=== PATIENT | male | born 1955 | race Caucasian/White ===

== ENCOUNTER 2016-08-18 15:04 | Inpatient (IN) | payer OTHER ==
--- NOTE | 2016-08-18 19:04 | HP ---
CIWA Score - CIWA Score Nausea/Vomitin-Mild Nausea/No Vomiting Muscle Tremors: 4-Moderate,w/Arms Extend Anxiety: 4-Mod. Anxious/Guarded Agitation: 4-Moderately Restless Paroxysmal Sweats: 2 Orientation: 0-Oriented Tacttile Disturbances: 0-None Auditory Disturbances: 0-None Visual Disturbances: 0-None Headache: 0-None Present CIWA-Ar Total Score: 15 Admission ROS BHS - HPI Chief Complaint: withdrawal sx Allergies/Adverse Reactions: Allergies Allergy/AdvReac Type Severity Reaction Status Date / Time No Known Allergies Allergy Verified 08/18/16 19:00 History of Present Illness: 61 years old male with long history of alcohol nicotine dependence, denies medical denies mental illness, longest sobriety 7 days is admitted to detox Exam Limitations: No Limitations - Ebola screening Have you traveled outside of the country in the last 21 days: No Have you had contact with anyone from an Ebola affected area: No Have you been sick,other than usual withdrawal symptoms: No Do you have a fever: No - Review of Systems Constitutional: Chills, Loss of Appetite, Changes in sleep, Unintentional Wgt. Loss EENT: reports: Dental Problems (no teeth able to chew regular food) Respiratory: reports: SOB with Exertion, Productive cough Cardiac: reports: Palpitations GI: reports: Nausea, Poor Appetite, Poor Fluid Intake, Indigestion, Abdominal cramping : reports: No Symptoms Reported Musculoskeletal: reports: Joint Pain (left hip sternal mid "hit" a month ago) Integumentary: reports: Change in Color (bruise mid sternal) Neuro: reports: Tremors Endocrine: reports: No Symptoms Reported Hematology: reports: No Symptoms Reported Psychiatric: reports: Judgement Intact, Mood/Affect Appropiate, Orientated x3 Other Systems: Reviewed and Negative Patient History - Patient Medical History Hx Anemia: No Hx Asthma: No Hx Chronic Obstructive Pulmonary Disease (COPD): Yes Hx Cancer: No Hx Cardiac Disorders: No Hx Congestive Heart Failure: No Hx Hypertension: No Hx Hypercholesterolemia: No Hx Pacemaker: No HX Cerebrovascular Accident: No Hx Seizures: No Hx Dementia: No Hx Diabetes: No Hx Gastrointestinal Disorders: No Hx Liver Disease: No Hx Genitourinary Disorders: No Hx Sexually Transmitted Disorders: No Hx Renal Disease (ESRD): No Hx Thyroid Disease: No Hx Human Immunodeficiency Virus (HIV): No Hx Hepatitis C: No Hx Depression: No Hx Suicide Attempt: No Hx Bipolar Disorder: No Hx Schizophrenia: No - Patient Surgical History Past Surgical History: No - PPD History Previous Implant?: Yes Documented Results: Negative w/o proof Implanted On Prior [facility] Admission?: No PPD to be Administered?: Yes - Smoking Cessation Smoking history: Current every day smoker Have you smoked in the past 12 months: Yes Aproximately how many cigarettes per day: 20 Cigars Per Day: 0 Hx Chewing Tobacco Use: No Initiated information on smoking cessation: Yes 'Breaking Loose' booklet given: 08/18/16 - Substance & Tx. History Hx Alcohol Use: Yes Hx Substance Use: No Substance Use Type: Alcohol Hx Substance Use Treatment: Yes - Substances Abused Alcohol Route: Oral Frequency: Daily Amount used: pint volka + 40 oz beer x 2 Age of first use: 18 Date of Last Use: 08/18/16 Family Disease History - Family Disease History Family Disease History: Diabetes: Mother, CA: Father (colon ), Sister ( breast ca) Admission Physical Exam [facility] - Physical General Appearance: Yes: Appropriately Dressed, Moderate Distress, Alcohol on Breath, Thin, Tremorous, Irritable, Sweating, Anxious HEENTM: Yes: Hearing grossly Normal, Normal ENT Inspection, Normocephalic, Normal Voice Respiratory: Yes: Chest Non-Tender, Labored Respiration, No Respiratory Distress , No Accessory Muscle Use, Rhonchi, Hyperresonant Neck: Yes: Supple, Trachea in good position Breast: Yes: Breasts Symetrical Cardiology: Yes: Regular Rhythm, S1, S2, Tachycardia Abdominal: Yes: Non Tender, Soft Genitourinary: Yes: Within Normal Limits Back: Yes: Normal Inspection Musculoskeletal: Yes: full range of Motion, Gait Steady, Back pain, Muscle Pain (mid steranal) Extremities: Yes: Normal Range of Motion, Non-Tender, Tremors Neurological: Yes: Fully Oriented, Alert, Motor Strength 5/5, Normal Mood/Affect , Normal Response Integumentary: Yes: Warm, Moist Lymphatic: Yes: Within Normal Limits - Diagnostic (1) Alcohol dependence with uncomplicated withdrawal Current Visit: Yes Status: Acute (2) Nicotine dependence Current Visit: Yes Status: Acute Qualifiers: Nicotine product type: cigarettes Substance use status: in withdrawal Qualified Code(s): F17.213 - Nicotine dependence, cigarettes, with withdrawal (3) Weight loss Current Visit: Yes Status: Acute (4) COPD (chronic obstructive pulmonary disease) Current Visit: Yes Status: Acute Qualifiers: COPD type: emphysema Emphysema type: other Qualified Code(s): J43.8 - Other emphysema (5) Bronchitis Current Visit: Yes Status: Acute Comment: Zithromax pack (6) Poor dentition Current Visit: Yes Status: Chronic Cleared for Admission B[facility] - Detox or Rehab B[facility] Level of Care: Medically Managed Detox Regimen/Protocol: Librium BHS Breath Alcohol Content Breath Alcohol Content: 0.266 Vital Signs - Vital Signs Vital Signs Refused: No Temperature: 96.2 F Temperature Source: Oral Pulse Rate: 100 Respiratory Rate: 18 Blood Pressure: 141/84 BP Location: Left Arm Blood Pressure Position: Sitting - Height Height: 5 ft 10 in - Weight Weight: 152 lb Weight Measurement Method: Standing Scale Body Mass Index (BMI): 21.8 - Bowel Function Bowel Movement: Yes
[2016-08-18 19:10] VITALS: BMI 21.8
[2016-08-18] MEDS ORDERED: guaiFENesin/D-METHORPHAN HB 10 ML UNIT-DOSE CUPS PO PRN (19:12)
[2016-08-18] MEDS ORDERED: MENTHOL/PHENOL 1 EACH UD MM PRN (19:12)
[2016-08-18] MEDS ORDERED: NICOTINE POLACRILEX 2 MG GUM BC PRN (19:12)
[2016-08-18] MEDS ORDERED: MAGNESIUM CITRATE 300 ML BOTTLE PO PRN (19:12)
[2016-08-18] MEDS ORDERED: P-EPHED 60MG/TRIPROLIDI 2.5MG TABLET PO PRN (19:12)
[2016-08-18] MEDS ORDERED: hydrOXYzine PAMOATE 50 MG CAPSULE (FP) PO PRN (19:12)
[2016-08-18] MEDS ORDERED: IBUPROFEN 400 MG TABLET (FP) PO PRN (19:12)
[2016-08-18] MEDS ORDERED: MAGNESIUM HYDROX 2400MG/30ML ORAL SUSPENSION 30 ML CUP PO PRN (19:12)
[2016-08-18] MEDS ORDERED: diphenhydrAMINE HCL 50 MG CAPSULE PO PRN (19:12)
[2016-08-18] MEDS ORDERED: ACETAMINOPHEN 325 MG TABLET (FP) PO PRN (19:12)
[2016-08-18] MEDS ORDERED: LOPERAMIDE HCL 2 MG CAPSULE PO PRN (19:12)
[2016-08-18] MEDS ORDERED: chlordiazePOXIDE HCL 25 MG CAPSULE PO ONE (19:12)
[2016-08-18] MEDS ORDERED: MAG HYDROX/AL HYDROX/SIMETH 30 ML UNIT-DOSE CUP PO PRN (19:12)
[2016-08-18] MEDS ORDERED: ALBUTEROL SO4 6.7 GM HFA INHALER IH PRN (19:19)
[2016-08-18] MEDS ORDERED: AZITHROMYCIN 250 MG TABLET (FP) PO ONE (19:20)
[2016-08-18] MEDS: chlordiazePOXIDE HCL 25 MG CAPSULE PO SCH (22:12)
[2016-08-18] MEDS: BUDESONIDE/FORMETEROL FUMARATE 80/4.5 mcg INHALER IH SCH (22:13)
[2016-08-18] MEDS: THIAMINE HCL 100 MG TABLET (FP) PO SCH (22:13)
[2016-08-18 22:36] LABS: URINE APPEARANCE CLEAR; URINE BILIRUBIN NEGATIVE (NEGATIVE); URINE BLOOD NEGATIVE (NEGATIVE); URINE COLOR STRAW; URINE GLUCOSE (UA) NEGATIVE (NEGATIVE); URINE KETONE NEGATIVE (NEGATIVE); URINE LEUK ESTERASE NEGATIVE (NEGATIVE); URINE NITRITE NEGATIVE (NEGATIVE); URINE PROTEIN NEGATIVE (NEGATIVE); URINE UROBILINOGEN NEGATIVE E.U./dl (0.2-1.0)
[2016-08-19] MEDS: chlordiazePOXIDE HCL 25 MG CAPSULE PO PRN ×2 (03:59→09:05)
[2016-08-19] MEDS: chlordiazePOXIDE HCL 25 MG CAPSULE PO SCH ×4 (05:59→22:05)
[2016-08-19] MEDS ORDERED: AZITHROMYCIN 250 MG TABLET (FP) PO ONE (09:36)
--- NOTE | 2016-08-19 09:46 | PN ---
S Progress Note (SOAP) Objective: 08/19/16 09:44 Vital Signs Temperature 96.1 F L 08/19/16 09:21 Pulse Rate 101 H 08/19/16 09:21 Respiratory Rate 16 08/19/16 09:21 Blood Pressure 122/74 08/19/16 09:21 O2 Sat by Pulse Oximetry (%) Laboratory Tests 08/18/16 22:00 Urine Color Straw Urine Appearance Clear Urine pH 5.0 Ur Specific [place] 1.005 Urine Protein Negative Urine Glucose (UA) Negative Urine Ketones Negative Urine Blood Negative Urine Nitrite Negative Urine Bilirubin Negative Urine Urobilinogen Negative Ur Leukocyte Esterase Negative Assessment: 08/19/16 09:44 withdrawl sx's
[2016-08-19] MEDS ORDERED: AZITHROMYCIN 250 MG TABLET (FP) PO SCH (10:00)
[2016-08-19] MEDS: PRENATAL VITAMINS W/ FOLIC ACID TABLET (FP) PO SCH (10:12)
[2016-08-19] MEDS: NICOTINE 21 MG/24 HOURS TOPICAL PATCH TD SCH (10:13)
[2016-08-19] MEDS: AZITHROMYCIN 250 MG TABLET (FP) PO SCH (10:13)
[2016-08-19 10:53] LABS: MCH 33.9 pg (25.7-33.7); MCHC 33.8 g/dl (32.0-35.9); MEAN CELL VOLUME 100.4 fl (80-96); MEAN PLT VOLUME 8.1 fl (7.5-11.1); PLATELET COUNT 180 K/MM3 (134-434); RDW 16.1 % (11.9-15.9); WHITE BLOOD COUNT 5.7 K/mm3 (4.0-10.0)
[2016-08-19 11:26] LABS: ALBUMIN 3.4 g/dl (3.4-5.0); ALK PHOS 118 U/L (45-117); ANION GAP 12 (8-16); BILIRUBIN,TOTAL 0.5 mg/dL (0.2-1.0); CALCIUM 8.3 mg/dL (8.5-10.1); CO2 25 mmol/L (21-32); CREATININE 0.8 mg/dL (0.7-1.3); GLUCOSE,RANDOM 93 mg/dL (74-106); SGOT/AST 42 U/L (15-37); SGPT/ALT 60 U/L (12-78); TOT PROT 6.7 g/dl (6.4-8.2)
--- NOTE | 2016-08-19 12:31 | EKG ---
Test Reason : Blood Pressure : / mmHG Vent. Rate : 096 BPM Atrial Rate : 096 BPM P-R Int : 138 ms QRS Dur : 158 ms QT Int : 406 ms P-R-T Axes : 072 -45 064 degrees QTc Int : 512 ms NORMAL SINUS RHYTHM POSSIBLE LEFT ATRIAL ENLARGEMENT LEFT AXIS DEVIATION LEFT VENTRICULAR HYPERTROPHY WITH QRS WIDENING ABNORMAL ECG NO PREVIOUS ECGS AVAILABLE Confirmed by MICHELLE PIÑA MD ([id number]) on 08/19/2016 12:31:06 PM Referred By: Confirmed By:MICHELLE PIÑA MD
--- NOTE | 2016-08-19 14:39 | PN ---
S CIWA - CIWA Score Nausea/Vomitin Muscle Tremors: 4-Moderate,w/Arms Extend Anxiety: 3 Agitation: 3 Paroxysmal Sweats: 3 Orientation: 0-Oriented Tacttile Disturbances: 0-None Auditory Disturbances: 0-None Visual Disturbances: 0-None Headache: 0-None Present CIWA-Ar Total Score: 16 S Progress Note (SOAP) Subjective: interrupted sleep, sweats, shakes , cough , phlegm Objective: 08/19/16 14:36 Vital Signs Temperature 97.7 F 08/19/16 14:03 Pulse Rate 99 H 08/19/16 14:03 Respiratory Rate 16 08/19/16 14:03 Blood Pressure 150/82 08/19/16 14:03 O2 Sat by Pulse Oximetry (%) Laboratory Tests 08/18/16 08/19/16 08/19/16 22:00 07:00 07:00 WBC 5.7 RBC 3.66 L Hgb 12.4 Hct 36.8 MCV 100.4 H MCHC 33.8 RDW 16.1 H Plt Count 180 MPV 8.1 Sodium 141 Potassium 4.1 Chloride 104 Carbon Dioxide 25 Anion Gap 12 BUN 11 Creatinine 0.8 Creat Clearance w eGFR > 60 Random Glucose 93 Calcium 8.3 L Total Bilirubin 0.5 AST 42 H ALT 60 Alkaline Phosphatase 118 H Total Protein 6.7 Albumin 3.4 Urine Color Straw Urine Appearance Clear Urine pH 5.0 Ur Specific [place] 1.005 Urine Protein Negative Urine Glucose (UA) Negative Urine Ketones Negative Urine Blood Negative Urine Nitrite Negative Urine Bilirubin Negative Urine Urobilinogen Negative Ur Leukocyte Esterase Negative RPR Titer 08/19/16 07:00 WBC RBC Hgb Hct MCV MCHC RDW Plt Count MPV Sodium Potassium Chloride Carbon Dioxide Anion Gap BUN Creatinine Creat Clearance w eGFR Random Glucose Calcium Total Bilirubin AST ALT Alkaline Phosphatase Total Protein Albumin Urine Color Urine Appearance Urine pH Ur Specific [place] Urine Protein Urine Glucose (UA) Urine Ketones Urine Blood Urine Nitrite Urine Bilirubin Urine Urobilinogen Ur Leukocyte Esterase RPR Titer Nonreactive pt aox3 in nad lying in bed with tremors lungs rhonchi 08/19/16 14:38 Assessment: 08/19/16 14:37 withdrawl sx's cough ,bronchitis r/o pn Plan: cont. detox increase fluids cxr z pk
[2016-08-19] MEDS: BUDESONIDE/FORMETEROL FUMARATE 80/4.5 mcg INHALER IH SCH ×2 (17:48→22:58)
[2016-08-19] MEDS: THIAMINE HCL 100 MG TABLET (FP) PO SCH (22:05)
[2016-08-20] MEDS: chlordiazePOXIDE HCL 25 MG CAPSULE PO SCH ×3 (05:33→18:04)
[2016-08-20] MEDS: PRENATAL VITAMINS W/ FOLIC ACID TABLET (FP) PO SCH (10:15)
[2016-08-20] MEDS: AZITHROMYCIN 250 MG TABLET (FP) PO SCH (10:15)
[2016-08-20] MEDS: BUDESONIDE/FORMETEROL FUMARATE 80/4.5 mcg INHALER IH SCH ×2 (10:15→22:16)
[2016-08-20] MEDS: NICOTINE 21 MG/24 HOURS TOPICAL PATCH TD SCH (10:16)
--- NOTE | 2016-08-20 12:49 | PN ---
BHS Progress Note (SOAP) Subjective: shakes sweats irritable interrupted sleep Objective: 08/20/16 12:48 Vital Signs Temperature 97.0 F L 08/20/16 09:54 Pulse Rate 83 08/20/16 09:54 Respiratory Rate 18 08/20/16 09:54 Blood Pressure 134/86 08/20/16 09:54 O2 Sat by Pulse Oximetry (%) Laboratory Tests 08/18/16 08/19/16 08/19/16 22:00 07:00 07:00 WBC 5.7 RBC 3.66 L Hgb 12.4 Hct 36.8 MCV 100.4 H MCHC 33.8 RDW 16.1 H Plt Count 180 MPV 8.1 Sodium 141 Potassium 4.1 Chloride 104 Carbon Dioxide 25 Anion Gap 12 BUN 11 Creatinine 0.8 Creat Clearance w eGFR > 60 Random Glucose 93 Calcium 8.3 L Total Bilirubin 0.5 AST 42 H ALT 60 Alkaline Phosphatase 118 H Total Protein 6.7 Albumin 3.4 Urine Color Straw Urine Appearance Clear Urine pH 5.0 Ur Specific [place] 1.005 Urine Protein Negative Urine Glucose (UA) Negative Urine Ketones Negative Urine Blood Negative Urine Nitrite Negative Urine Bilirubin Negative Urine Urobilinogen Negative Ur Leukocyte Esterase Negative RPR Titer 08/19/16 07:00 WBC RBC Hgb Hct MCV MCHC RDW Plt Count MPV Sodium Potassium Chloride Carbon Dioxide Anion Gap BUN Creatinine Creat Clearance w eGFR Random Glucose Calcium Total Bilirubin AST ALT Alkaline Phosphatase Total Protein Albumin Urine Color Urine Appearance Urine pH Ur Specific [place] Urine Protein Urine Glucose (UA) Urine Ketones Urine Blood Urine Nitrite Urine Bilirubin Urine Urobilinogen Ur Leukocyte Esterase RPR Titer Nonreactive awake/alert ambulating no acute distress Assessment: 08/20/16 12:49 withdrawal sx Plan: continue detox increase fluids librium prn
[2016-08-20] MEDS: chlordiazePOXIDE 5 MG CAPSULE PO SCH (22:16)
[2016-08-20] MEDS: THIAMINE HCL 100 MG TABLET (FP) PO SCH (22:16)
[2016-08-21] MEDS: chlordiazePOXIDE 5 MG CAPSULE PO SCH ×3 (06:25→17:32)
[2016-08-21] MEDS: PRENATAL VITAMINS W/ FOLIC ACID TABLET (FP) PO SCH (11:04)
[2016-08-21] MEDS: AZITHROMYCIN 250 MG TABLET (FP) PO SCH (11:04)
--- NOTE | 2016-08-21 11:25 | PN ---
BHS Progress Note (SOAP) Subjective: aches, poor sleep, anxious Objective: 08/21/16 11:24 Vital Signs - 24 hr 08/20/16 08/20/16 08/20/16 15:03 18:15 22:26 Temperature 97.2 F L 98.2 F 97.5 F L Pulse Rate 99 H 73 85 Respiratory 18 18 18 Rate Blood Pressure 115/75 123/84 141/85 08/21/16 08/21/16 08/21/16 00:30 03:30 06:52 Temperature 97.5 F L Pulse Rate 64 Respiratory 18 18 16 Rate Blood Pressure 125/65 08/21/16 09:48 Temperature 97.6 F Pulse Rate 88 Respiratory 18 Rate Blood Pressure 131/78 Laboratory Tests 08/18/16 08/19/16 08/19/16 22:00 07:00 07:00 WBC 5.7 RBC 3.66 L Hgb 12.4 Hct 36.8 MCV 100.4 H MCHC 33.8 RDW 16.1 H Plt Count 180 MPV 8.1 Sodium 141 Potassium 4.1 Chloride 104 Carbon Dioxide 25 Anion Gap 12 BUN 11 Creatinine 0.8 Creat Clearance w eGFR > 60 Random Glucose 93 Calcium 8.3 L Total Bilirubin 0.5 AST 42 H ALT 60 Alkaline Phosphatase 118 H Total Protein 6.7 Albumin 3.4 Urine Color Straw Urine Appearance Clear Urine pH 5.0 Ur Specific [place] 1.005 Urine Protein Negative Urine Glucose (UA) Negative Urine Ketones Negative Urine Blood Negative Urine Nitrite Negative Urine Bilirubin Negative Urine Urobilinogen Negative Ur Leukocyte Esterase Negative RPR Titer 08/19/16 07:00 WBC RBC Hgb Hct MCV MCHC RDW Plt Count MPV Sodium Potassium Chloride Carbon Dioxide Anion Gap BUN Creatinine Creat Clearance w eGFR Random Glucose Calcium Total Bilirubin AST ALT Alkaline Phosphatase Total Protein Albumin Urine Color Urine Appearance Urine pH Ur Specific [place] Urine Protein Urine Glucose (UA) Urine Ketones Urine Blood Urine Nitrite Urine Bilirubin Urine Urobilinogen Ur Leukocyte Esterase RPR Titer Nonreactive Assessment: 08/21/16 11:24 ongoing withdrawal Plan: continue detox protocol
[2016-08-21] MEDS: NICOTINE 21 MG/24 HOURS TOPICAL PATCH TD SCH (11:41)
[2016-08-21] MEDS: BUDESONIDE/FORMETEROL FUMARATE 80/4.5 mcg INHALER IH SCH ×2 (11:41→22:09)
[2016-08-21] MEDS: chlordiazePOXIDE HCL 25 MG CAPSULE PO PRN (13:52)
[2016-08-21] MEDS: chlordiazePOXIDE HCL 10 MG CAPSULE PO SCH (22:09)
[2016-08-21] MEDS: THIAMINE HCL 100 MG TABLET (FP) PO SCH (22:09)
[2016-08-22] MEDS: chlordiazePOXIDE HCL 10 MG CAPSULE PO SCH (05:52)
[2016-08-22] MEDS: BUDESONIDE/FORMETEROL FUMARATE 80/4.5 mcg INHALER IH SCH (09:33)
[2016-08-22] MEDS: PRENATAL VITAMINS W/ FOLIC ACID TABLET (FP) PO SCH (09:33)
[2016-08-22] MEDS: AZITHROMYCIN 250 MG TABLET (FP) PO SCH (09:33)
--- NOTE | 2016-08-22 09:37 | PN ---
S Progress Note (SOAP) Subjective: no complaints Objective: 08/22/16 09:35 Vital Signs - 8 hr 08/22/16 08/22/16 03:30 06:00 Temperature 97.3 F L Pulse Rate 69 Respiratory 16 16 Rate Blood Pressure 121/69 Laboratory Tests 08/18/16 08/19/16 08/19/16 22:00 07:00 07:00 WBC 5.7 RBC 3.66 L Hgb 12.4 Hct 36.8 MCV 100.4 H MCHC 33.8 RDW 16.1 H Plt Count 180 MPV 8.1 Sodium 141 Potassium 4.1 Chloride 104 Carbon Dioxide 25 Anion Gap 12 BUN 11 Creatinine 0.8 Creat Clearance w eGFR > 60 Random Glucose 93 Calcium 8.3 L Total Bilirubin 0.5 AST 42 H ALT 60 Alkaline Phosphatase 118 H Total Protein 6.7 Albumin 3.4 Urine Color Straw Urine Appearance Clear Urine pH 5.0 Ur Specific [place] 1.005 Urine Protein Negative Urine Glucose (UA) Negative Urine Ketones Negative Urine Blood Negative Urine Nitrite Negative Urine Bilirubin Negative Urine Urobilinogen Negative Ur Leukocyte Esterase Negative RPR Titer 08/19/16 07:00 WBC RBC Hgb Hct MCV MCHC RDW Plt Count MPV Sodium Potassium Chloride Carbon Dioxide Anion Gap BUN Creatinine Creat Clearance w eGFR Random Glucose Calcium Total Bilirubin AST ALT Alkaline Phosphatase Total Protein Albumin Urine Color Urine Appearance Urine pH Ur Specific [place] Urine Protein Urine Glucose (UA) Urine Ketones Urine Blood Urine Nitrite Urine Bilirubin Urine Urobilinogen Ur Leukocyte Esterase RPR Titer Nonreactive macrocytosis Assessment: 08/22/16 09:36 completed detox, medically stable, alcohol hepatitis Plan: d/c today, fluids, going to [facility] today.
--- NOTE | 2016-08-22 09:38 | DS ---
[facility] Detox Discharge Summary Admission Date: 08/18/16 Discharge Date: 08/22/16 - History Present History: Alcohol Dependence Pertinent Past History: nicotine dependence with withdrawal, bronchitis, copd, anxiety, depresssion and insomnia - Physical Exam Results Vital Signs: Vital Signs Temperature 97.3 F L 08/22/16 06:00 Pulse Rate 69 08/22/16 06:00 Respiratory Rate 16 08/22/16 06:00 Blood Pressure 121/69 08/22/16 06:00 O2 Sat by Pulse Oximetry (%) Pertinent Admission Physical Exam Findings: withdrawal sx - Treatment Hospital Course: Detox Protocol Followed, Detoxed Safely, Responded well, Discharged Condition Good, Rehab Referral Accepted - Medication Discharge Medications: Ambulatory Orders NK [No Known Home Medication] 08/18/16 - Diagnosis (1) Alcohol dependence with uncomplicated withdrawal Current Visit: Yes Status: Chronic (2) Bronchitis Current Visit: Yes Status: Chronic (3) COPD (chronic obstructive pulmonary disease) Current Visit: Yes Status: Chronic Qualifiers: COPD type: emphysema Emphysema type: other Qualified Code(s): J43.8 - Other emphysema (4) Nicotine dependence Current Visit: Yes Status: Acute Qualifiers: Nicotine product type: cigarettes Substance use status: in withdrawal Qualified Code(s): F17.213 - Nicotine dependence, cigarettes, with withdrawal (5) Weight loss Current Visit: Yes Status: Acute (6) Poor dentition Current Visit: Yes Status: Chronic - AMA Did Patient Leave Against Medical Advice: No
[2016-08-22 10:23] VITALS: BP 143/86; PULSE 93; TEMP 96.9
== END 2016-08-22 09:45 | disposition home or self-care (01) | DRG 775 ==
LOC: YASAS 15:04 → Y6N 19:39
PROVIDERS: ADMIT Internal Medicine; ATTEND Internal Medicine
PROC: HZ2ZZZZ Detoxification Services for Substance Abuse Treatment (ICD-10-PCS; principal; 2016-08-18)
DX: F10.230 Alcohol dependence with withdrawal, uncomplicated (principal); F17.210 Nicotine dependence, cigarettes, uncomplicated; J40 Bronchitis, not specified as acute or chronic; J43.8 Other emphysema; R00.0 Tachycardia, unspecified; K00.7 Teething syndrome; D75.89 Other specified diseases of blood and blood-forming organs; K70.10 Alcoholic hepatitis without ascites; Z87.898 Personal history of other specified conditions
CPT/HCPCS: 36415; 71020-TC; 80053; 81003; 85027; 86593; 93005; 93010

== ENCOUNTER 2016-12-23 11:07 | Inpatient (IN) | payer OTHER ==
[2016-12-23] MEDS ORDERED: chlordiazePOXIDE HCL 25 MG CAPSULE PO ONE (12:01)
[2016-12-23] MEDS ORDERED: FOLIC ACID INJECTION - 1 MG, THIAMINE HCL 100 MG, MULTIVIT INJECTION ADULT 10 ML in SOD... IVPB ONE (12:01)
[2016-12-23] MEDS ORDERED: chlordiazePOXIDE HCL 25 MG CAPSULE ONE (12:08)
--- NOTE | 2016-12-23 12:13 | PDOC ---
History of Present Illness - General Chief Complaint: Alcohol intoxication Stated Complaint: FALL/DROX Time Seen by Provider: 12/23/16 11:22 History Source: Patient - History of Present Illness Associated Symptoms: reports: loss of appetite. denies: cough, fever/chills, nausea/vomiting, shortness of breath Past History - Past Medical History Allergies/Adverse Reactions: Allergies Allergy/AdvReac Type Severity Reaction Status Date / Time No Known Allergies Allergy Verified 12/23/16 11:40 Home Medications: Ambulatory Orders NK [No Known Home Medication] 12/23/16 Anemia: No Asthma: No Cancer: No Cardiac Disorders: No CVA: No COPD: Yes CHF: No Dementia: No Diabetes: No GI Disorders: No Disorders: No HTN: No Hypercholesterolemia: No Kidney Stones: No Liver Disease: No Suicide Attempt (Hx): No Seizures: No Thyroid Disease: No - Surgical History Abdominal Surgery: No Appendectomy: No Cardiac Surgery: No Cholecystectomy: No Lung Surgery: No Neurologic Surgery: No Orthopedic Surgery: No - Reproductive History Testicular Surgery: No - Psycho/Social/Smoking Cessation Hx Anxiety: No Suicidal Ideation: No Smoking History: Unknown if ever smoked Have you smoked in the past 12 months: Yes Number of Cigarettes Smoked Daily: 20 Cigars Per Day: 0 Information on smoking cessation initiated: No 'Breaking Loose' booklet given: 08/18/16 Hx Alcohol Use: No Drug/Substance Use Hx: No Substance Use Type: Alcohol Hx Substance Use Treatment: Yes Review of Systems - Review of Systems Constitutional: Yes: Weakness. No: Fever HEENTM: No: Blurred Vision Respiratory: No: Cough, Shortness of Breath Cardiac (ROS): No: Chest Pain ABD/GI: No: Constipated, Diarrhea, Nausea, Vomiting : No: Dysuria Neurological: No: Headache, Dizziness *Physical Exam - Vital Signs Last Vital Signs Temp Pulse Resp BP Pulse Ox 97.5 F L 91 H 18 111/75 98 12/23/16 11:36 12/23/16 11:36 12/23/16 11:36 12/23/16 11:36 12/23/16 11:36 - Physical Exam General Appearance: Yes: Appropriately Dressed. No: Apparent Distress HEENT: positive: Normal Voice Neck: positive: Supple Respiratory/Chest: positive: Lungs Clear, Normal Breath Sounds. negative: Respiratory Distress Cardiovascular: positive: Regular Rate, S1, S2 Gastrointestinal/Abdominal: positive: Soft Musculoskeletal: negative: CVA Tenderness Extremity: positive: Normal Inspection Integumentary: positive: Dry, Warm Neurologic: positive: Fully Oriented, Alert, Normal Mood/Affect, Other (no tremors/asterixis) ED Treatment Course - LABORATORY CBC & Chemistry Diagram: 12/23/16 12:15 12/23/16 12:15 Medical Decision Making - Medical Decision Making 12/23/16 12:08 61 yo male, nicotine and ETOH dependence, anxiety, depression, insomnia, COPD, BIB EMS after found sleeping on the street per pt. Pt states his last ETOH intake was yesterday. Feels weak "from not eating" per pt. No trauma. No dizziness, tremors, visual changes or TESFAYE. Denies abd pain, change in BM, dysuria , CP or SOB. Requesting detox at this time. Last admission to [facility] was 08/11 See exam ?ETOH withdrawal Stable and alert in ED w/ no s/o withdrawal at this time No trauma -librium prophylaxis -banana bag -basic labs -reassess -requesting detox 12/23/16 12:17 12/23/16 14:22 Multiple Abnormalities on labs, including hyponatremia 121, and acute renal failure to 2.2. Meds in progress. Case discussed the hospitalist and patient admitted *DC/Admit/Observation/Transfer Diagnosis at time of Disposition: Hyponatremia, Hypokalemia, Dehydration, ETOH abuse ARF (acute renal failure) Qualifiers: Acute renal failure type: unspecified Qualified Code(s): N17.9 - Acute kidney failure, unspecified - Discharge Dispostion Condition at time of disposition: Fair Admit: Yes - Referrals Referrals: STAFF,NOT ON [Primary Care Provider] -
[2016-12-23 12:24] LABS: MCH 32.1 pg (25.7-33.7); MCHC 34.5 g/dl (32.0-35.9); MEAN CELL VOLUME 93.2 fl (80-96); MEAN PLT VOLUME 8.6 fl (7.5-11.1); PLATELET COUNT 224 K/MM3 (134-434); RDW 15.6 % (11.9-15.9)
[2016-12-23 12:44] LABS: ALBUMIN 3.3 g/dl (3.4-5.0); BILIRUBIN,TOTAL 1.6 mg/dL (0.2-1.0); CALCIUM 9.8 mg/dL (8.5-10.1); COCKROFT - GAULT 31.27; CREATININE 2.2 mg/dL (0.7-1.3); TOT PROT 6.9 g/dl (6.4-8.2)
[2016-12-23] MEDS ORDERED: SODIUM CHLORIDE 1,000 ML IV STA ×2 (12:59→15:11)
[2016-12-23] MEDS ORDERED: KCL 10 MEQ IVPB 300 ML IVPB ONE (13:18)
[2016-12-23] MEDS: KCL 10 MEQ IVPB 100 ML IVPB SCH ×6 (13:29→23:17)
--- NOTE | 2016-12-23 14:29 | PDOC ---
*Physical Exam - Vital Signs Last Vital Signs Temp Pulse Resp BP Pulse Ox 97.5 F L 91 H 18 111/75 98 12/23/16 11:36 12/23/16 11:36 12/23/16 11:36 12/23/16 11:36 12/23/16 11:36 ED Treatment Course - LABORATORY CBC & Chemistry Diagram: 12/23/16 12:15 12/23/16 12:15 - ADDITIONAL ORDERS Additional order review: Laboratory Results 12/23/16 12:15 Sodium 121 L* D Potassium 2.5 L* D Chloride 77 L D Carbon Dioxide 19 L D Anion Gap 25 H BUN 25 H D Creatinine 2.2 H D Creat Clearance w eGFR 30.48 Random Glucose 213 H D Calcium 9.8 Total Bilirubin 1.6 H D AST 69 H D ALT 51 Alkaline Phosphatase 110 Total Protein 6.9 Albumin 3.3 L 12/23/16 12:15 RBC 4.17 MCV 93.2 MCHC 34.5 RDW 15.6 MPV 8.6 Neutrophils % Y Lymphocytes % Y - RADIOLOGY Radiology Studies Ordered: Category Date Time Status HEAD CT WITHOUT CONTRAST [CT] Stat CT Scan 12/23/16 14:19 Ordered - Medications Given in the ED: ED Medications Discontinued Medications Generic Name Dose Route Start Last Admin Trade Name Freq PRN Reason Stop Dose Admin Chlordiazepoxide HCl 50 mg 12/23/16 12:01 12/23/16 12:10 Librium - PO 12/23/16 12:02 50 mg ONCE ONE Administration Sodium Chloride 1,000 mls @ 1,000 mls/hr 12/23/16 12:59 12/23/16 13:17 Normal Saline - IV 12/23/16 13:58 1,000 mls/hr ASDIR STA Administration *DC/Admit/Observation/Transfer Diagnosis at time of Disposition: Hyponatremia, Hypokalemia, Dehydration, ETOH abuse ARF (acute renal failure) Qualifiers: Acute renal failure type: unspecified Qualified Code(s): N17.9 - Acute kidney failure, unspecified - Discharge Dispostion Condition at time of disposition: Fair Admit: Yes Decision to Admit order Date/Time: Decision to Admit Order Category Date Time Status Decision to Admit to Hospital Routine Admission 12/23/16 14:21 Active - Referrals Referrals: STAFF,NOT ON [Primary Care Provider] - - Patient Instructions - Post Discharge Activity
[2016-12-23 14:38] LABS: PLATELET ESTIMATE ADEQUATE (NORMAL)
[2016-12-23] MEDS ORDERED: ALBUTEROL SO4 0.083% IH SOL 2.5 MG/3 ML VIAL.NEB. NEB PRN (14:40)
[2016-12-23] MEDS ORDERED: SODIUM CHLORIDE 1,000 ML IV SCH ×2 (14:45→15:30)
[2016-12-23] MEDS ORDERED: chlordiazePOXIDE HCL 25 MG CAPSULE PO PRN (14:49)
[2016-12-23 15:23] LABS: URINE APPEARANCE CLEAR; URINE BILIRUBIN NEGATIVE (NEGATIVE); URINE COLOR YELLOW; URINE GLUCOSE (UA) 1+ (NEGATIVE); URINE KETONE 1+ (NEGATIVE); URINE LEUK ESTERASE NEGATIVE (NEGATIVE); URINE NITRITE NEGATIVE (NEGATIVE); URINE UROBILINOGEN 2.0 E.U/dl E.U./dl (0.2-1.0)
[2016-12-23 15:27] LABS: URINE BLOOD 2+ (NEGATIVE); URINE PROTEIN 2+ (NEGATIVE)
[2016-12-23 15:29] LABS: URINE MARIJUANA THC NEGATIVE ng/ml (CUTOFF=50)
[2016-12-23 15:31] LABS: GRANULAR CASTS 26 /lpf; URINE HYALINE CAST 5 /lpf; URINE MUCUS RARE; URINE RBC 1 /hpf (0-3); URINE WBC 3 /hpf (3-5)
[2016-12-23] MEDS ORDERED: POTASSIUM CHLORIDE TABS 20 MEQ TABLET.ER (FP) PO ONE (15:32)
[2016-12-23 15:34] LABS: ALCOHOL < 5.0 mg/dl (0-5)
--- NOTE | 2016-12-23 15:35 | MSN ---
Admitting History and Physical - Admission Chief Complaint: ETOH detoxification History of Present Illness: Patient is a 61 year old male found sleeping by the ambulances outside of [facility]. patient was brought into the ER by hospital staff. Upon interview patient stated that he was attempting to walk to the hospital for detoxification form alcohol. Patient stated that he has difficulty "walking more than 50 feet" and felt tired while walking to the hospital. Patient stopped to sit down when he "passed out and fell to the ground." Patient has a significant history of continuous alcohol dependence. Patient reported that his last drink was a pint of vodka the previous morning. patient denies and shortness of breath, chest pain, palpitations, nausea, vomiting, diarrhea, fever or chills. 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, CVA, Dementia, Migraine, Multiple Sclerosis, Peripheral Neuropathy, Parkinson's, Seizure, Syncope, TIA, Vertigo, Other Cardiovascular: No: AFIB, Aneurysm, Aortic Insufficiency, Aortic Stenosis, CAD, CHF, Deep Vein Thrombosis, HTN, Hyperlipdemia, ND, Mitral Insufficiency, Mitral Stenosis, Murmur, Pulmonary Hypertension, Other Pulmonary: No: Asthma, Bronchitis, Cancer, COPD, O2 Dependent, Pneumonia, Previously Intubated, Pulmonary Embolus, Pulmonary Fibrosis, Sleep Apnea, Other Gastrointestinal: No: Ascites, Cancer, Constipation, Crohn's Disease, Diverticulitis, Diverticulosis, Esophageal Varices, Gastritis, GERD, GI Bleed, Hemorrhoids, Hiatal Hernia, Inflamatory Bowel Disease, Irritable Bowel Disease, Pancreatitis, Peptic Ulcer Disease, Ulcerative Colitis, Other Hepatobiliary: No: Cirrhosis, Cholelithiasis, Cholecystitis, Choledocholithiasis , Hepatitis A, Hepatitis B, Hepatitis C, Other Renal/: Yes: Renal Failure (ac). No: Renal Inusuff, BPH, Cancer, Hematuria, Hemodialysis, Neurogenic Bladder, Renal Calculi, UTI, Other Heme/Onc: No: Anemia, B12 Deficiency, Bleeding Disorder, Cancer, Current Chemotherapy, Current Radiation Therapy, Hemochromatosis, Hypercoaguable State, Myeloproliferative Synd, Sickle Cell Disease, Sickle Cell Trait, Thrombocytopenia, Other Infectious Disease: No: AIDS, C-Diff, Herpes Zoster, HIV, MRSA, STD's, Tuberculosis, VREF, Other Psych: Yes: Addictions (Alcohol and Nicotine) Rheumatology: No: Fibromyalgia, Gout, Lupus, Rheumatoid Arthritis, Sarcoidosis, Vasculitis, Other ENT: No: Allergic Rhinitis, Sinusitis, Other Endocrine: No: Oumar's Disease, Mayfield's Disease, Diabetes Insipidus, Diabetes Mellitus, Hyperparathyroidism, Hyperthyroidism, Hypothyroidism, Osteopenia, SIADH, Other Dermatology: No: Basal Cell, Cellulitis, Eczema, Melanoma, Psoriasis, Squamous Cell, Other - Past Surgical History Past Surgical History: No: None, AAA Repair, AICD, Amputation, Appendectomy, Arthrosocopy, AV Fistula/Graft, Bariatric Surgery, Breast Biopsy, Bypass, CABG, Carotid Endarterectomy, Cataract Removal, Cholecystectomy, Colectomy, Colonoscopy, Colostomy, Craniotomy, , Cystectomy, Hernia Repair, Hysterectomy, Ileal Conduit, Ileosotomy, Joint Replacement, Kidney Transplant, Laminectomy, Liver Transplant, Mastectomy, Nephrectomy, Oopherectomy, Orchiectomy, Permanent Pacemaker, Prostatectomy, Splenectomy, Stent, Thoracotomy , TURP, Tonsillectomy, Tubal Ligation, Upper Endoscopy, Valve Replacement, Vasectomy, Vein Stripping/Ligation - Advance Directives Advance Directives: No: Living Will, Health Care Proxy, DNR, Organ Donor, Tissue Donor, MOLST - Smoking History Smoking history: Current every day smoker (1 pack per day for the past 30 years) Have you smoked in the past 12 months: Yes Aproximately how many cigarettes per day: 20 (for 30 years) - Alcohol/Substance Use Hx Alcohol Use: Yes (Drinks 1.7L per day for the last 3 months) History of Substance Use: reports: Prescription. denies: None, Cocaine, Heroin , Marijuana, Tranquilizers - Social History Usual Living Arrangement: Yes: Other (with friend) ADL: Independent Occupation: unemployed Other Social History: when questioned patient stated that he has through about cutting down on his drinking, has felt anger towards others for commenting on his drinking, has felt guilty about his drinking and has felt the need to have a drink when he gets up in the morning. Home Medications - Allergies Allergies/Adverse Reactions: Allergies Allergy/AdvReac Type Severity Reaction Status Date / Time No Known Allergies Allergy Verified 12/23/16 11:40 - Home Medications Home Medications: Ambulatory Orders NK [No Known Home Medication] 12/23/16 Family Disease History - Family Disease History Family Disease History: Diabetes: Mother, CA: Father (colon ), Sister ( breast ca) Review of Systems - Review of Systems Constitutional: denies: No Symptoms, Chills, Diaphoresis, Fever, Lethargy, Loss of Appetite, Malaise, Night Sweats, Unintentional Wgt. Loss, Weakness, Other Eyes: denies: No Symptoms, Blind Spots, Blurred Vision, Double Vision, Eye Pain , Floaters, Photophobia, Recent Change in Vision, Other HENT: denies: No Symptoms, Difficult Swallowing, Ear Discharge, Ear Pain, Epistaxis, Gingival Bleeding, Hearing Loss, Mouth Swelling, Nasal Congestion, Ocular Prosthesis, Throat Pain, Toothache, Ringing in Ears, Other Cardiovascular: denies: No Symptoms, Chest Pain, Edema, Palpitations, Shortness of Breath, Other Respiratory: denies: No Symptoms, Cough, Exercise Intolerance, Hemoptysis, Orthopnea, PND, Snoring, SOB, SOB on Exertion, Wheezing, Other Gastrointestinal: denies: No Symptoms, Abdominal Pain, Bloating, Constipation, Diarrhea, Dysphagia, Indigestion, Melena, Nausea, Rectal Bleeding, Vomiting, Vomiting Blood, Other Musculoskeletal: denies: No Symptoms, Back Pain, Crepitus, Decreased ROM, Extremity Pain, Joint Pain, Joint Swelling, Muscle Pain, Muscle Cramps, Muscle Weakness, Other Neurological: reports: No Symptoms (patient was intoxicated). denies: Change in LOC, Change in Speech, Confusion, Dizziness, Headache, Incoordination, Numbness, Parasthesia, Pre-Existing Deficit, Seizure, Syncope, Tremors, Unsteady Gait, Weakness, Other Physical Examination Vital Signs: Vital Signs Temperature 97.5 F L 12/23/16 11:36 Pulse Rate 91 H 12/23/16 11:36 Respiratory Rate 18 12/23/16 11:36 Blood Pressure 111/75 12/23/16 11:36 O2 Sat by Pulse Oximetry (%) 98 12/23/16 11:36 Constitutional: No: Well Nourished, No Distress, Calm, Anxious, Ashen, Cachectic , Diaphoresis, Mild Distress, Moderate Distress, Severe Distress, Obese, Pallor , Poor Hygeine, Thin, Other Eyes: No: WNL, Conjunctiva Clear, EOM Intact, Cataracts, Diplopia, Occular Prosthesis, PERRL, Ptosis, Sclera Icterus, Tearing, Other HENT: No: WNL, Atraumatic, Normocephalic, Drooling, Epistaxis, Hoarseness, Nasal Congestion, Pharyngeal Erythema, Rhinnorhea, Thrush, Tonsillar Exudate, Other Cardiovascular: No: WNL, Regular Rate and Rhythm, Bradycardia, Tachycardia, Pulse Irregular, Bruit, JVD, Gallop, Murmur, Rub, S1, S2, S3, S4, Varicosities, Other Respiratory: No: WNL, Regular, CTA Bilaterally, Accessory Muscle Use, Bradypnea , Leon-Solomon, Cough, Diminished, Dullness, Hyperresonant, Intubated, Kussmaul , Mechanically Ventilated, On BiPap, On Nasal O2, On Venti-Mask, Orthopnea, Poor Air Entry, Rales, Rhonchi, SOB, SOB on Exertion, Stridor, Tachypnea, Wheezes, Other Gastrointestinal: No: WNL, Normal Bowel Sounds, Soft, Abdomen, Obese, Ascites, Distention, Hematemesis, Hemorrhoids, Hepatomegaly, Hernia, Hyperactive Bowel Sounds, Hypoactive Bowel Sounds, Melena, Palpable Mass, Pulsatile Mass, Rectal Bleeding, Splenomegaly, Tenderness, Tenderness, Epigastrium, Tenderness, Rebound , Vomiting, Other Extremities: No: WNL, Amputation, Calf Tenderness, Cold, Cool, Cyanosis, Deformity, Delayed Capillary Refill, Erythema, External Rotation, Internal Rotation, Pallor, Shortened, Other Edema: No Peripheral Pulses WNL: Yes Peripheral Pulses: Left Radial: 4+, Right Radial: 4+, Left Doralis Pedis: 4+, Right Dorsalis Pedis: 4+ Neurological: No: WNL, Alert, Oriented, Aphasia, Asterixis, Ataxia, Babinski positive, Babinski negative, Confusion, Cran Nerves II-XII Intact, Dysarthria, Facial Droop, Lethargy, Loss of Sensation, Numbness, Paresthesia, Pre-Existing Deficit, Seizure, Tingling, Tremors, Unresponsive, Unsteady Gait, Weakness, Other Imaging - Results Cat Scan: Pending EKG: Pending Assessment/Plan Patient is a 61 year old male with a previous history of continuous alcohol and nicotine dependence. Patient is seeking detoxifcation and is presenting with moderate hyponatremia, severe hypokalemia, acute kidney failure and nicotine dependence. Moderate hyponatremia secondary to ETOH consumption received bolus IV saline in the ED order maintenance dose of IV saline 125 ml/hr q4 hrs repeated laboratory studies Severe hypokalemia secondary to ETOH consumption 3 bags of KCl 10meq ordered with 40 meq KCl PO Acute Kidney Failure secondary to dehydration continue IV saline at 125 ml/hr q4 hrs Nicotine Dependence 25mg td daily Labs Lab Results: Laboratory Results - last 24 hr 12/23/16 12/23/16 12/23/16 12:15 12:15 15:10 WBC 16.0 H D RBC 4.17 Hgb 13.4 Hct 38.9 MCV 93.2 MCHC 34.5 RDW 15.6 Plt Count 224 D MPV 8.6 Neutrophils % 91.0 H Lymphocytes % 1.0 L Monocytes % 8.0 Differential Comment Manual diff done Platelet Estimate Adequate INR Sodium 121 L* D Potassium 2.5 L* D Chloride 77 L D Carbon Dioxide 19 L D Anion Gap 25 H BUN 25 H D Creatinine 2.2 H D Creat Clearance w eGFR 30.48 Random Glucose 213 H D Lactic Acid Calcium 9.8 Total Bilirubin 1.6 H D AST 69 H D ALT 51 Alkaline Phosphatase 110 Total Protein 6.9 Albumin 3.3 L Urine Color Yellow Urine Appearance Clear Urine pH 6.0 Urine Protein 2+ H Urine Glucose (UA) 1+ H Urine Ketones 1+ H Urine Blood 2+ H Urine Nitrite Negative Urine Bilirubin Negative Urine Urobilinogen 2.0 e.u/dl Ur Leukocyte Esterase Negative Urine RBC 1 Urine WBC 3 Hyaline Casts 5 Granular Casts 26 Urine Mucus Rare Salicylates Opiates Screen Methadone Screen Acetaminophen Barbiturate Screen Phencyclidine Screen Ur Amphetamines Screen MDMA (Ecstasy) Screen Benzodiazepines Screen Cocaine Screen U Marijuana (THC) Screen Alcohol, Quantitative 12/23/16 12/23/16 12/23/16 15:10 15:10 15:10 WBC RBC Hgb Hct MCV MCHC RDW Plt Count MPV Neutrophils % Lymphocytes % Monocytes % Differential Comment Platelet Estimate INR 1.11 Sodium Potassium Chloride Carbon Dioxide Anion Gap BUN Creatinine Creat Clearance w eGFR Random Glucose Lactic Acid Calcium Total Bilirubin AST ALT Alkaline Phosphatase Total Protein Albumin Urine Color Urine Appearance Urine pH Urine Protein Urine Glucose (UA) Urine Ketones Urine Blood Urine Nitrite Urine Bilirubin Urine Urobilinogen Ur Leukocyte Esterase Urine RBC Urine WBC Hyaline Casts Granular Casts Urine Mucus Salicylates < 4.0 Opiates Screen Negative Methadone Screen Negative Acetaminophen 3.84 L Barbiturate Screen Negative Phencyclidine Screen Negative Ur Amphetamines Screen Negative MDMA (Ecstasy) Screen Negative Benzodiazepines Screen Negative Cocaine Screen Negative U Marijuana (THC) Screen Negative Alcohol, Quantitative < 5.0 12/23/16 15:21 WBC RBC Hgb Hct MCV MCHC RDW Plt Count MPV Neutrophils % Lymphocytes % Monocytes % Differential Comment Platelet Estimate INR Sodium Potassium Chloride Carbon Dioxide Anion Gap BUN Creatinine Creat Clearance w eGFR Random Glucose Lactic Acid 1.2 Calcium Total Bilirubin AST ALT Alkaline Phosphatase Total Protein Albumin Urine Color Urine Appearance Urine pH Urine Protein Urine Glucose (UA) Urine Ketones Urine Blood Urine Nitrite Urine Bilirubin Urine Urobilinogen Ur Leukocyte Esterase Urine RBC Urine WBC Hyaline Casts Granular Casts Urine Mucus Salicylates Opiates Screen Methadone Screen Acetaminophen Barbiturate Screen Phencyclidine Screen Ur Amphetamines Screen MDMA (Ecstasy) Screen Benzodiazepines Screen Cocaine Screen U Marijuana (THC) Screen Alcohol, Quantitative
[2016-12-23 15:37] LABS: INR 1.11 (0.82-1.09); PROTHROMBIN TIME (PATIENT) 12.2 SEC (9.98-11.88)
[2016-12-23 15:50] LABS: SALICYLATE < 4.0 mg/dl (0.0-30.0)
--- NOTE | 2016-12-23 16:07 | HP ---
CHIEF COMPLAINT: "Wants Detox" PCP: Not on staff HISTORY OF PRESENT ILLNESS: Patient is a 61 year old male with a significant PMHx of Alcohol dependence who was brought in by ambulance because he was found on the streets intoxicated. Patient is a poor historian. Patient however states that he was walking to get to the hospital so he could start alcohol detox. He reports he could only walk 50 feet before having to sit down and rest. When he was about to sit down and rest all of a sudden he felt weak and "passed out". Patent does admit to drinking 1 Pint of Vodka yesterday but has not drank ever since yesterday morning. Patient states he has been drinking more in the last three months with his new room mate. Reports that he shares 1.75 Liters of vodka everyday with his roommate for the last three months. Patient reports he wants detox because he wants to stop. Otherwise, patient was unable to provide any further information. However, he denies fever, chills, nausea, vomiting, diarrhea, constipation, shortness of breath, chest pain, palpitations, abdominal pain, diarrhea, constipation, headache, vision changes. ER course was notable for: (1) Librium 50mg (2) CT HEAD, EKG (3) Labs revealed ARF, Hypokalemia, hyponatremia Recent Travel: Denies PAST MEDICAL HISTORY: Denies. However, records reveal COPD, Depression and anxiety. PAST SURGICAL HISTORY: Denies Social History: Smokin PPD for 30 years Alcohol: 1.75 Liters of Vodka a day for the last three months but prior to that admits to alcohol everyday. Unable to recall how much Drugs: Denies Family History: Denies. However, records reveal- Diabetes: Mother, CA: Father ( colon ), Sister (breast ca) Allergies: No Known Allergies Allergy (Verified 12/23/16 11:40) HOME MEDICATIONS: Home Medications Medication Instructions Recorded NK [No Known Home Medication] 12/23/16 REVIEW OF SYSTEMS CONSTITUTIONAL: Absent: fever, chills, diaphoresis, generalized weakness, malaise, loss of appetite, weight change HEENT: Absent: rhinorrhea, nasal congestion, throat pain, throat swelling, difficulty swallowing, mouth swelling, ear pain, eye pain, visual changes CARDIOVASCULAR: Absent: chest pain, syncope, palpitations, irregular heart rate, lightheadedness , peripheral edema RESPIRATORY: Absent: cough, shortness of breath, dyspnea with exertion, orthopnea, wheezing, stridor, hemoptysis GASTROINTESTINAL: Absent: abdominal pain, abdominal distension, nausea, vomiting, diarrhea, constipation, melena, hematochezia GENITOURINARY: Absent: dysuria, frequency, urgency, hesitancy, hematuria, flank pain, genital pain MUSCULOSKELETAL: Absent: myalgia, arthralgia, joint swelling, back pain, neck pain SKIN: Absent: rash, itching, pallor HEMATOLOGIC/IMMUNOLOGIC: Absent: easy bleeding, easy bruising, lymphadenopathy, frequent infections ENDOCRINE: Absent: unexplained weight gain, unexplained weight loss, heat intolerance, cold intolerance NEUROLOGIC: Absent: headache, focal weakness or paresthesias, dizziness, unsteady gait, seizure, mental status changes, bladder or bowel incontinence PSYCHIATRIC: Absent: anxiety, depression, suicidal or homicidal ideation, hallucinations. Vital Signs - 24 hr 12/23/16 11:36 Temperature 97.5 F L Pulse Rate 91 H Respiratory 18 Rate Blood Pressure 111/75 O2 Sat by Pulse 98 Oximetry (%) PHYSICAL EXAMINATION GENERAL: Awake, alert, and fully oriented, in no acute distress. HEAD: Normal with no signs of trauma. EYES: Pupils equal, round and reactive to light, extraocular movements intact, sclera anicteric, conjunctiva clear. No lid lag. EARS, NOSE, THROAT: Oropharynx clear without exudates. Dry mucous membranes. NECK: Normal range of motion, supple without lymphadenopathy. LUNGS: Breath sounds equal, clear to auscultation bilaterally. No wheezes, and no crackles. No accessory muscle use. HEART: Regular rate and rhythm, normal S1 and S2 without murmur, rub or gallop. ABDOMEN: Soft, nontender, not distended, normoactive bowel sounds, no guarding, no rebound, no masses. No hepatomegaly or splenomegaly. MUSCULOSKELETAL: No CVA tenderness. UPPER EXTREMITIES: No peripheral edema. LOWER EXTREMITIES: No peripheral edema. NEUROLOGICAL: Intoxicated. CN II,III,IV, V, , VII, XII intact. Motor strength 5/5 throughout. Sensory intact. No tremors or asterixis. PSYCHIATRIC: Cooperative. Good eye contact SKIN: Warm, dry, normal turgor, no rashes or lesions noted, normal capillary refill. Laboratory Results - last 24 hr 12/23/16 12/23/16 15:10 15:10 Urine Color Yellow Urine Appearance Clear Urine pH 6.0 Urine Protein 2+ H Urine Glucose (UA) 1+ H Urine Ketones 1+ H Urine Blood 2+ H Urine Nitrite Negative Urine Bilirubin Negative Urine Urobilinogen 2.0 e.u/dl Ur Leukocyte Esterase Negative Opiates Screen Negative Methadone Screen Negative Barbiturate Screen Negative Phencyclidine Screen Negative Ur Amphetamines Screen Negative MDMA (Ecstasy) Screen Negative Benzodiazepines Screen Negative Cocaine Screen Negative U Marijuana (THC) Screen Negative Laboratory Results - last 24 hr 12/23/16 12/23/16 12/23/16 12:15 12:15 15:10 WBC 16.0 H D RBC 4.17 Hgb 13.4 Hct 38.9 MCV 93.2 MCHC 34.5 RDW 15.6 Plt Count 224 D MPV 8.6 Neutrophils % 91.0 H Lymphocytes % 1.0 L Monocytes % 8.0 Differential Comment Manual diff done Platelet Estimate Adequate INR Sodium 121 L* D Potassium 2.5 L* D Chloride 77 L D Carbon Dioxide 19 L D Anion Gap 25 H BUN 25 H D Creatinine 2.2 H D Creat Clearance w eGFR 30.48 Random Glucose 213 H D Calcium 9.8 Total Bilirubin 1.6 H D AST 69 H D ALT 51 Alkaline Phosphatase 110 Total Protein 6.9 Albumin 3.3 L Urine Color Yellow Urine Appearance Clear Urine pH 6.0 Urine Protein 2+ H Urine Glucose (UA) 1+ H Urine Ketones 1+ H Urine Blood 2+ H Urine Nitrite Negative Urine Bilirubin Negative Urine Urobilinogen 2.0 e.u/dl Ur Leukocyte Esterase Negative Opiates Screen Methadone Screen Barbiturate Screen Phencyclidine Screen Ur Amphetamines Screen MDMA (Ecstasy) Screen Benzodiazepines Screen Cocaine Screen U Marijuana (THC) Screen Alcohol, Quantitative 12/23/16 12/23/16 12/23/16 15:10 15:10 15:10 WBC RBC Hgb Hct MCV MCHC RDW Plt Count MPV Neutrophils % Lymphocytes % Monocytes % Differential Comment Platelet Estimate INR 1.11 Sodium Potassium Chloride Carbon Dioxide Anion Gap BUN Creatinine Creat Clearance w eGFR Random Glucose Calcium Total Bilirubin AST ALT Alkaline Phosphatase Total Protein Albumin Urine Color Urine Appearance Urine pH Urine Protein Urine Glucose (UA) Urine Ketones Urine Blood Urine Nitrite Urine Bilirubin Urine Urobilinogen Ur Leukocyte Esterase Opiates Screen Negative Methadone Screen Negative Barbiturate Screen Negative Phencyclidine Screen Negative Ur Amphetamines Screen Negative MDMA (Ecstasy) Screen Negative Benzodiazepines Screen Negative Cocaine Screen Negative U Marijuana (THC) Screen Negative Alcohol, Quantitative < 5.0 IMAGES: CT HEAD (12/23/16): Negative for hemorrhage or infarction. ASSESSMENT/PLAN: Patient is a 61 year old male with a PMHx of continuous alcohol dependence, nicotine dependence, and COPD who was BIBA after finding him on the ground intoxicated. Patient was found to have Hypokalemia, hyponatremia, and Acute Renal Failure. Patient admitted for further monitoring and management. Moderate Hyponatremia- Improving -Likely secondary to ETOH dependence and dehydration -2 bolus's of IV NS given -Continue with IV NS @75mls/hr -Will repeat sodium levels Q4H -Do not increase sodium over 10 within 24 hours Moderate to Severe Hypokalemia- Improving -Likely secondary to poor oral intake and ETOH dependence -level of 2.9 today -9 bags of Potassium Chloride 10meq IV given overnight. Will order another 3 bags -1 Potassium Chloride 40meq PO given with another one ordered today -Will continue to monitor Q4H Hypophosphatemia -Today 0.6 -4 bags of Phos-NaK given overnight -IV Potassium Phosphate @62.5mls/hr ordered Acute Renal Failure- Resolved -Likely secondary to hypovolemia from dehydration -Creatinine 1.0 today -Continue IV NS @75mls/hr -Will monitor BMP S/P Mechanical Fall- Acute -Likely secondary to intoxication -CT head negative for acute pathology Continuous ETOH dependence -CIWA 0 -CAGE 4/4 -Is not currently withdrawing. -Urine drug screen negative -Thiamine 100mg, Folic Acid 1mg, and Multivitamin 10ml ordered for today -Continue Physical Therapy -Continue to monitor for withdraws with Neuro checks Q4H Nicotine Dependence- Chronic -Smokes 1PPD for over 30 years -Nicotine patch 21mg TD daily ordered COPD- Chronic -Currently no acute exacerbation -DuoNeb Q6H PRN F/E/N -IV NS @75mls/hr -Hypokalemia, hyponatremia -Diabetic diet Prophylaxis -Heparin 5000 units SQ BID Disposition -Will continue to monitor for withdrawals. Will continue to replete electrolytes abnormalities. Visit type - Emergency Visit Emergency Visit: Yes ED Registration Date: 12/23/16 Care time: The patient presented to the Emergency Department on the above date and was hospitalized for further evaluation of their emergent condition. - New Patient This patient is new to me today: Yes Date on this admission: 12/24/16 - Critical Care Critical Care patient: No
[2016-12-23] MEDS ORDERED: INSULIN SLIDING SCALE (NOVOLOG) 1 VIAL SQ SCH (16:30)
[2016-12-23] MEDS ORDERED: FOLIC ACID IVPB STA (16:43)
[2016-12-23] MEDS ORDERED: THIAMINE HCL IVPB STA (16:43)
[2016-12-23] MEDS ORDERED: [UNRECOGNIZED DRUG - OTHER] IVPB STA (16:43)
[2016-12-23] MEDS ORDERED: SODIUM CHLORIDE IVPB STA (16:43)
[2016-12-23 18:09] VITALS: BMI 18.8
[2016-12-23] MEDS: NICOTINE 21 MG/24 HOURS TOPICAL PATCH TD SCH (18:12)
--- NOTE | 2016-12-23 18:21 | PN ---
Teaching Attending Note Name of Resident: Moni Robles ATTENDING PHYSICIAN STATEMENT I saw and evaluated the patient. I reviewed the resident's note and discussed the case with the resident. I agree with the resident's findings and plan as documented. SUBJECTIVE:61yo M brought in by EMS after being found sleeping on the street. pt is a poor historian, states he been feeling very weak as he has not had much of an appetite and he spends all of his money on ETOH. last drink yesterday. states he does not recall falling or striking his head but does have lapse in memory of the event of today. does not recall being at [facility] earlier this year. does not recall being sober for a period of time. states never had withdrawal seizure or DT in the past. denies Cp, SOB,fever, chills, auditory/ visual hallucinations, N/V/C/D, TESFAYE or blurred vision denies other illicit drug use OBJECTIVE: Last Vital Signs Temp Pulse Resp BP Pulse Ox 97.9 F 77 18 118/64 98 12/23/16 16:30 12/23/16 16:30 12/23/16 16:30 12/23/16 16:30 12/23/16 11:36 General NAD CV S1 S2 RRR no murmur/rub/gallop Lungs CTA B/L no wheezing/rales/rhonchi Abdomen soft NT/ND Extremities no tremors no pedal edema ASSESSMENT AND PLAN: 61yo M with PMH continuous polysubstance depedence (ETOH and Tobacco) presented to the ER after being found on the ground 1. Severe hypokalemia- likely due to poor oral intake and alcoholism. currently receiving Kcl 10meq x3 runs and po. will repeat levels once completed. check Mg 2. Hyponatremia- corrected Na 124. likely due to dehydration. received 1L NS bolus in the ER will run 2nd Liter and then NS @125cc. repeat labs today 3. Continuous polysubstance dependence- CIWA 0. no signs of withdrawal. will monitor for signs of withdrawal. hold librium at this time. start if CIWA worsens. pt not interested in rehab or detox as "I dont have a problem". banana bag. nicotine patch. thiaimine/folate/mvi 4. Hyperglycemia with glucosuria- will check a1c 5. mechanical fall- possible LOC. CT head negative for acute pathology. PT assessment 6. GUERLINE- due to dehydration. IVF. avoid nephrotoxic agents. consider u/s and lytes if does not improve 7. Leukocytosis- afebrile. UA and CXR negative for infection. will hold abx at this time as no source of infection 8. DVT ppx- EAM
[2016-12-23 19:18] LABS: CALCIUM 8.1 mg/dL (8.5-10.1); COCKROFT - GAULT 42.94; CREATININE 1.5 mg/dL (0.7-1.3)
[2016-12-23] MEDS ORDERED: POTASSIUM CHLORIDE 20 MEQ PREMIX IVPB 100 ML IVPB SCH (23:45)
[2016-12-24 03:00] LABS: CALCIUM 8.5 mg/dL (8.5-10.1); COCKROFT - GAULT 58.56; CREATININE 1.1 mg/dL (0.7-1.3); MAGNESIUM 2.2 mg/dL (1.8-2.4)
[2016-12-24 03:16] LABS: PHOSPHOROUS 0.4 mg/dL (2.5-4.9)
[2016-12-24] MEDS ORDERED: NAPH,MB-DB/K PH,MBDB POWDER PACKET PO SCH (03:30)
[2016-12-24] MEDS: KCL 10 MEQ IVPB 100 ML IVPB SCH ×10 (04:08→23:30)
[2016-12-24] MEDS: NAPH,MB-DB/K PH,MBDB POWDER PACKET PO SCH ×6 (04:50→22:15)
[2016-12-24 08:20] LABS: ALBUMIN 2.3 g/dl (3.4-5.0); ALK PHOS 84 U/L (45-117); ANION GAP 14 (8-16); BILIRUBIN,TOTAL 0.9 mg/dL (0.2-1.0); CALCIUM 8.2 mg/dL (8.5-10.1); CO2 23 mmol/L (21-32); COCKROFT - GAULT 64.42; GLUCOSE,RANDOM 95 mg/dL (74-106); SGOT/AST 51 U/L (15-37); SGPT/ALT 34 U/L (12-78); TOT PROT 5.1 g/dl (6.4-8.2)
[2016-12-24 08:21] LABS: BASOPHIL 0.4 % (0-2.0); EOSINOPHIL 0.5 % (0-4.5); MCH 33.2 pg (25.7-33.7); MCHC 35.5 g/dl (32.0-35.9); MEAN CELL VOLUME 93.4 fl (80-96); MEAN PLT VOLUME 8.5 fl (7.5-11.1); NEUTROPHILS 82.9 % (42.8-82.8); PLATELET COUNT 165 K/MM3 (134-434); RDW 15.7 % (11.9-15.9)
[2016-12-24 09:08] LABS: PHOSPHOROUS 0.6 mg/dL (2.5-4.9)
[2016-12-24] MEDS: SODIUM CHLORIDE 1,000 ML IV SCH (09:22)
[2016-12-24] MEDS ORDERED: SODIUM CHLORIDE IVPB ONE (10:00)
[2016-12-24] MEDS ORDERED: FOLIC ACID INJECTION - 1 MG, THIAMINE HCL 100 MG, MULTIVIT INJECTION ADULT 10 ML in SOD... IVPB ONE (10:00)
[2016-12-24] MEDS ORDERED: POTASSIUM PHOSPHATE 30 MM in SODIUM CHLORIDE 500 ML IVPB ONE (10:00)
[2016-12-24] MEDS ORDERED: THIAMINE HCL IVPB ONE (10:00)
[2016-12-24] MEDS ORDERED: FOLIC ACID IVPB ONE (10:00)
[2016-12-24] MEDS ORDERED: [UNRECOGNIZED DRUG - OTHER] IVPB ONE (10:00)
[2016-12-24] MEDS: NICOTINE 21 MG/24 HOURS TOPICAL PATCH TD SCH (10:43)
[2016-12-24] MEDS ORDERED: POTASSIUM CHLORIDE TABS 20 MEQ TABLET.ER (FP) PO ONE (11:30)
--- NOTE | 2016-12-24 11:45 | PN ---
Physical Exam: SUBJECTIVE: Patient seen and examined by me at bedside. Patient continues to have hypokalemia and hyponatremia overnight with continuous repletion. Patient is more alert and states he is able to eat more. Patient did express wanting to go to detox so he could stop his alcohol use. He reports after completing detox in July, he returned to alcohol right after. Otherwise, patient denies shortness of breath, chest pain, palpitations, abdominal pain, nausea, vomiting, diarrhea. Patient is not going through withdrawals currently OBJECTIVE: Vital Signs Period Temp Pulse Resp BP Sys/Lozada Pulse Ox Last 24 Hr 97.9 F-98.8 F 76-96 16-18 113-126/53-90 95-99 GENERAL: The patient is awake, alert, and fully oriented, in no acute distress. LUNGS: Breath sounds equal, clear to auscultation bilaterally, no wheezes, no crackles, no accessory muscle use. HEART: Regular rate and rhythm, S1, S2 without murmur, rub or gallop. ABDOMEN: Soft, nontender, nondistended, normoactive bowel sounds EXTREMITIES:No peripheral edema. NEUROLOGICAL: Normal speech PSYCH: Normal mood, normal affect. Laboratory Results - last 24 hr 12/23/16 12/23/16 12/23/16 15:10 15:10 15:10 WBC RBC Hgb Hct MCV MCHC RDW Plt Count MPV Neutrophils % Lymphocytes % Monocytes % Eosinophils % Basophils % INR 1.11 PTT (Actin FS) Sodium Potassium Chloride Carbon Dioxide Anion Gap BUN Creatinine Creat Clearance w eGFR Random Glucose Hemoglobin A1c % Lactic Acid Calcium Phosphorus Magnesium Total Bilirubin AST ALT Alkaline Phosphatase Total Protein Albumin Urine Color Yellow Urine Appearance Clear Urine pH 6.0 Ur Specific [place] 1.010 Urine Protein 2+ H Urine Glucose (UA) 1+ H Urine Ketones 1+ H Urine Blood 2+ H Urine Nitrite Negative Urine Bilirubin Negative Urine Urobilinogen 2.0 e.u/dl Ur Leukocyte Esterase Negative Urine RBC 1 Urine WBC 3 Hyaline Casts 5 Granular Casts 26 Urine Mucus Rare Salicylates < 4.0 Opiates Screen Methadone Screen Acetaminophen 3.84 L Barbiturate Screen Phencyclidine Screen Ur Amphetamines Screen MDMA (Ecstasy) Screen Benzodiazepines Screen Cocaine Screen U Marijuana (THC) Screen Alcohol, Quantitative < 5.0 12/23/16 12/23/16 12/23/16 15:10 15:10 15:21 WBC RBC Hgb Hct MCV MCHC RDW Plt Count MPV Neutrophils % Lymphocytes % Monocytes % Eosinophils % Basophils % INR PTT (Actin FS) 23.5 L Sodium Potassium Chloride Carbon Dioxide Anion Gap BUN Creatinine Creat Clearance w eGFR Random Glucose Hemoglobin A1c % Lactic Acid 1.2 Calcium Phosphorus Magnesium Total Bilirubin AST ALT Alkaline Phosphatase Total Protein Albumin Urine Color Urine Appearance Urine pH Ur Specific [place] Urine Protein Urine Glucose (UA) Urine Ketones Urine Blood Urine Nitrite Urine Bilirubin Urine Urobilinogen Ur Leukocyte Esterase Urine RBC Urine WBC Hyaline Casts Granular Casts Urine Mucus Salicylates Opiates Screen Negative Methadone Screen Negative Acetaminophen Barbiturate Screen Negative Phencyclidine Screen Negative Ur Amphetamines Screen Negative MDMA (Ecstasy) Screen Negative Benzodiazepines Screen Negative Cocaine Screen Negative U Marijuana (THC) Screen Negative Alcohol, Quantitative 12/23/16 12/24/16 12/24/16 18:15 02:00 06:05 WBC RBC Hgb Hct MCV MCHC RDW Plt Count MPV Neutrophils % Lymphocytes % Monocytes % Eosinophils % Basophils % INR PTT (Actin FS) Sodium 128 L 132 L 131 L Potassium 2.4 L* 2.8 L* 2.9 L* Chloride 88 L D 95 L 94 L Carbon Dioxide 20 L 20 L 23 Anion Gap 20 H 17 H 14 BUN 23 H 18 D 16 Creatinine 1.5 H D 1.1 D 1.0 Creat Clearance w eGFR > 60 Random Glucose 145 H D 97 D 95 Hemoglobin A1c % Lactic Acid Calcium 8.1 L 8.5 8.2 L Phosphorus 0.4 L* 0.6 L* Magnesium 2.0 2.2 2.0 Total Bilirubin 0.9 D AST 51 H D ALT 34 D Alkaline Phosphatase 84 D Total Protein 5.1 L D Albumin 2.3 L D Urine Color Urine Appearance Urine pH Ur Specific [place] Urine Protein Urine Glucose (UA) Urine Ketones Urine Blood Urine Nitrite Urine Bilirubin Urine Urobilinogen Ur Leukocyte Esterase Urine RBC Urine WBC Hyaline Casts Granular Casts Urine Mucus Salicylates Opiates Screen Methadone Screen Acetaminophen Barbiturate Screen Phencyclidine Screen Ur Amphetamines Screen MDMA (Ecstasy) Screen Benzodiazepines Screen Cocaine Screen U Marijuana (THC) Screen Alcohol, Quantitative 12/24/16 12/24/16 06:05 06:05 WBC 11.0 H D RBC 3.11 L D Hgb 10.3 L D Hct 29.1 L D MCV 93.4 MCHC 35.5 RDW 15.7 Plt Count 165 D MPV 8.5 Neutrophils % 82.9 H Lymphocytes % 5.2 L D Monocytes % 11.0 H Eosinophils % 0.5 Basophils % 0.4 INR PTT (Actin FS) Sodium Potassium Chloride Carbon Dioxide Anion Gap BUN Creatinine Creat Clearance w eGFR Random Glucose Hemoglobin A1c % 5.1 Lactic Acid Calcium Phosphorus Magnesium Total Bilirubin AST ALT Alkaline Phosphatase Total Protein Albumin Urine Color Urine Appearance Urine pH Ur Specific [place] Urine Protein Urine Glucose (UA) Urine Ketones Urine Blood Urine Nitrite Urine Bilirubin Urine Urobilinogen Ur Leukocyte Esterase Urine RBC Urine WBC Hyaline Casts Granular Casts Urine Mucus Salicylates Opiates Screen Methadone Screen Acetaminophen Barbiturate Screen Phencyclidine Screen Ur Amphetamines Screen MDMA (Ecstasy) Screen Benzodiazepines Screen Cocaine Screen U Marijuana (THC) Screen Alcohol, Quantitative Active Medications Generic Name Dose Route Start Last Admin Trade Name Freq PRN Reason Stop Dose Admin Albuterol Sulfate 1 amp 12/23/16 14:40 Ventolin 0.083% Nebulizer Soln - NEB Q6H PRN SHORT OF BREATH/WHEEZING Docusate Sodium 100 mg 12/24/16 11:00 Colace - PO DAILY MAR Heparin Sodium (Porcine) 5,000 unit 12/24/16 11:00 Heparin - SQ BID MAR Sodium Chloride 1,000 mls @ 75 mls/hr 12/24/16 07:44 12/24/16 09:22 Normal Saline - IV 75 mls/hr ASDIR MAR Administration Potassium Phosphate 30 mm/ 510 mls @ 62.5 mls/hr 12/24/16 10:00 Sodium Chloride IVPB 12/24/16 18:09 ONCE ONE Potassium Chloride 100 mls @ 100 mls/hr 12/24/16 11:00 Potassium Chloride 10 Meq Premix Ivpb - IVPB 12/24/16 13:59 Q60M MAR Nicotine 21 mg 12/23/16 16:00 12/24/16 10:43 Nicoderm Patch - TD 21 mg DAILY MAR Administration ASSESSMENT/PLAN: IMAGES: CT HEAD (12/23/16): Negative for hemorrhage or infarction. ASSESSMENT/PLAN: Patient is a 61 year old male with a PMHx of continuous alcohol dependence, nicotine dependence, and COPD who was BIBA after finding him on the ground intoxicated. Patient was found to have Hypokalemia, hyponatremia, and Acute Renal Failure. Patient admitted for further monitoring and management. Moderate Hyponatremia- Improving -Likely secondary to ETOH dependence and dehydration -2 bolus's of IV NS given -Continue with IV NS @75mls/hr -Will repeat sodium levels Q4H -Do not increase sodium over 10 within 24 hours Moderate to Severe Hypokalemia- Improving -Likely secondary to poor oral intake and ETOH dependence -level of 2.9 today -9 bags of Potassium Chloride 10meq IV given overnight. Will order another 3 bags -1 Potassium Chloride 40meq PO given with another one ordered today -Will continue to monitor Q4H Hypophosphatemia -Today 0.6 -4 bags of Phos-NaK given overnight -IV Potassium Phosphate @62.5mls/hr ordered Acute Renal Failure- Resolved -Likely secondary to hypovolemia from dehydration -Creatinine 1.0 today -Continue IV NS @75mls/hr -Will monitor BMP S/P Mechanical Fall- Acute -Likely secondary to intoxication -CT head negative for acute pathology Continuous ETOH dependence -CIWA 0 -CAGE 10/27 -Is not currently withdrawing. -Urine drug screen negative -Thiamine 100mg, Folic Acid 1mg, and Multivitamin 10ml ordered for today -Continue Physical Therapy -Continue to monitor for withdraws with Neuro checks Q4H Nicotine Dependence- Chronic -Smokes 1PPD for over 30 years -Nicotine patch 21mg TD daily ordered COPD- Chronic -Currently no acute exacerbation -DuoNeb Q6H PRN F/E/N -IV NS @75mls/hr -Hypokalemia, hyponatremia -Diabetic diet Prophylaxis -Heparin 5000 units SQ BID Disposition -Will continue to monitor for withdrawals. Will continue to replete electrolytes abnormalities. Visit type - Emergency Visit Emergency Visit: Yes ED Registration Date: 12/23/16 Care time: The patient presented to the Emergency Department on the above date and was hospitalized for further evaluation of their emergent condition. - New Patient This patient is new to me today: No - Critical Care Critical Care patient: No
--- NOTE | 2016-12-24 12:14 | PN ---
Teaching Attending Note Name of Resident: Moni Robles ATTENDING PHYSICIAN STATEMENT I saw and evaluated the patient. I reviewed the resident's note and discussed the case with the resident. I agree with the resident's findings and plan as documented. SUBJECTIVE:currently asymptomatic. states his appetite has improved and consumed most of his breakfast. no BM for a week. denies CP, SOB,fever, chills, N/V/D OBJECTIVE: Last Vital Signs Temp Pulse Resp BP Pulse Ox 98.1 F 96 H 16 117/53 95 12/24/16 10:00 12/24/16 10:00 12/24/16 10:00 12/24/16 10:00 12/23/16 21:52 General NAD CV S1 S2 RRR no murmur/rub/gallop Lungs CTA B/L no wheezing/rales/rhonchi Abdomen soft NT/ND Extremities no tremors no pedal edema ASSESSMENT AND PLAN: 61yo M with PMH continuous polysubstance depedence (ETOH and Tobacco) presented to the ER after being found on the ground 1. Severe hypokalemia-improved. additional potassium IV and po. repeat. 2. Hyponatremia- corrected Na 131. likely due to dehydration. decrease NS to 75cc. if tolerating diet can d/c IVF. 3. Severe hypophosphatemia- Kphos IV. neutraphos packets. repeat 4. Continuous polysubstance dependence- CIWA 0. no signs of withdrawal. will monitor for signs of withdrawal. banana bag. nicotine patch. thiaimine/folate/ mvi. does not want inpatient rehab at this time 5. Hyperglycemia with glucosuria-improved. a1c pending 6. mechanical fall- no repeated episodes of falling. does have unsteady gait reported. head CT negative. possible LOC.PT assessment 7. GUERLINE- due to dehydration. resolved. avoid nephrotoxic agents. 8. Leukocytosis- afebrile. leukocytosis trending down. no indication for abx at this time. 9. DVT ppx- start hep sq
[2016-12-24] MEDS: DOCUSATE SODIUM 100 MG CAPSULE (FP) PO SCH (12:21)
[2016-12-24] MEDS: HEPARIN NA (PORCINE) 5,000 UNITS/ML 1ML VIAL SQ SCH ×2 (12:21→21:15)
--- NOTE | 2016-12-24 13:54 | MSN ---
Progress Note (short form) - Note Progress Note: Subjective: Patient was seen at the bedside. Patient was alert and oriented and able to answer questions. The patient stated "feeling better" , less weak than previous days and that his appetite has returned. Patient having no problems eating or drinking. The stated that he is able to urinate but has continued to be constipated for the past two weeks. Patients denies and signs of withdrawal and is not complaining of any tremors, nausea, vomiting, diarrhea, or headache. Patients also denies any fever, chills, shortness of breath, chest pain or dizziness. Objective: Last Vital Signs Temp Pulse Resp BP Pulse Ox 98.1 F 96 H 16 117/53 95 12/24/16 10:12/24/16 10:12/24/16 10:12/24/16 10:12/23/16 21:52 General: Patient is awake, alert, oriented and in no distress Head: normocephalic with signs of trauma Eye: [place], all extranuclear moments are intact, conjunctiva and sclera are clear and without compromise. Neck: skin is subtle and intact, no tracheal deviation and no lymphadenopathy Lungs: Lung sounds are clear and bilateral in all quadrants Heart: Heart has normal rate and rhythm, no murmurs, rubs, gallops or thrills Abdomen: no distention, bruising, deformity or guarding. Normal bowl sounds in all quadrants and no tenderness upon light or deep palpation. No hepatosplenomegaly noted. Extremities: Pulses 2+ in all extremities, well perfused, warm and pink in color. No swelling noted. Psych: normal mood and and affect in comparison to baseline Skin: warm, pink, dry with normal turgor and with no lesions, bruises, ulcers or rashes. Laboratory Results - last 24 hr 12/23/16 12/23/16 12/23/16 12:15 15:10 15:10 WBC RBC Hgb Hct MCV MCHC RDW Plt Count MPV Neutrophils % 91.0 H Lymphocytes % 1.0 L Monocytes % 8.0 Eosinophils % Basophils % Differential Comment Manual diff done Platelet Estimate Adequate INR 1.11 PTT (Actin FS) Sodium Potassium Chloride Carbon Dioxide Anion Gap BUN Creatinine Creat Clearance w eGFR Random Glucose Hemoglobin A1c % Lactic Acid Calcium Phosphorus Magnesium Total Bilirubin AST ALT Alkaline Phosphatase Total Protein Albumin Urine Color Yellow Urine Appearance Clear Urine pH 6.0 Ur Specific [place] 1.010 Urine Protein 2+ H Urine Glucose (UA) 1+ H Urine Ketones 1+ H Urine Blood 2+ H Urine Nitrite Negative Urine Bilirubin Negative Urine Urobilinogen 2.0 e.u/dl Ur Leukocyte Esterase Negative Urine RBC 1 Urine WBC 3 Hyaline Casts 5 Granular Casts 26 Urine Mucus Rare Salicylates Opiates Screen Methadone Screen Acetaminophen Barbiturate Screen Phencyclidine Screen Ur Amphetamines Screen MDMA (Ecstasy) Screen Benzodiazepines Screen Cocaine Screen U Marijuana (THC) Screen Alcohol, Quantitative 12/23/16 12/23/16 12/23/16 15:10 15:10 15:10 WBC RBC Hgb Hct MCV MCHC RDW Plt Count MPV Neutrophils % Lymphocytes % Monocytes % Eosinophils % Basophils % Differential Comment Platelet Estimate INR PTT (Actin FS) 23.5 L Sodium Potassium Chloride Carbon Dioxide Anion Gap BUN Creatinine Creat Clearance w eGFR Random Glucose Hemoglobin A1c % Lactic Acid Calcium Phosphorus Magnesium Total Bilirubin AST ALT Alkaline Phosphatase Total Protein Albumin Urine Color Urine Appearance Urine pH Ur Specific [place] Urine Protein Urine Glucose (UA) Urine Ketones Urine Blood Urine Nitrite Urine Bilirubin Urine Urobilinogen Ur Leukocyte Esterase Urine RBC Urine WBC Hyaline Casts Granular Casts Urine Mucus Salicylates < 4.0 Opiates Screen Negative Methadone Screen Negative Acetaminophen 3.84 L Barbiturate Screen Negative Phencyclidine Screen Negative Ur Amphetamines Screen Negative MDMA (Ecstasy) Screen Negative Benzodiazepines Screen Negative Cocaine Screen Negative U Marijuana (THC) Screen Negative Alcohol, Quantitative < 5.0 12/23/16 12/23/16 12/24/16 15:21 18:15 02:00 WBC RBC Hgb Hct MCV MCHC RDW Plt Count MPV Neutrophils % Lymphocytes % Monocytes % Eosinophils % Basophils % Differential Comment Platelet Estimate INR PTT (Actin FS) Sodium 128 L 132 L Potassium 2.4 L* 2.8 L* Chloride 88 L D 95 L Carbon Dioxide 20 L 20 L Anion Gap 20 H 17 H BUN 23 H 18 D Creatinine 1.5 H D 1.1 D Creat Clearance w eGFR Random Glucose 145 H D 97 D Hemoglobin A1c % Lactic Acid 1.2 Calcium 8.1 L 8.5 Phosphorus 0.4 L* Magnesium 2.0 2.2 Total Bilirubin AST ALT Alkaline Phosphatase Total Protein Albumin Urine Color Urine Appearance Urine pH Ur Specific [place] Urine Protein Urine Glucose (UA) Urine Ketones Urine Blood Urine Nitrite Urine Bilirubin Urine Urobilinogen Ur Leukocyte Esterase Urine RBC Urine WBC Hyaline Casts Granular Casts Urine Mucus Salicylates Opiates Screen Methadone Screen Acetaminophen Barbiturate Screen Phencyclidine Screen Ur Amphetamines Screen MDMA (Ecstasy) Screen Benzodiazepines Screen Cocaine Screen U Marijuana (THC) Screen Alcohol, Quantitative 12/24/16 12/24/16 12/24/16 06:05 06:05 06:05 WBC 11.0 H D RBC 3.11 L D Hgb 10.3 L D Hct 29.1 L D MCV 93.4 MCHC 35.5 RDW 15.7 Plt Count 165 D MPV 8.5 Neutrophils % 82.9 H Lymphocytes % 5.2 L D Monocytes % 11.0 H Eosinophils % 0.5 Basophils % 0.4 Differential Comment Platelet Estimate INR PTT (Actin FS) Sodium 131 L Potassium 2.9 L* Chloride 94 L Carbon Dioxide 23 Anion Gap 14 BUN 16 Creatinine 1.0 Creat Clearance w eGFR > 60 Random Glucose 95 Hemoglobin A1c % 5.1 Lactic Acid Calcium 8.2 L Phosphorus 0.6 L* Magnesium 2.0 Total Bilirubin 0.9 D AST 51 H D ALT 34 D Alkaline Phosphatase 84 D Total Protein 5.1 L D Albumin 2.3 L D Urine Color Urine Appearance Urine pH Ur Specific [place] Urine Protein Urine Glucose (UA) Urine Ketones Urine Blood Urine Nitrite Urine Bilirubin Urine Urobilinogen Ur Leukocyte Esterase Urine RBC Urine WBC Hyaline Casts Granular Casts Urine Mucus Salicylates Opiates Screen Methadone Screen Acetaminophen Barbiturate Screen Phencyclidine Screen Ur Amphetamines Screen MDMA (Ecstasy) Screen Benzodiazepines Screen Cocaine Screen U Marijuana (THC) Screen Alcohol, Quantitative Current Medications Generic Name Dose Route Start Last Admin Trade Name Scottq PRN Reason Stop Dose Admin Albuterol Sulfate 1 amp 12/23/16 14:40 Ventolin 0.083% Nebulizer Soln - NEB Q6H PRN SHORT OF BREATH/WHEEZING Docusate Sodium 100 mg 12/24/16 11:00 12/24/16 12:21 Colace - PO 100 mg DAILY MAR Administration Heparin Sodium (Porcine) 5,000 unit 12/24/16 11:00 12/24/16 12:21 Heparin - SQ 5,000 unit BID MAR Administration Sodium Chloride 1,000 mls @ 75 mls/hr 12/24/16 07:44 12/24/16 09:22 Normal Saline - IV 75 mls/hr ASDIR MAR Administration Potassium Phosphate 30 mm/ 510 mls @ 62.5 mls/hr 12/24/16 10:00 Sodium Chloride IVPB 12/24/16 18:09 ONCE ONE Potassium Chloride 100 mls @ 100 mls/hr 12/24/16 11:00 Potassium Chloride 10 Meq Premix Ivpb - IVPB 12/24/16 13:59 Q60M MAR Nicotine 21 mg 12/23/16 16:00 12/24/16 10:43 Nicoderm Patch - TD 21 mg DAILY MAR Administration Assessment and Plan: 61 year old male with past medical history of continuos alcohol dependence, nicotine dependence, COPD who was found outside of the hospital while intoxicated. Patient has moderate hyponatremia, moderate hypokalemia, severe hypophosphatemia, and acute renal failure. Moderate Hyponatremia secondary to alcohol consumption Improving current Na level of 131 with a previous level of 121 plan to continue normal saline 75 ml/hr Moderate Hypokalemia secondary to alcohol consumption improving current K level of 2.9 with a previous level 2.5 total of 9 bags 10meq given 3 bags additional ordered Severe Hypophosphatemia secondary to alcohol consumption improving current phosphorus level of .6 with a previous level .4 potassium phosphate 30 mm 510mls @62.5 mls/hr IVPB once 2 packets of potassium phosphate given previously PO TID Constipation Docusate sodium 100 mg PO daily Continuous ETOH dependence urine toxicology was negative continue monitoring patient for withdrawals q48 hrs Propholaxis for DVT prophylaxis Heparin ordered 5000 units SQ BID Acute Renal Failure resolved secondary to hypovolemia continue normal saline 75 ml/hr current creatinine 1 previous level 2.2 Nicotine dependence continue nicotine patch 21 mg TD daily COPD continue albuterol sulfate 1 amp NEB q6 PRN Hyperglycemia likely from excessive alcohol use normal glucose of 95 Hb A1C level of 5.1 F/E/N IV normal saline 75 ml/hr diabetic diet
--- NOTE | 2016-12-24 16:30 | EKG ---
Test Reason : Blood Pressure : / mmHG Vent. Rate : 082 BPM Atrial Rate : 082 BPM P-R Int : 154 ms QRS Dur : 102 ms QT Int : 388 ms P-R-T Axes : 052 -35 041 degrees QTc Int : 453 ms NORMAL SINUS RHYTHM LEFT AXIS DEVIATION INCOMPLETE RIGHT BUNDLE BRANCH BLOCK VOLTAGE CRITERIA FOR LEFT VENTRICULAR HYPERTROPHY ABNORMAL ECG WHEN COMPARED WITH ECG OF 18-AUG-2016 20:32, INCOMPLETE RIGHT BUNDLE BRANCH BLOCK IS NOW PRESENT Confirmed by ADENIKE COLES MD ([id number]) on 12/24/2016 4:30:16 PM Referred By: Confirmed By:ADENIKE COLES MD
[2016-12-24 18:08] LABS: CALCIUM 7.9 mg/dL (8.5-10.1)
[2016-12-24 18:12] LABS: COCKROFT - GAULT 71.57; CREATININE 0.9 mg/dL (0.7-1.3)
[2016-12-24 20:41] LABS: CALCIUM 7.7 mg/dL (8.5-10.1); COCKROFT - GAULT 71.57; CREATININE 0.9 mg/dL (0.7-1.3)
[2016-12-25] MEDS: KCL 10 MEQ IVPB 100 ML IVPB SCH ×6 (01:43→14:52)
[2016-12-25 04:12] LABS: COCKROFT - GAULT 80.52; CREATININE 0.8 mg/dL (0.7-1.3); MAGNESIUM 1.7 mg/dL (1.8-2.4)
[2016-12-25 07:22] LABS: MCH 33.2 pg (25.7-33.7); MCHC 35.6 g/dl (32.0-35.9); MEAN CELL VOLUME 93.2 fl (80-96); MEAN PLT VOLUME 8.3 fl (7.5-11.1); PLATELET COUNT 151 K/MM3 (134-434); RDW 15.8 % (11.9-15.9); WHITE BLOOD COUNT 9.5 K/mm3 (4.0-10.0)
[2016-12-25] MEDS ORDERED: MAGNESIUM SULF 50% (8.12 MEQ/2 ML-1 GM VIAL) IVPB ONE (08:45)
--- NOTE | 2016-12-25 08:52 | PN ---
Physical Exam: SUBJECTIVE: Patient seen and examined by me at bedside. No overnight events noted. Patient reports he feels the same as yesterday and when asking what that means he reports feeling lethargic and weak. Patient states he is unable to move around on his own due to his weakness. I explained to patient that he has no energy because of the lack of nutrition and poor oral intake before coming to the hospital. Patient however denies any withdraw symptoms. Otherwise, denies fever, chills, nausea, vomiting, abdominal pain, chest pain, palpitations , diaphoresis, hallucinations, tremors. OBJECTIVE: Vital Signs Period Temp Pulse Resp BP Sys/Lozada Pulse Ox Last 24 Hr 98.1 F-99.2 F 78-96 16-20 102-118/53-70 94-95 GENERAL: The patient is awake, alert, and fully oriented, in no acute distress. LUNGS: Breath sounds equal, clear to auscultation bilaterally, no wheezes, no crackles, no accessory muscle use. HEART: Regular rate and rhythm, S1, S2 without murmur, rub or gallop. ABDOMEN: Soft, nontender, nondistended, normoactive bowel sounds EXTREMITIES:No peripheral edema. NEUROLOGICAL: Normal speech. No tremors PSYCH: Normal mood, normal affect. Laboratory Results - last 24 hr 12/24/16 12/24/16 12/24/16 06:05 06:05 16:35 WBC RBC Hgb Hct MCV MCHC RDW Plt Count MPV Sodium 131 L 132 L Potassium 2.9 L* 3.1 L Chloride 94 L 96 L Carbon Dioxide 23 23 Anion Gap 14 13 BUN 16 14 Creatinine 1.0 0.9 Creat Clearance w eGFR > 60 Random Glucose 95 105 Hemoglobin A1c % 5.1 Calcium 8.2 L 7.9 L Phosphorus 0.6 L* Magnesium 2.0 Total Bilirubin 0.9 D AST 51 H D ALT 34 D Alkaline Phosphatase 84 D Total Protein 5.1 L D Albumin 2.3 L D 12/24/16 12/24/16 12/24/16 19:42 19:42 20:36 WBC RBC Hgb Hct MCV MCHC RDW Plt Count MPV Sodium 131 L Potassium 2.9 L* Chloride 95 L Carbon Dioxide 23 Anion Gap 13 BUN 14 Creatinine 0.9 Creat Clearance w eGFR Random Glucose 163 H D Hemoglobin A1c % Calcium 7.7 L Phosphorus 1.3 L D Cancelled Magnesium Total Bilirubin AST ALT Alkaline Phosphatase Total Protein Albumin 12/25/16 12/25/16 12/25/16 03:00 03:00 06:00 WBC 9.5 RBC 3.07 L Hgb 10.2 L Hct 28.6 L MCV 93.2 MCHC 35.6 RDW 15.8 Plt Count 151 MPV 8.3 Sodium 134 L Potassium 2.9 L* Chloride 95 L Carbon Dioxide 26 Anion Gap 13 BUN 9 D Creatinine 0.8 Creat Clearance w eGFR Random Glucose 110 H D Hemoglobin A1c % Calcium 8.0 L Phosphorus 1.4 L Magnesium 1.7 L Total Bilirubin AST ALT Alkaline Phosphatase Total Protein Albumin 12/25/16 06:00 WBC RBC Hgb Hct MCV MCHC RDW Plt Count MPV Sodium Potassium Chloride Carbon Dioxide Anion Gap BUN Creatinine Creat Clearance w eGFR Random Glucose Hemoglobin A1c % Calcium Phosphorus Cancelled Magnesium Total Bilirubin AST ALT Alkaline Phosphatase Total Protein Albumin Active Medications Generic Name Dose Route Start Last Admin Trade Name Freq PRN Reason Stop Dose Admin Albuterol Sulfate 1 amp 12/23/16 14:40 Ventolin 0.083% Nebulizer Soln - NEB Q6H PRN SHORT OF BREATH/WHEEZING Docusate Sodium 100 mg 12/24/16 11:00 12/24/16 12:21 Colace - PO 100 mg DAILY MAR Administration Heparin Sodium (Porcine) 5,000 unit 12/24/16 11:00 12/24/16 21:15 Heparin - SQ 5,000 unit BID MAR Administration Sodium Chloride 1,000 mls @ 75 mls/hr 12/24/16 07:44 12/24/16 09:22 Normal Saline - IV 75 mls/hr ASDIR MAR Administration Nicotine 21 mg 12/23/16 16:00 12/24/16 10:43 Nicoderm Patch - TD 21 mg DAILY MAR Administration IMAGES: CT HEAD (12/23/16): Negative for hemorrhage or infarction. ASSESSMENT/PLAN: Patient is a 61 year old male with a PMHx of continuous alcohol dependence, nicotine dependence, and COPD who was BIBA after finding him on the ground intoxicated. Patient was found to have Hypokalemia, hyponatremia, and Acute Renal Failure. Patient admitted for further monitoring and management. Moderate Hyponatremia- Improving -Likely secondary to ETOH dependence and dehydration -Level today 134 -Discontinue IV NS. Patient tolerating PO -Will repeat sodium levels today Moderate to Severe Hypokalemia- Improving -Likely secondary to poor oral intake and ETOH dependence -level of 2.9 today -Another 3 bags of KCl 10meq IV ordered. Total of 24 bags -Potassium Chloride 40meq PO ordered. Total of 3 dosages -Will continue to monitor Q4H Hypophosphatemia- Improving -Today 1.4 -Phos-NaK TID ordered -Continue IV Potassium Phosphate @62.5mls/hr ordered Hypomagnesemia- Acute -1.7 today -Mg sulfate 2gm ordered -Magnesium Oxide 800mg ordered -Repeat labs in the afternoon Constipation -Colace 300mg daily -Had a bowel movement today Acute Renal Failure- Resolved -Likely secondary to hypovolemia from dehydration -Creatinine 0.8 today -Will monitor BMP S/P Mechanical Fall- Acute -Likely secondary to intoxication -CT head negative for acute pathology Continuous ETOH dependence -CIWA 0 -CAGE / -Is not currently withdrawing. -Urine drug screen negative -A third banana bag ordered today -Continue Physical Therapy. Walked 45 feet yesterday. Needs to walk 50 feet before discharge. If unable to, will need to consider subacute rehab. -Continue to monitor for withdraws with Neuro checks Q4H Nicotine Dependence- Chronic -Smokes 1PPD for over 30 years -Nicotine patch 21mg TD daily ordered COPD- Chronic -Currently no acute exacerbation -DuoNeb Q6H PRN F/E/N -On no fluids. -Hypokalemia, hyponatremia, hypophosphatemia, hypomagnesemia -Regular diet with Ensure Prophylaxis -Heparin 5000 units SQ BID Disposition -Will continue to monitor for withdrawals. Will continue to replete electrolytes abnormalities. Visit type - Emergency Visit Emergency Visit: Yes ED Registration Date: 12/23/16 Care time: The patient presented to the Emergency Department on the above date and was hospitalized for further evaluation of their emergent condition. - New Patient This patient is new to me today: No - Critical Care Critical Care patient: No
[2016-12-25 09:01] LABS: ALBUMIN 2.2 g/dl (3.4-5.0); ANION GAP 13 (8-16); BILIRUBIN,TOTAL 0.6 mg/dL (0.2-1.0); CALCIUM 7.7 mg/dL (8.5-10.1); CO2 27 mmol/L (21-32); COCKROFT - GAULT 92.03; CREATININE 0.7 mg/dL (0.7-1.3); GLUCOSE,RANDOM 106 mg/dL (74-106); SGOT/AST 42 U/L (15-37); SGPT/ALT 32 U/L (12-78); TOT PROT 4.8 g/dl (6.4-8.2)
[2016-12-25 09:02] LABS: ALK PHOS 81 U/L (45-117)
[2016-12-25] MEDS: DOCUSATE SODIUM 100 MG CAPSULE (FP) PO SCH ×3 (09:07→22:21)
[2016-12-25] MEDS: SODIUM CHLORIDE 1,000 ML IV SCH (09:07)
[2016-12-25] MEDS: NICOTINE 21 MG/24 HOURS TOPICAL PATCH TD SCH (09:08)
[2016-12-25] MEDS: HEPARIN NA (PORCINE) 5,000 UNITS/ML 1ML VIAL SQ SCH ×2 (09:08→22:21)
--- NOTE | 2016-12-25 11:01 | MSN ---
Progress Note (short form) - Note Progress Note: Subjective: Patient was seen at the beside. Patient was alert and oriented and able to answer questions. Patient stated that he felt unchanged from previous day. he stated feeling week but denies having signs of withdrawal. Patient denied any numbness tingling, fever, sweating, nausea, vomiting, or diarrhea. Patient stated that he had a tremor when reach for object but was unable to reproduce the tremor upon examination. Patient is eating regularly and has normal appetite. Patient states having a bowl moment previous this morning and increased flatulence. Patient complains of persistent weakness in the legs with walking. patient has been assisted in walking and toileting by the physical therapist but unable to walk more than 40 ft. patient attempted to use bathroom without assistance but had difficulty getting up from the toilet. Patient was advised to only ambulate with assistance. patient denies any other complaints including chest pain or SOB. Objective: Vital Signs Period Temp Pulse Resp BP Sys/Lozada Pulse Ox Last 24 Hr 98.2 F-99.2 F 78-96 16-20 102-118/62-70 95-100 General: Patient is alert and oriented with no distress Lungs: lungs were clear to auscultation bilaterally in all lung sanchez Heart: Regular rate and rythm, S1 and S2 with no rubs, murmurs, or gallops Abdomen: No guarding, rebound, distention, or deformity, normative bowel sounds without tenderness in all four quadrants upon palpation Extremities: Pulses 2/4 and strength 5/5 in all limbs, no swelling or edema Neurological: sensation is intact uniformly, normal speech and no reproducible tremors. Psych: Normal mood and affect Laboratory Results - last 24 hr 12/24/16 12/24/16 12/24/16 16:35 19:42 19:42 WBC RBC Hgb Hct MCV MCHC RDW Plt Count MPV Sodium 132 L 131 L Potassium 3.1 L 2.9 L* Chloride 96 L 95 L Carbon Dioxide 23 23 Anion Gap 13 13 BUN 14 14 Creatinine 0.9 0.9 Creat Clearance w eGFR Random Glucose 105 163 H D Calcium 7.9 L 7.7 L Phosphorus 1.3 L D Magnesium Total Bilirubin AST ALT Alkaline Phosphatase Total Protein Albumin 12/24/16 12/25/16 12/25/16 20:36 03:00 03:00 WBC RBC Hgb Hct MCV MCHC RDW Plt Count MPV Sodium 134 L Potassium 2.9 L* Chloride 95 L Carbon Dioxide 26 Anion Gap 13 BUN 9 D Creatinine 0.8 Creat Clearance w eGFR Random Glucose 110 H D Calcium 8.0 L Phosphorus Cancelled 1.4 L Magnesium 1.7 L Total Bilirubin AST ALT Alkaline Phosphatase Total Protein Albumin 12/25/16 12/25/16 12/25/16 06:00 06:00 06:00 WBC 9.5 RBC 3.07 L Hgb 10.2 L Hct 28.6 L MCV 93.2 MCHC 35.6 RDW 15.8 Plt Count 151 MPV 8.3 Sodium 135 L Potassium 2.7 L* Chloride 95 L Carbon Dioxide 27 Anion Gap 13 BUN 9 Creatinine 0.7 Creat Clearance w eGFR > 60 Random Glucose 106 Calcium 7.7 L Phosphorus Cancelled Magnesium Total Bilirubin 0.6 D AST 42 H ALT 32 Alkaline Phosphatase 81 Total Protein 4.8 L Albumin 2.2 L Current Medications Generic Name Dose Route Start Last Admin Trade Name Freq PRN Reason Stop Dose Admin Albuterol Sulfate 1 amp 12/23/16 14:40 Ventolin 0.083% Nebulizer Soln - NEB Q6H PRN SHORT OF BREATH/WHEEZING Docusate Sodium 100 mg 12/24/16 11:00 12/25/16 09:07 Colace - PO Not Given DAILY [facility] Heparin Sodium (Porcine) 5,000 unit 12/24/16 11:00 12/25/16 09:08 Heparin - SQ 5,000 unit BID MAR Administration Folic Acid 1 mg/ Thiamine HCl 1,000 mls @ 125 mls/hr 12/25/16 12:00 100 mg/ Multivitamins/Minerals IVPB 12/25/16 19:59 10 ml/ Sodium Chloride ONCE ONE Potassium Chloride 100 mls @ 100 mls/hr 12/25/16 11:30 Potassium Chloride 10 Meq Premix Ivpb - IVPB 12/25/16 14:29 Q60M [facility] Magnesium Oxide 800 mg 12/25/16 11:15 Mag-Ox - PO 12/25/16 11:16 ONCE ONE Nicotine 21 mg 12/23/16 16:00 12/25/16 09:08 Nicoderm Patch - TD 21 mg DAILY MAR Administration Potassium Chloride 40 meq 12/25/16 11:15 K-Dur - PO 12/25/16 11:16 ONCE ONE Potassium Phos/Sodium Phos 1 packet 12/25/16 14:00 Phos-Nak Packet - PO TID MAR Imaging: Head CT (12/23/16) negative for any hemorrhages or infarction. Assessment/ Plan: 61 year old male with past medical history of continuos alcohol dependence, nicotine dependence, COPD who was found outside of the hospital while intoxicated. Patient has moderate hyponatremia, moderate hypokalemia, severe hypophosphatemia, and acute renal failure. Moderate Hyponatremia- improving secondary to ETOH dependence and poor oral intake current level is 134 discotinue IV NS 75ml/hr as levels are within normal range Moderate to severe Hypokalemia- improving secondary to ETOH dependence and poor oral intake current level is 2.9 21 bags of KCl 10 meq IV given 2 KCl 40 meq PO given will continue to monitor q4h Hypophosphatemia-Improving current level 1.4 4 bags of phos-Nak given continue potassium phosphate 62.5ml/hr Acute renal failure- resolved secondary toto hypovolemia current creatinine is .8 will continue to monitor BMP Mechanical fall- Acute secondary to intoxication CT of head negative for any acute pathology Constipation Docusate sodium 300 mg PO daily Continuous ETOH dependence urine toxicology was negative continue monitoring patient for withdrawals q48 hrs Nicotine dependence continue nicotine patch 21 mg TD daily COPD continue albuterol sulfate 1 amp NEB q6 PRN Hyperglycemia likely from excessive alcohol use glucose level of 106 Hb A1C level of 5.1 F/E/N IV normal saline 75 ml/hr diabetic diet Prophylaxis for DVT prophylaxis Heparin ordered 5000 units SQ BID
[2016-12-25] MEDS ORDERED: MAGNESIUM OXIDE 400 MG TABLET (FP) PO ONE (11:15)
[2016-12-25] MEDS ORDERED: POTASSIUM CHLORIDE TABS 20 MEQ TABLET.ER (FP) PO ONE (11:15)
[2016-12-25] MEDS ORDERED: FOLIC ACID INJECTION - 1 MG, THIAMINE HCL 100 MG, MULTIVIT INJECTION ADULT 10 ML in SOD... IVPB ONE (12:00)
[2016-12-25 12:25] LABS: PHOSPHOROUS 1.6 mg/dL (2.5-4.9)
--- NOTE | 2016-12-25 14:03 | PN ---
Teaching Attending Note Name of Resident: Moni Robles ATTENDING PHYSICIAN STATEMENT I saw and evaluated the patient. I reviewed the resident's note and discussed the case with the resident. I agree with the resident's findings and plan as documented. SUBJECTIVE:currently asymptomatic. states he had BM this AM, soft. denies Cp, SOB,fever, chills, N/V/C/D, no TESFAYE, visual/auditory hallucinations OBJECTIVE: Last Vital Signs Temp Pulse Resp BP Pulse Ox 98.6 F 82 20 112/67 100 12/25/16 08:00 12/25/16 08:00 12/25/16 08:00 12/25/16 08:00 12/25/16 09:15 General NAD extremities no tremors ASSESSMENT AND PLAN: 61yo M with PMH continuous polysubstance depedence (ETOH and Tobacco) presented to the ER after being found on the ground 1. Severe hypokalemia-improved. continuing to require IV and po K. repeat. 2. Hyponatremia- resolved 3. Severe hypophosphatemia- Kphos IV. neutraphos packets. repeat 4. Continuous polysubstance dependence- CIWA 0. no signs of withdrawal. will monitor for signs of withdrawal. banana bag. nicotine patch. thiaimine/folate/ mvi. does not want inpatient rehab at this time 5. Hyperglycemia with glucosuria-improved. a1c 5.4. 6. mechanical fall- no repeated episodes of falling. does have unsteady gait reported. head CT negative. possible LOC.walked 45 ft with PT yesterday, requesting repeat assessment today, may require GABI on discharge 7. constipation- resolved. stool softeners prn. 8. Leukocytosis- afebrile. leukocytosis resolved. no indication for abx at this time. 9. DVT ppx- hep sq 10. d/c planning once electrolytes within safe range. may need GABI on discharge.
[2016-12-25] MEDS: NAPH,MB-DB/K PH,MBDB POWDER PACKET PO SCH ×2 (14:52→22:21)
[2016-12-25 17:14] LABS: CALCIUM 7.8 mg/dL (8.5-10.1); COCKROFT - GAULT 128.84; CREATININE 0.5 mg/dL (0.7-1.3); MAGNESIUM 2.4 mg/dL (1.8-2.4); PHOSPHOROUS 1.6 mg/dL (2.5-4.9)
[2016-12-25] MEDS ORDERED: POTASSIUM PHOSPHATE 30 MM in SODIUM CHLORIDE 250 ML IVPB ONE (18:22)
[2016-12-25] MEDS ORDERED: POTASSIUM CHLORIDE ORAL LIQUID 20 MEQ/15 ML PO ONE (18:22)
[2016-12-26] MEDS: NAPH,MB-DB/K PH,MBDB POWDER PACKET PO SCH ×3 (06:01→22:23)
[2016-12-26 07:24] LABS: MCH 33.1 pg (25.7-33.7); MEAN CELL VOLUME 94.4 fl (80-96); MEAN PLT VOLUME 8.3 fl (7.5-11.1); PLATELET COUNT 140 K/MM3 (134-434); RDW 16.2 % (11.9-15.9); WHITE BLOOD COUNT 6.6 K/mm3 (4.0-10.0)
[2016-12-26 09:51] LABS: ALBUMIN 2.3 g/dl (3.4-5.0); ANION GAP 11 (8-16); CALCIUM 7.7 mg/dL (8.5-10.1); CO2 28 mmol/L (21-32); COCKROFT - GAULT 107.36; CREATININE 0.6 mg/dL (0.7-1.3); GLUCOSE,RANDOM 113 mg/dL (74-106); MAGNESIUM 2.1 mg/dL (1.8-2.4); PHOSPHOROUS 3.2 mg/dL (2.5-4.9); SGOT/AST 39 U/L (15-37); SGPT/ALT 38 U/L (12-78)
[2016-12-26 09:53] LABS: ALK PHOS 83 U/L (45-117); BILIRUBIN,TOTAL 0.4 mg/dL (0.2-1.0); TOT PROT 4.9 g/dl (6.4-8.2)
[2016-12-26] MEDS: NICOTINE 21 MG/24 HOURS TOPICAL PATCH TD SCH (09:53)
[2016-12-26] MEDS: HEPARIN NA (PORCINE) 5,000 UNITS/ML 1ML VIAL SQ SCH ×2 (09:55→22:23)
[2016-12-26] MEDS ORDERED: POTASSIUM CHLORIDE ORAL LIQUID 20 MEQ/15 ML PO ONE (10:32)
[2016-12-26] MEDS ORDERED: SODIUM CHLORIDE 1,000 ML IV STA ×2 (10:44→13:13)
--- NOTE | 2016-12-26 13:42 | PN ---
Progress Note (short form) - Note Progress Note: currently asymptomatic. not dizzy or blurred vision during hypotension. denies CP, SOB,fever, chills, N/V/C/D. tolerating diet. BM today Current Medications Generic Name Dose Route Start Last Admin Trade Name Freq PRN Reason Stop Dose Admin Albuterol Sulfate 1 amp 12/23/16 14:40 Ventolin 0.083% Nebulizer Soln - NEB Q6H PRN SHORT OF BREATH/WHEEZING Docusate Sodium 300 mg 12/25/16 22:00 12/25/16 22:20 Colace - PO Not Given HS MAR Heparin Sodium (Porcine) 5,000 unit 12/24/16 11:00 12/26/16 09:55 Heparin - SQ 5,000 unit BID MAR Administration Sodium Chloride 1,000 mls @ 1,000 mls/hr 12/26/16 13:13 12/26/16 13:26 Normal Saline - IV 12/26/16 14:12 1,000 mls/hr ASDIR STA Administration Nicotine 21 mg 12/23/16 16:00 12/26/16 09:53 Nicoderm Patch - TD 21 mg DAILY MAR Administration Potassium Phos/Sodium Phos 1 packet 12/25/16 14:00 12/26/16 06:01 Phos-Nak Packet - PO 1 packet TID MAR Administration Last Vital Signs Temp Pulse Resp BP Pulse Ox 98.7 F 81 20 89/51 100 12/26/16 12:59 12/26/16 12:59 12/26/16 12:59 12/26/16 12:59 12/25/16 21:00 General NAD CV S1 S2 RRR no murmur/rub/gallop Lungs CTA B/L no wheezing/rales/rhonchi Abdomen soft NT/ND extremities no tremors ASSESSMENT AND PLAN: 61yo M with PMH continuous polysubstance depedence (ETOH and Tobacco) presented to the ER after being found on the ground 1. Severe hypokalemia-improved. Kcl 40meq po 2. Hypotension- responding IVF challenge. cont IVF boluses. monitor BP closely 2. Hyponatremia- resolved 3. Severe hypophosphatemia- resolved 4. Continuous polysubstance dependence- CIWA 0. no signs of withdrawal. will monitor for signs of withdrawal. banana bag. nicotine patch. thiaimine/folate/ mvi. does not want inpatient rehab at this time 5. Hyperglycemia with glucosuria-improved. a1c 5.4. 6. mechanical fall- no repeated episodes of falling. does have unsteady gait reported. head CT negative. possible LOC. gait improved with RW. will need on discharge 7. constipation- resolved. stool softeners prn. 8. Leukocytosis- afebrile. leukocytosis resolved. no indication for abx at this time. 9. DVT ppx- hep sq 10. will hold discharge at this time due to hypotension. Visit type - Emergency Visit Emergency Visit: Yes ED Registration Date: 12/23/16 Care time: The patient presented to the Emergency Department on the above date and was hospitalized for further evaluation of their emergent condition. - New Patient This patient is new to me today: No - Critical Care Critical Care patient: No - Discharge Referral Referred to [facility] Med P.C.: No
[2016-12-26] MEDS: DOCUSATE SODIUM 100 MG CAPSULE (FP) PO SCH (22:23)
[2016-12-27] MEDS: NAPH,MB-DB/K PH,MBDB POWDER PACKET PO SCH (06:09)
[2016-12-27 07:38] LABS: CALCIUM 8.1 mg/dL (8.5-10.1); COCKROFT - GAULT 107.36; CREATININE 0.6 mg/dL (0.7-1.3); MAGNESIUM 1.9 mg/dL (1.8-2.4); PHOSPHOROUS 3.6 mg/dL (2.5-4.9)
[2016-12-27] MEDS ORDERED: POTASSIUM CHLORIDE ORAL LIQUID 20 MEQ/15 ML PO ONE (07:54)
[2016-12-27 09:54] VITALS: BP 106/70; PULSE 78; TEMP 98.1
[2016-12-27] MEDS: HEPARIN NA (PORCINE) 5,000 UNITS/ML 1ML VIAL SQ SCH (10:29)
[2016-12-27] MEDS: NICOTINE 21 MG/24 HOURS TOPICAL PATCH TD SCH (10:29)
--- NOTE | 2016-12-27 11:30 | PN ---
Progress Note (short form) - Note Progress Note: reamins asymptomatic. not dizzy or blurred vision during hypotension. denies CP , SOB,fever, chills, N/V/C/D. tolerating diet. BM today Current Medications Generic Name Dose Route Start Last Admin Trade Name Freq PRN Reason Stop Dose Admin Albuterol Sulfate 1 amp 12/23/16 14:40 Ventolin 0.083% Nebulizer Soln - NEB Q6H PRN SHORT OF BREATH/WHEEZING Docusate Sodium 300 mg 12/25/16 22:00 12/26/16 22:23 Colace - PO 300 mg HS MAR Administration Heparin Sodium (Porcine) 5,000 unit 12/24/16 11:00 12/27/16 10:29 Heparin - SQ 5,000 unit BID MAR Administration Nicotine 21 mg 12/23/16 16:00 12/27/16 10:29 Nicoderm Patch - TD 21 mg DAILY MAR Administration Last Vital Signs Temp Pulse Resp BP Pulse Ox 98.1 F 78 20 106/70 97 12/27/16 09:05 12/27/16 09:05 12/27/16 09:05 12/27/16 09:05 12/26/16 20:56 General NAD CV S1 S2 RRR no murmur/rub/gallop Lungs CTA B/L no wheezing/rales/rhonchi Abdomen soft NT/ND extremities no tremors CMP Sodium 138 mmol/L (136-145) 12/27/16 06:20 Potassium 3.5 mmol/L (3.5-5.1) 12/27/16 06:20 Chloride 100 mmol/L (98-107) 12/27/16 06:20 Carbon Dioxide 29 mmol/L (21-32) 12/27/16 06:20 Anion Gap 9 (8-16) 12/27/16 06:20 BUN 7 mg/dL (7-18) 12/27/16 06:20 Creatinine 0.6 mg/dL (0.7-1.3) L 12/27/16 06:20 Creat Clearance w eGFR > 60 (>60) 12/26/16 06:30 Calcium 8.1 mg/dL (8.5-10.1) L 12/27/16 06:20 Total Bilirubin 0.4 mg/dL (0.2-1.0) D 12/26/16 06:30 AST 39 U/L (15-37) H 12/26/16 06:30 ALT 38 U/L (12-78) 12/26/16 06:30 Alkaline Phosphatase 83 U/L (45-117) 12/26/16 06:30 Total Protein 4.9 g/dl (6.4-8.2) L 12/26/16 06:30 Albumin 2.3 g/dl (3.4-5.0) L 12/26/16 06:30 ASSESSMENT AND PLAN: 61yo M with PMH continuous polysubstance depedence (ETOH and Tobacco) presented to the ER after being found on the ground 1. Severe hypokalemia-improved. Kcl 40meq po now and will d/c with supplements x7days. explained need for repeat labs next week. 2. Hypotension- resolved. remains normotensive since last night 2. Hyponatremia- resolved 3. Severe hypophosphatemia- resolved 4. Continuous polysubstance dependence- CIWA 0. no signs of withdrawal. nicotine patch. thiaimine/folate/mvi. does not want inpatient rehab at this time 5. Hyperglycemia with glucosuria-improved. a1c 5.4. 6. mechanical fall- no repeated episodes of falling. does have unsteady gait reported. head CT negative. possible LOC. refuses to leave with RW. agreeable to using cane. explained that this is not the most stable assistive device and does not provide as much support. verbalized understanding but that he will be compliant with cane. prescription for cane given. 7. constipation- resolved. stool softeners prn. 8. Leukocytosis- afebrile. leukocytosis resolved. no indication for abx at this time. 9. DVT ppx- hep sq 10. d/c home. educated on importance of ETOH abstinence. medication compliance. and PMD follow up. verbalized understanding and agreement. Visit type - Emergency Visit Emergency Visit: Yes ED Registration Date: 12/23/16 Care time: The patient presented to the Emergency Department on the above date and was hospitalized for further evaluation of their emergent condition. - New Patient This patient is new to me today: No - Critical Care Critical Care patient: No - Discharge Referral Referred to [facility] Med P.C.: No
--- NOTE | 2016-12-28 18:53 | DS ---
Physical Exam: HOSPITAL COURSE: Patient is a 61 year old male with a significant PMHx of Alcohol dependence who was brought in by ambulance because he was found on the streets intoxicated. Patient stated hes been drinking excessively for the last three months with his new room mate. Reports that he shares 1.75 Liters of vodka everyday with his roommate for the last three months and was trying to walk to the hospital for detox. Patient was found to have severe hyponatremia, severe hypokalemia, hypomagnesemia, hypophosphatemia, and acute renal failure secondary to poor oral intake, and continuous alcohol dependence. Patient had a CIWA score of 2 on admission and had no physical signs of alcohol withdrawals. Patient was started on IV Normal saline for his ARF and Hyponatremia. Patients ARF and Hyponatremia resolved and fluids were discontinued. Patient was given multiple bags of IV potassium chloride, magnesium, and Phosphorus. Electrolyte abnormalities improved and resolved throughout the hospital course. Patient was on physical therapy throughout his stay due to his weakness and lethargy from poor nutrition intake. Patient wasn't able to walk 50 feet and was recommended for subacute therapy. However, patient refused GABI and was compliant with a cane. It was explained to the patient that a cane was not stable enough, patient understood. Patient was also consulted on his alcohol use and poor oral intake and the dangers of it. Patient verbalized understanding and would like to go to detox. Patients electrolyte abnormalities and ARF resolved and was stable for discharge. Patient was discharged home. Date of Admission:12/23/16 Date of Discharge: 12/28/16 Minutes to complete discharge: 35 Discharge Summary Reason For Visit: ACUTE RENAL FAILURE,HYPONATREMIA Condition: Improved - Instructions Diet, Activity, Other Instructions: You were admitted to the hospital for severe electrolyte imbalances. they have now improved. cont supplements until completed. FOllow up with primary care doctor (information on one) information on one has been provided next week to re -check your labs and determine if you need a longer course. Take a multivitamin daily Drink plenty of water. Drink Ensure shakes to help you gain more weight Avoid from drinking alcohol as this is detrimental to your health and can cause serious problems and even like discussed. Follow up with AA meetings for support. Ambulate with cane Return to the ER if your symptoms worsen. Referrals: Nehal Ashley MD [Staff Physician] - Disposition: HOME - Home Medications Comprehensive Discharge Medication List: Ambulatory Orders Cane 1 each ASDIR #1 each 12/27/16 Folic Acid 0.4 mg PO DAILY #30 tablet 12/27/16 Multivitamin [Poly-Vitamin] 1 each PO DAILY #30 tab.chew 12/27/16 Potassium Chloride 20 meq PO DAILY #7 tablet.er 12/27/16 Thiamine HCl [B-1] 100 mg PO DAILY #30 tablet 12/27/16 This patient is new to me today: No Emergency Visit: Yes ED Registration Date: 12/23/16 Care time: The patient presented to the Emergency Department on the above date and was hospitalized for further evaluation of their emergent condition. Critical Care patient: No - Discharge Referral Referred to [facility] Med P.C.: No
== END 2016-12-27 12:13 | disposition home or self-care (01) | DRG 460 ==
LOC: JER 11:07 → JERBED 14:21 → J5S 15:55
PROVIDERS: ADMIT Internal Medicine; ATTEND Internal Medicine
PROC: HZ2ZZZZ Detoxification Services for Substance Abuse Treatment (ICD-10-PCS; principal; 2016-12-23)
DX: N17.9 Acute kidney failure, unspecified (principal); E87.1 Hypo-osmolality and hyponatremia; E87.6 Hypokalemia; E86.0 Dehydration; F10.20 Alcohol dependence, uncomplicated; E83.39 Other disorders of phosphorus metabolism; F17.210 Nicotine dependence, cigarettes, uncomplicated; J44.9 Chronic obstructive pulmonary disease, unspecified; R73.9 Hyperglycemia, unspecified; F19.10 Other psychoactive substance abuse, uncomplicated; K59.09 Other constipation; E86.1 Hypovolemia; E83.42 Hypomagnesemia; I95.89 Other hypotension
CPT/HCPCS: 36415; 70450-TC; 71010-TC; 80048; 80053; 80307; 81003; 81015; 83036; 83605; 83735; 84100; 85025; 85027; 85610; 85730; 93005; 93010; 97116-GP; 97161; 99282-25; J1644

== ENCOUNTER 2017-04-13 18:54 | Inpatient (IN) | payer OTHER ==
[2017-04-13] MEDS ORDERED: FOLIC ACID INJECTION - 1 MG, THIAMINE HCL 100 MG, MULTIVIT INJECTION ADULT 10 ML in SOD... IVPB ONE (19:56)
[2017-04-13] MEDS ORDERED: LORazepam 2 MG/ML SDV VIAL ONE (20:14)
[2017-04-13 20:25] LABS: MCH 35.2 pg (25.7-33.7); MCHC 34.2 g/dl (32.0-35.9); MEAN CELL VOLUME 102.9 fl (80-96); MEAN PLT VOLUME 9.6 fl (7.5-11.1); PLATELET COUNT 141 K/MM3 (134-434); RDW 13.4 % (11.9-15.9); WHITE BLOOD COUNT 9.6 K/mm3 (4.0-10.0)
[2017-04-13 20:40] LABS: INR 1.26 (0.82-1.09); PROTHROMBIN TIME (PATIENT) 13.9 SEC (9.98-11.88)
[2017-04-13 20:43] LABS: ACTIVATED PTT 23.4 SECONDS (26.9-34.4)
[2017-04-13 21:06] LABS: ALBUMIN 2.6 g/dl (3.4-5.0); ANION GAP 14 (8-16); BILIRUBIN,DIRECT 9.5 mg/dL (0.0-0.2); CALCIUM 8.9 mg/dL (8.5-10.1); CO2 33 mmol/L (21-32); CREATININE 0.9 mg/dL (0.7-1.3); GLUCOSE,RANDOM 136 mg/dL (74-106); SGPT/ALT 124 U/L (12-78)
[2017-04-13 21:08] LABS: ALK PHOS 264 U/L (45-117); TOT PROT 5.8 g/dl (6.4-8.2)
[2017-04-13 21:13] LABS: SGOT/AST 309 U/L (15-37)
[2017-04-13 21:15] LABS: BILIRUBIN,TOTAL 11.8 mg/dL (0.2-1.0)
[2017-04-13 21:31] LABS: PLATELET ESTIMATE ADEQUATE (NORMAL); TOTAL CELLS COUNTED 100
[2017-04-13 21:32] LABS: METAMYELOCYTE 1 % (0-2); MYELOCYTE 1 % (0-2)
[2017-04-13] MEDS ORDERED: POTASSIUM CHLORIDE 20 MEQ PREMIX IVPB 100 ML IVPB ONE (21:33)
[2017-04-13] MEDS ORDERED: KCL 10 MEQ IVPB 200 ML IVPB ONE (22:19)
[2017-04-13] MEDS: POTASSIUM CHLORIDE 10 MEQ PREMIX IVPB (POTASSIUM RIDER) IVPB SCH ×2 (22:30→23:58)
--- NOTE | 2017-04-14 01:00 | PDOC ---
History of Present Illness - General Chief Complaint: Weakness Stated Complaint: DEHYDRATION Time Seen by Provider: 04/13/17 19:43 History Source: Patient Exam Limitations: No Limitations - History of Present Illness Initial Comments: 04/14/17 00:53 62yo Male patient w/ PmHx: Alcoholism presents to ED via EMS from [facility]. Patient states he went to [facility] for detox from alcohol, while ambulating to see provider for intake assessment, patient became weak and fell to knees, patient was then transferred to this ED for evaluation. Patient reports last drink 11 am. Denies head injury, LOC, or any other complaints at this time. Past History - Travel Traveled outside of the country in the last 30 days: No Close contact w/someone who was outside of country & ill: No - Past Medical History Allergies/Adverse Reactions: Allergies Allergy/AdvReac Type Severity Reaction Status Date / Time No Known Allergies Allergy Verified 04/13/17 23:09 Home Medications: Ambulatory Orders Folic Acid 0.4 mg PO DAILY #30 tablet 12/27/16 Multivitamin [Poly-Vitamin] 1 each PO DAILY #30 tab.chew 12/27/16 Potassium Chloride 20 meq PO DAILY #7 tablet.er 12/27/16 Thiamine HCl [B-1] 100 mg PO DAILY #30 tablet 12/27/16 Anemia: No Asthma: No Cancer: No Cardiac Disorders: No CVA: No COPD: Yes CHF: No Dementia: No Diabetes: No GI Disorders: No Disorders: No HTN: No Hypercholesterolemia: No Kidney Stones: No Liver Disease: No Seizures: No Thyroid Disease: No - Surgical History Abdominal Surgery: No Appendectomy: No Cardiac Surgery: No Cholecystectomy: No Lung Surgery: No Neurologic Surgery: No Orthopedic Surgery: No - Reproductive History Testicular Surgery: No - Suicide/Smoking/Psychosocial Hx Smoking History: Current every day smoker Have you smoked in the past 12 months: Yes Number of Cigarettes Smoked Daily: 20 Cigars Per Day: 0 Information on smoking cessation initiated: No 'Breaking Loose' booklet given: 12/23/16 Hx Alcohol Use: Yes (Beer, liquor) Drug/Substance Use Hx: No Substance Use Type: Alcohol Hx Substance Use Treatment: Yes Review of Systems - Review of Systems Able to Perform ROS?: Yes Is the patient limited Sammarinese proficient: No Constitutional: No: Chills, Fever HEENTM: No: Blurred Vision, Double Vision Cardiac (ROS): No: Chest Pain ABD/GI: No: Constipated, Diarrhea, Nausea, Poor Appetite, Poor Fluid Intake, Vomiting, Abdominal cramping Musculoskeletal: No: Back Pain All Other Systems: Reviewed and Negative *Physical Exam - Vital Signs Last Vital Signs Temp Pulse Resp BP Pulse Ox 97.5 F L 75 16 109/74 100 04/13/17 19:16 04/13/17 19:16 04/13/17 19:16 04/13/17 19:16 04/13/17 19:16 - Physical Exam General Appearance: Yes: Disheveled, Thin HEENT: positive: EOMI, ELDON, Normal Voice, Symmetrical, TMs Normal, Pharynx Normal, Scleral Icterus (R), Scleral Icterus (L). negative: Normal ENT Inspection, Pale Conjunctivae, Photophobia, Pharyngeal Erythema, Nasal Congestion, Rhinorrhea, TM Bulging, TM Dull, TM Erythema Neck: positive: Trachea midline, Supple. negative: Rigid, Decreased range of motion, Stridor, Lymphadenopathy (R), Lymphadenopathy (L), Tender lateral, Tender midline Respiratory/Chest: positive: Lungs Clear, Normal Breath Sounds. negative: Chest Tender, Respiratory Distress, Accessory Muscle Use, Labored Respiration, Rapid RR, Rhonchi, Stridor, Wheezing Cardiovascular: positive: Regular Rhythm, Regular Rate Gastrointestinal/Abdominal: positive: Normal Bowel Sounds, Flat, Soft, Rebound, Tenderness, Hepatomegaly. negative: Distended, Spleenomegaly Lymphatic: negative: Adenopathy Musculoskeletal: positive: Normal Inspection. negative: CVA Tenderness, Decreased Range of Motion Extremity: positive: Normal Capillary Refill, Normal Inspection, Normal Range of Motion. negative: Delayed Capillary Refill, Pedal Edema, Swelling, Calf Tenderness, Erythema Integumentary: positive: Normal Color, Dry, Warm. 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, Fully Oriented, Alert, Normal Mood/ Affect, Normal Response, Motor Strength 11/27 ED Treatment Course - LABORATORY CBC & Chemistry Diagram: 04/13/17 20:10 04/14/17 02:30 - ADDITIONAL ORDERS Additional order review: Laboratory Results 04/13/17 04/13/17 20:10 20:10 PT with INR 13.90 H INR 1.26 H PTT (Actin FS) 23.4 L Sodium 124 L* D Potassium 2.1 L* D Chloride 77 L D Carbon Dioxide 33 H Anion Gap 14 BUN 15 D Creatinine 0.9 D Random Glucose 136 H D Calcium 8.9 Total Bilirubin 11.8 H D Direct Bilirubin 9.5 H AST 309 H D ALT 124 H D Alkaline Phosphatase 264 H D Total Protein 5.8 L Albumin 2.6 L 04/13/17 20:10 RBC 3.08 L MCV 102.9 H MCHC 34.2 RDW 13.4 D MPV 9.6 D Neutrophils % No Result Required. Lymphocytes % No Result Required. - RADIOLOGY Radiology Studies Ordered: Category Date Time Status ABDOMEN & PELVIS CT WITH CONTR [CT] Stat CT Scan 04/14/17 00:[address] WITHOUT CONTRAST [CT] Stat CT Scan 04/13/17 19:56 Completed CHEST X-RAY PORTABLE* [RAD] Stat Radiology 04/13/17 19:56 Taken GALLBLADDER US [US] Stat Ultrasound 04/13/17 19:56 Completed - Medications Given in the ED: ED Medications Discontinued Medications Generic Name Dose Route Start Last Admin Trade Name Freq PRN Reason Stop Dose Admin Lorazepam 0.5 mg 04/13/17 19:56 04/13/17 20:20 Ativan Injection - IVPUSH 04/13/17 19:57 0.5 mg ONCE ONE Administration Potassium Chloride 10 meq 04/13/17 22:15 04/13/17 23:58 Potassium Chloride 10 Meq Premix Ivpb - IVPB 04/13/17 23:16 10 meq Q1H MAR Administration *DC/Admit/Observation/Transfer Diagnosis at time of Disposition: Hyponatremia, Hypokalemia, Dehydration - Discharge Dispostion Condition at time of disposition: Fair Admit: Yes
--- NOTE | 2017-04-14 01:16 | PDOC ---
*Physical Exam - Vital Signs Last Vital Signs Temp Pulse Resp BP Pulse Ox 97.5 F L 75 16 109/74 100 04/13/17 19:16 04/13/17 19:16 04/13/17 19:16 04/13/17 19:16 04/13/17 19:16 ED Treatment Course - LABORATORY CBC & Chemistry Diagram: 04/14/17 06:35 04/14/17 17:00 - ADDITIONAL ORDERS Additional order review: Laboratory Results 04/13/17 04/13/17 20:10 20:10 PT with INR 13.90 H INR 1.26 H PTT (Actin FS) 23.4 L Sodium 124 L* D Potassium 2.1 L* D Chloride 77 L D Carbon Dioxide 33 H Anion Gap 14 BUN 15 D Creatinine 0.9 D Random Glucose 136 H D Calcium 8.9 Total Bilirubin 11.8 H D Direct Bilirubin 9.5 H AST 309 H D ALT 124 H D Alkaline Phosphatase 264 H D Total Protein 5.8 L Albumin 2.6 L 04/13/17 20:10 RBC 3.08 L MCV 102.9 H MCHC 34.2 RDW 13.4 D MPV 9.6 D Neutrophils % No Result Required. Lymphocytes % No Result Required. - Medications Given in the ED: ED Medications Discontinued Medications Generic Name Dose Route Start Last Admin Trade Name Freq PRN Reason Stop Dose Admin Lorazepam 0.5 mg 04/13/17 19:56 04/13/17 20:20 Ativan Injection - IVPUSH 04/13/17 19:57 0.5 mg ONCE ONE Administration Potassium Chloride 10 meq 04/13/17 22:15 04/13/17 23:58 Potassium Chloride 10 Meq Premix Ivpb - IVPB 04/13/17 23:16 10 meq Q1H MAR Administration Medical Decision Making - Medical Decision Making 04/14/17 01:16 agree with care from FRANCK Moya *DC/Admit/Observation/Transfer Diagnosis at time of Disposition: Hyponatremia, Hypokalemia, Dehydration - Discharge Dispostion Condition at time of disposition: Fair
--- NOTE | 2017-04-14 02:36 | PN ---
Teaching Attending Note Name of Resident: Deb Stone ATTENDING PHYSICIAN STATEMENT I saw and evaluated the patient. I reviewed the resident's note and discussed the case with the resident. I agree with the resident's findings and plan as documented. SUBJECTIVE: 62 M w pmhx of Etoh dependence, COPD, Depression, anxiety who came from [facility] for etoh detox. While awaiting intake, pt. fell to his knees due to weakness. States last drink was at 11 am last night. Denies hitting his head. OBJECTIVE: Physical: Vs: Vital Signs Period Temp Pulse Resp BP Sys/Lozada Pulse Ox Last 24 Hr 97.5 F 75 16 109/74 100 GEN: NAD, Cachetic male, Resting in bed HEENT: NCAT, PERRL throat without erythema or exudates CARD: RRR S1, S2 RESP: CTAB ABD: BSx4, NTD to palpation EXT: - C/C/E CBCD WBC 9.6 K/mm3 (4.0-10.0) D 04/13/17 20:10 RBC 3.08 M/mm3 (4.00-5.60) L 04/13/17 20:10 Hgb 10.8 GM/dL (11.7-16.9) L 04/13/17 20:10 Hct 31.6 % (35.4-49) L 04/13/17 20:10 MCV 102.9 fl (80-96) H 04/13/17 20:10 MCHC 34.2 g/dl (32.0-35.9) 04/13/17 20:10 RDW 13.4 % (11.9-15.9) D 04/13/17 20:10 Plt Count 141 K/MM3 (134-434) 04/13/17 20:10 MPV 9.6 fl (7.5-11.1) D 04/13/17 20:10 CMP Sodium 124 mmol/L (136-145) L* D 04/13/17 20:10 Potassium 2.1 mmol/L (3.5-5.1) L* D 04/13/17 20:10 Chloride 77 mmol/L (98-107) L D 04/13/17 20:10 Carbon Dioxide 33 mmol/L (21-32) H 04/13/17 20:10 Anion Gap 14 (8-16) 04/13/17 20:10 BUN 15 mg/dL (7-18) D 04/13/17 20:10 Creatinine 0.9 mg/dL (0.7-1.3) D 04/13/17 20:10 Random Glucose 136 mg/dL (74-106) H D 04/13/17 20:10 Calcium 8.9 mg/dL (8.5-10.1) 04/13/17 20:10 Total Bilirubin 11.8 mg/dL (0.2-1.0) H D 04/13/17 20:10 AST 309 U/L (15-37) H D 04/13/17 20:10 ALT 124 U/L (12-78) H D 04/13/17 20:10 Alkaline Phosphatase 264 U/L (45-117) H D 04/13/17 20:10 Total Protein 5.8 g/dl (6.4-8.2) L 04/13/17 20:10 Albumin 2.6 g/dl (3.4-5.0) L 04/13/17 20:10 CXR: Pending read prelim no acute proces EKG: NSR ATC 590 LAD ASSESSMENT AND PLAN: 62 M with pmhx of etoh dependence, depression, anxiety who presents from [facility] for weakness 1.) Weakness- Most likely due to poor oral intake/electrolyte abnormalities - Replete K - Chk. Mg2+ 2.) Hyponatremia- Moderate/Chronic - Most likely due to poor oral intake - IVF NS @ 75 - Recheck Q 4 - Do Not correct >10 MeQ in 24 hrs 3.) Hypokalemia - Replete - Chk Mg2+ 4.) ETOH Dependence - Chk Etoh level - Banana bag - Thiamine/Folic A - Detox consult - Would be very cautious with Librium due to hepatic Failure, instead use Ativan 2 mg q 6hrs for 4 doses, then 1 mg q 6 for 8 additional doses 5.) Macrocytic Anemia - Chk. B12/Folate 6.) Transaminitis/Hyperbilirubinemia DDx: Etoh Hepatitis/ RO Infectious Hepatitis - Hepatitis Panel - GI Consult - Trey Rivera 7.) QtC Prolongation - Monitor lytes - Avoid QT prolonging agents - Monitor EKG 8.) Dvt Ppx - Low Risk - Heparin [address] in [place]
[2017-04-14 03:09] LABS: ALBUMIN 2.1 g/dl (3.4-5.0); ANION GAP 11 (8-16); BILIRUBIN,TOTAL 9.5 mg/dL (0.2-1.0); CO2 34 mmol/L (21-32); CREATININE 0.7 mg/dL (0.7-1.3); GLUCOSE,RANDOM 100 mg/dL (74-106); SGPT/ALT 94 U/L (12-78); TOT PROT 4.5 g/dl (6.4-8.2)
[2017-04-14 03:15] LABS: ALK PHOS 216 U/L (45-117)
[2017-04-14 03:22] LABS: MAGNESIUM 2.3 mg/dL (1.8-2.4); SGOT/AST 242 U/L (15-37)
[2017-04-14 03:24] LABS: PHOSPHOROUS 0.2 mg/dL (2.5-4.9)
[2017-04-14] MEDS ORDERED: POTASSIUM CHLORIDE 20 MEQ PREMIX IVPB 100 ML IVPB ONE (03:25)
[2017-04-14] MEDS ORDERED: KCL 10 MEQ IVPB 100 ML IVPB ONE ×2 (03:33→05:50)
[2017-04-14] MEDS ORDERED: SODIUM CHLORIDE 1,000 ML IV STA (03:37)
[2017-04-14] MEDS ORDERED: POTASSIUM CHLORIDE TABS 20 MEQ TABLET.ER (FP) PO ONE ×4 (03:53→18:52)
[2017-04-14 04:18] LABS: URINE APPEARANCE SLCLOUDY; URINE BILIRUBIN NEGATIVE (NEGATIVE); URINE BLOOD 1+ (NEGATIVE); URINE COLOR AMBER; URINE GLUCOSE (UA) NEGATIVE (NEGATIVE); URINE KETONE 1+ (NEGATIVE); URINE LEUK ESTERASE NEGATIVE (NEGATIVE); URINE NITRITE NEGATIVE (NEGATIVE); URINE PROTEIN NEGATIVE (NEGATIVE); URINE UROBILINOGEN 4.0 E.U/dl mg/dL (0.2-1.0)
[2017-04-14 04:26] LABS: URINE RBC 2 /hpf (0-3); URINE WBC 3 /hpf (3-5)
[2017-04-14 04:28] LABS: URINE MARIJUANA THC NEGATIVE ng/ml (CUTOFF=50)
--- NOTE | 2017-04-14 04:29 | HP ---
CHIEF COMPLAINT: Weakness, Fall PCP: Not on staff, unsure HISTORY OF PRESENT ILLNESS: 62 y.o. M with pmh of ETOH abuse presenting s/p fall. Patient went to [facility] today for detox from ETOH. Prior to entering he felt weak and fell. Patient denies any head trauma or LOC. He denies any chest pain or dizziness prior to falling. Patient recalls the entire event. Patient is a chronic alcoholic and drinks 1.5 L of liquor per day. His last reported drink was at 11 am yesterday. Patient denies fever, chills, n/v/d/c, chest pain, sob, abdominal pain ER course was notable for: (1) vs-wnl, hgb-10.8, hct-31.6, Na-124--127, K-2.1--2.0, Phos- 0.2, T bili- 11.8 --9.5, AST- 309--242, ALT-124--94, ALP-264--216, (2) UA- 1+ blood, 4 urine urobilinogen, UTOX- negative, alcohol level <5 (3) CXR- unremarkable, gb u/s- small to moderate bile sludge in the gb, no biliary tract dilitation, diffuse hepatic steatosis (4) Head CT- negative (5) Abdomen/Pelvis CT- hepatic steatosis Recent Travel: denies PAST MEDICAL HISTORY: ETOH abuse PAST SURGICAL HISTORY: denies Social History: Smokin cigs/day, many yrs Alcohol: 1.5 L of liquor per day Drugs: denies Family History: unknown Allergies No Known Allergies Allergy (Verified 04/13/17 23:09) HOME MEDICATIONS: Home Medications Medication Instructions Recorded Folic Acid 0.4 mg PO DAILY #30 tablet 12/27/16 Multivitamin [Poly-Vitamin] 1 each PO DAILY #30 tab.chew 12/27/16 Potassium Chloride 20 meq PO DAILY #7 tablet.er 12/27/16 Thiamine HCl [B-1] 100 mg PO DAILY #30 tablet 12/27/16 REVIEW OF SYSTEMS CONSTITUTIONAL: Absent: fever, chills, diaphoresis, generalized weakness, malaise, loss of appetite, weight change HEENT: Absent: rhinorrhea, nasal congestion, throat pain, throat swelling, difficulty swallowing, mouth swelling, ear pain, eye pain, visual changes CARDIOVASCULAR: Absent: chest pain, syncope, palpitations, irregular heart rate, lightheadedness , peripheral edema RESPIRATORY: Absent: cough, shortness of breath, dyspnea with exertion, orthopnea, wheezing, stridor, hemoptysis GASTROINTESTINAL: Absent: abdominal pain, abdominal distension, nausea, vomiting, diarrhea, constipation, melena, hematochezia GENITOURINARY: Absent: dysuria, frequency, urgency, hesitancy, hematuria, flank pain, genital pain MUSCULOSKELETAL: Absent: myalgia, arthralgia, joint swelling, back pain, neck pain SKIN: Absent: rash, itching, pallor HEMATOLOGIC/IMMUNOLOGIC: Absent: easy bleeding, easy bruising, lymphadenopathy, frequent infections ENDOCRINE: Absent: unexplained weight gain, unexplained weight loss, heat intolerance, cold intolerance NEUROLOGIC: Absent: headache, focal weakness or paresthesias, dizziness, unsteady gait, seizure, mental status changes, bladder or bowel incontinence PSYCHIATRIC: Absent: anxiety, depression, suicidal or homicidal ideation, hallucinations. PHYSICAL EXAMINATION Vital Signs - 24 hr 04/13/17 19:16 Temperature 97.5 F L Pulse Rate 75 Respiratory 16 Rate Blood Pressure 109/74 O2 Sat by Pulse 100 Oximetry (%) GENERAL: Awake, alert, and fully oriented, cachetic, lethargic, Jaundiced HEAD: Normal with no signs of trauma. +Jaundice EYES: Extraocular movements intact, + scleral icterus, conjunctiva clear. No lid lag. EARS, NOSE, THROAT: Oropharynx clear without exudates. Dry Mucous Membranes NECK: Normal range of motion, supple without lymphadenopathy, JVD, or masses. LUNGS: Breath sounds equal, clear to auscultation bilaterally. No wheezes, and no crackles. No accessory muscle use. HEART: Regular rate and rhythm, normal S1 and S2 without murmur, rub or gallop. ABDOMEN: Soft, nontender, not distended, normoactive bowel sounds, no guarding, no rebound, no masses. +hepatomegaly, No splenomegaly. MUSCULOSKELETAL: Normal range of motion at all joints. No bony deformities or tenderness. UPPER EXTREMITIES: 2+ pulses, warm, well-perfused. No cyanosis. No clubbing. No peripheral edema. LOWER EXTREMITIES: 2+ pulses, warm, well-perfused. No calf tenderness. No peripheral edema. NEUROLOGICAL: Cranial nerves II-XII intact. Normal speech. Normal gait. A&O x3 PSYCHIATRIC: Cooperative. Good eye contact. Appropriate mood and affect. SKIN: Warm, dry, normal turgor, no rashes or lesions noted, normal capillary refill. Laboratory Results - last 24 hr 04/13/17 04/13/17 04/13/17 20:10 20:10 20:10 WBC 9.6 D RBC 3.08 L Hgb 10.8 L Hct 31.6 L MCV 102.9 H MCH 35.2 H MCHC 34.2 RDW 13.4 D Plt Count 141 MPV 9.6 D Total Counted 100 Neutrophils % No Result Required. Neutrophils % (Manual) 82 Band Neuts % (Manual) 6 Lymphocytes % No Result Required. Lymphocytes % (Manual) 6 L Monocytes % (Manual) 4 Myelocytes % (Man) 1 Other Cell Type Platelet Estimate Adequate PT with INR 13.90 H INR 1.26 H PTT (Actin FS) 23.4 L Sodium 124 L* D Potassium 2.1 L* D Chloride 77 L D Carbon Dioxide 33 H Anion Gap 14 BUN 15 D Creatinine 0.9 D Creat Clearance w eGFR Random Glucose 136 H D Calcium 8.9 Phosphorus Magnesium Total Bilirubin 11.8 H D Direct Bilirubin 9.5 H AST 309 H D ALT 124 H D Alkaline Phosphatase 264 H D Total Protein 5.8 L Albumin 2.6 L Urine Color Urine Appearance Urine pH Urine Protein Urine Glucose (UA) Urine Ketones Urine Blood Urine Nitrite Urine Bilirubin Urine Urobilinogen 04/14/17 04/14/17 02:30 04:00 WBC RBC Hgb Hct MCV MCH MCHC RDW Plt Count MPV Total Counted Neutrophils % Neutrophils % (Manual) Band Neuts % (Manual) Lymphocytes % Lymphocytes % (Manual) Monocytes % (Manual) Myelocytes % (Man) Other Cell Type Platelet Estimate PT with INR INR PTT (Actin FS) Sodium 127 L Potassium 2.0 L* Chloride 82 L Carbon Dioxide 34 H Anion Gap 11 BUN 13 Creatinine 0.7 D Creat Clearance w eGFR > 60 Random Glucose 100 D Calcium 8.0 L Phosphorus 0.2 L* Magnesium 2.3 D Total Bilirubin 9.5 H Direct Bilirubin AST 242 H D ALT 94 H D Alkaline Phosphatase 216 H Total Protein 4.5 L D Albumin 2.1 L Urine Color Madelin Urine Appearance Slcloudy Urine pH 7.0 Urine Protein Negative Urine Glucose (UA) Negative Urine Ketones 1+ H Urine Blood 1+ H Urine Nitrite Negative Urine Bilirubin Negative Urine Urobilinogen 4.0 e.u/dl ASSESSMENT/PLAN: 62 y.o. M with pmh of ETOH abuse presenting s/p fall admitted for hypokalemia, hyponatremia, and ETOH abuse #Hypokalemia -K+ 2.1 on admission -Received total of 80 meq of KCl since admission -Continue to monitor K+ -Repeat EKG in the AM #Hyponatremia 2/2 to poor oral intake -Na 124 on admission -Repeat Na 127 -IVF stopped, will restart IVF NS @ 42 cc/hr at 0600 -Recheck BMP q4h -Nephrology consulted, Dr. Callaway #Hypophosphatemia -Phos of 0.2 -2 packets of neutraphos given -monitor AM phos #ETOH abuse -ETOH level <5 -Thiamine 200 mg ivpb daily -Folic acid 1 mg po daily -Ativan 2mg q6 hr for 4 doses -After first 4 doses, Ativan 1 mg q6 hr for 8 more doses -Do not give patient librium or valium 2/2 to liver transaminitis -Detox Consulted, Dr. Diaz #Macrocytic anemia -MCV 102 -Check folate/b12/tsh levels in am -Monitor H/H #Transaminitis and Hyperbilirubinemia 2/2 to alcoholic hepatitis vs infectious hepatitis -Acute hepatitis panel in the AM -Direct bilirubin pending -GI consult, Dr. Cisneros #Prolonged QTc -Patient's EKG revealed a QTc of 590 -Will repeat EKG and electrolytes in the AM -Do not give any medications that prolong QTc #FEN/GI -IVF NS @ 42cc/hr at 0600 -hypokalemia, hyponatremia, hypophosphatemia- will replete and monitor -Regular diet #PPx -DVT- heparin 5000 u sq q8h -GI- not indicated #Dispo: admit to telemetry, patient to detox once discharged Visit type - Emergency Visit Emergency Visit: Yes ED Registration Date: 04/14/17 Care time: The patient presented to the Emergency Department on the above date and was hospitalized for further evaluation of their emergent condition. - New Patient This patient is new to me today: Yes Date on this admission: 04/14/17 - Critical Care Critical Care patient: No
[2017-04-14] MEDS ORDERED: LORazepam 2 MG/ML SDV VIAL ONE ×2 (05:17→12:20)
[2017-04-14] MEDS ORDERED: HEPARIN NA (PORCINE) 5,000 UNITS/ML 1ML VIAL ONE (05:45)
[2017-04-14] MEDS ORDERED: SODIUM CHLORIDE 1,000 ML IV SCH ×2 (06:00→15:15)
[2017-04-14] MEDS: HEPARIN NA (PORCINE) 5,000 UNITS/ML 1ML VIAL SQ SCH ×3 (06:45→23:22)
[2017-04-14 07:39] LABS: BASOPHIL 0.4 % (0-2.0); EOSINOPHIL 0.3 % (0-4.5); MCHC 33.9 g/dl (32.0-35.9); MEAN CELL VOLUME 103.2 fl (80-96); MEAN PLT VOLUME 9.1 fl (7.5-11.1); NEUTROPHILS 86.3 % (42.8-82.8); PLATELET COUNT 122 K/MM3 (134-434)
[2017-04-14 08:06] LABS: BILIRUBIN,DIRECT 8.4 mg/dL (0.0-0.2)
[2017-04-14 08:07] LABS: ALBUMIN 2.3 g/dl (3.4-5.0); ANION GAP 12 (8-16); CALCIUM 8.4 mg/dL (8.5-10.1); CO2 32 mmol/L (21-32); GLUCOSE,RANDOM 85 mg/dL (74-106)
[2017-04-14 08:13] LABS: THYROID STIMULATING HORMONE 4.21 uIU/ml (0.358-3.74)
[2017-04-14 08:16] LABS: ALK PHOS 233 U/L (45-117); BILIRUBIN,TOTAL 10.7 mg/dL (0.2-1.0); CREATININE 0.5 mg/dL (0.7-1.3); SGPT/ALT 110 U/L (12-78); TOT PROT 5.1 g/dl (6.4-8.2)
[2017-04-14 08:38] LABS: PHOSPHOROUS 0.3 mg/dL (2.5-4.9)
[2017-04-14 08:41] LABS: MAGNESIUM 2.1 mg/dL (1.8-2.4); SGOT/AST 286 U/L (15-37)
[2017-04-14] MEDS ORDERED: POTASSIUM PHOSPHATE 30 MM in SODIUM CHLORIDE 250 ML IVPB ONE (09:30)
[2017-04-14] MEDS ORDERED: POTASSIUM PHOSPHATE 10 MM in SODIUM CHLORIDE 250 ML IVPB ONE ×2 (09:30→10:00)
[2017-04-14] MEDS: FOLIC ACID 1 MG TABLET (FP) PO SCH (09:37)
[2017-04-14] MEDS ORDERED: NAPH,MB-DB/K PH,MBDB POWDER PACKET PO SCH (10:00)
--- NOTE | 2017-04-14 11:29 | EKG ---
Test Reason : Blood Pressure : / mmHG Vent. Rate : 074 BPM Atrial Rate : 074 BPM P-R Int : 156 ms QRS Dur : 092 ms QT Int : 532 ms P-R-T Axes : 064 -33 058 degrees QTc Int : 590 ms NORMAL SINUS RHYTHM POSSIBLE LEFT ATRIAL ENLARGEMENT LEFT AXIS DEVIATION NONSPECIFIC ST ABNORMALITY PROLONGED QT ABNORMAL ECG WHEN COMPARED WITH ECG OF 23-DEC-2016 14:32, QT HAS LENGTHENED Confirmed by WANG CORLEY, MICHELLE ([id number]) on 04/14/2017 11:29:33 AM Referred By: Confirmed By:MICHELLE PIÑA MD
[2017-04-14] MEDS: THIAMINE HCL 200 MG/2 ML VIAL IVPB SCH (11:44)
--- NOTE | 2017-04-14 12:12 | EKG ---
Test Reason : Blood Pressure : / mmHG Vent. Rate : 079 BPM Atrial Rate : 079 BPM P-R Int : 158 ms QRS Dur : 084 ms QT Int : 410 ms P-R-T Axes : 056 -50 033 degrees QTc Int : 470 ms NORMAL SINUS RHYTHM LEFT ANTERIOR FASCICULAR BLOCK ABNORMAL ECG WHEN COMPARED WITH ECG OF 13-APR-2017 22:30, QT HAS SHORTENED Confirmed by WANG CORLEY, MICHELLE ([id number]) on 04/14/2017 12:12:10 PM Referred By: Confirmed By:MICHELLE PIÑA MD
--- NOTE | 2017-04-14 13:56 | CONSULT ---
Consult Consult Specialty:: Nephrology Reason for Consultation:: hyponatremia and hypokalemia - History of Present Illness Chief Complaint: presents s/p fall History of Present Illness: Pt is a 62 year old male with pmhx of etoh abuse who presents to the ER after a fall. He went to [facility] for detoh. He says he drinks about 1.5 liters of etoh per day. He denies chest pain or shortness of breath. He was found to have hyponatremia and hypokalemia. He says he does not eat much. He denies medical history. He does not take any meds. He wants to stop drinking. - History Source History Provided By: Patient, Medical Record - Alcohol/Substance Use Hx Alcohol Use: Yes (Beer, liquor) - Smoking History Smoking history: Current every day smoker Have you smoked in the past 12 months: Yes Aproximately how many cigarettes per day: 20 Home Medications - Allergies Allergies/Adverse Reactions: Allergies Allergy/AdvReac Type Severity Reaction Status Date / Time No Known Allergies Allergy Verified 04/13/17 23:09 - Home Medications Home Medications: Ambulatory Orders Folic Acid 0.4 mg PO DAILY #30 tablet 12/27/16 Multivitamin [Poly-Vitamin] 1 each PO DAILY #30 tab.chew 12/27/16 Potassium Chloride 20 meq PO DAILY #7 tablet.er 12/27/16 Thiamine HCl [B-1] 100 mg PO DAILY #30 tablet 12/27/16 Family Disease History - Family Disease History Family Disease History: Diabetes: Mother, CA: Father (colon ), Sister ( breast ca) Review of Systems - Review of Systems Constitutional: reports: Malaise Eyes: reports: No Symptoms HENT: reports: No Symptoms Neck: reports: No Symptoms Cardiovascular: reports: No Symptoms Respiratory: reports: No Symptoms Gastrointestinal: reports: No Symptoms Genitourinary: reports: No Symptoms Musculoskeletal: reports: No Symptoms Integumentary: reports: No Symptoms Neurological: reports: No Symptoms Endocrine: reports: No Symptoms Hematology/Lymphatic: reports: No Symptoms Physical Exam Vital Signs: Vital Signs Temperature 97.9 F 04/14/17 07:47 Pulse Rate 79 04/14/17 07:47 Respiratory Rate 18 04/14/17 07:47 Blood Pressure 104/68 04/14/17 07:47 O2 Sat by Pulse Oximetry (%) 98 04/14/17 07:47 Constitutional: Yes: Calm Eyes: Yes: Conjunctiva Clear HENT: Yes: Atraumatic Neck: Yes: Supple Cardiovascular: Yes: S1, S2 Respiratory: Yes: CTA Bilaterally Gastrointestinal: Yes: Normal Bowel Sounds, Soft Renal/: Yes: WNL Musculoskeletal: Yes: WNL Extremities: Yes: WNL Edema: No Neurological: Yes: Oriented Psychiatric: Yes: Oriented Labs: CBC, BMP 04/14/17 06:35 04/14/17 06:35 Laboratory Tests 04/14/17 04/14/17 04/14/17 02:30 06:35 06:35 Sodium 129 L Potassium 2.2 L* Chloride 85 L Carbon Dioxide 32 Anion Gap 12 BUN Creatinine 0.5 L D Random Glucose Calcium Phosphorus 0.2 L* 0.3 L* 0.2 L* 04/14/17 17:00 Sodium 133 L Potassium 2.6 L* Chloride 92 L Carbon Dioxide 35 H Anion Gap 6 L BUN 8 D Creatinine Random Glucose 94 Calcium 8.3 L Phosphorus 0.3 L* Imaging - Results Chest X-ray: Report Reviewed Ultrasound: Report Reviewed Problem List - Problems (1) Hypokalemia Code(s): E87.6 - HYPOKALEMIA (2) Hyponatremia Code(s): E87.1 - HYPO-OSMOLALITY AND HYPONATREMIA (3) ETOH abuse Code(s): F10.10 - ALCOHOL ABUSE, UNCOMPLICATED (4) Hypophosphatemia Code(s): E83.39 - OTHER DISORDERS OF PHOSPHORUS METABOLISM Assessment/Plan Current Medications Generic Name Dose Route Start Last Admin Trade Name Freq PRN Reason Stop Dose Admin Chlordiazepoxide HCl 25 mg 04/14/17 18:16 Librium - PO 04/17/17 18:15 Q4H PRN WITHDRAWAL(CONT SUBST) Chlordiazepoxide HCl 25 mg 04/14/17 23:00 Librium - PO 04/15/17 17:01 [id number] MAR Chlordiazepoxide HCl 20 mg 04/15/17 23:00 Librium - PO 04/16/17 17:01 [id number] MAR Chlordiazepoxide HCl 15 mg 04/16/17 23:00 Librium - PO 04/17/17 17:01 [id number] MAR Folic Acid 1 mg 04/14/17 10:00 04/14/17 09:37 Folic Acid - PO 1 mg DAILY MAR Administration Heparin Sodium (Porcine) 5,000 unit 04/14/17 06:00 04/14/17 06:45 Heparin - SQ 5,000 unit TID MAR Administration Sodium Chloride 1,000 mls @ 50 mls/hr 04/14/17 15:15 Normal Saline - IV 04/15/17 15:04 ASDIR MAR Potassium Phos/Sodium Phos 2 packet 04/14/17 10:00 04/14/17 09:37 Phos-Nak Packet - PO 2 packet DAILY MAR Administration Thiamine HCl 200 mg 04/14/17 10:00 04/14/17 11:44 Vitamin B1 Injection - IVPB 200 mg DAILY MAR Administration Impression 1. dehydration 2. hyponatremia 3. hypokalemia 4. hypophosphatemia 5. etoh abuse 6. active smoker Plan - replace potassium - change fluids to 1/2 ns with potassium - avoid a rapid rise in sodium - replace phos - monitor lytes - will follow Dr Callaway
[2017-04-14 14:07] LABS: MAGNESIUM 2.4 mg/dL (1.8-2.4)
[2017-04-14 14:08] LABS: PHOSPHOROUS 0.2 mg/dL (2.5-4.9)
[2017-04-14] MEDS ORDERED: PNEUMOC 13-VAL CONJ-DIP CRM/PF 0.5 ML DISP.SYRIN IM ONE (14:16)
--- NOTE | 2017-04-14 14:58 | PN ---
Physical Exam: SUBJECTIVE: Patient seen and examined. No acute events overnight. Pt denies any complaints including weakness, lightheadedness, chest pain, SOB, n/v/d/c, and dysuria. OBJECTIVE: Vital Signs Period Temp Pulse Resp BP Sys/Lozada Pulse Ox Last 24 Hr 97.9 F 79-80 18-18 96-104/65-68 98 GENERAL: elderly disheveled man, jaundiced, awake, AAOx3, sitting down and eating breakfast HEAD: Normal with no signs of trauma. EYES: scleral icterus ENT: no dentition NECK: Trachea midline, full range of motion, supple. LUNGS: Breath sounds equal, clear to auscultation bilaterally, no wheezes, no crackles, no accessory muscle use. HEART: Regular rate and rhythm, S1, S2 without murmur, rub or gallop. ABDOMEN: normoactive bowel sounds, soft, NT, ND, no fluid wave, + hepatomegaly about 6cm below the costal margin EXTREMITIES: 2+ pulses, warm, well-perfused, no edema. NEUROLOGICAL: Cranial nerves II through XII grossly intact. + dysdiadochokinesia on alternating hand-flapping test, mild + asterixis, speech is delayed, gait not observed. strength is 5/5 in upper extremities, 3/5 in lower extremities, intact sensation in all extremities SKIN: diffuse jaundice Laboratory Results - last 24 hr 04/14/17 04/14/17 04/14/17 06:35 06:35 06:35 WBC 9.0 RBC 2.87 L Hgb 10.0 L Hct 29.6 L MCV 103.2 H MCH 35.0 H MCHC 33.9 RDW 13.0 Plt Count 122 L MPV 9.1 Neutrophils % 86.3 H Lymphocytes % 8.2 D Monocytes % 4.8 Eosinophils % 0.3 Basophils % 0.4 ESR Sodium 129 L Potassium 2.2 L* Chloride 85 L Carbon Dioxide 32 Anion Gap 12 BUN 12 Creatinine 0.5 L D Creat Clearance w eGFR > 60 Random Glucose 85 Calcium 8.4 L Phosphorus 0.3 L* 0.2 L* Magnesium 2.1 2.4 Total Bilirubin 10.7 H Direct Bilirubin 8.4 H AST 286 H ALT 110 H Alkaline Phosphatase 233 H C-Reactive Protein 2.0 H Total Protein 5.1 L Albumin 2.3 L Vitamin B12 2641 H Serum Folate 21 H TSH 4.21 H 04/14/17 04/14/17 04/14/17 09:45 10:34 10:34 WBC RBC Hgb Hct MCV MCH MCHC RDW Plt Count MPV Neutrophils % Lymphocytes % Monocytes % Eosinophils % Basophils % ESR 1 Sodium Potassium Chloride Carbon Dioxide Anion Gap BUN Creatinine Creat Clearance w eGFR Random Glucose Calcium Phosphorus Cancelled Magnesium Cancelled Total Bilirubin Direct Bilirubin AST ALT Alkaline Phosphatase C-Reactive Protein Cancelled Total Protein Albumin Vitamin B12 Serum Folate TSH Active Medications Generic Name Dose Route Start Last Admin Trade Name Freq PRN Reason Stop Dose Admin Folic Acid 1 mg 04/14/17 10:00 04/14/17 09:37 Folic Acid - PO 1 mg DAILY MAR Administration Heparin Sodium (Porcine) 5,000 unit 04/14/17 06:00 04/14/17 06:45 Heparin - SQ 5,000 unit TID MAR Administration Sodium Chloride 1,000 mls @ 42 mls/hr 04/14/17 06:00 04/14/17 07:39 Normal Saline - IV 42 mls/hr ASDIR MAR Administration Potassium Phosphate 30 mm/ 260 mls @ 43.33 mls/hr 04/14/17 09:30 04/14/17 11:43 Sodium Chloride IVPB 04/14/17 15:30 43.33 mls/hr ONCE ONE Administration 30 MM/6 HR Lorazepam 2 mg 04/14/17 17:00 Ativan Injection - IVPUSH 04/14/17 23:01 Q6H MAR Lorazepam 1 mg 04/15/17 05:00 Ativan Injection - IVPUSH 04/16/17 23:01 Q6H PRN ANXIETY Pneumococcal 13-Valent Conj Vacc 0.5 ml 04/14/17 14:16 Prevnar 13 Syringe - IM 04/14/17 14:17 .ONCE ONE Potassium Phos/Sodium Phos 2 packet 04/14/17 10:00 04/14/17 09:37 Phos-Nak Packet - PO 2 packet DAILY MAR Administration Thiamine HCl 200 mg 04/14/17 10:00 04/14/17 11:44 Vitamin B1 Injection - IVPB 200 mg DAILY MAR Administration CT abdomen/pelvis: infectious vs. inflammatory colitis, hepatomegaly, a 5mm non- obstructing renal stone, and an enlarged prostate Repeat EKG: QTc of 470 Utox: negative, alcohol of <5 hepatitis panel: pending ASSESSMENT/PLAN: 62M w/ hx of EtoH dependence who presented with weakness leading to a fall on way to [facility] for detox, admitted for multiple severe electrolyte abnormalities and abnormal LFTs. #Weakness -likely 2/2 multiple electrolyte abnormalities -renal on board- Dr. Callaway, f/u recs #Hypokalemia- likely 2/2 poor diet and increased alcohol intake -repeat EKG shows decreased QTc of 470, no U waves -replete K -Trend K #Hyponatremia-likely 2/2 poor diet/po intake and increased alcohol intake -continue NS at 50cc/hr -trend BMP, not to correct Na more than 0.5 meq per hour #Hypochloremia- likely 2/2 poor diet/po intake and increased alcohol intake -continue NS at 50cc/hr -trend BMP #Hypophosphatemia- likely 2/2 poor diet/po intake and increased alcohol intake -replete as needed -trend Ph #Macrocytic Anemia- likely 2/2 EtoH use -folate and B12 elevated #Abnormal LFTs -transaminitis with AST:ALT ratio close to 2:1 suggesting etiology is alcohol -direct hyperbilirubinemia with elevated alkaline phosphatase suggests cholestatic pattern. In conjunction with CT findings of diffuse colitis, elevated CRP, and clinical picture, findings may suggest PSC and UC. However, pt denies diarrhea, hematochezia, melena, and family hx of IBD. -f/u p-anca, VERONIKA -GI on board- Dr. Cisneros f/u recs #EtoH Dependence -continue thiamine, folic acid -can't administer librium taper due to abnormal LFTs. Continue ativan 2mg q6h for 4 doses, then change to ativan 1mg q6h for 8 more doses -monitor for signs of withdrawal -detox on board- Dr. West f/u recs #Prolonged QTc -QTc of 470 on repeat EKG, down from 590 on previous EKG #FEN/PPx -NS at 50cc/hr -multiple abnormalities, repleting -regular diet -no GI ppx indicated -heparin 5,000U SQ TID Demarcus Arreola MD PGY1 Visit type - Emergency Visit Emergency Visit: Yes ED Registration Date: 04/14/17 Care time: The patient presented to the Emergency Department on the above date and was hospitalized for further evaluation of their emergent condition. - New Patient This patient is new to me today: Yes Date on this admission: 04/14/17 - Critical Care Critical Care patient: No
--- NOTE | 2017-04-14 15:14 | PN ---
Teaching Attending Note Name of Resident: Demarcus Arreola ATTENDING PHYSICIAN STATEMENT I saw and evaluated the patient. I reviewed the resident's note and discussed the case with the resident. I agree with the resident's findings and plan as documented. SUBJECTIVE: No abd pain , no fever or chills. , has no N/V . reports poor po intake , and continuous drinking OBJECTIVE: NAD , Awake alert oriented x 3. ecteric sclera . jaundiced skin, EOMI, no nystagmus CV: RRR, no MRG LUngs : CTAB Ext : no edema . no tremor . Abd: soft, NT, ND , no shifting dullness. Liver is palpated and percussed 5 cm below costal margin . NO splenomagealy ASSESSMENT AND PLAN: 62 y/o man with h/o Alcohol abuse who presented with weakness and fall on his way to [facility]. He was found to have severe electrolyte abnormalities and Elevated liver enzymes. 1- ETOH abuse: no signs of Wernicke's , no signs of withdrawal now. - cont ativan detox - received thiamine in ER. 2-LFTS abnormalities, likely form alcoholic hepatitis. PSC is in DDX given the colonic thickening on CT scan ( possible IBD). acute viral hepatitis , fatty liver could be in DDx - check P ANCA , ESR , CRP, VERONIKA, AMA - discriminant function 21 , does not indicate need for steroids ( < 32 ) - trend LFTS - GI consult pending 3- Evidence of colitis on CT scan: no diarrhea. No leukocytosis . no history of rectal bleed ? inflammatory Bowel disease - check C diff and stool culture. - ESR , CRP. 4- Hypokalemia, hypophosphatemia , replete and repeat 5- hyponatremia : likely due to poor po intake.. responded appropriately to NS, 0.5 meq/dl/hr. - change IVF to 1/2 , cont feeding 6- prolonged QTc: improved on repeated EKG . ( 470) not on any meds to prolong it . Could be due to hypokalemia , - correct electrolyte abnormalities DVT PX HLOC
[2017-04-14] MEDS ORDERED: PNEUMOCOCCAL 23 VACCINE 0.5 ML VIAL IM ONE (17:00)
[2017-04-14] MEDS ORDERED: LORazepam 2 MG/ML SDV VIAL IVPUSH SCH (17:00)
[2017-04-14 18:02] LABS: ANION GAP 6 (8-16); CALCIUM 8.3 mg/dL (8.5-10.1); CO2 35 mmol/L (21-32); CREATININE 0.5 mg/dL (0.7-1.3); GLUCOSE,RANDOM 94 mg/dL (74-106); MAGNESIUM 2.1 mg/dL (1.8-2.4)
[2017-04-14 18:16] LABS: PHOSPHOROUS 0.3 mg/dL (2.5-4.9)
[2017-04-14] MEDS ORDERED: chlordiazePOXIDE HCL 25 MG CAPSULE PO ONE (18:16)
[2017-04-14] MEDS ORDERED: chlordiazePOXIDE HCL 25 MG CAPSULE PO PRN (18:16)
--- NOTE | 2017-04-14 18:23 | CONSULT ---
Consult Detox [facility] Reason for Current Admission/Consult: Alcohol withdrawal sx. Referred by:: Cam Pineda Res - History History of Present Illness: 62 y/o man with a long hx. of alcoholism is sent to ED because he fell while waiting to be admitted at [facility] for detox. Pt. has been in previous detox, denies significant sobriety. - History Source History Provided By: Patient, Medical Record - Alcohol/Substance Use Hx Alcohol Use: Yes (Beer, liquor) - Current Drug/Alcohol Use Alcohol Route: Oral Frequency: Daily Amount used: Vodka 1 pint, Beer 1(6pack) Date of Last Use: 04/13/17 - Significant Medical Findings: Laboratory Last Values WBC 9.0 K/mm3 (4.0-10.0) 04/14/17 06:35 RBC 2.87 M/mm3 (4.00-5.60) L 04/14/17 06:35 Hgb 10.0 GM/dL (11.7-16.9) L 04/14/17 06:35 Hct 29.6 % (35.4-49) L 04/14/17 06:35 MCV 103.2 fl (80-96) H 04/14/17 06:35 MCH 35.0 pg (25.7-33.7) H 04/14/17 06:35 MCHC 33.9 g/dl (32.0-35.9) 04/14/17 06:35 RDW 13.0 % (11.9-15.9) 04/14/17 06:35 Plt Count 122 K/MM3 (134-434) L 04/14/17 06:35 MPV 9.1 fl (7.5-11.1) 04/14/17 06:35 Total Counted 100 04/13/17 20:10 Neutrophils % 86.3 % (42.8-82.8) H 04/14/17 06:35 Neutrophils % (Manual) 82 % (42.8-82.8) 04/13/17 20:10 Band Neuts % (Manual) 6 % (0-10) 04/13/17 20:10 Lymphocytes % 8.2 % (8-40) D 04/14/17 06:35 Lymphocytes % (Manual) 6 % (8-40) L 04/13/17 20:10 Monocytes % 4.8 % (3.8-10.2) 04/14/17 06:35 Monocytes % (Manual) 4 % (3.8-10.2) 04/13/17 20:10 Eosinophils % 0.3 % (0-4.5) 04/14/17 06:35 Basophils % 0.4 % (0-2.0) 04/14/17 06:35 Myelocytes % (Man) 1 % (0-2) 04/13/17 20:10 Other Cell Type 04/13/17 20:10 Platelet Estimate Adequate (NORMAL) 04/13/17 20:10 ESR 1 mm/hr (0-20) 04/14/17 09:45 PT with INR 13.90 SEC (9.98-11.88) H 04/13/17 20:10 INR 1.26 (0.82-1.09) H 04/13/17 20:10 PTT (Actin FS) 23.4 SECONDS (26.9-34.4) L 04/13/17 20:10 Sodium 133 mmol/L (136-145) L 04/14/17 17:00 Potassium 2.6 mmol/L (3.5-5.1) L* 04/14/17 17:00 Chloride 92 mmol/L (98-107) L 04/14/17 17:00 Carbon Dioxide 35 mmol/L (21-32) H 04/14/17 17:00 Anion Gap 6 (8-16) L 04/14/17 17:00 BUN 8 mg/dL (7-18) D 04/14/17 17:00 Creatinine 0.5 mg/dL (0.7-1.3) L 04/14/17 17:00 Creat Clearance w eGFR > 60 (>60) 04/14/17 06:35 Random Glucose 94 mg/dL (74-106) 04/14/17 17:00 Calcium 8.3 mg/dL (8.5-10.1) L 04/14/17 17:00 Phosphorus 0.3 mg/dL (2.5-4.9) L* 04/14/17 17:00 Magnesium 2.1 mg/dL (1.8-2.4) 04/14/17 17:00 Total Bilirubin 10.7 mg/dL (0.2-1.0) H 04/14/17 06:35 Direct Bilirubin 8.4 mg/dL (0.0-0.2) H 04/14/17 06:35 AST 286 U/L (15-37) H 04/14/17 06:35 ALT 110 U/L (12-78) H 04/14/17 06:35 Alkaline Phosphatase 233 U/L (45-117) H 04/14/17 06:35 C-Reactive Protein 2.2 MG/DL (0.00-0.3) H D 04/14/17 17:00 Total Protein 5.1 g/dl (6.4-8.2) L 04/14/17 06:35 Albumin 2.3 g/dl (3.4-5.0) L 04/14/17 06:35 Vitamin B12 2641 pg/ml (180-914) H 04/14/17 06:35 Serum Folate 21 ng/ml (3.1-17.5) H 04/14/17 06:35 TSH 4.21 uIU/ml (0.358-3.74) H 04/14/17 06:35 Urine Color Madelin 04/14/17 04:00 Urine Appearance Slcloudy 04/14/17 04:00 Urine pH 7.0 (5.0-8.0) 04/14/17 04:00 Ur Specific [place] 1.010 (1.005-1.025) 04/14/17 04:00 Urine Protein Negative (NEGATIVE) 04/14/17 04:00 Urine Glucose (UA) Negative (NEGATIVE) 04/14/17 04:00 Urine Ketones 1+ (NEGATIVE) H 04/14/17 04:00 Urine Blood 1+ (NEGATIVE) H 04/14/17 04:00 Urine Nitrite Negative (NEGATIVE) 04/14/17 04:00 Urine Bilirubin Negative (NEGATIVE) 04/14/17 04:00 Urine Urobilinogen 4.0 e.u/dl mg/dL (0.2-1.0) 04/14/17 04:00 Urine RBC 2 /hpf (0-3) 04/14/17 04:00 Urine WBC 3 /hpf (3-5) 04/14/17 04:00 Opiates Screen Negative ng/ml (TENMLR=749) 04/14/17 04:00 Methadone Screen Negative ng/ml (QJZFII=451) 04/14/17 04:00 Barbiturate Screen Negative ng/ml (WMUBOL=321) 04/14/17 04:00 Phencyclidine Screen Negative ng/ml (CUTOFF=25) 04/14/17 04:00 Ur Amphetamines Screen Negative ng/ml (USCCND=554) 04/14/17 04:00 MDMA (Ecstasy) Screen Negative ng/ml (ZNRSYO=182) 04/14/17 04:00 Benzodiazepines Screen Negative ng/ml (YGDBPN=661) 04/14/17 04:00 Cocaine Screen Negative ng/ml (KXBFML=725) 04/14/17 04:00 U Marijuana (THC) Screen Negative ng/ml (CUTOFF=50) 04/14/17 04:00 Alcohol, Quantitative < 5.0 mg/dl (0-5) 04/14/17 02:30 CIWA Score - CIWA Score Nausea/Vomitin Muscle Tremors: 4-Moderate,w/Arms Extend Anxiety: 4-Mod. Anxious/Guarded Agitation: 4-Moderately Restless Paroxysmal Sweats: 3 Orientation: 1-Uncertain about Date Tacttile Disturbances: 0-None Auditory Disturbances: 0-None Visual Disturbances: 0-None Headache: 0-None Present CIWA-Ar Total Score: 18 Assessment Plan - Diagnosis (1) Hypokalemia Status: Acute (2) Alcohol dependence with uncomplicated withdrawal Status: Acute - Medication Detox Regimen/Protocol: Rossy
[2017-04-14] MEDS ORDERED: POTASSIUM PHOSPHATE 15 MM in DEXTROSE 5%-WATER - 250 ML IVPB ONE (18:52)
[2017-04-14] MEDS ORDERED: SODIUM CHLORIDE 0.45% 1,000 ML with POTASSIUM CHLORIDE 20 MEQ IVPB SCH (19:00)
--- NOTE | 2017-04-14 20:32 | CON.GI ---
Consult Consult Specialty:: GI Referred by:: Dr Ariza Reason for Consultation:: increased LFTs - History of Present Illness Chief Complaint: admitted post-fall History of Present Illness: 62 M with h/o ETOH abuse drinking actively (1.5 L ETOH daily) and an active smoker (PPD) admitted after fall. He had gone to [facility] earlier to detox. He fell before entering the facility. Last drink was the day prior to admission and on admission, BAL was <5. - History Source History Provided By: Medical Record (patient unable to provide reliable history due to AMS ) Limitations to Obtaining History: Clinical Condition - Past Medical History TOUR CONSULTANT: Yes: Other (med-induced delirium) - Alcohol/Substance Use Hx Alcohol Use: Yes (Beer, liquor) Number of Drinks Daily: 15 - Smoking History Smoking history: Current every day smoker Have you smoked in the past 12 months: Yes Aproximately how many cigarettes per day: 20 Home Medications - Allergies Allergies/Adverse Reactions: Allergies Allergy/AdvReac Type Severity Reaction Status Date / Time No Known Allergies Allergy Verified 04/13/17 23:09 - Home Medications Home Medications: Ambulatory Orders Folic Acid 0.4 mg PO DAILY #30 tablet 12/27/16 Multivitamin [Poly-Vitamin] 1 each PO DAILY #30 tab.chew 12/27/16 Potassium Chloride 20 meq PO DAILY #7 tablet.er 12/27/16 Thiamine HCl [B-1] 100 mg PO DAILY #30 tablet 12/27/16 Family Disease History - Family Disease History Family Disease History: Diabetes: Mother, CA: Father (colon ), Sister ( breast ca) Physical Exam-GI Vital Signs: Vital Signs Temperature 97.8 F 04/14/17 17:00 Pulse Rate 89 04/14/17 17:00 Respiratory Rate 19 04/14/17 17:00 Blood Pressure 103/83 04/14/17 17:00 O2 Sat by Pulse Oximetry (%) 98 04/14/17 17:00 Constitutional: Yes: Poor Hygeine, Thin Eyes: Yes: Sclera Icterus Cardiovascular: Yes: Regular Rate and Rhythm Respiratory: Yes: CTA Bilaterally Gastrointestinal Inspection: Yes: Distention ...Auscultate: Yes: Normoactive Bowel Sounds ...Palpate: Yes: Soft. No: Tenderness Labs: CBC, BMP 04/14/17 06:35 04/14/17 17:00 INR, PTT INR 1.26 (0.82-1.09) H 04/13/17 20:10 Imaging - Results Cat Scan: Report Reviewed (R sided colitis and severe steatosis (more likely cirrhosis)) Assessment/Plan 62 M with h/o ETOH abuse current drinker and current smoker (ppd) now admitted after fall. I am asked to evaluate increased LFTs. As well, there is thickened R colon. No reason to think about chronic conditions in this context. Most likely artifactual as he has no diarrhea and no WBC elevation. No history of IBD. Liver issues are probably secondary to ETOH use. LFT's seem to be trending down-likely alcoholic hepatitis. Continue to trend LFTs, low Na diet and complete detox protocol. Of note patient has a B12 level of 2641. He denies taking supplements. Consider checking for hematologic malignancy.
[2017-04-14] MEDS: chlordiazePOXIDE HCL 25 MG CAPSULE PO SCH (23:21)
[2017-04-14] MEDS: NAPH,MB-DB/K PH,MBDB POWDER PACKET PO SCH (23:22)
[2017-04-14] MEDS: SODIUM CHLORIDE 0.45% 1,000 ML with POTASSIUM CHLORIDE 20 MEQ IV SCH (23:50)
[2017-04-15] MEDS ORDERED: LORazepam 2 MG/ML SDV VIAL IVPUSH PRN (05:00)
[2017-04-15] MEDS: HEPARIN NA (PORCINE) 5,000 UNITS/ML 1ML VIAL SQ SCH ×3 (05:48→22:35)
[2017-04-15] MEDS: NAPH,MB-DB/K PH,MBDB POWDER PACKET PO SCH ×3 (05:48→22:36)
[2017-04-15] MEDS: chlordiazePOXIDE HCL 25 MG CAPSULE PO SCH ×3 (05:48→17:45)
[2017-04-15 07:55] LABS: MCH 34.7 pg (25.7-33.7); MCHC 33.6 g/dl (32.0-35.9); MEAN CELL VOLUME 103.4 fl (80-96); MEAN PLT VOLUME 9.7 fl (7.5-11.1); PLATELET COUNT 89 K/MM3 (134-434); RDW 13.4 % (11.9-15.9); WHITE BLOOD COUNT 10.3 K/mm3 (4.0-10.0)
[2017-04-15 08:17] LABS: ALK PHOS 236 U/L (45-117); ANION GAP 8 (8-16); BILIRUBIN,TOTAL 9.4 mg/dL (0.2-1.0); CALCIUM 8.1 mg/dL (8.5-10.1); CO2 33 mmol/L (21-32); CREATININE 0.4 mg/dL (0.7-1.3); GLUCOSE,RANDOM 98 mg/dL (74-106); MAGNESIUM 1.9 mg/dL (1.8-2.4); PHOSPHOROUS 1.3 mg/dL (2.5-4.9); SGOT/AST 318 U/L (15-37); SGPT/ALT 137 U/L (12-78); TOT PROT 4.5 g/dl (6.4-8.2)
[2017-04-15] MEDS ORDERED: POTASSIUM CHLORIDE TABS 20 MEQ TABLET.ER (FP) PO ONE ×2 (09:00→17:18)
[2017-04-15] MEDS ORDERED: POTASSIUM PHOSPHATE 30 MM in SODIUM CHLORIDE 250 ML IVPB ONE (09:00)
[2017-04-15] MEDS ORDERED: POTASSIUM PHOSPHATE 30 MM in SODIUM CHLORIDE 500 ML IVPB ONE (09:12)
[2017-04-15] MEDS: FOLIC ACID 1 MG TABLET (FP) PO SCH (09:28)
[2017-04-15] MEDS: THIAMINE HCL 200 MG/2 ML VIAL IVPB SCH (09:28)
[2017-04-15] MEDS: SODIUM CHLORIDE 0.45% 1,000 ML with POTASSIUM CHLORIDE 20 MEQ IV SCH (14:02)
--- NOTE | 2017-04-15 14:32 | PN ---
Physical Exam: SUBJECTIVE: Patient seen and examined. Says he feels better today. No acute events over night. Denies abdominal pain, headache, dizziness, nausea/ vomiting. OBJECTIVE: Vital Signs Period Temp Pulse Resp BP Sys/Lozada Pulse Ox Last 24 Hr 97.8 F-98.9 F 79-92 17-19 95-110/53-83 95-98 GENERAL: NAD, awake, A/O x3, elderly disheveled man HEAD: Normal with no signs of trauma. EYES: scleral icterus ENT: no dentition NECK: supple. LUNGS: Breath sounds equal, clear to auscultation bilaterally, no wheezes, no crackles, no accessory muscle use. HEART: Regular rate and rhythm, S1, S2 without murmur, rub or gallop. ABDOMEN: normoactive bowel sounds, soft, NT, ND, no fluid wave, + hepatomegaly about 6cm below the costal margin EXTREMITIES: 2+ pulses, warm, well-perfused, no edema. NEUROLOGICAL: Cranial nerves II through XII grossly intact. mild + asterixis, speech is delayed, strength is 5/5 in UE, 3/5 in LE, intact sensation in all extremities SKIN: diffuse jaundice Laboratory Results - last 24 hr 04/14/17 04/14/17 04/14/17 06:35 06:35 17:00 WBC RBC Hgb Hct MCV MCH MCHC RDW Plt Count MPV Sodium 133 L Potassium 2.6 L* Chloride 92 L Carbon Dioxide 35 H Anion Gap 6 L BUN 8 D Creatinine 0.5 L Creat Clearance w eGFR Random Glucose 94 Calcium 8.3 L Phosphorus 0.2 L* 0.3 L* Magnesium 2.4 2.1 Total Bilirubin Direct Bilirubin 8.4 H AST ALT Alkaline Phosphatase C-Reactive Protein 2.0 H Total Protein Albumin Vitamin B12 2641 H Serum Folate 21 H TSH 4.21 H Hepatitis A IgM Ab Negative Hep Bs Antigen Negative Hep B Core IgM Ab Negative Hepatitis C Ab (EIA) 0.3 04/14/17 04/15/17 04/15/17 17:00 07:00 07:00 WBC 10.3 H RBC 2.78 L Hgb 9.6 L Hct 28.7 L MCV 103.4 H MCH 34.7 H MCHC 33.6 RDW 13.4 Plt Count 89 L D MPV 9.7 Sodium 136 Potassium 2.7 L* Chloride 95 L Carbon Dioxide 33 H Anion Gap 8 BUN 6 L D Creatinine 0.4 L Creat Clearance w eGFR > 60 Random Glucose 98 Calcium 8.1 L Phosphorus 1.3 L D Magnesium 1.9 Total Bilirubin 9.4 H Direct Bilirubin AST 318 H ALT 137 H D Alkaline Phosphatase 236 H C-Reactive Protein 2.2 H D Total Protein 4.5 L Albumin 2.0 L Vitamin B12 Serum Folate TSH Hepatitis A IgM Ab Hep Bs Antigen Hep B Core IgM Ab Hepatitis C Ab (EIA) Active Medications Generic Name Dose Route Start Last Admin Trade Name Freq PRN Reason Stop Dose Admin Chlordiazepoxide HCl 25 mg 04/14/17 18:16 Librium - PO 04/17/17 18:15 Q4H PRN WITHDRAWAL(CONT SUBST) Chlordiazepoxide HCl 25 mg 04/14/17 23:00 04/15/17 11:36 Librium - PO 04/15/17 17:01 25 mg [id number] MAR Administration Chlordiazepoxide HCl 20 mg 04/15/17 23:00 Librium - PO 04/16/17 17:01 [id number] MAR Chlordiazepoxide HCl 15 mg 04/16/17 23:00 Librium - PO 04/17/17 17:01 [id number] MAR Folic Acid 1 mg 04/14/17 10:00 04/15/17 09:28 Folic Acid - PO 1 mg DAILY MAR Administration Heparin Sodium (Porcine) 5,000 unit 04/14/17 06:00 04/15/17 05:48 Heparin - SQ 5,000 unit TID MAR Administration Potassium Chloride 20 meq/ 1,010 mls @ 70 mls/hr 04/14/17 23:30 04/14/17 23:50 Sodium Chloride IV 70 mls/hr Q14H MAR Administration Potassium Phosphate 30 mm/ 510 mls @ 85 mls/hr 04/15/17 09:12 04/15/17 11:37 Sodium Chloride IVPB 04/15/17 14:59 85 mls/hr ONCE ONE Administration Potassium Phos/Sodium Phos 2 packet 04/14/17 22:00 04/15/17 05:48 Phos-Nak Packet - PO 2 packet TID MAR Administration Thiamine HCl 200 mg 04/14/17 10:00 04/15/17 09:28 Vitamin B1 Injection - IVPB 200 mg DAILY MAR Administration ASSESSMENT/PLAN: 62M w/ hx of EtoH dependence who presented with weakness leading to a fall on way to [facility] for detox, admitted for multiple severe electrolyte abnormalities and abnormal LFTs. #Weakness -likely secondary from electrolyte imbalance from increased alcohol intake. -repleted Postassium and Phosphorus -Continue IV fluids NS 70cc/hour -will continue to monitor -F/U renal, Dr. Callaway #Macrocytic Anemia -likely secondary to alcohol abuse -folate and B12 elevated #Abnormal LFTs -transaminitis with AST:ALT ratio close to 2:1 suggesting etiology is alcohol -likely not chronic inflammatory condition as per Dr. Bolden -LFT's seem to be trending down-likely alcoholic hepatitis. -Will continue to trend LFTs. #EtoH Dependence -continue thiamine, folic acid -continue Librium protocol -monitor for signs of withdrawal -detox on board- Dr. West, f/u recs #Prolonged QTc -QTc of 470 on repeat EKG, down from 590 on previous EKG #FEN/PPx -NS at 70 cc/hr -multiple abnormalities, repleting -regular diet -no GI ppx indicated -heparin 5,000U SQ TID Visit type - Emergency Visit Emergency Visit: Yes ED Registration Date: 04/14/17 Care time: The patient presented to the Emergency Department on the above date and was hospitalized for further evaluation of their emergent condition. - New Patient This patient is new to me today: Yes Date on this admission: 04/15/17 - Critical Care Critical Care patient: No
[2017-04-15 16:42] LABS: ANION GAP 8 (8-16); CALCIUM 7.8 mg/dL (8.5-10.1); CO2 32 mmol/L (21-32); CREATININE 0.7 mg/dL (0.7-1.3); GLUCOSE,RANDOM 149 mg/dL (74-106); MAGNESIUM 1.7 mg/dL (1.8-2.4); PHOSPHOROUS 1.9 mg/dL (2.5-4.9)
--- NOTE | 2017-04-15 17:16 | PN ---
Progress Note, Physician History of Present Illness: Pt seen and examined at bedside. He is awake and appears comfortable. - Current Medication List Current Medications: Active Medications Chlordiazepoxide HCl (Librium -) 25 mg PO Q4H PRN PRN Reason: WITHDRAWAL(CONT SUBST) Stop: 04/17/17 18:15 Chlordiazepoxide HCl (Librium -) 20 mg PO [id number] [facility] Stop: 04/16/17 17:01 Chlordiazepoxide HCl (Librium -) 15 mg PO [id number] MAR Stop: 04/17/17 17:01 Folic Acid (Folic Acid -) 1 mg PO DAILY [facility] Last Admin: 04/15/17 09:28 Dose: 1 mg Heparin Sodium (Porcine) (Heparin -) 5,000 unit SQ TID [facility] Last Admin: 04/15/17 14:02 Dose: 5,000 unit Potassium Chloride 20 meq/ (Sodium Chloride) 1,010 mls @ 70 mls/hr IV Q14H [facility] Last Admin: 04/15/17 14:02 Dose: 70 mls/hr Potassium Phos/Sodium Phos (Phos-Nak Packet -) 2 packet PO TID MAR Last Admin: 04/15/17 14:02 Dose: 2 packet Thiamine HCl (Vitamin B1 Injection -) 200 mg IVPB DAILY [facility] Last Admin: 04/15/17 09:28 Dose: 200 mg - Objective Vital Signs: Vital Signs Temperature 98.8 F 04/15/17 15:49 Pulse Rate 90 04/15/17 15:49 Respiratory Rate 16 04/15/17 15:49 Blood Pressure 93/51 04/15/17 15:49 O2 Sat by Pulse Oximetry (%) 97 04/15/17 13:00 Constitutional: Yes: Calm Eyes: Yes: Conjunctiva Clear HENT: Yes: Atraumatic Neck: Yes: Supple Cardiovascular: Yes: S1, S2 Respiratory: Yes: CTA Bilaterally Gastrointestinal: Yes: Soft Genitourinary: Yes: WNL Musculoskeletal: Yes: WNL Edema: No Neurological: Yes: Oriented Psychiatric: Yes: Oriented Labs: CBC, BMP 04/15/17 07:00 04/15/17 16:00 INR, PTT INR 1.26 (0.82-1.09) H 04/13/17 20:10 Problem List - Problems (1) Hypokalemia Code(s): E87.6 - HYPOKALEMIA (2) Hyponatremia Code(s): E87.1 - HYPO-OSMOLALITY AND HYPONATREMIA (3) ETOH abuse Code(s): F10.10 - ALCOHOL ABUSE, UNCOMPLICATED (4) Hypophosphatemia Code(s): E83.39 - OTHER DISORDERS OF PHOSPHORUS METABOLISM Assessment/Plan Current Medications Generic Name Dose Route Start Last Admin Trade Name Freq PRN Reason Stop Dose Admin Chlordiazepoxide HCl 25 mg 04/14/17 18:16 Librium - PO 04/17/17 18:15 Q4H PRN WITHDRAWAL(CONT SUBST) Chlordiazepoxide HCl 20 mg 04/15/17 23:00 Librium - PO 04/16/17 17:01 [id number] MAR Chlordiazepoxide HCl 15 mg 04/16/17 23:00 Librium - PO 04/17/17 17:01 [id number] MAR Folic Acid 1 mg 04/14/17 10:00 04/15/17 09:28 Folic Acid - PO 1 mg DAILY MAR Administration Heparin Sodium (Porcine) 5,000 unit 04/14/17 06:00 04/15/17 14:02 Heparin - SQ 5,000 unit TID MAR Administration Potassium Chloride 20 meq/ 1,010 mls @ 70 mls/hr 04/14/17 23:30 04/15/17 14:02 Sodium Chloride IV 70 mls/hr Q14H MAR Administration Potassium Phos/Sodium Phos 2 packet 04/14/17 22:00 04/15/17 14:02 Phos-Nak Packet - PO 2 packet TID MAR Administration Thiamine HCl 200 mg 04/14/17 10:00 04/15/17 09:28 Vitamin B1 Injection - IVPB 200 mg DAILY MAR Administration Impression 1. dehydration 2. hyponatremia 3. hypokalemia 4. hypophosphatemia 5. etoh abuse 6. active smoker Plan - cont fluids - cont supplements - replace lytes - cont phos supplements - monitor lytes - will follow Dr Callaway
[2017-04-15] MEDS ORDERED: POTASSIUM PHOSPHATE 40 MM in SODIUM CHLORIDE 500 ML IVPB ONE (17:17)
[2017-04-15] MEDS ORDERED: MAGNESIUM SULF 50% (8.12 MEQ/2 ML-1 GM VIAL) IVPB ONE ×2 (17:17→20:25)
--- NOTE | 2017-04-15 20:21 | PN ---
Teaching Attending Note Name of Resident: Mae Robles ATTENDING PHYSICIAN STATEMENT I saw and evaluated the patient. I reviewed the resident's note and discussed the case with the resident. I agree with the resident's findings and plan as documented. SUBJECTIVE: no fever or chills . feels tired OBJECTIVE: NAD , Awake alert oriented x 3. ecteric sclera . jaundiced skin, EOMI, no nystagmus CV: RRR, no MRG Lungs : CTAB Ext : no edema . no tremor . Abd: soft, NT, ND , no shifting dullness. Liver is palpated and percussed 5 cm below costal margin . NO splenomagealy ASSESSMENT AND PLAN: 62 y/o man with h/o Alcohol abuse who presented with weakness and fall on his way to [facility]. He was found to have severe electrolyte abnormalities and Elevated liver enzymes. 1- ETOH abuse: no signs of Wernicke's , no signs of withdrawal now. - cont Librium detox - Switch to Po thiamine 2-LFTS abnormalities, likely form alcoholic hepatitis. Appreciate GI input - follow P ANCA , VERONIKA, AMA - trend LFTS ( worse today ) 3- Evidence of colitis on CT scan: no diarrhea. No leukocytosis . no history of rectal bleed follow cx if diarrhea develops. GI follow up 4- Hypokalemia, hypophosphatemia , replete and repeat 5- Hyponatremia : resolved 6- prolonged QTc: due to hypokalemia. repelte electrolytes DVT PX HLOC
[2017-04-15] MEDS: chlordiazePOXIDE 5 MG CAPSULE PO SCH (22:39)
[2017-04-15] MEDS ORDERED: chlordiazePOXIDE HCL 25 MG CAPSULE PO SCH (23:00)
[2017-04-16] MEDS: chlordiazePOXIDE 5 MG CAPSULE PO SCH ×4 (05:20→21:33)
[2017-04-16] MEDS: HEPARIN NA (PORCINE) 5,000 UNITS/ML 1ML VIAL SQ SCH (05:21)
[2017-04-16] MEDS: NAPH,MB-DB/K PH,MBDB POWDER PACKET PO SCH ×3 (05:21→21:33)
[2017-04-16] MEDS ORDERED: SODIUM CHLORIDE 0.45%/POT 1,000 ML IV SCH (05:30)
[2017-04-16 06:39] LABS: MCH 34.4 pg (25.7-33.7); MCHC 32.9 g/dl (32.0-35.9); MEAN CELL VOLUME 104.5 fl (80-96); MEAN PLT VOLUME 9.7 fl (7.5-11.1); PLATELET COUNT 72 K/MM3 (134-434); RDW 13.5 % (11.9-15.9); WHITE BLOOD COUNT 8.9 K/mm3 (4.0-10.0)
[2017-04-16 06:56] LABS: ANION GAP 10 (8-16); CALCIUM 7.9 mg/dL (8.5-10.1); CO2 29 mmol/L (21-32); CREATININE 0.4 mg/dL (0.7-1.3); GLUCOSE,RANDOM 109 mg/dL (74-106); MAGNESIUM 2.2 mg/dL (1.8-2.4); PHOSPHOROUS 2.8 mg/dL (2.5-4.9)
[2017-04-16 06:58] LABS: ALBUMIN 1.9 g/dl (3.4-5.0)
[2017-04-16 07:02] LABS: BILIRUBIN,DIRECT 7.7 mg/dL (0.0-0.2); BILIRUBIN,TOTAL 9.6 mg/dL (0.2-1.0); TOT PROT 4.3 g/dl (6.4-8.2)
[2017-04-16] MEDS: FOLIC ACID 1 MG TABLET (FP) PO SCH (10:58)
[2017-04-16] MEDS: THIAMINE HCL 100 MG TABLET (FP) PO SCH (10:58)
[2017-04-16] MEDS ORDERED: FLU VACCINE QUAD 60 MCG/0.5 ML (MDV 17-18) IM ONE (13:00)
--- NOTE | 2017-04-16 14:13 | PN ---
Teaching Attending Note Name of Resident: Mae Robles ATTENDING PHYSICIAN STATEMENT I saw and evaluated the patient. I reviewed the resident's note and discussed the case with the resident. I agree with the resident's findings and plan as documented. SUBJECTIVE: had 4 loose BMs last night . no events over night OBJECTIVE: NAD , Awake alert oriented x 3. ecteric sclera . jaundiced skin, EOMI, no nystagmus CV: RRR, no MRG Lungs : CTAB Ext : no edema , minimal tremor in hands Abd: soft, NT, ND , no shifting dullness. Liver is palpated and percussed 5 cm below costal margin . ASSESSMENT AND PLAN: 62 y/o man with h/o Alcohol abuse who presented with weakness and fall on his way to [facility]. He was found to have severe electrolyte abnormalities and Elevated liver enzymes. 1- ETOH intoxication - cont Librium detox - COnt Po thiamine 2-LFTS abnormalities, likely form alcoholic hepatitis. Appreciate GI input given the positive C diff that explains the colitis seeen on CT scan , other etiologies of transaminitis is now unlikely - trend LFTS ( better ) 3- C diff colitis: - start IV flagyl 4- Hypokalemia, hypophosphatemia , resolved. cont neutraphos packets untill am only 5- Hyponatremia : resolved 6- prolonged QTc: due to hypokalemia.electrolytes corrected DVT PX HLOC Needs PT . Possible dc over weekend if he cont to do well and if diarrhea improves
[2017-04-16] MEDS: METRONIDAZOLE PREMIXED IVPB 50 ML IVPB SCH ×2 (15:38→18:24)
--- NOTE | 2017-04-16 15:44 | PN ---
Physical Exam: SUBJECTIVE: Patient seen and examined. Says he feels better than yesterday. Had 4 bowel movements over night. Denies headache, chest pain, abdominal discomfort , nausea and vomiting. OBJECTIVE: Vital Signs Period Temp Pulse Resp BP Sys/Lozada Pulse Ox Last 24 Hr 97.8 F-98.8 F 81-90 12-18 92-113/46-66 96-96 GENERAL: NAD, awake, A/O x3, elderly disheveled man HEAD: Normal with no signs of trauma. EYES: scleral icterus ENT: no dentition NECK: supple. LUNGS: Breath sounds equal, clear to auscultation bilaterally, no wheezes, no crackles, no accessory muscle use. HEART: Regular rate and rhythm, S1, S2 without murmur, rub or gallop. ABDOMEN: normoactive bowel sounds, soft, NT, ND, no fluid wave, + hepatomegaly about 6cm below the costal margin EXTREMITIES: 2+ pulses, warm, well-perfused, no edema. NEUROLOGICAL: Cranial nerves II through XII grossly intact. mild + asterixis, speech is delayed, strength is 5/5 in UE, 3/5 in LE, intact sensation in all extremities SKIN: diffuse jaundice (improved) Laboratory Results - last 24 hr 04/15/17 04/16/17 04/16/17 16:00 05:30 05:30 WBC 8.9 RBC 2.73 L Hgb 9.4 L Hct 28.5 L MCV 104.5 H MCH 34.4 H MCHC 32.9 RDW 13.5 Plt Count 72 L MPV 9.7 Sodium 135 L 136 Potassium 3.0 L 3.8 D Chloride 95 L 97 L Carbon Dioxide 32 29 Anion Gap 8 10 BUN 6 L 4 L D Creatinine 0.7 D 0.4 L D Random Glucose 149 H D 109 H D Calcium 7.8 L 7.9 L Phosphorus 1.9 L D 2.8 D Magnesium 1.7 L 2.2 D Total Bilirubin Direct Bilirubin AST ALT Alkaline Phosphatase Total Protein Albumin 04/16/17 05:30 WBC RBC Hgb Hct MCV MCH MCHC RDW Plt Count MPV Sodium Potassium Chloride Carbon Dioxide Anion Gap BUN Creatinine Random Glucose Calcium Phosphorus Magnesium Total Bilirubin 9.6 H Direct Bilirubin 7.7 H AST 224 H D ALT 134 H Alkaline Phosphatase 237 H Total Protein 4.3 L Albumin 1.9 L Active Medications Generic Name Dose Route Start Last Admin Trade Name Freq PRN Reason Stop Dose Admin Chlordiazepoxide HCl 25 mg 04/14/17 18:16 Librium - PO 04/17/17 18:15 Q4H PRN WITHDRAWAL(CONT SUBST) Chlordiazepoxide HCl 15 mg 04/16/17 23:00 Librium - PO 04/17/17 17:01 [id number] MAR Chlordiazepoxide HCl 20 mg 04/15/17 23:00 04/16/17 10:59 Librium - PO 04/16/17 17:01 20 mg [id number] MAR Administration Folic Acid 1 mg 04/14/17 10:00 04/16/17 10:58 Folic Acid - PO 1 mg DAILY MAR Administration Metronidazole 50 mls @ 50 mls/hr 04/16/17 15:00 Flagyl 250mg Premixed Ivpb - IVPB Q8H-IV MAR Potassium Phos/Sodium Phos 2 packet 04/14/17 22:00 04/16/17 05:21 Phos-Nak Packet - PO 04/17/17 00:00 2 packet TID MAR Administration Thiamine HCl 100 mg 04/16/17 10:00 04/16/17 10:58 Vitamin B1 - PO 100 mg DAILY MAR Administration ASSESSMENT/PLAN: 62M w/ hx of EtoH dependence who presented with weakness leading to a fall on way to [facility] for detox, admitted for multiple severe electrolyte abnormalities and abnormal LFTs. #Hypokalemia and Hypophosphatemia -resolved -likely from increased alcohol intake -Phos-Nak Packet -will continue to monitor -F/U renal, Dr. Callaway #Watery Diarrhea due to C. Colitis -c diff positive -started IV Flagyl #Thrombocytopenia -could be HIT vs. underlying liver disease vs. alcoholism - F/U HIT antibodies #Macrocytic Anemia -likely secondary to alcohol abuse -folate and B12 elevated #Abnormal LFTs -likely not chronic inflammatory condition as per Dr. Bolden -LFT's seem to be trending down-likely alcoholic hepatitis. -Will continue to trend LFTs. #Hyponatremia -resolved #EtoH Dependence -continue thiamine, folic acid -continue Librium protocol -monitor for signs of withdrawal -detox on board- Dr. West, f/u recs #Prolonged QTc -QTc of 470 on repeat EKG, down from 590 on previous EKG #FEN/PPx -Not on IV fluids -SCD -Electrolytes WNL -regular diet -no GI ppx indicated Dispo: Possible discharge over weekend if he continues to do well. PT to avoid deconditioning Visit type - Emergency Visit Emergency Visit: Yes ED Registration Date: 04/14/17 Care time: The patient presented to the Emergency Department on the above date and was hospitalized for further evaluation of their emergent condition. - New Patient This patient is new to me today: No - Critical Care Critical Care patient: No
--- NOTE | 2017-04-16 16:23 | PN ---
Progress Note, Physician History of Present Illness: Pt seen and examined at bedside. He has diarrhea. - Current Medication List Current Medications: Active Medications Chlordiazepoxide HCl (Librium -) 25 mg PO Q4H PRN PRN Reason: WITHDRAWAL(CONT SUBST) Stop: 04/17/17 18:15 Chlordiazepoxide HCl (Librium -) 15 mg PO [id number] [facility] Stop: 04/17/17 17:01 Chlordiazepoxide HCl (Librium -) 20 mg PO [id number] MAR Stop: 04/16/17 17:01 Last Admin: 04/16/17 10:59 Dose: 20 mg Folic Acid (Folic Acid -) 1 mg PO DAILY [facility] Last Admin: 04/16/17 10:58 Dose: 1 mg Metronidazole (Flagyl 250mg Premixed Ivpb -) 50 mls @ 50 mls/hr IVPB Q8H-IV MAR Last Admin: 04/16/17 15:38 Dose: 50 mls/hr Potassium Phos/Sodium Phos (Phos-Nak Packet -) 2 packet PO TID MAR Stop: 04/17/17 00:00 Last Admin: 04/16/17 14:10 Dose: 2 packet Thiamine HCl (Vitamin B1 -) 100 mg PO DAILY [facility] Last Admin: 04/16/17 10:58 Dose: 100 mg - Objective Vital Signs: Vital Signs Temperature 97.9 F 04/16/17 14:40 Pulse Rate 86 04/16/17 14:40 Respiratory Rate 18 04/16/17 14:40 Blood Pressure 113/47 04/16/17 14:40 O2 Sat by Pulse Oximetry (%) 96 04/16/17 09:00 Constitutional: Yes: Calm Eyes: Yes: Conjunctiva Clear HENT: Yes: Atraumatic Neck: Yes: Supple Cardiovascular: Yes: S1, S2 Respiratory: Yes: CTA Bilaterally Gastrointestinal: Yes: Soft Genitourinary: Yes: WNL Musculoskeletal: Yes: Muscle Weakness Edema: No Neurological: Yes: Oriented Psychiatric: Yes: Oriented Labs: CBC, BMP 04/16/17 05:30 04/16/17 05:30 INR, PTT INR 1.26 (0.82-1.09) H 04/13/17 20:10 Problem List - Problems (1) Hypokalemia Code(s): E87.6 - HYPOKALEMIA (2) Hyponatremia Code(s): E87.1 - HYPO-OSMOLALITY AND HYPONATREMIA (3) ETOH abuse Code(s): F10.10 - ALCOHOL ABUSE, UNCOMPLICATED (4) Hypophosphatemia Code(s): E83.39 - OTHER DISORDERS OF PHOSPHORUS METABOLISM Assessment/Plan Current Medications Generic Name Dose Route Start Last Admin Trade Name Freq PRN Reason Stop Dose Admin Chlordiazepoxide HCl 25 mg 04/14/17 18:16 Librium - PO 04/17/17 18:15 Q4H PRN WITHDRAWAL(CONT SUBST) Chlordiazepoxide HCl 15 mg 04/16/17 23:00 Librium - PO 04/17/17 17:01 [id number] MAR Chlordiazepoxide HCl 20 mg 04/15/17 23:00 04/16/17 10:59 Librium - PO 04/16/17 17:01 20 mg [id number] MAR Administration Folic Acid 1 mg 04/14/17 10:00 04/16/17 10:58 Folic Acid - PO 1 mg DAILY MAR Administration Metronidazole 50 mls @ 50 mls/hr 04/16/17 15:00 04/16/17 15:38 Flagyl 250mg Premixed Ivpb - IVPB 50 mls/hr Q8H-IV MAR Administration Potassium Phos/Sodium Phos 2 packet 04/14/17 22:00 04/16/17 14:10 Phos-Nak Packet - PO 04/17/17 00:00 2 packet TID MAR Administration Thiamine HCl 100 mg 04/16/17 10:00 04/16/17 10:58 Vitamin B1 - PO 100 mg DAILY MAR Administration Impression 1. dehydration 2. hyponatremia 3. hypokalemia 4. hypophosphatemia 5. etoh abuse 6. active smoker Plan - potassium is stable - monitor lytes - cont fluids - encourage PO intake - will follow PRN Dr Callaway
[2017-04-17] MEDS: METRONIDAZOLE PREMIXED IVPB 50 ML IVPB SCH ×3 (03:00→17:30)
[2017-04-17] MEDS ORDERED: PT OWN MED DRAWER 7, Y5N ONE ×3 (03:25→17:28)
[2017-04-17 07:02] LABS: MCH 35.1 pg (25.7-33.7); MCHC 33.6 g/dl (32.0-35.9); MEAN CELL VOLUME 104.5 fl (80-96); PLATELET COUNT 62 K/MM3 (134-434); RDW 13.5 % (11.9-15.9); WHITE BLOOD COUNT 8.1 K/mm3 (4.0-10.0)
[2017-04-17] MEDS: chlordiazePOXIDE 5 MG CAPSULE PO SCH ×4 (07:25→17:30)
[2017-04-17 07:42] LABS: ALBUMIN 1.9 g/dl (3.4-5.0); ALK PHOS 269 U/L (45-117); ANION GAP 7 (8-16); BILIRUBIN,TOTAL 9.5 mg/dL (0.2-1.0); CALCIUM 8.2 mg/dL (8.5-10.1); CO2 27 mmol/L (21-32); CREATININE 0.4 mg/dL (0.7-1.3); GLUCOSE,RANDOM 102 mg/dL (74-106); MAGNESIUM 1.9 mg/dL (1.8-2.4); PHOSPHOROUS 2.7 mg/dL (2.5-4.9); SGOT/AST 172 U/L (15-37); SGPT/ALT 128 U/L (12-78); TOT PROT 4.5 g/dl (6.4-8.2)
[2017-04-17] MEDS: THIAMINE HCL 100 MG TABLET (FP) PO SCH (10:31)
[2017-04-17] MEDS: FOLIC ACID 1 MG TABLET (FP) PO SCH (10:31)
--- NOTE | 2017-04-17 10:53 | PN ---
Progress Note (short form) - Note Progress Note: Subjective: no fever or chills, has no abd pain or CP . diarrhea improved adn now with small amount of stool Objective: Vital Signs: Last Vital Signs Temp Pulse Resp BP Pulse Ox 98.0 F 72 18 114/56 98 04/17/17 02:00 04/17/17 06:00 04/17/17 06:00 04/17/17 06:00 04/16/17 21:00 Laboratory Results - last 24 hr 04/14/17 04/17/17 04/17/17 17:00 06:15 06:15 WBC 8.1 RBC 2.70 L Hgb 9.5 L Hct 28.2 L MCV 104.5 H MCH 35.1 H MCHC 33.6 RDW 13.5 Plt Count 62 L MPV 10.0 Sodium 133 L Potassium 4.0 Chloride 99 Carbon Dioxide 27 Anion Gap 7 L BUN 5 L D Creatinine 0.4 L Creat Clearance w eGFR > 60 Random Glucose 102 Calcium 8.2 L Phosphorus 2.7 Magnesium 1.9 Total Bilirubin 9.5 H AST 172 H D ALT 128 H Alkaline Phosphatase 269 H Total Protein 4.5 L Albumin 1.9 L VERONIKA Screen Positive H VERONIKA Homogeneous Pattern 1:80 VERONIKA Nucleolar Pattern TNP VERONIKA Speckled Pattern 1:80 VERONIKA Centromere Pattern TNP OBJECTIVE: NAD , . ecteric sclera . jaundiced skin. slightly drowsy but arousable CV: RRR, no MRG Lungs : CTAB Ext : no edema , minimal tremor in hands Abd: soft, NT, ND , no shifting dullness. Liver is palpated and percussed 5 cm below costal margin . ASSESSMENT AND PLAN: 62 y/o man with h/o Alcohol abuse who presented with weakness and fall on his way to [facility]. He was found to have severe electrolyte abnormalities and Elevated liver enzymes. 1- ETOH intoxication : - cont Librium detox ( last day ) - Cont Po thiamine 2-LFTS abnormalities, likely form alcoholic hepatitis. given the positive C diff that explains the colitis seen on CT scan , other etiologies of transaminitis is now unlikely - Trend LFTS ( better ) 3- C diff colitis: - cont IV flagyl day 09/08 - Cont IVF, NS 4-Electrolytes abn: resolved . Monitor 5- Hyponatremia : mild . IVF NS 6- Prolonged QTc: due to hypokalemia.electrolytes corrected DVT PX PT eval pending Visit type - Emergency Visit Emergency Visit: Yes ED Registration Date: 04/14/17 Care time: The patient presented to the Emergency Department on the above date and was hospitalized for further evaluation of their emergent condition. - New Patient This patient is new to me today: No - Critical Care Critical Care patient: No
[2017-04-17] MEDS: SODIUM CHLORIDE 1,000 ML IV SCH (11:54)
[2017-04-17] MEDS ORDERED: SODIUM CHLORIDE 500 ML IV STA (13:50)
[2017-04-18] MEDS ORDERED: PT OWN MED DRAWER 7, Y5N ONE ×3 (02:08→16:46)
[2017-04-18] MEDS: METRONIDAZOLE PREMIXED IVPB 50 ML IVPB SCH ×3 (02:10→17:17)
[2017-04-18] MEDS: SODIUM CHLORIDE 1,000 ML IV SCH ×2 (07:34→10:10)
[2017-04-18 09:22] LABS: ANION GAP 6 (8-16); CALCIUM 8.5 mg/dL (8.5-10.1); CO2 26 mmol/L (21-32); CREATININE 0.4 mg/dL (0.7-1.3); GLUCOSE,RANDOM 87 mg/dL (74-106); MAGNESIUM 1.9 mg/dL (1.8-2.4); PHOSPHOROUS 2.8 mg/dL (2.5-4.9)
[2017-04-18] MEDS: FOLIC ACID 1 MG TABLET (FP) PO SCH (10:10)
[2017-04-18] MEDS: THIAMINE HCL 100 MG TABLET (FP) PO SCH (10:10)
--- NOTE | 2017-04-18 14:49 | PN ---
Progress Note (short form) - Note Progress Note: Subjective: no fever or chills, has no abd pain or CP . diarrhea improved adn now with small amount of stool Objective: Vital Signs: OBJECTIVE: NAD , icteric sclera . jaundiced skin. awake and alert CV: RRR, no MRG Lungs : CTAB Ext : no edema , minimal tremor in hands Abd: soft, NT, ND , no shifting dullness. Liver is palpated and percussed 5 cm below costal margin . ASSESSMENT AND PLAN: 62 y/o man with h/o Alcohol abuse who presented with weakness and fall on his way to [facility]. He was found to have severe electrolyte abnormalities and Elevated liver enzymes. 1- ETOH intoxication : - finished librium detox and has no signs of withdrawal - Cont Po thiamine 2-LFTS abnormalities, likely form alcoholic hepatitis. given the positive C diff that explains the colitis seen on CT scan , other etiologies of transaminitis is now unlikely - LFTS tomorrow 3- C diff colitis: - cont IV flagyl day 10/06 - Cont IVF, NS 4-Electrolytes abn: resolved . Monitor on IVF 5- Hyponatremia : mild . IVF NS 6- Prolonged QTc: due to hypokalemia.electrolytes corrected DVT PX PT eval pending Visit type - Emergency Visit Emergency Visit: Yes ED Registration Date: 04/14/17 Care time: The patient presented to the Emergency Department on the above date and was hospitalized for further evaluation of their emergent condition. - New Patient This patient is new to me today: No - Critical Care Critical Care patient: No
[2017-04-19] MEDS ORDERED: PT OWN MED DRAWER 7, Y5N ONE (02:15)
[2017-04-19] MEDS: METRONIDAZOLE PREMIXED IVPB 50 ML IVPB SCH ×2 (02:16→10:42)
[2017-04-19 07:20] LABS: MCH 34.6 pg (25.7-33.7); MCHC 33.5 g/dl (32.0-35.9); MEAN CELL VOLUME 103.1 fl (80-96); MEAN PLT VOLUME 10.1 fl (7.5-11.1); PLATELET COUNT 101 K/MM3 (134-434); RDW 14.1 % (11.9-15.9); WHITE BLOOD COUNT 5.2 K/mm3 (4.0-10.0)
[2017-04-19 08:08] LABS: ALBUMIN 1.7 g/dl (3.4-5.0); ALK PHOS 316 U/L (45-117); ANION GAP 11 (8-16); CALCIUM 7.7 mg/dL (8.5-10.1); CO2 23 mmol/L (21-32); CREATININE 0.3 mg/dL (0.7-1.3); GLUCOSE,RANDOM 93 mg/dL (74-106); MAGNESIUM 1.7 mg/dL (1.8-2.4); PHOSPHOROUS 2.3 mg/dL (2.5-4.9); SGOT/AST 107 U/L (15-37); SGPT/ALT 91 U/L (12-78); TOT PROT 3.9 g/dl (6.4-8.2)
[2017-04-19 09:28] LABS: TOTAL CELLS COUNTED 100
[2017-04-19 09:29] LABS: BASOPHIL (MANUAL) 6 % (0-2.0); METAMYELOCYTE 1 % (0-2); MYELOCYTE 2 % (0-2)
[2017-04-19] MEDS: FOLIC ACID 1 MG TABLET (FP) PO SCH (10:42)
[2017-04-19] MEDS: ENOXAPARIN NA (PORCINE) 40 MG/0.4 ML DISP.SYRIN SQ SCH (10:42)
[2017-04-19] MEDS: THIAMINE HCL 100 MG TABLET (FP) PO SCH (10:42)
[2017-04-19] MEDS ORDERED: POTASSIUM CHLORIDE TABS 20 MEQ TABLET.ER (FP) PO ONE (12:00)
[2017-04-19] MEDS ORDERED: NAPH,MB-DB/K PH,MBDB POWDER PACKET PO ONE ×2 (12:00→22:01)
[2017-04-19] MEDS ORDERED: MAGNESIUM SULF 50% (8.12 MEQ/2 ML-1 GM VIAL) IVPB ONE (12:00)
[2017-04-19] MEDS: SODIUM CHLORIDE 1,000 ML IV SCH (13:27)
--- NOTE | 2017-04-19 14:08 | PN ---
Physical Exam: SUBJECTIVE: Patient seen and examined. No acute events overnight. Pt reports episodic diarrhea without any visible blood every few hours, similar to yesterday. He denies fevers, chills, abdominal pain, nausea, emesis, constipation, SOB, chest pain, and dysuria. OBJECTIVE: Vital Signs Period Temp Pulse Resp BP Sys/Lozada Pulse Ox Last 24 Hr 98.8 F-99.0 F 74-88 16-18 81-98/56-64 94-96 GENERAL: elderly, thin male, awake, alert, AAOx2 (person, place), in NAD HEAD: Normal with no signs of trauma. EYES: PERRL, extraocular movements intact, sclera icteric, no ptosis. ENT: no dentition NECK: Trachea midline, full range of motion, supple. LUNGS: Breath sounds equal, clear to auscultation bilaterally, no wheezes, no crackles, no accessory muscle use. HEART: Regular rate and rhythm, S1, S2 without murmur, rub or gallop. ABDOMEN: Soft, nontender, nondistended, normoactive bowel sounds, no guarding, no rebound, liver edge palpated 5cm below costal angle EXTREMITIES: 2+ pulses, warm, well-perfused, no edema. NEUROLOGICAL: Cranial nerves II through XII grossly intact. strength is 4/5 in all 4 extremities, sensory function intact to touch, speech delayed, gait not observed. Laboratory Results - last 24 hr 04/19/17 04/19/17 04/19/17 06:30 06:30 12:25 WBC 5.2 D RBC 2.42 L Hgb 8.4 L D Hct 25.0 L MCV 103.1 H MCH 34.6 H MCHC 33.5 RDW 14.1 Plt Count 101 L D MPV 10.1 Total Counted 100 Neutrophils % No Result Required. Neutrophils % (Manual) 69 Lymphocytes % No Result Required. Lymphocytes % (Manual) 9 D Monocytes % (Manual) 12 H D Eosinophils % (Manual) 1 Basophils % (Manual) 6 H* Myelocytes % (Man) 2 D Sodium 139 Potassium 3.3 L Chloride 105 Carbon Dioxide 23 Anion Gap 11 BUN 5 L D Creatinine 0.3 L D Creat Clearance w eGFR > 60 Random Glucose 93 Lactic Acid 1.5 Calcium 7.7 L Phosphorus 2.3 L Magnesium 1.7 L Total Bilirubin 7.0 H D AST 107 H D ALT 91 H D Alkaline Phosphatase 316 H Total Protein 3.9 L Albumin 1.7 L Active Medications Generic Name Dose Route Start Last Admin Trade Name Era PRN Reason Stop Dose Admin Enoxaparin Sodium 40 mg 04/19/17 10:00 04/19/17 10:42 Lovenox - SQ 40 mg DAILY MAR Administration Folic Acid 1 mg 04/14/17 10:00 04/19/17 10:42 Folic Acid - PO 1 mg DAILY MAR Administration Sodium Chloride 1,000 mls @ 75 mls/hr 04/17/17 11:00 04/19/17 13:27 Normal Saline - IV 75 mls/hr ASDIR MAR Administration Metronidazole 100 mls @ 100 mls/hr 04/19/17 18:00 Flagyl 500mg Premixed Ivpb - IVPB Q8H-IV MAR Thiamine HCl 100 mg 04/16/17 10:00 04/19/17 10:42 Vitamin B1 - PO 100 mg DAILY MAR Administration ASSESSMENT/PLAN: 62M w/ hx of EtoH dependence who presented with weakness leading to a fall on way to [facility] for detox, admitted for multiple severe electrolyte abnormalities and abnormal LFTs, found to have C. diff, being treated with flagyl and electrolyte repletion. #C. diff -continue flagyl 500mg IV q8h (today is day 4 of 14) -monitor for improving diarrhea #Weakness -likely 2/2 multiple electrolyte abnormalities -renal on board- Dr. Callaway #Hypokalemia- likely 2/2 poor diet and increased alcohol intake -K of 3.3, repleted -Trend K #Hyponatremia-likely 2/2 poor diet/po intake and increased alcohol intake -continue NS at 75 cc/hr -resolved #Hypochloremia- likely 2/2 poor diet/po intake and increased alcohol intake -continue NS at 50cc/hr -resolved #Hypophosphatemia- likely 2/2 poor diet/po intake and increased alcohol intake -Ph of 2.3, repleted -trend Ph #Hypotension -BPs 80-90/55-65 today, HRs in 80s -continue monitoring #Macrocytic Anemia- likely 2/2 EtoH use -folate and B12 elevated #Abnormal LFTs -transaminitis with AST:ALT ratio close to 2:1 suggesting etiology is alcohol -f/u p-anca -VERONIKA is + (1:80) -GI on board- Dr. Cisneros- rec that is due to alcoholic hepatitis -LFTs trending down, continue trending #EtoH Dependence -continue thiamine, folic acid -monitor for signs of withdrawal -detox on board- Dr. West -finished librium/ativan taper #Prolonged QTc -QTc of 470 on repeat EKG (04/14), down from 590 on previous EKG #FEN/PPx -NS at 75cc/hr -multiple abnormalities, repleting -sodium controlled diet -no GI ppx indicated -lovenox 40 Demarcus Arreola MD PGY1 Visit type - Emergency Visit Emergency Visit: Yes ED Registration Date: 04/14/17 Care time: The patient presented to the Emergency Department on the above date and was hospitalized for further evaluation of their emergent condition. - New Patient This patient is new to me today: No - Critical Care Critical Care patient: No
[2017-04-19] MEDS: METRONIDAZOLE 500 MG PREMIXED 100 ML IVPB SCH (17:56)
--- NOTE | 2017-04-19 18:16 | PN ---
Teaching Attending Note Name of Resident: Demarcus Arreola ATTENDING PHYSICIAN STATEMENT I saw and evaluated the patient. I reviewed the resident's note and discussed the case with the resident. I agree with the resident's findings and plan as documented. SUBJECTIVE: no fever or chills. still has diarrhea . no ABd pain. Feels much better today OBJECTIVE: NAD , icteric sclera . jaundiced skin ( improved ) . awake and alert CV: RRR, no MRG Lungs : CTAB Ext : no edema , minimal tremor in hands Abd: soft, NT, ND , no shifting dullness. Liver is palpated and percussed 5 cm below costal margin . ASSESSMENT AND PLAN: 62 y/o man with h/o Alcohol abuse who presented with weakness and fall on his way to [facility]. He was found to have severe electrolyte abnormalities and Elevated liver enzymes. 1- ETOH intoxication : - finished librium detox and has no signs of withdrawal - Cont Po thiamine 2-LFTS abnormalities, likely form alcoholic hepatitis. improved 3- C diff colitis: - cont IV flagyl day 11/06 - Cont IVF, NS 4-Electrolytes abn: replete and repeat 5- Prolonged QTc: due to Hypokalemia. DVT PX PT eval pending
[2017-04-19 18:20] LABS: C-ANCA <1:20 titer (Neg:<1:20); MYELOPEROXIDASE ANTIBODY <9.0 U/mL (0.0-9.0); P-ANCA <1:20 titer (Neg:<1:20); PROTEINASE-3 ANTIBODY <3.5 U/mL (0.0-3.5)
[2017-04-19 21:12] LABS: MAGNESIUM 2.4 mg/dL (1.8-2.4); PHOSPHOROUS 2.1 mg/dL (2.5-4.9)
[2017-04-20] MEDS: METRONIDAZOLE 500 MG PREMIXED 100 ML IVPB SCH ×3 (02:54→17:04)
[2017-04-20 07:13] LABS: MCH 34.5 pg (25.7-33.7); MCHC 33.3 g/dl (32.0-35.9); MEAN CELL VOLUME 103.5 fl (80-96); MEAN PLT VOLUME 9.3 fl (7.5-11.1); PLATELET COUNT 149 K/MM3 (134-434)
[2017-04-20 08:39] LABS: ALBUMIN 1.6 g/dl (3.4-5.0); ALK PHOS 309 U/L (45-117); ANION GAP 10 (8-16); BILIRUBIN,TOTAL 6.7 mg/dL (0.2-1.0); CALCIUM 7.5 mg/dL (8.5-10.1); CO2 24 mmol/L (21-32); CREATININE 0.3 mg/dL (0.7-1.3); GLUCOSE,RANDOM 80 mg/dL (74-106); MAGNESIUM 2.1 mg/dL (1.8-2.4); SGOT/AST 101 U/L (15-37); SGPT/ALT 80 U/L (12-78); TOT PROT 3.9 g/dl (6.4-8.2)
[2017-04-20] MEDS ORDERED: PT OWN MED DRAWER 7, Y5N ONE (09:06)
[2017-04-20] MEDS: ENOXAPARIN NA (PORCINE) 40 MG/0.4 ML DISP.SYRIN SQ SCH (09:14)
[2017-04-20] MEDS: FOLIC ACID 1 MG TABLET (FP) PO SCH (09:14)
[2017-04-20] MEDS: THIAMINE HCL 100 MG TABLET (FP) PO SCH (09:14)
[2017-04-20] MEDS ORDERED: POTASSIUM PHOSPHATE 30 MM in SODIUM CHLORIDE 250 ML IVPB ONE (11:00)
[2017-04-20] MEDS ORDERED: NAPH,MB-DB/K PH,MBDB POWDER PACKET PO ONE (12:30)
[2017-04-20] MEDS: SODIUM CHLORIDE 1,000 ML IV SCH (13:07)
--- NOTE | 2017-04-20 14:30 | PN ---
Physical Exam: SUBJECTIVE: Patient seen and examined. No acute events overnight. Pt reports that diarrheal episodes are now occurring once a day. He denies abdominal pain, nausea, emesis, hematochezia, melena, SOB , chest pain, and dysuria. He states that he wants to ambulate and feels that he is ready. OBJECTIVE: Vital Signs Period Temp Pulse Resp BP Sys/Lozada Pulse Ox Last 24 Hr 97.7 F-99.2 F 71-82 16-18 89-110/51-67 96-97 GENERAL: The patient is awake, alert, AAOx3, sitting in bed eating breakfast in NAD HEAD: Normal with no signs of trauma. EYES: diminished scleral icterus compared to yesterday ENT: Ears normal, nares patent, oropharynx clear without exudates, moist mucous membranes. NECK: Trachea midline, full range of motion, supple. LUNGS: Breath sounds equal, clear to auscultation bilaterally, no wheezes, no crackles, no accessory muscle use. HEART: Regular rate and rhythm, S1, S2 without murmur, rub or gallop. ABDOMEN: soft, NT, ND, + hepatomegaly palpated 5cm below the costal margin EXTREMITIES: 2+ pulses, warm, well-perfused, no edema. NEUROLOGICAL: Cranial nerves II through XII grossly intact. Speech is less delayed compared to yesterday, spelled WORLD backwards correctly PSYCH: Normal mood, normal affect. Laboratory Results - last 24 hr 04/14/17 04/19/17 04/20/17 17:00 20:00 05:35 WBC 5.0 RBC 2.34 L Hgb 8.1 L Hct 24.2 L MCV 103.5 H MCH 34.5 H MCHC 33.3 RDW 14.0 Plt Count 149 D MPV 9.3 Sodium Potassium 3.7 Chloride Carbon Dioxide Anion Gap BUN Creatinine Creat Clearance w eGFR Random Glucose Calcium Phosphorus 2.1 L Magnesium 2.4 D Total Bilirubin AST ALT Alkaline Phosphatase Total Protein Albumin VERONIKA Screen Positive H VERONIKA Homogeneous Pattern 1:80 VERONIKA Nucleolar Pattern TNP VERONIKA Speckled Pattern 1:80 VERONIKA Centromere Pattern TNP c-ANCA <1:20 Proteinase 3 (PR3) <3.5 p-ANCA <1:20 Atypical p-ANCA <1:20 Myeloperoxidase Ab <9.0 04/20/17 05:35 WBC RBC Hgb Hct MCV MCH MCHC RDW Plt Count MPV Sodium 138 Potassium 3.4 L Chloride 104 Carbon Dioxide 24 Anion Gap 10 BUN 4 L Creatinine 0.3 L Creat Clearance w eGFR > 60 Random Glucose 80 Calcium 7.5 L Phosphorus 2.0 L Magnesium 2.1 Total Bilirubin 6.7 H AST 101 H ALT 80 H Alkaline Phosphatase 309 H Total Protein 3.9 L Albumin 1.6 L VERONIKA Screen VERONIKA Homogeneous Pattern VERONIKA Nucleolar Pattern VERONIKA Speckled Pattern VERONIKA Centromere Pattern c-ANCA Proteinase 3 (PR3) p-ANCA Atypical p-ANCA Myeloperoxidase Ab Active Medications Generic Name Dose Route Start Last Admin Trade Name Freq PRN Reason Stop Dose Admin Enoxaparin Sodium 40 mg 04/19/17 10:00 04/20/17 09:14 Lovenox - SQ 40 mg DAILY MAR Administration Folic Acid 1 mg 04/14/17 10:00 04/20/17 09:14 Folic Acid - PO 1 mg DAILY MAR Administration Sodium Chloride 1,000 mls @ 75 mls/hr 04/17/17 11:00 04/20/17 13:07 Normal Saline - IV 75 mls/hr ASDIR MAR Administration Metronidazole 100 mls @ 100 mls/hr 04/19/17 18:00 04/20/17 09:14 Flagyl 500mg Premixed Ivpb - IVPB 100 mls/hr Q8H-IV MAR Administration Potassium Phosphate 30 mm/ 260 mls @ 43.333 mls/hr 04/20/17 11:00 04/20/17 11: 29 Sodium Chloride IVPB 04/20/17 16:59 43.333 mls/hr ONCE ONE Administration Potassium Phos/Sodium Phos 1 packet 04/20/17 22:00 Phos-Nak Packet - PO BID MAR Thiamine HCl 100 mg 04/16/17 10:00 04/20/17 09:14 Vitamin B1 - PO 100 mg DAILY MAR Administration ASSESSMENT/PLAN: 62M w/ hx of EtoH dependence who presented with weakness leading to a fall on way to [facility] for detox, admitted for multiple severe electrolyte abnormalities and abnormal LFTs, found to have C. diff colitis, improving on flagyl and electrolyte repletion. #C. diff -continue flagyl 500mg IV q8h (today is day 5 of 14) -diarrhea decreasing in frequency, continue to monitor #Macrocytic Anemia- likely 2/2 EtoH use -folate and B12 elevated -Hgb trending down, today 8.1, down from 10.8. Possibly 2/2 acute GI bleed from C. diff. Will monitor. -continue to trend #Weakness -likely 2/2 multiple electrolyte abnormalities -renal on board- Dr. Callaway #Hypokalemia- likely 2/2 poor diet and increased alcohol intake -K of 3.4, repleted -Trend K #Hyponatremia-likely 2/2 poor diet/po intake and increased alcohol intake -continue NS at 75 cc/hr -resolved #Hypochloremia- likely 2/2 poor diet/po intake and increased alcohol intake -continue NS at 50cc/hr -resolved #Hypophosphatemia- likely 2/2 poor diet/po intake and increased alcohol intake -Ph of 2, repleted -trend Ph #Hypotension -BPs 90-100/50-70 today, HRs 70-80s -continue monitoring #Abnormal LFTs -transaminitis with AST:ALT ratio close to 2:1 suggesting etiology is alcohol -p-anca: negative -VERONIKA is + (1:80) -GI on board- Dr. Cisneros- rec that is due to alcoholic hepatitis -LFTs trending down #EtoH Dependence -continue thiamine, folic acid -monitor for signs of withdrawal -detox on board- Dr. West -finished librium/ativan taper #Prolonged QTc -QTc of 470 on repeat EKG (04/14), down from 590 on previous EKG #FEN/PPx -NS at 75cc/hr -multiple abnormalities, repleting -sodium controlled diet -no GI ppx indicated -lovenox 40 and SCDs #Dispo -pending pt's ability to walk, improvement in diarrhea, and electrolyte repletion Demarcus Arreola MD PGY1 Visit type - Emergency Visit Emergency Visit: Yes ED Registration Date: 04/14/17 Care time: The patient presented to the Emergency Department on the above date and was hospitalized for further evaluation of their emergent condition. - New Patient This patient is new to me today: No - Critical Care Critical Care patient: No
--- NOTE | 2017-04-20 15:15 | PN ---
Teaching Attending Note Name of Resident: Demarcus Arreola ATTENDING PHYSICIAN STATEMENT I saw and evaluated the patient. I reviewed the resident's note and discussed the case with the resident. I agree with the resident's findings and plan as documented. SUBJECTIVE: no fever or chills. feels much better today. still has diarrhea OBJECTIVE: NAD , icteric sclera . jaundiced skin ( improved ) . awake and alert CV: RRR, no MRG Lungs : CTAB Ext : no edema , minimal tremor in hands Abd: soft, NT, ND ,NS , no shifting dullness. Liver is palpated and percussed 5 cm below costal margin . ASSESSMENT AND PLAN: 62 y/o man with h/o Alcohol abuse who presented with weakness and fall on his way to [facility]. He was found to have severe electrolyte abnormalities and Elevated liver enzymes. 1- ETOH intoxication : - Finished librium detox and has no signs of withdrawal - Cont Po thiamine 2-LFTS abnormalities, likely form alcoholic hepatitis. improved 3- C diff colitis: - cont IV flagyl day 12/06 - Cont IVF, NS ...if diarrhea stops tomorrow , will dc 4-Electrolytes abn: replete Phos and K 5- Prolonged QTc: due to Hypokalemia. DVT PX Did not work with PT yesterday, will try again today. He is interested in ALcohol rehab. If diarrhea stops tomorrow , he will be ready for Dc. if he passes PT , probably can dc to [facility] , other braun will need rehab. D/W technical account manager
[2017-04-20] MEDS: NAPH,MB-DB/K PH,MBDB POWDER PACKET PO SCH (21:42)
[2017-04-20] MEDS ORDERED: NAPH,MB-DB/K PH,MBDB POWDER PACKET PO SCH (22:00)
[2017-04-21] MEDS: METRONIDAZOLE 500 MG PREMIXED 100 ML IVPB SCH ×3 (01:44→17:19)
[2017-04-21] MEDS: SODIUM CHLORIDE 1,000 ML IV SCH ×2 (01:45→16:53)
--- NOTE | 2017-04-21 08:16 | PN ---
Teaching Attending Note Name of Resident: Demarcus Arreola ATTENDING PHYSICIAN STATEMENT I saw and evaluated the patient. I reviewed the resident's note and discussed the case with the resident. I agree with the resident's findings and plan as documented. SUBJECTIVE: Patient is feeling better today , mild tremor , completed Librium protocol. continues to have diarrhea. OBJECTIVE: Vital Signs Temperature 97.7 F 04/21/17 06:00 Pulse Rate 65 04/21/17 06:00 Respiratory Rate 16 04/21/17 06:00 Blood Pressure 104/71 04/21/17 06:00 O2 Sat by Pulse Oximetry (%) 96 04/20/17 21:00 CBCD WBC 5.0 K/mm3 (4.0-10.0) 04/20/17 05:35 RBC 2.34 M/mm3 (4.00-5.60) L 04/20/17 05:35 Hgb 8.1 GM/dL (11.7-16.9) L 04/20/17 05:35 Hct 24.2 % (35.4-49) L 04/20/17 05:35 MCV 103.5 fl (80-96) H 04/20/17 05:35 MCHC 33.3 g/dl (32.0-35.9) 04/20/17 05:35 RDW 14.0 % (11.9-15.9) 04/20/17 05:35 Plt Count 149 K/MM3 (134-434) D 04/20/17 05:35 MPV 9.3 fl (7.5-11.1) 04/20/17 05:35 CMP Sodium 138 mmol/L (136-145) 04/20/17 05:35 Potassium 3.4 mmol/L (3.5-5.1) L 04/20/17 05:35 Chloride 104 mmol/L (98-107) 04/20/17 05:35 Carbon Dioxide 24 mmol/L (21-32) 04/20/17 05:35 Anion Gap 10 (8-16) 04/20/17 05:35 BUN 4 mg/dL (7-18) L 04/20/17 05:35 Creatinine 0.3 mg/dL (0.7-1.3) L 04/20/17 05:35 Creat Clearance w eGFR > 60 (>60) 04/20/17 05:35 Random Glucose 80 mg/dL (74-106) 04/20/17 05:35 Calcium 7.5 mg/dL (8.5-10.1) L 04/20/17 05:35 Total Bilirubin 6.7 mg/dL (0.2-1.0) H 04/20/17 05:35 AST 101 U/L (15-37) H 04/20/17 05:35 ALT 80 U/L (12-78) H 04/20/17 05:35 Alkaline Phosphatase 309 U/L (45-117) H 04/20/17 05:35 Total Protein 3.9 g/dl (6.4-8.2) L 04/20/17 05:35 Albumin 1.6 g/dl (3.4-5.0) L 04/20/17 05:35 Current Medications Generic Name Dose Route Start Last Admin Trade Name Scottq PRN Reason Stop Dose Admin Enoxaparin Sodium 40 mg 04/19/17 10:00 04/20/17 09:14 Lovenox - SQ 40 mg DAILY MAR Administration Folic Acid 1 mg 04/14/17 10:00 04/20/17 09:14 Folic Acid - PO 1 mg DAILY MAR Administration Sodium Chloride 1,000 mls @ 75 mls/hr 04/17/17 11:00 04/21/17 01:45 Normal Saline - IV 75 mls/hr ASDIR MAR Administration Metronidazole 100 mls @ 100 mls/hr 04/19/17 18:00 04/21/17 01:44 Flagyl 500mg Premixed Ivpb - IVPB 100 mls/hr Q8H-IV MAR Administration Potassium Phos/Sodium Phos 1 packet 04/20/17 22:00 04/20/17 21:42 Phos-Nak Packet - PO 04/21/17 22:01 1 packet BID MAR Administration Thiamine HCl 100 mg 04/16/17 10:00 04/20/17 09:14 Vitamin B1 - PO 100 mg DAILY MAR Administration Home Medications Medication Instructions Recorded Folic Acid 0.4 mg PO DAILY #30 tablet 12/27/16 Multivitamin [Poly-Vitamin] 1 each PO DAILY #30 tab.chew 12/27/16 Potassium Chloride 20 meq PO DAILY #7 tablet.er 12/27/16 Thiamine HCl [B-1] 100 mg PO DAILY #30 tablet 12/27/16 Microbiology 04/17/17 16:20 Blood - Peripheral Venous Blood Culture - Preliminary NO GROWTH OBTAINED AFTER 72 HOURS, INCUBATION TO CONTINUE FOR 2 DAYS. 04/17/17 16:15 Blood - Peripheral Venous Blood Culture - Preliminary NO GROWTH OBTAINED AFTER 72 HOURS, INCUBATION TO CONTINUE FOR 2 DAYS. 04/15/17 20:40 Stool Salmonella/Shigella Culture - Final NO GROWTH OF SALMONELLA OR SHIGELLA SPECIES OBTAINED 04/15/17 20:40 Stool Campylobacter Culture - Final NO GROWTH OF CAMPYLOBACTER SPECIES OBTAINED 04/15/17 20:40 Stool Yersinia Culture - Final NO GROWTH OF YERSINIA SPECIES OBTAINED 04/15/17 20:40 Stool Vibrio Culture - Final NO GROWTH OF VIBRIO SPECIES OBTAINED 04/15/17 20:40 Stool Escherichia coli 0157 Culture - Final NO GROWTH OF E COLI 0157 OBTAINED 04/15/17 20:40 Stool Gram Stain - Final 04/15/17 20:40 Stool Clostridium difficile Antigen (INGRID) - Final 04/15/17 20:40 Stool Clostridium difficile Toxin Assay - Final PE: per resident's note ASSESSMENT AND PLAN: 62 y/o man with h/o Alcohol abuse who presented with weakness and fall on his way to [facility]. He was found to have severe electrolyte abnormalities and Elevated liver enzymes. # ETOH intoxication/ withdrawel : completed librium detox protocol and has no signs of withdrawal . Continue thiamine/folic acid #LFTS abnormalities, likely form alcoholic hepatitis. improved # C diff colitis: cont IV flagyl day 01/06 #Electrolytes abn: replete Phos and K #Prolonged QTc: due to Hypokalemia. #feels weak has difficulty with ambulation, requesting to go to SNF DVT PX : Lovenox
[2017-04-21 08:22] LABS: ANION GAP 8 (8-16); CALCIUM 7.8 mg/dL (8.5-10.1); CO2 26 mmol/L (21-32); CREATININE 0.3 mg/dL (0.7-1.3); GLUCOSE,RANDOM 91 mg/dL (74-106); PHOSPHOROUS 2.3 mg/dL (2.5-4.9)
[2017-04-21 08:39] LABS: MCH 34.6 pg (25.7-33.7); MCHC 33.1 g/dl (32.0-35.9); MEAN CELL VOLUME 104.5 fl (80-96); MEAN PLT VOLUME 9.1 fl (7.5-11.1); PLATELET COUNT 184 K/MM3 (134-434); WHITE BLOOD COUNT 5.6 K/mm3 (4.0-10.0)
[2017-04-21] MEDS: ENOXAPARIN NA (PORCINE) 40 MG/0.4 ML DISP.SYRIN SQ SCH (09:27)
[2017-04-21] MEDS: THIAMINE HCL 100 MG TABLET (FP) PO SCH (09:27)
[2017-04-21] MEDS: FOLIC ACID 1 MG TABLET (FP) PO SCH (09:27)
[2017-04-21] MEDS: NAPH,MB-DB/K PH,MBDB POWDER PACKET PO SCH ×2 (09:27→21:38)
[2017-04-21 11:46] LABS: BASOPHIL (MANUAL) 3 % (0-2.0); TOTAL CELLS COUNTED 100
[2017-04-21 11:47] LABS: PLATELET ESTIMATE ADEQUATE (NORMAL)
[2017-04-21] MEDS ORDERED: NAPH,MB-DB/K PH,MBDB POWDER PACKET PO ONE (12:45)
--- NOTE | 2017-04-21 13:33 | PN ---
Physical Exam: SUBJECTIVE: Patient seen and examined. No acute events overnight. Pt states that he had 4 episodes of diarrhea (fully formed) since yesterday. He denies abdominal pain, nausea, emesis, SOB, chest pain, leg pain. OBJECTIVE: Vital Signs Period Temp Pulse Resp BP Sys/Lozada Pulse Ox Last 24 Hr 97.7 F-99 F 65-83 16-18 96-120/50-71 96-99 GENERAL: The patient is awake, alert, and fully oriented, in no acute distress. HEAD: Normal with no signs of trauma. EYES: mild scleral icterus ENT: Ears normal, nares patent, oropharynx clear without exudates, moist mucous membranes. NECK: Trachea midline, full range of motion, supple. LUNGS: Breath sounds equal, clear to auscultation bilaterally, no wheezes, no crackles, no accessory muscle use. HEART: Regular rate and rhythm, S1, S2 without murmur, rub or gallop. ABDOMEN: Soft, nontender, nondistended, normoactive bowel sounds, no guarding, no rebound, hepatomegaly palpated 5cm below the costal margin EXTREMITIES: 2+ pulses, warm, well-perfused, no edema. NEUROLOGICAL: Cranial nerves II through XII grossly intact. delayed speech, gait not observed. PSYCH: Normal mood, normal affect. Laboratory Results - last 24 hr 04/21/17 04/21/17 06:20 07:12 WBC 5.6 RBC 2.48 L Hgb 8.6 L Hct 25.9 L MCV 104.5 H MCH 34.6 H MCHC 33.1 RDW 15.0 Plt Count 184 D MPV 9.1 Total Counted 100 Neutrophils % No Result Required. Neutrophils % (Manual) 59 Band Neuts % (Manual) 1 D Lymphocytes % No Result Required. Lymphocytes % (Manual) 16 D Monocytes % (Manual) 20 H* Eosinophils % (Manual) 1 Basophils % (Manual) 3 H Platelet Estimate Adequate Sodium 138 Potassium 3.8 Chloride 104 Carbon Dioxide 26 Anion Gap 8 BUN 4 L Creatinine 0.3 L Random Glucose 91 Calcium 7.8 L Phosphorus 2.3 L Magnesium 2.0 Active Medications Generic Name Dose Route Start Last Admin Trade Name Freq PRN Reason Stop Dose Admin Enoxaparin Sodium 40 mg 04/19/17 10:00 04/21/17 09:27 Lovenox - SQ 40 mg DAILY MAR Administration Folic Acid 1 mg 04/14/17 10:00 04/21/17 09:27 Folic Acid - PO 1 mg DAILY MAR Administration Sodium Chloride 1,000 mls @ 75 mls/hr 04/17/17 11:00 04/21/17 01:45 Normal Saline - IV 75 mls/hr ASDIR MAR Administration Metronidazole 100 mls @ 100 mls/hr 04/19/17 18:00 04/21/17 09:27 Flagyl 500mg Premixed Ivpb - IVPB 100 mls/hr Q8H-IV MAR Administration Potassium Phos/Sodium Phos 1 packet 04/20/17 22:00 04/21/17 09:27 Phos-Nak Packet - PO 04/21/17 22:01 1 packet BID MAR Administration Thiamine HCl 100 mg 04/16/17 10:00 04/21/17 09:27 Vitamin B1 - PO 100 mg DAILY MAR Administration ASSESSMENT/PLAN: 62M w/ hx of EtoH dependence who presented with weakness leading to a fall on way to [facility] for detox, admitted for multiple severe electrolyte abnormalities and abnormal LFTs, found to have C. diff colitis, treated with flagyl and electrolyte repletion. #C. diff -continue flagyl 500mg IV q8h (today is day 6 of 14) -diarrhea more frequent than yesterday, continue to monitor #Macrocytic Anemia- likely 2/2 EtoH use -folate and B12 elevated -Hgb trending down, today 8.1, down from 10.8. Possibly 2/2 acute GI bleed from C. diff. Will monitor. -continue to trend #Weakness -likely 2/2 multiple electrolyte abnormalities -renal on board- Dr. Callaway #Hypokalemia- likely 2/2 poor diet and increased alcohol intake -resolved -Trend K #Hyponatremia-likely 2/2 poor diet/po intake and increased alcohol intake -continue NS at 75 cc/hr -resolved #Hypochloremia- likely 2/2 poor diet/po intake and increased alcohol intake -continue NS at 50cc/hr -resolved #Hypophosphatemia- likely 2/2 poor diet/po intake and increased alcohol intake -Ph of 2.3, repleted -trend Ph #Hypotension -BPs 95-105/60-70 today, HR 65-75s -continue monitoring #Abnormal LFTs -transaminitis and elevated ALP 2/2 to alcoholic hepatitis -GI on board- Dr. Cisneros -LFTs trending down, no longer following #EtoH Dependence -continue thiamine, folic acid -detox on board- Dr. West -finished librium/ativan taper #Prolonged QTc -QTc of 470 on repeat EKG (04/14), down from 590 on previous EKG #FEN/PPx -NS at 75cc/hr -low Ph, repleting -sodium controlled diet -no GI ppx indicated -lovenox 40 and SCDs #Dispo -awaiting placement for SNF Demarcus Arreola MD PGY1 Visit type - Emergency Visit Emergency Visit: Yes ED Registration Date: 04/14/17 Care time: The patient presented to the Emergency Department on the above date and was hospitalized for further evaluation of their emergent condition. - New Patient This patient is new to me today: No - Critical Care Critical Care patient: No
[2017-04-22] MEDS: METRONIDAZOLE 500 MG PREMIXED 100 ML IVPB SCH ×3 (01:13→18:46)
[2017-04-22] MEDS: SODIUM CHLORIDE 1,000 ML IV SCH ×2 (06:22→12:00)
[2017-04-22 06:57] LABS: BASOPHIL 1.6 % (0-2.0); EOSINOPHIL 0.9 % (0-4.5); MCH 34.7 pg (25.7-33.7); MCHC 33.2 g/dl (32.0-35.9); MEAN CELL VOLUME 104.5 fl (80-96); MEAN PLT VOLUME 9.1 fl (7.5-11.1); NEUTROPHILS 60.1 % (42.8-82.8); PLATELET COUNT 191 K/MM3 (134-434); RDW 14.9 % (11.9-15.9); WHITE BLOOD COUNT 6.1 K/mm3 (4.0-10.0)
[2017-04-22 07:15] LABS: ANION GAP 9 (8-16); CO2 25 mmol/L (21-32); CREATININE 0.4 mg/dL (0.7-1.3); GLUCOSE,RANDOM 81 mg/dL (74-106); PHOSPHOROUS 2.9 mg/dL (2.5-4.9)
[2017-04-22] MEDS ORDERED: POTASSIUM CHLORIDE TABS 20 MEQ TABLET.ER (FP) PO ONE (09:30)
[2017-04-22] MEDS: ENOXAPARIN NA (PORCINE) 40 MG/0.4 ML DISP.SYRIN SQ SCH (10:32)
[2017-04-22] MEDS: THIAMINE HCL 100 MG TABLET (FP) PO SCH (10:33)
[2017-04-22] MEDS: FOLIC ACID 1 MG TABLET (FP) PO SCH (10:34)
--- NOTE | 2017-04-22 12:59 | DS ---
Physical Exam: SUBJECTIVE: Patient seen and examined. This am, pt reports no problems. He states that he had several episodes of diarrhea since yesterday. He denies SOB, chest pain, abdominal pain, nausea, emesis, and dysuria. OBJECTIVE: Vital Signs Period Temp Pulse Resp BP Sys/Lozada Pulse Ox Last 24 Hr 98.0 F-99.0 F 60-67 18-20 111-124/64-73 97 PHYSICAL EXAM GENERAL: The patient is awake, alert, and fully oriented, in no acute distress. HEAD: Normal with no signs of trauma. EYES: mildly icteric ENT: Ears normal, nares patent, oropharynx clear without exudates, moist mucous membranes. NECK: Trachea midline, full range of motion, supple. LUNGS: Breath sounds equal, clear to auscultation bilaterally, no wheezes, no crackles, no accessory muscle use. HEART: Regular rate and rhythm, S1, S2 without murmur, rub or gallop. ABDOMEN: Soft, nontender, nondistended, normoactive bowel sounds, no guarding, no rebound, no hepatosplenomegaly, no masses. EXTREMITIES: 2+ pulses, warm, well-perfused, no edema. NEUROLOGICAL: Cranial nerves II through XII grossly intact. speech mildly delayed, gait not observed. LABS Laboratory Results - last 24 hr 04/22/17 04/22/17 06:00 06:00 WBC 6.1 RBC 2.64 L Hgb 9.2 L Hct 27.6 L MCV 104.5 H MCH 34.7 H MCHC 33.2 RDW 14.9 Plt Count 191 MPV 9.1 Neutrophils % 60.1 D Lymphocytes % 18.0 D Monocytes % 19.4 H D Eosinophils % 0.9 D Basophils % 1.6 D Sodium 139 Potassium 3.5 Chloride 105 Carbon Dioxide 25 Anion Gap 9 BUN 4 L Creatinine 0.4 L D Random Glucose 81 Calcium 8.0 L Phosphorus 2.[address] Abdomen: infectious vs. inflammatory colitis C. diff Ag: + HOSPITAL COURSE: Date of Admission:04/14/17 Date of Discharge: 04/22/17 62M w/ hx of EtoH dependence, COPD, depression, and anxiety who presented with weakness leading to a fall while going to [facility] for detox, was found to have multiple electrolyte abnormalities (low Mg, Ph, K, Na, and Cl), likely 2/2 his significant alcohol use, and C. diff colitis. His electrolytes were repleted, and he was started on a 14 day course of flagyl. Today, pt is stable, has normal vitals, his electrolytes are wnl, is tolerating po, and he is ready for discharge to a SNF. Pt instructed that he needs to finish course of flagyl. Minutes to complete discharge: 36 Discharge Summary Reason For Visit: HYPONATREMIA HYPOKALEMIA DEHYDRATION Current Active Problems Accident due to mechanical fall without injury (Acute) Alcohol dependence with uncomplicated withdrawal (Acute) C. difficile colitis (Acute) Dehydration (Acute) ETOH abuse (Acute) Hypokalemia (Acute) Hyponatremia (Acute) Hypophosphatemia (Acute) Hepatic steatosis (Chronic) Condition: Stable - Instructions Diet, Activity, Other Instructions: You presented to the hospital with weakness, and you were found to have multiple electrolyte abnormalities and C. diff colitis (an infection of your colon). Your electrolytes were repleted, and your infection was treated with an antibiotic called flagyl. 1. Please follow up with a PCP within one week. If you don't have one, we have referred you to one. 2. Make sure to continue taking flagyl for 6 more days to completely eliminate the infection. If you develop any new, worsening, or concerning symptoms such as shortness of breath or chest pain, return to the ED. Referrals: Harvey Olivares MD [Staff Physician] - Disposition: RESIDENTIAL FACILITY - Home Medications Comprehensive Discharge Medication List: Ambulatory Orders Folic Acid 0.4 mg PO DAILY #30 tablet 12/27/16 Multivitamin [Poly-Vitamin] 1 each PO DAILY #30 tab.chew 12/27/16 Potassium Chloride 20 meq PO DAILY #7 tablet.er 12/27/16 Thiamine HCl [B-1] 100 mg PO DAILY #30 tablet 12/27/16 Metronidazole [Flagyl -] 500 mg PO Q8H #18 tablet 04/22/17 This patient is new to me today: No Emergency Visit: Yes ED Registration Date: 04/14/17 Care time: The patient presented to the Emergency Department on the above date and was hospitalized for further evaluation of their emergent condition. Critical Care patient: No - Discharge Referral Referred to [facility] Med [facility] No
--- NOTE | 2017-04-22 16:18 | PN ---
Physical Exam: SUBJECTIVE: Patient seen and examined. Pt denies any new symptoms. He states that he has had several episodes of diarrhea since yesterday, but denies nausea, emesis, and abdominal pain. OBJECTIVE: Vital Signs Period Temp Pulse Resp BP Sys/Lozada Pulse Ox Last 24 Hr 98.2 F-99.0 F 60-74 18-20 100-118/57-73 97-97 GENERAL: The patient is awake, alert, and fully oriented, in no acute distress. HEAD: Normal with no signs of trauma. EYES: mildly icteric ENT: Ears normal, nares patent, oropharynx clear without exudates, moist mucous membranes. NECK: Trachea midline, full range of motion, supple. LUNGS: Breath sounds equal, clear to auscultation bilaterally, no wheezes, no crackles, no accessory muscle use. HEART: Regular rate and rhythm, S1, S2 without murmur, rub or gallop. ABDOMEN: Soft, nontender, nondistended, normoactive bowel sounds, no guarding, no rebound, no hepatosplenomegaly, no masses. EXTREMITIES: 2+ pulses, warm, well-perfused, no edema. NEUROLOGICAL: Cranial nerves II through XII grossly intact. speech mildly delayed, gait not observed. Laboratory Results - last 24 hr 04/22/17 04/22/17 06:00 06:00 WBC 6.1 RBC 2.64 L Hgb 9.2 L Hct 27.6 L MCV 104.5 H MCH 34.7 H MCHC 33.2 RDW 14.9 Plt Count 191 MPV 9.1 Neutrophils % 60.1 D Lymphocytes % 18.0 D Monocytes % 19.4 H D Eosinophils % 0.9 D Basophils % 1.6 D Sodium 139 Potassium 3.5 Chloride 105 Carbon Dioxide 25 Anion Gap 9 BUN 4 L Creatinine 0.4 L D Random Glucose 81 Calcium 8.0 L Phosphorus 2.9 D Magnesium 2.0 Active Medications Generic Name Dose Route Start Last Admin Trade Name Freq PRN Reason Stop Dose Admin Enoxaparin Sodium 40 mg 04/19/17 10:00 04/22/17 10:32 Lovenox - SQ 40 mg DAILY MAR Administration Folic Acid 1 mg 04/14/17 10:00 04/22/17 10:34 Folic Acid - PO 1 mg DAILY MAR Administration Sodium Chloride 1,000 mls @ 75 mls/hr 04/17/17 11:00 04/22/17 06:22 Normal Saline - IV 75 mls/hr ASDIR MAR Administration Metronidazole 100 mls @ 100 mls/hr 04/19/17 18:00 04/22/17 10:32 Flagyl 500mg Premixed Ivpb - IVPB 100 mls/hr Q8H-IV MAR Administration Thiamine HCl 100 mg 04/16/17 10:00 04/22/17 10:33 Vitamin B1 - PO 100 mg DAILY MAR Administration ASSESSMENT/PLAN: 62M w/ hx of EtoH dependence who presented with weakness leading to a fall on way to [facility] for detox, admitted for multiple severe electrolyte abnormalities and abnormal LFTs, found to have C. diff colitis, treated with flagyl and electrolyte repletion. #C. diff -continue flagyl 500mg IV q8h (today is day 7 of 14) -diarrhea frequency same as yesterday, continue to monitor #Macrocytic Anemia- likely 2/2 EtoH use -folate and B12 elevated -Hgb 9.2 today, up from 8.1 -continue to trend #Weakness -likely 2/2 multiple electrolyte abnormalities -renal on board- Dr. Callaway #Hypokalemia- likely 2/2 poor diet and increased alcohol intake -3.5 today, repleted -Trend K #Hyponatremia-likely 2/2 poor diet/po intake and increased alcohol intake -continue NS at 75 cc/hr -resolved #Hypochloremia- likely 2/2 poor diet/po intake and increased alcohol intake -continue NS at 75 cc/hr -resolved #Hypophosphatemia- likely 2/2 poor diet/po intake and increased alcohol intake -Ph of 2.9, repleted -trend Ph #Hypotension -BPs 110-125/65-75 today, HR 65 -continue monitoring #Abnormal LFTs -transaminitis and elevated ALP 2/2 to alcoholic hepatitis -GI on board- Dr. Cisneros -LFTs trending down, no longer following #EtoH Dependence -continue thiamine, folic acid -detox on board- Dr. West -finished librium/ativan taper #Prolonged QTc -QTc of 470 on repeat EKG (04/14), down from 590 on previous EKG #FEN/PPx -NS at 75cc/hr -low K, repleting -sodium controlled diet -no GI ppx indicated -lovenox 40 and SCDs #Dispo -awaiting placement for SNF Demarcus Arreola MD PGY1 Visit type - Emergency Visit Emergency Visit: Yes ED Registration Date: 04/14/17 Care time: The patient presented to the Emergency Department on the above date and was hospitalized for further evaluation of their emergent condition. - New Patient This patient is new to me today: No - Critical Care Critical Care patient: No
--- NOTE | 2017-04-22 19:26 | PN ---
Teaching Attending Note Name of Resident: Demarcus Arreola ATTENDING PHYSICIAN STATEMENT I saw and evaluated the patient. I reviewed the resident's note and discussed the case with the resident. I agree with the resident's findings and plan as documented. SUBJECTIVE: Patient continues with diarrhea but less episode today , more semi formed stool. OBJECTIVE: Vital Signs Temperature 98.4 F 04/22/17 14:05 Pulse Rate 74 04/22/17 14:05 Respiratory Rate 18 04/22/17 14:05 Blood Pressure 100/57 04/22/17 14:05 O2 Sat by Pulse Oximetry (%) 97 04/22/17 10:00 CBCD WBC 6.1 K/mm3 (4.0-10.0) 04/22/17 06:00 RBC 2.64 M/mm3 (4.00-5.60) L 04/22/17 06:00 Hgb 9.2 GM/dL (11.7-16.9) L 04/22/17 06:00 Hct 27.6 % (35.4-49) L 04/22/17 06:00 MCV 104.5 fl (80-96) H 04/22/17 06:00 MCHC 33.2 g/dl (32.0-35.9) 04/22/17 06:00 RDW 14.9 % (11.9-15.9) 04/22/17 06:00 Plt Count 191 K/MM3 (134-434) 04/22/17 06:00 MPV 9.1 fl (7.5-11.1) 04/22/17 06:00 CMP Sodium 139 mmol/L (136-145) 04/22/17 06:00 Potassium 3.5 mmol/L (3.5-5.1) 04/22/17 06:00 Chloride 105 mmol/L (98-107) 04/22/17 06:00 Carbon Dioxide 25 mmol/L (21-32) 04/22/17 06:00 Anion Gap 9 (8-16) 04/22/17 06:00 BUN 4 mg/dL (7-18) L 04/22/17 06:00 Creatinine 0.4 mg/dL (0.7-1.3) L D 04/22/17 06:00 Creat Clearance w eGFR > 60 (>60) 04/20/17 05:35 Random Glucose 81 mg/dL (74-106) 04/22/17 06:00 Calcium 8.0 mg/dL (8.5-10.1) L 04/22/17 06:00 Total Bilirubin 6.7 mg/dL (0.2-1.0) H 04/20/17 05:35 AST 101 U/L (15-37) H 04/20/17 05:35 ALT 80 U/L (12-78) H 04/20/17 05:35 Alkaline Phosphatase 309 U/L (45-117) H 04/20/17 05:35 Total Protein 3.9 g/dl (6.4-8.2) L 04/20/17 05:35 Albumin 1.6 g/dl (3.4-5.0) L 04/20/17 05:35 Current Medications Generic Name Dose Route Start Last Admin Trade Name Freq PRN Reason Stop Dose Admin Enoxaparin Sodium 40 mg 04/19/17 10:00 04/22/17 10:32 Lovenox - SQ 40 mg DAILY MAR Administration Folic Acid 1 mg 04/14/17 10:00 04/22/17 10:34 Folic Acid - PO 1 mg DAILY MAR Administration Sodium Chloride 1,000 mls @ 75 mls/hr 04/17/17 11:00 04/22/17 12:00 Normal Saline - IV 75 mls/hr ASDIR MAR Administration Metronidazole 100 mls @ 100 mls/hr 04/19/17 18:00 04/22/17 18:46 Flagyl 500mg Premixed Ivpb - IVPB 100 mls/hr Q8H-IV MAR Administration Thiamine HCl 100 mg 04/16/17 10:00 04/22/17 10:33 Vitamin B1 - PO 100 mg DAILY MAR Administration Home Medications Medication Instructions Recorded Folic Acid 0.4 mg PO DAILY #30 tablet 12/27/16 Multivitamin [Poly-Vitamin] 1 each PO DAILY #30 tab.chew 12/27/16 Potassium Chloride 20 meq PO DAILY #7 tablet.er 12/27/16 Thiamine HCl [B-1] 100 mg PO DAILY #30 tablet 12/27/16 Metronidazole [Flagyl -] 500 mg PO Q8H #18 tablet 04/22/17 PE: per resident's note ASSESSMENT AND PLAN: 62 y/o man with h/o Alcohol abuse who presented with weakness and fall on his way to [facility]. He was found to have severe electrolyte abnormalities and Elevated liver enzymes. # Acute C diff colitis: cont IV flagyl day 02/05 , patient would like to go to snf, discussed with the showcase maker papers are in process # ETOH intoxication/ withdrawel : completed librium detox protocol and has no signs of withdrawal . Continue thiamine/folic acid #LFTS abnormalities, likely form alcoholic hepatitis. improved #Electrolytes abn: replete Phos and K as needed #Prolonged QTc: due to Hypokalemia. #feels weak has difficulty with ambulation, requesting to go to SNF DVT PX : Lovenox
[2017-04-23] MEDS: METRONIDAZOLE 500 MG PREMIXED 100 ML IVPB SCH ×3 (02:35→17:15)
[2017-04-23 08:08] LABS: ANION GAP 7 (8-16); CO2 27 mmol/L (21-32); CREATININE 0.4 mg/dL (0.7-1.3); GLUCOSE,RANDOM 79 mg/dL (74-106); MAGNESIUM 1.9 mg/dL (1.8-2.4); PHOSPHOROUS 2.2 mg/dL (2.5-4.9)
[2017-04-23] MEDS: ENOXAPARIN NA (PORCINE) 40 MG/0.4 ML DISP.SYRIN SQ SCH (09:27)
[2017-04-23] MEDS: THIAMINE HCL 100 MG TABLET (FP) PO SCH (09:27)
[2017-04-23] MEDS: FOLIC ACID 1 MG TABLET (FP) PO SCH (09:27)
[2017-04-23] MEDS ORDERED: NAPH,MB-DB/K PH,MBDB POWDER PACKET PO ONE (09:30)
[2017-04-23] MEDS: SODIUM CHLORIDE 1,000 ML IV SCH (11:13)
--- NOTE | 2017-04-23 15:23 | PN ---
Physical Exam: SUBJECTIVE: Patient seen and examined. No acute events overnight. Pt denies any new episodes of diarrhea since yesterday. He denies, n/v, abdominal pain, chest pain, and SOB. OBJECTIVE: Vital Signs Period Temp Pulse Resp BP Sys/Lozada Pulse Ox Last 24 Hr 97.7 F-98.9 F 58-89 16-18 94-116/52-67 97-99 GENERAL: The patient is awake, alert, and fully oriented, in no acute distress. HEAD: Normal with no signs of trauma. EYES: mildly icteric ENT: Ears normal, nares patent, oropharynx clear without exudates, moist mucous membranes. NECK: Trachea midline, full range of motion, supple. LUNGS: Breath sounds equal, clear to auscultation bilaterally, no wheezes, no crackles, no accessory muscle use. HEART: Regular rate and rhythm, S1, S2 without murmur, rub or gallop. ABDOMEN: Soft, nontender, nondistended, normoactive bowel sounds, no guarding, no rebound, no hepatosplenomegaly, no masses. EXTREMITIES: 2+ pulses, warm, well-perfused, no edema. NEUROLOGICAL: Cranial nerves II through XII grossly intact. speech mildly delayed, gait not observed. Laboratory Results - last 24 hr 04/23/17 06:30 Sodium 137 Potassium 3.7 Chloride 103 Carbon Dioxide 27 Anion Gap 7 L BUN 4 L Creatinine 0.4 L Random Glucose 79 Calcium 8.0 L Phosphorus 2.2 L D Magnesium 1.9 Active Medications Generic Name Dose Route Start Last Admin Trade Name Freq PRN Reason Stop Dose Admin Enoxaparin Sodium 40 mg 04/19/17 10:00 04/23/17 09:27 Lovenox - SQ 40 mg DAILY MAR Administration Folic Acid 1 mg 04/14/17 10:00 04/23/17 09:27 Folic Acid - PO 1 mg DAILY MAR Administration Sodium Chloride 1,000 mls @ 75 mls/hr 04/17/17 11:00 04/23/17 11:13 Normal Saline - IV 75 mls/hr ASDIR MAR Administration Metronidazole 100 mls @ 100 mls/hr 04/19/17 18:00 04/23/17 09:27 Flagyl 500mg Premixed Ivpb - IVPB 100 mls/hr Q8H-IV MAR Administration Thiamine HCl 100 mg 04/16/17 10:00 04/23/17 09:27 Vitamin B1 - PO 100 mg DAILY MAR Administration ASSESSMENT/PLAN: 62M w/ hx of EtoH dependence who presented with weakness leading to a fall on way to [facility] for detox, admitted for multiple severe electrolyte abnormalities and abnormal LFTs, found to have C. diff colitis, treated with flagyl and electrolyte repletion. #C. diff -continue flagyl 500mg IV q8h (today is day 8 ) -no episodes of diarrhea since yesterday #Macrocytic Anemia- likely 2/2 EtoH use -folate and B12 elevated -Hgb 9.2 today, up from 8.1 #Weakness -likely 2/2 multiple electrolyte abnormalities -renal on board- Dr. Callaway #Hypokalemia- likely 2/2 poor diet and increased alcohol intake -3.7 today -Trend K #Hyponatremia-likely 2/2 poor diet/po intake and increased alcohol intake -continue NS at 75 cc/hr -resolved #Hypochloremia- likely 2/2 poor diet/po intake and increased alcohol intake -continue NS at 75 cc/hr -resolved #Hypophosphatemia- likely 2/2 poor diet/po intake and increased alcohol intake -Ph of 2.2, repleted -trend Ph #Hypotension -BPs 95-115/50-65 today, HR 55-75 -continue monitoring #Abnormal LFTs -transaminitis and elevated ALP 2/2 to alcoholic hepatitis -GI on board- Dr. Cisneros -LFTs trending down, no longer following #EtoH Dependence -continue thiamine, folic acid -detox on board- Dr. West -finished librium/ativan taper #Prolonged QTc -QTc of 470 on repeat EKG (04/14), down from 590 on previous EKG #FEN/PPx -NS at 75cc/hr -low Ph, repleting -sodium controlled diet -no GI ppx indicated -lovenox 40 and SCDs #Dispo -awaiting placement for SNF. Rejected by [facility] has no isolation rooms, waiting to hear back from [facility]. -Pt walked 70 feet with cane per PT. Will d/c with RW. Demarcus Arreola MD PGY1 Visit type - Emergency Visit Emergency Visit: Yes ED Registration Date: 04/14/17 Care time: The patient presented to the Emergency Department on the above date and was hospitalized for further evaluation of their emergent condition. - New Patient This patient is new to me today: No - Critical Care Critical Care patient: No
--- NOTE | 2017-04-23 15:33 | DS ---
Physical Exam: SUBJECTIVE: Patient seen and examined. No acute events overnight. Pt endorses 1 episode of diarrhea since yesterday. He denies, n/v, abdominal pain, chest pain, and SOB. OBJECTIVE: Vital Signs Period Temp Pulse Resp BP Sys/Lozada Pulse Ox Last 24 Hr 97.7 F-98.9 F 58-89 16-18 94-116/52-67 97-99 GENERAL: The patient is awake, alert, and fully oriented, in no acute distress. HEAD: Normal with no signs of trauma. EYES: mildly icteric ENT: Ears normal, nares patent, oropharynx clear without exudates, moist mucous membranes. NECK: Trachea midline, full range of motion, supple. LUNGS: Breath sounds equal, clear to auscultation bilaterally, no wheezes, no crackles, no accessory muscle use. HEART: Regular rate and rhythm, S1, S2 without murmur, rub or gallop. ABDOMEN: Soft, nontender, nondistended, normoactive bowel sounds, no guarding, no rebound, + hepatomegaly, no masses. EXTREMITIES: 2+ pulses, warm, well-perfused, no edema. NEUROLOGICAL: Cranial nerves II through XII grossly intact. speech normal, gait not observed. LABS Abnormal Lab Results 04/26/17 06:00 BUN 4 L Creatinine 0.4 L Calcium 8.[address] Abdomen: inflammatory colitis C. diff Ag: + EKG (920): QTc of 470 HOSPITAL COURSE: Date of Admission:04/14/17 Date of Discharge: 04/26/17 62M w/ hx of EtoH dependence, COPD, depression, and anxiety who presented with weakness leading to a fall while going to [facility] for detox, admitted for multiple electrolyte abnormalities (Na, Cl, K, Ph) and abnormal LFTs. His electrolytes were repleted, and his LFTs were determined to be due to his alcohol use. Pt finished a librium taper in the hospital. In the hospital, the pt was found to have diarrhea with + C.diff Ag, and he finished a 10 day course of flagyl. Today, pt is stable, has normal vital signs, repleted electrolytes, no signs of withdrawal, improved diarrhea, and is ready for discharge home with a walker. Pt does not want to go to [facility] for alcohol rehab. Demarcus Arreola MD PGY1 Minutes to complete discharge: 45 Discharge Summary Reason For Visit: HYPONATREMIA HYPOKALEMIA DEHYDRATION Current Active Problems Accident due to mechanical fall without injury (Acute) Alcohol dependence with uncomplicated withdrawal (Acute) C. difficile colitis (Acute) Dehydration (Acute) Hypokalemia (Acute) Hyponatremia (Acute) Hypophosphatemia (Acute) ETOH abuse (Chronic) Hepatic steatosis (Chronic) Condition: Stable - Instructions Diet, Activity, Other Instructions: You presented to the hospital with weakness, and you were found to have multiple electrolyte abnormalities and C. diff colitis (an infection of your colon). Your electrolytes were repleted, and your infection was treated with an antibiotic called flagyl. 1. Please follow up with a PCP within one week. If you don't have one, we have referred you to one. If you develop any new, worsening, or concerning symptoms such as shortness of breath or chest pain, return to the ED. Referrals: Harvey Olivares MD [Staff Physician] - Disposition: HOME - Home Medications Comprehensive Discharge Medication List: Ambulatory Orders Folic Acid 0.4 mg PO DAILY #30 tablet 12/27/16 Multivitamin [Poly-Vitamin] 1 each PO DAILY #30 tab.chew 12/27/16 Potassium Chloride 20 meq PO DAILY #7 tablet.er 12/27/16 Thiamine HCl [B-1] 100 mg PO DAILY #30 tablet 12/27/16 Metronidazole [Flagyl -] 500 mg PO Q8H #18 tablet 04/22/17 This patient is new to me today: No Emergency Visit: Yes ED Registration Date: 04/14/17 Care time: The patient presented to the Emergency Department on the above date and was hospitalized for further evaluation of their emergent condition. Critical Care patient: No - Discharge Referral Referred to [facility] Med [facility] No
--- NOTE | 2017-04-23 21:36 | PN ---
Teaching Attending Note Name of Resident: Demarcus Arreola ATTENDING PHYSICIAN STATEMENT I saw and evaluated the patient. I reviewed the resident's note and discussed the case with the resident. I agree with the resident's findings and plan as documented. SUBJECTIVE: OBJECTIVE: Vital Signs Temperature 97.8 F 04/23/17 14:00 Pulse Rate 68 04/23/17 14:00 Respiratory Rate 18 04/23/17 14:00 Blood Pressure 105/67 04/23/17 14:00 O2 Sat by Pulse Oximetry (%) 99 04/23/17 09:00 CBCD WBC 6.1 K/mm3 (4.0-10.0) 04/22/17 06:00 RBC 2.64 M/mm3 (4.00-5.60) L 04/22/17 06:00 Hgb 9.2 GM/dL (11.7-16.9) L 04/22/17 06:00 Hct 27.6 % (35.4-49) L 04/22/17 06:00 MCV 104.5 fl (80-96) H 04/22/17 06:00 MCHC 33.2 g/dl (32.0-35.9) 04/22/17 06:00 RDW 14.9 % (11.9-15.9) 04/22/17 06:00 Plt Count 191 K/MM3 (134-434) 04/22/17 06:00 MPV 9.1 fl (7.5-11.1) 04/22/17 06:00 CMP Sodium 137 mmol/L (136-145) 04/23/17 06:30 Potassium 3.7 mmol/L (3.5-5.1) 04/23/17 06:30 Chloride 103 mmol/L (98-107) 04/23/17 06:30 Carbon Dioxide 27 mmol/L (21-32) 04/23/17 06:30 Anion Gap 7 (8-16) L 04/23/17 06:30 BUN 4 mg/dL (7-18) L 04/23/17 06:30 Creatinine 0.4 mg/dL (0.7-1.3) L 04/23/17 06:30 Creat Clearance w eGFR > 60 (>60) 04/20/17 05:35 Random Glucose 79 mg/dL (74-106) 04/23/17 06:30 Calcium 8.0 mg/dL (8.5-10.1) L 04/23/17 06:30 Total Bilirubin 6.7 mg/dL (0.2-1.0) H 04/20/17 05:35 AST 101 U/L (15-37) H 04/20/17 05:35 ALT 80 U/L (12-78) H 04/20/17 05:35 Alkaline Phosphatase 309 U/L (45-117) H 04/20/17 05:35 Total Protein 3.9 g/dl (6.4-8.2) L 04/20/17 05:35 Albumin 1.6 g/dl (3.4-5.0) L 04/20/17 05:35 Current Medications Generic Name Dose Route Start Last Admin Trade Name Era PRN Reason Stop Dose Admin Enoxaparin Sodium 40 mg 04/19/17 10:00 04/23/17 09:27 Lovenox - SQ 40 mg DAILY MAR Administration Folic Acid 1 mg 04/14/17 10:00 04/23/17 09:27 Folic Acid - PO 1 mg DAILY MAR Administration Sodium Chloride 1,000 mls @ 75 mls/hr 04/17/17 11:00 04/23/17 11:13 Normal Saline - IV 75 mls/hr ASDIR MAR Administration Metronidazole 100 mls @ 100 mls/hr 04/19/17 18:00 04/23/17 17:15 Flagyl 500mg Premixed Ivpb - IVPB 100 mls/hr Q8H-IV MAR Administration Thiamine HCl 100 mg 04/16/17 10:00 04/23/17 09:27 Vitamin B1 - PO 100 mg DAILY MAR Administration Home Medications Medication Instructions Recorded Folic Acid 0.4 mg PO DAILY #30 tablet 12/27/16 Multivitamin [Poly-Vitamin] 1 each PO DAILY #30 tab.chew 12/27/16 Potassium Chloride 20 meq PO DAILY #7 tablet.er 12/27/16 Thiamine HCl [B-1] 100 mg PO DAILY #30 tablet 12/27/16 Metronidazole [Flagyl -] 500 mg PO Q8H #18 tablet 04/22/17 PE: per resident's note ASSESSMENT AND PLAN: 62 y/o man with h/o Alcohol abuse who presented with weakness and fall on his way to [facility]. He was found to have severe electrolyte abnormalities and Elevated liver enzymes. # Acute C diff colitis: cont IV flagyl day 03/08 , patient would like to go to snf, discussed with the pillowcase turner papers are approved for snf, looking for placement. Also will be difficult to discharge the with Flagyl since he might continue to drink once discharged home and that might cause to ahve DiSulfram RXN if no placement available , needs to be reaccessed his ambulation and if he is ok to go home , might want to consider giving Vancomycin oral 125mg po qid for 5 days. Need to check with pharmacy if they have it available # ETOH intoxication/ withdrawel : completed librium detox protocol and has no signs of withdrawal . Continue thiamine/folic acid #LFTS abnormalities, likely form alcoholic hepatitis. improved #Electrolytes abn: replete Phos and K as needed #Prolonged QTc: due to Hypokalemia. #feels weak has difficulty with ambulation but improvimg , requesting to go to SNF DVT PX : Lovenox
[2017-04-24] MEDS: METRONIDAZOLE 500 MG PREMIXED 100 ML IVPB SCH ×3 (01:03→17:16)
[2017-04-24] MEDS: FOLIC ACID 1 MG TABLET (FP) PO SCH (09:36)
[2017-04-24] MEDS: ENOXAPARIN NA (PORCINE) 40 MG/0.4 ML DISP.SYRIN SQ SCH (09:36)
[2017-04-24] MEDS: THIAMINE HCL 100 MG TABLET (FP) PO SCH (09:36)
[2017-04-24 11:27] LABS: ANION GAP 7 (8-16); CALCIUM 8.2 mg/dL (8.5-10.1); CO2 30 mmol/L (21-32); CREATININE 0.4 mg/dL (0.7-1.3); GLUCOSE,RANDOM 165 mg/dL (74-106); MAGNESIUM 1.9 mg/dL (1.8-2.4); PHOSPHOROUS 2.5 mg/dL (2.5-4.9)
[2017-04-24] MEDS: SODIUM CHLORIDE 1,000 ML IV SCH (14:25)
--- NOTE | 2017-04-24 22:54 | PN ---
Physical Exam: SUBJECTIVE: Patient seen and examined Patient is feeling better with megan cute distress. continues to feel weak. OBJECTIVE: Vital Signs Temperature 98.8 F 04/24/17 18:00 Pulse Rate 57 L 04/24/17 18:00 Respiratory Rate 18 04/24/17 18:00 Blood Pressure 110/65 04/24/17 18:00 O2 Sat by Pulse Oximetry (%) 98 04/24/17 10:00 GENERAL: The patient is awake, alert, and fully oriented, in no acute distress. HEAD: Normal with no signs of trauma. EYES: PERRL, extraocular movements intact, sclera anicteric, conjunctiva clear. No ptosis. ENT: Ears normal, nares patent, oropharynx clear without exudates, moist mucous membranes. NECK: Trachea midline, full range of motion, supple. LUNGS: Breath sounds equal, clear to auscultation bilaterally, no wheezes, no crackles, no accessory muscle use. HEART: Regular rate and rhythm, S1, S2 without murmur, rub or gallop. ABDOMEN: Soft, nontender, nondistended, normoactive bowel sounds, no guarding, no rebound, no hepatosplenomegaly, no masses. EXTREMITIES: 2+ pulses, warm, well-perfused, no edema. NEUROLOGICAL: Cranial nerves II through XII grossly intact. Normal speech, gait not observed. PSYCH: Normal mood, normal affect. SKIN: Warm, dry, normal turgor, no rashes or lesions noted Laboratory Results - last 24 hr 04/24/17 10:31 Sodium 139 Potassium 3.7 Chloride 102 Carbon Dioxide 30 Anion Gap 7 L BUN 3 L D Creatinine 0.4 L Random Glucose 165 H D Calcium 8.2 L Phosphorus 2.5 Magnesium 1.9 CBCD WBC 6.1 K/mm3 (4.0-10.0) 04/22/17 06:00 RBC 2.64 M/mm3 (4.00-5.60) L 04/22/17 06:00 Hgb 9.2 GM/dL (11.7-16.9) L 04/22/17 06:00 Hct 27.6 % (35.4-49) L 04/22/17 06:00 MCV 104.5 fl (80-96) H 04/22/17 06:00 MCHC 33.2 g/dl (32.0-35.9) 04/22/17 06:00 RDW 14.9 % (11.9-15.9) 04/22/17 06:00 Plt Count 191 K/MM3 (134-434) 04/22/17 06:00 MPV 9.1 fl (7.5-11.1) 04/22/17 06:00 CMP Sodium 139 mmol/L (136-145) 04/24/17 10:31 Potassium 3.7 mmol/L (3.5-5.1) 04/24/17 10:31 Chloride 102 mmol/L (98-107) 04/24/17 10:31 Carbon Dioxide 30 mmol/L (21-32) 04/24/17 10:31 Anion Gap 7 (8-16) L 04/24/17 10:31 BUN 3 mg/dL (7-18) L D 04/24/17 10:31 Creatinine 0.4 mg/dL (0.7-1.3) L 04/24/17 10:31 Creat Clearance w eGFR > 60 (>60) 04/20/17 05:35 Random Glucose 165 mg/dL (74-106) H D 04/24/17 10:31 Calcium 8.2 mg/dL (8.5-10.1) L 04/24/17 10:31 Total Bilirubin 6.7 mg/dL (0.2-1.0) H 04/20/17 05:35 AST 101 U/L (15-37) H 04/20/17 05:35 ALT 80 U/L (12-78) H 04/20/17 05:35 Alkaline Phosphatase 309 U/L (45-117) H 04/20/17 05:35 Total Protein 3.9 g/dl (6.4-8.2) L 04/20/17 05:35 Albumin 1.6 g/dl (3.4-5.0) L 04/20/17 05:35 Home Medications Medication Instructions Recorded Folic Acid 0.4 mg PO DAILY #30 tablet 12/27/16 Multivitamin [Poly-Vitamin] 1 each PO DAILY #30 tab.chew 12/27/16 Potassium Chloride 20 meq PO DAILY #7 tablet.er 12/27/16 Thiamine HCl [B-1] 100 mg PO DAILY #30 tablet 12/27/16 Metronidazole [Flagyl -] 500 mg PO Q8H #18 tablet 04/22/17 Active Medications Generic Name Dose Route Start Last Admin Trade Name Era PRN Reason Stop Dose Admin Enoxaparin Sodium 40 mg 04/19/17 10:00 04/24/17 09:36 Lovenox - SQ 40 mg DAILY MAR Administration Folic Acid 1 mg 04/14/17 10:00 04/24/17 09:36 Folic Acid - PO 1 mg DAILY MAR Administration Sodium Chloride 1,000 mls @ 75 mls/hr 04/17/17 11:00 04/24/17 14:25 Normal Saline - IV 75 mls/hr ASDIR MAR Administration Metronidazole 100 mls @ 100 mls/hr 04/19/17 18:00 04/24/17 17:16 Flagyl 500mg Premixed Ivpb - IVPB 100 mls/hr Q8H-IV MAR Administration Thiamine HCl 100 mg 04/16/17 10:00 04/24/17 09:36 Vitamin B1 - PO 100 mg DAILY MAR Administration ASSESSMENT/PLAN: 62 y/o man with h/o Alcohol abuse who presented with weakness and fall on his way to [facility]. He was found to have severe electrolyte abnormalities and Elevated liver enzymes. # Acute C diff colitis: improving , on IV flagyl day 04/08 , patient would like to go to snf, discussed with the major case detective papers are approved for snf, looking for rehab placement. Also will be difficult to discharge the with Flagyl since he might continue to drink once discharged home and that might causehim to have DiSulfiram RXN if no placement available , needs to be reaccessed his ambulation and if he is ok to go home , might want to consider giving Vancomycin oral 125mg po qid for 5 days. Need to check with pharmacy if they have it available. # ETOH intoxication/ withdrawel : completed librium detox protocol and has no signs of withdrawal . Continue thiamine/folic acid #LFTS abnormalities, likely form alcoholic hepatitis. improved #Electrolytes abn: replete Phos and K as needed #Prolonged QTc: due to Hypokalemia. #feels weak has difficulty with ambulation but improvimg , requesting to go to SNF DVT PX : Lovenox Visit type - Emergency Visit Emergency Visit: Yes ED Registration Date: 04/14/17 Care time: The patient presented to the Emergency Department on the above date and was hospitalized for further evaluation of their emergent condition. - New Patient This patient is new to me today: No - Critical Care Critical Care patient: No
[2017-04-25] MEDS: METRONIDAZOLE 500 MG PREMIXED 100 ML IVPB SCH ×3 (01:04→17:15)
[2017-04-25 07:11] LABS: MCH 35.2 pg (25.7-33.7); MCHC 33.9 g/dl (32.0-35.9); MEAN CELL VOLUME 103.9 fl (80-96); PLATELET COUNT 185 K/MM3 (134-434); RDW 15.3 % (11.9-15.9); WHITE BLOOD COUNT 6.2 K/mm3 (4.0-10.0)
[2017-04-25 07:27] LABS: ALBUMIN 1.7 g/dl (3.4-5.0); ALK PHOS 312 U/L (45-117); ANION GAP 6 (8-16); BILIRUBIN,TOTAL 4.3 mg/dL (0.2-1.0); CALCIUM 8.1 mg/dL (8.5-10.1); CO2 28 mmol/L (21-32); CREATININE 0.4 mg/dL (0.7-1.3); GLUCOSE,RANDOM 95 mg/dL (74-106); MAGNESIUM 1.9 mg/dL (1.8-2.4); PHOSPHOROUS 2.5 mg/dL (2.5-4.9); SGOT/AST 112 U/L (15-37); SGPT/ALT 70 U/L (12-78); TOT PROT 4.8 g/dl (6.4-8.2)
--- NOTE | 2017-04-25 08:34 | PN ---
Teaching Attending Note Name of Resident: Demarcus Arreola ATTENDING PHYSICIAN STATEMENT I saw and evaluated the patient. I reviewed the resident's note and discussed the case with the resident. I agree with the resident's findings and plan as documented. SUBJECTIVE: 62 yrs old man with H/O ETOH abuse admitted with ETOH intoxication/ withdrawal with electrolyte imbalance Hypokalemia, Hypomagnesemia, developed C Diff Colitis now on PO Flagyl, diarrhea improving. OBJECTIVE: Last Vital Signs Temp Pulse Resp BP Pulse Ox 98.3 F 58 L 18 106/71 98 04/25/17 06:00 04/25/17 06:00 04/25/17 06:00 04/25/17 06:00 04/24/17 21:00 Middle aged man no in acute distress c/o diarrhea HEENT:MM moist, mild anemia, no Jaundice NECK:No JVD No Bruit CHEST: CYA B/L CVS:S1S2 R no m/g/r ABD: No distention, non tender Bs + EXT: Trace edema feet, no calf tenderness ARCHEOLOGIST CLASSICAL:Apox3 non focal no motor sensory deficit DERM:Intact LABS: CBC, BMP 04/25/17 06:00 04/25/17 06:00 ASSESSMENT AND PLAN:62 yrs old man with H/O ETOH abuse admitted with ETOH intoxication/withdrawal with electrolyte imbalance Hypokalemia, Hypoglycemia, developed C Diff Colitis now on PO Flagyl> Active Issue; ETOH intoxication/Withdrawal: Completed Detox now off Librium, and Referal to out patient Detox program Hypotention; Improved after IV Hydartion Hypokalemia; Resolved Hypomagnesemia; resolved Anemia; Due to chronic diases needs nutritional counselling C Diff Collitis; Improving, on Contact precautions cont PO Metronidazole. Disposition: GABI/Detox
[2017-04-25 08:58] LABS: METAMYELOCYTE 1 % (0-2); PLATELET ESTIMATE ADEQUATE (NORMAL); TOTAL CELLS COUNTED 100
[2017-04-25] MEDS: ENOXAPARIN NA (PORCINE) 40 MG/0.4 ML DISP.SYRIN SQ SCH (09:24)
[2017-04-25] MEDS: FOLIC ACID 1 MG TABLET (FP) PO SCH (09:25)
[2017-04-25] MEDS: THIAMINE HCL 100 MG TABLET (FP) PO SCH (09:25)
[2017-04-25] MEDS ORDERED: NAPH,MB-DB/K PH,MBDB POWDER PACKET PO ONE ×2 (09:45→15:00)
--- NOTE | 2017-04-25 10:35 | PN ---
Physical Exam: SUBJECTIVE: Patient seen and examined. No acute events overnight. Pt reports having one loose BM overnight. He denies all other symptoms. OBJECTIVE: Vital Signs Period Temp Pulse Resp BP Sys/Lozada Pulse Ox Last 24 Hr 97.9 F-99.1 F 57-73 16-20 106-121/42-71 98 GENERAL: The patient is awake, alert, and fully oriented, in no acute distress. HEAD: Normal with no signs of trauma. EYES: mildly icteric ENT: Ears normal, nares patent, oropharynx clear without exudates, moist mucous membranes. NECK: Trachea midline, full range of motion, supple. LUNGS: Breath sounds equal, clear to auscultation bilaterally, no wheezes, no crackles, no accessory muscle use. HEART: Regular rate and rhythm, S1, S2 without murmur, rub or gallop. ABDOMEN: Soft, nontender, nondistended, normoactive bowel sounds, no guarding, no rebound, no hepatosplenomegaly, no masses. EXTREMITIES: 2+ pulses, warm, well-perfused, no edema. NEUROLOGICAL: Cranial nerves II through XII grossly intact. Normal speech, gait not observed. PSYCH: Normal mood, normal affect. SKIN: Warm, dry, normal turgor, no rashes or lesions noted Laboratory Results - last 24 hr 04/24/17 04/25/17 04/25/17 10:31 06:00 06:00 WBC 6.2 RBC 2.55 L Hgb 9.0 L Hct 26.5 L MCV 103.9 H MCH 35.2 H MCHC 33.9 RDW 15.3 Plt Count 185 MPV 9.0 Total Counted 100 Neutrophils % No Result Required. Neutrophils % (Manual) 74 D Band Neuts % (Manual) 1 Lymphocytes % No Result Required. Lymphocytes % (Manual) 18 Monocytes % (Manual) 5 Eosinophils % (Manual) 1 Platelet Estimate Adequate Platelet Comment No clumping noted Sodium 139 139 Potassium 3.7 3.5 Chloride 102 105 Carbon Dioxide 30 28 Anion Gap 7 L 6 L BUN 3 L D 4 L D Creatinine 0.4 L 0.4 L Creat Clearance w eGFR > 60 Random Glucose 165 H D 95 D Calcium 8.2 L 8.1 L Phosphorus 2.5 2.5 Magnesium 1.9 1.9 Total Bilirubin 4.3 H D AST 112 H ALT 70 Alkaline Phosphatase 312 H Total Protein 4.8 L D Albumin 1.7 L Active Medications Generic Name Dose Route Start Last Admin Trade Name Era PRN Reason Stop Dose Admin Enoxaparin Sodium 40 mg 04/19/17 10:00 04/25/17 09:24 Lovenox - SQ 40 mg DAILY MAR Administration Folic Acid 1 mg 04/14/17 10:00 04/25/17 09:25 Folic Acid - PO 1 mg DAILY MAR Administration Metronidazole 100 mls @ 100 mls/hr 04/19/17 18:00 04/25/17 09:24 Flagyl 500mg Premixed Ivpb - IVPB 100 mls/hr Q8H-IV MAR Administration Thiamine HCl 100 mg 04/16/17 10:00 04/25/17 09:25 Vitamin B1 - PO 100 mg DAILY MAR Administration ASSESSMENT/PLAN: 62M w/ hx of EtoH dependence who presented with weakness leading to a fall on way to [facility] for detox, admitted for multiple severe electrolyte abnormalities and abnormal LFTs, found to have C. diff colitis, treated with flagyl (day 10) and electrolyte repletion. #C. diff -continue flagyl 500mg IV q8h (today is day 10 of 14) -1 episode of diarrhea last night. possibly due to nutra-phos packet repletion which can act as a laxative. #Macrocytic Anemia- likely 2/2 EtoH use -folate and B12 elevated -Hgb 9.2 today, up from 8.1 #Weakness -likely 2/2 multiple electrolyte abnormalities -renal on board- Dr. Callaway #Hypokalemia- likely 2/2 poor diet and increased alcohol intake -3.5 today -Trend K #Hyponatremia-likely 2/2 poor diet/po intake and increased alcohol intake -continue NS at 75 cc/hr -resolved #Hypochloremia- likely 2/2 poor diet/po intake and increased alcohol intake -continue NS at 75 cc/hr -resolved #Hypophosphatemia- likely 2/2 poor diet/po intake and increased alcohol intake -Ph of 2.5, repleted -trend Ph #Hypotension -BPs 105-115/50-70 today, HR 57-75 -continue monitoring #Abnormal LFTs -transaminitis and elevated ALP 2/2 to alcoholic hepatitis -GI on board- Dr. Cisneros -LFTs trending down, no longer following #EtoH Dependence -continue thiamine, folic acid -detox on board- Dr. West -finished librium/ativan taper #Prolonged QTc -QTc of 470 on repeat EKG (04/14), down from 590 on previous EKG #FEN/PPx -no fluids -low Ph and K, repleting -sodium controlled diet -no GI ppx indicated -lovenox 40 and SCDs #Dispo -awaiting placement for SNF. Rejected by [facility] has no isolation rooms, waiting to hear back from [facility]. -If pt is not accepted to a SNF, can D/C home with vancomycin 125mg QID x 5 days. However, the hospital pharmacy does not carry it. -Pt walked 70 feet with cane per PT. Will d/c with RW. Demarcus Arreola MD PGY1 Visit type - Emergency Visit Emergency Visit: Yes ED Registration Date: 04/14/17 Care time: The patient presented to the Emergency Department on the above date and was hospitalized for further evaluation of their emergent condition. - New Patient This patient is new to me today: No - Critical Care Critical Care patient: No
[2017-04-26] MEDS: METRONIDAZOLE 500 MG PREMIXED 100 ML IVPB SCH ×2 (01:54→10:31)
[2017-04-26 06:44] VITALS: PULSE 66
[2017-04-26 08:00] LABS: ANION GAP 9 (8-16); CALCIUM 8.2 mg/dL (8.5-10.1); CO2 27 mmol/L (21-32); CREATININE 0.4 mg/dL (0.7-1.3); GLUCOSE,RANDOM 104 mg/dL (74-106); MAGNESIUM 1.9 mg/dL (1.8-2.4); PHOSPHOROUS 2.8 mg/dL (2.5-4.9)
[2017-04-26] MEDS: FOLIC ACID 1 MG TABLET (FP) PO SCH (10:31)
[2017-04-26] MEDS: THIAMINE HCL 100 MG TABLET (FP) PO SCH (10:31)
[2017-04-26] MEDS ORDERED: INSULIN (NOVOLOG) ASPART 100 UNITS/ML 10ML VIAL ONE (11:12)
[2017-04-26] MEDS: ENOXAPARIN NA (PORCINE) 40 MG/0.4 ML DISP.SYRIN SQ SCH (11:56)
[2017-04-26 14:00] VITALS: BP 118/68; TEMP 98
--- NOTE | 2017-04-26 15:22 | PN ---
Teaching Attending Note Name of Resident: Demarcus Arreola ATTENDING PHYSICIAN STATEMENT I saw and evaluated the patient. I reviewed the resident's note and discussed the case with the resident. I agree with the resident's findings and plan as documented. SUBJECTIVE:states he had 1 BM overnight. denies CP, SOB< fever, chills, N/V/C OBJECTIVE: Last Vital Signs Temp Pulse Resp BP Pulse Ox 98.0 F 66 18 118/68 97 04/26/17 13:59 04/26/17 13:59 04/26/17 13:59 04/26/17 13:59 04/25/17 21:00 General NAD extremities +tremor at rest ASSESSMENT AND PLAN: 62yo M with PMH continuous ETOH dependence sent from [facility] due to mechanical fall found to have diarrhea +for cdiff 1. Cdiff colitis- clinically improved. BM are less frequent than previously. tolerating regular diet. completed 11 days of flagyl. since this is his first occurrence and resolution of symptoms can complete abx course today 2. Macrocytic anemia- no signs of bleeidng. no indication for txn 3. weakness- likely due to dehydration from diarrhea vs electrolyte abnormalities. walking well with cane. does not qualify for GABI 4. Hypokalemia- resolved 4. Hypophophatemia- resolved 5. hypomagnesemia- resolved 6. hypotension-likely dehydration. resolved 7. ETOH withdrawal- completed inpatient detox. counseled on need of ETOH abstinence. refuses inpatient rehab. states he has a sponsor that he will reach out to. counseled on risks of continued drinking 8. d/c home. guarded as increased risk of relapse
== END 2017-04-26 14:59 | disposition home or self-care (01) | DRG 248 ==
LOC: JER 18:54 → JERBED 04-14 06:05 → UNDOADMIN 04-14 06:14 → J4S 04-14 15:10
PROVIDERS: ADMIT Internal Medicine; ATTEND Internal Medicine
PROC: HZ2ZZZZ Detoxification Services for Substance Abuse Treatment (ICD-10-PCS; principal; 2017-04-14)
DX: A04.72 Enterocolitis due to Clostridium difficile, not specified as recurrent (principal); E87.1 Hypo-osmolality and hyponatremia; E86.0 Dehydration; E87.6 Hypokalemia; F10.230 Alcohol dependence with withdrawal, uncomplicated; K70.10 Alcoholic hepatitis without ascites; Y90.0 Blood alcohol level of less than 20 mg/100 ml; E87.8 Other disorders of electrolyte and fluid balance, not elsewhere classified; F17.210 Nicotine dependence, cigarettes, uncomplicated; D53.9 Nutritional anemia, unspecified; R64 Cachexia; Z68.20 Body mass index [BMI] 20.0-20.9, adult; E83.39 Other disorders of phosphorus metabolism; I45.81 Long QT syndrome; R74.0 Nonspecific elevation of levels of transaminase and lactic acid dehydrogenase [LDH]; R19.7 Diarrhea, unspecified; J44.9 Chronic obstructive pulmonary disease, unspecified; F41.9 Anxiety disorder, unspecified; E80.6 Other disorders of bilirubin metabolism; K76.0 Fatty (change of) liver, not elsewhere classified
CPT/HCPCS: 36415; 70450-TC; 71010-TC; 74177-TC; 76705-TC; 80048; 80053; 80074; 80076; 80307; 81003; 81015; 82248; 82607; 82746; 83520; 83605; 83735; 84100; 84132; 84443; 85025; 85027; 85610; 85651; 85730; 86022; 86038; 86140; 86256; 87040; 87045; 87046; 87205; 87324; 87449; 90688; 90732; 93005; 93010; 97116-GP; 97161-GP; 99285-25; G0008; G0009; J1644; J3480

== ENCOUNTER 2017-08-02 10:45 | Inpatient (IN) | payer OTHER ==
[2017-08-02 11:12] VITALS: BMI 21.5
[2017-08-02] MEDS ORDERED: SODIUM CHLORIDE 0.9% 1000 ML INFUS.BAG IV PRN (11:13)
[2017-08-02] MEDS ORDERED: SODIUM CHLORIDE 1,000 ML IV ONE (11:14)
[2017-08-02] MEDS: ALBUTEROL SO4 2.5/IPRATROPIUM 0.5 INH SOL 3 ML VIAL.NEB. NEB SCH ×2 (11:34→12:01)
--- NOTE | 2017-08-02 11:42 | PDOC ---
History of Present Illness - General History Source: Patient Exam Limitations: No Limitations - History of Present Illness Initial Comments: 08/02/17 11:54 The patient is a 62 year old male with no significant PMH who presents to the emergency department via EMS with progressive weakness, productive cough, and difficulty breathing. The patient is complaining of increasingly difficulty breathing and associated cough with clear sputum. The patient states he has not seen a medical provider in decades. The patient reports he had a couple drinks this morning and smokes daily. The patient notes he is currently living at a friend's house. The patient denies chest pain, headache and dizziness. Denies fever, chills, nausea, vomit, diarrhea and constipation. Allergies: NKA Past surgical history: None reported. Social history: Smokes approx. 1 PPD. Drinks alcohol daily. No reported drug use. <Marilou Guerrero - Last Filed: 08/02/17 11:54> <Robbin Lynn - Last Filed: 08/03/17 15:28> - General Chief Complaint: Respiratory Stated Complaint: WEAKNESS Time Seen by Provider: 08/02/17 11:12 Past History <Marilou Guerrero - Last Filed: 08/02/17 11:54> - Past Medical History Anemia: No Asthma: No Cancer: No Cardiac Disorders: No CVA: No COPD: Yes CHF: No Dementia: No Diabetes: No GI Disorders: No Disorders: No HTN: No Hypercholesterolemia: No Kidney Stones: No Liver Disease: No Seizures: No Thyroid Disease: No - Surgical History Abdominal Surgery: No Appendectomy: No Cardiac Surgery: No Cholecystectomy: No Lung Surgery: No Neurologic Surgery: No Orthopedic Surgery: No - Reproductive History Testicular Surgery: No - Suicide/Smoking/Psychosocial Hx Smoking History: Unknown if ever smoked Have you smoked in the past 12 months: No Number of Cigarettes Smoked Daily: 20 Cigars Per Day: 0 Information on smoking cessation initiated: No 'Breaking Loose' booklet given: 04/14/17 Hx Alcohol Use: Yes Drug/Substance Use Hx: No Substance Use Type: Alcohol Hx Substance Use Treatment: Yes <Robbin Lynn - Last Filed: 08/03/17 15:28> - Past Medical History Allergies/Adverse Reactions: Allergies Allergy/AdvReac Type Severity Reaction Status Date / Time No Known Allergies Allergy Verified 08/02/17 11:13 Home Medications: Ambulatory Orders NK [No Known Home Medication] 08/03/17 Review of Systems - Review of Systems Constitutional: No: Chills, Fever Respiratory: Yes: Cough, Shortness of Breath Cardiac (ROS): No: Chest Pain ABD/GI: No: Diarrhea, Nausea, Vomiting Integumentary: Yes: Rash Neurological: No: Headache All Other Systems: Reviewed and Negative <Robbin Lynn - Last Filed: 08/03/17 15:28> *Physical Exam - Vital Signs Last Vital Signs Temp Pulse Resp BP Pulse Ox 87/72 86 L 08/02/17 11:10 08/02/17 11:10 - Physical Exam Comments: 08/02/17 11:47 GENERAL: The patient is awake, alert, and fully oriented, in no acute distress. HEAD: Normal with no signs of trauma. EYES: Pupils equal, round and reactive to light, extraocular movements intact, sclera anicteric, conjunctiva clear with no pallor. ENT: Ears normal, nares patent, oropharynx clear without exudates. Moist mucous membranes. NECK: Normal range of motion, supple without lymphadenopathy, JVD, or masses. LUNGS: (+) Bilateral inspiratory and expiratory coarse breath sounds with expiratory wheezing. HEART: Regular rate and rhythm, normal S1 and S2 without murmur or rub. ABDOMEN: Soft/nontender/nondistended. BS wnl. No guarding or rebound. No palpable masses. No hepatosplenomegaly. EXTREMITIES: (+) Scattered excoriations; subcutaneous petechial rash to the extremities. Normal range of motion, no edema. No clubbing or cyanosis. No cords, erythema, or tenderness. NEUROLOGICAL: Cranial nerves II through XII grossly intact. Normal speech, normal gait. PSYCH: Normal mood, normal affect. SKIN: Warm, Dry, normal turgor, no rashes or lesions noted. <Marilou Guerrero - Last Filed: 08/02/17 11:54> - Vital Signs Last Vital Signs Temp Pulse Resp BP Pulse Ox 87/72 86 L 08/02/17 11:10 08/02/17 11:10 <Robbin Lynn - Last Filed: 08/03/17 15:28> Heart Score/ECG Review #1 ECG reviewed & interpreted by me at: 12:21 General ECG Interpretation: Sinus Rhythm, Normal Rate (69), Normal Intervals ( qtc 488), No acute ischemic changes (nonspecific T wave flattening I/AVL) <Robbin Lynn - Last Filed: 08/03/17 15:28> ED Treatment Course - Medications Given in the ED: ED Medications Discontinued Medications Generic Name Dose Route Start Last Admin Trade Name Freq PRN Reason Stop Dose Admin Albuterol/Ipratropium 1 amp 08/02/17 11:15 08/02/17 11:34 Duoneb - NEB 08/02/17 11:46 1 amp Q15M MAR Administration <Marilou Guerrero - Last Filed: 08/02/17 11:54> - LABORATORY CBC & Chemistry Diagram: 08/03/17 06:34 08/03/17 06:01 - RADIOLOGY Radiology Studies Ordered: Category Date Time Status CHEST X-RAY PORTABLE* [RAD] Stat Radiology 08/02/17 11:13 Ordered <Robbin Lynn - Last Filed: 08/03/17 15:28> Medical Decision Making - Critical Care Time Total Critical Care Time (minutes): 30 Critical Care Statement: The care of this patient involved high complexity decision making to prevent further life threatening deterioration of the patient 's condition and/or to evaluate & treat vital organ system(s) failure or risk of failure. - Medical Decision Making 08/02/17 11:42 A portion of this note was documented by scribe services under my direction. I have reviewed the details of the note, within reason, and agree with the documentation with the following case summary and management plan written by me. 62-year-old male undomiciled with admission in April 2017 for dehydration and C. difficile presents now brought in by EMS from his friend's apartment with complaints of progressive weakness, cough, difficulty breathing. Patient is daily smoker and drinker, has not seen a doctor in many years. Reports daily cough, question increasing weakness and with clear sputum. Denies fevers or chills. Blood pressure 90 systolic, O2 sats in the upper 80s on room air, otherwise seated comfortably on stretcher speaking full sentences. Slightly unkempt Course breath sounds bilaterally with expiratory wheezing Abdomen is benign Scattered petechial rash to the distal extremities 4, some scabbed excoriations. 62-year-old undomiciled male with worsening weakness and likely exacerbation of underlying respiratory syndrome, question COPD, rule out pneumonia. Rule out metabolic disarray, no evidence of alcohol intoxication or withdrawal at this time. Sepsis protocol initiated IV fluids, chest x-ray nebulizers, antibiotics as needed Likely admission 08/02/17 13:03 No leukocytosis, potassium 2.4 with normal creatinine, negative troponin. Potassium repletion with banana bag given chronic alcoholism, likely explains his baseline elevated transaminases. Received nebulizers, O2 sat 91% on 3 L which is likely his baseline. Pending chest x-ray, will proceed with admission. 08/02/17 14:25 CXR without acute pathology. Improved respiratory status, O2 low 90 on 2L. Still with coarse breath sounds, subjective dyspnea. Will proceed with admission, Dr. Castro called. 08/02/17 16:18 Accepted for inpatient tele by Dr. Castro. <Robbin Lynn - Last Filed: 08/03/17 15:28> *DC/Admit/Observation/Transfer - Attestations Scribe Attestion: 08/02/17 11:48 Documentation prepared by Marilou Guerrero, acting as internist medical doctor md for Robbin Lynn MD. <Marilou Guerrero - Last Filed: 08/02/17 11:54> - Discharge Dispostion Admit: Yes <Robbin Lynn - Last Filed: 08/03/17 15:28> Diagnosis at time of Disposition: COPD (chronic obstructive pulmonary disease) Qualifiers: COPD type: unspecified COPD Qualified Code(s): J44.9 - Chronic obstructive pulmonary disease, unspecified - Discharge Dispostion Condition at time of disposition: Fair
[2017-08-02] MEDS ORDERED: ALBUTEROL SO4 2.5/IPRATROPIUM 0.5 INH SOL 3 ML VIAL.NEB. NEB ONE (11:52)
[2017-08-02 12:06] LABS: VENOUS PC02 47.6 mmHg (38-52); VENOUS PH 7.4 (7.32-7.42)
[2017-08-02 12:13] LABS: BASO % 4.8 % (0-2.0); EOS % 5.1 % (0-4.5); HEMATOCRIT 42.5 % (35.4-49); HEMOGLOBIN 13.9 GM/dL (11.7-16.9); LYMPH % 22.6 % (8-40); MCH 33.2 pg (25.7-33.7); MCHC 32.7 g/dl (32.0-35.9); MEAN CELL VOLUME 101.6 fl (80-96); MEAN PLT VOLUME 8.6 fl (7.5-11.1); MONO % 9.3 % (3.8-10.2); NEUT % 58.2 % (42.8-82.8); PLATELET COUNT 127 K/MM3 (134-434); RBC 4.18 M/mm3 (4.00-5.60); WHITE BLOOD COUNT 4.4 K/mm3 (4.0-10.0)
[2017-08-02 12:33] LABS: INR 1.05 (0.82-1.09); PROTHROMBIN TIME (PATIENT) 11.9 SEC (9.98-11.88)
[2017-08-02 12:42] LABS: ALBUMIN 2.8 g/dl (3.4-5.0); ALK PHOS 290 U/L (45-117); ANION GAP 14 (8-16); BILIRUBIN,TOTAL 0.9 mg/dL (0.2-1.0); BLOOD UREA NITROGEN 6 mg/dL (7-18); CHLORIDE 102 mmol/L (98-107); CO2 27 mmol/L (21-32); CREATININE 0.5 mg/dL (0.7-1.3); GLUCOSE,RANDOM 87 mg/dL (74-106); SGOT/AST 322 U/L (15-37); SGPT/ALT 104 U/L (12-78); SODIUM 143 mmol/L (136-145); TOT PROT 6.8 g/dl (6.4-8.2)
[2017-08-02 12:55] LABS: POTASSIUM 2.4 mmol/L (3.5-5.1)
[2017-08-02] MEDS ORDERED: FOLIC ACID INJECTION - 1 MG, THIAMINE HCL 100 MG, MULTIVIT INJECTION ADULT 10 ML in SOD... IVPB ONE (13:05)
[2017-08-02] MEDS ORDERED: POTASSIUM CHLORIDE TABS 20 MEQ TABLET.ER (FP) PO ONE (13:05)
[2017-08-02] MEDS ORDERED: POTASSIUM CHLORIDE TABS 10 MEQ TABLET.ER (FP) ONE (14:15)
[2017-08-02] MEDS ORDERED: KCL 10 MEQ IVPB 10 MEQ/100 ML INFUS.BAG IVPB ONE ×2 (14:15→16:28)
[2017-08-02] MEDS: KCL 10 MEQ IVPB 10 MEQ/100 ML INFUS.BAG IVPB SCH ×2 (14:27→16:27)
[2017-08-02 14:50] LABS: URINE APPEARANCE CLEAR; URINE BILIRUBIN NEGATIVE (NEGATIVE); URINE BLOOD 3+ (NEGATIVE); URINE COLOR AMBER; URINE GLUCOSE (UA) NEGATIVE (NEGATIVE); URINE KETONE TRACE (NEGATIVE); URINE LEUK ESTERASE NEGATIVE (NEGATIVE); URINE NITRITE NEGATIVE (NEGATIVE); URINE UROBILINOGEN 4.0 E.U/dl mg/dL (0.2-1.0)
[2017-08-02 14:53] LABS: URINE PROTEIN 1+ (NEGATIVE)
[2017-08-02 15:27] LABS: URINE HYALINE CAST 14 /lpf; URINE MUCUS RARE
[2017-08-02] MEDS ORDERED: methylPREDNISolone NA SUCC 125 MG/2 ML VIAL IVPB ONE (16:18)
[2017-08-02] MEDS ORDERED: methylPREDNISolone NA SUCC 125 MG/2 ML VIAL ONE (17:41)
--- NOTE | 2017-08-02 19:00 | HP ---
Admitting History and Physical - Primary Care Physician PCP: Jayjay Castro - Admission History of Present Illness: 62 year old male with no significant PMH who presents to the emergency department via EMS with progressive weakness, productive cough, and difficulty breathing. The patient is complaining of increasingly difficulty breathing and associated cough with clear sputum. The patient states he has not seen a medical provider in decades. The patient reports he had a couple drinks this morning and smokes daily. The patient notes he is currently living at a friend' s house. 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) - Smoking History Smoking history: Unknown if ever smoked Have you smoked in the past 12 months: No Aproximately how many cigarettes per day: 20 - Alcohol/Substance Use Hx Alcohol Use: Yes Number of Drinks Daily: 15 - Social History ADL: Independent Occupation: unemployed Home Medications - Allergies Allergies/Adverse Reactions: Allergies Allergy/AdvReac Type Severity Reaction Status Date / Time No Known Allergies Allergy Verified 08/02/17 11:13 - Home Medications Home Medications: Ambulatory Orders NK [No Known Home Medication] 08/03/17 Family Disease History - Family Disease History Family Disease History: Diabetes: Mother, CA: Father (colon ), Sister ( breast ca) Physical Examination Vital Signs: Vital Signs Temperature 97.8 F 08/02/17 17:18 Pulse Rate 62 08/02/17 17:18 Respiratory Rate 12 08/02/17 17:18 Blood Pressure 104/75 08/02/17 17:18 O2 Sat by Pulse Oximetry (%) 94 L 08/02/17 18:31 Constitutional: Yes: Calm HENT: Yes: Atraumatic Cardiovascular: Yes: Regular Rate and Rhythm Respiratory: Yes: Rhonchi Gastrointestinal: Yes: Normal Bowel Sounds Extremities: Yes: WNL Neurological: Yes: Alert, Oriented Labs: CBC, BMP 08/02/17 11:14 08/02/17 11:14 Problem List - Problems (1) COPD (chronic obstructive pulmonary disease) Assessment/Plan: iv steroids iv abx emperic will get pulmonary and id involved Code(s): J44.9 - CHRONIC OBSTRUCTIVE PULMONARY DISEASE, UNSPECIFIED Qualifiers: COPD type: unspecified COPD Qualified Code(s): J44.9 - Chronic obstructive pulmonary disease, unspecified (2) Cigarette nicotine dependence Assessment/Plan: will start nicotine patch Code(s): F17.210 - NICOTINE DEPENDENCE, CIGARETTES, UNCOMPLICATED (3) Alcohol dependence with uncomplicated withdrawal Assessment/Plan: [facility] Code(s): F10.230 - ALCOHOL DEPENDENCE WITH WITHDRAWAL, UNCOMPLICATED Assessment/Plan Laboratory Tests 08/02/17 08/02/17 08/02/17 11:14 11:14 11:14 WBC 4.4 RBC 4.18 D Hgb 13.9 D Hct 42.5 D MCV 101.6 H MCH 33.2 MCHC 32.7 RDW 14.0 Plt Count 127 L D MPV 8.6 Neutrophils % 58.2 Lymphocytes % 22.6 D Monocytes % 9.3 Eosinophils % 5.1 H D Basophils % 4.8 H PT with INR 11.90 H INR 1.05 PTT (Actin FS) 32.0 D VBG pH 7.40 POC VBG pCO2 47.6 POC VBG pO2 65.0 H Mixed VBG HCO3 28.6 H Sodium Potassium Chloride Carbon Dioxide Anion Gap BUN Creatinine Creat Clearance w eGFR Random Glucose Lactic Acid Calcium Total Bilirubin AST ALT Alkaline Phosphatase Creatine Kinase Troponin I Total Protein Albumin Urine Color Urine Appearance Urine pH Ur Specific [place] Urine Protein Urine Glucose (UA) Urine Ketones Urine Blood Urine Nitrite Urine Bilirubin Urine Urobilinogen Ur Leukocyte Esterase Urine WBC (Auto) Urine RBC (Auto) Hyaline Casts Urine Mucus Blood Type Antibody Screen 08/02/17 08/02/17 08/02/17 11:14 11:14 11:14 WBC RBC Hgb Hct MCV MCH MCHC RDW Plt Count MPV Neutrophils % Lymphocytes % Monocytes % Eosinophils % Basophils % PT with INR INR PTT (Actin FS) VBG pH POC VBG pCO2 POC VBG pO2 Mixed VBG HCO3 Sodium 143 Potassium 2.4 L* D Chloride 102 Carbon Dioxide 27 Anion Gap 14 BUN 6 L D Creatinine 0.5 L D Creat Clearance w eGFR > 60 Random Glucose 87 Lactic Acid 2.0 Calcium 8.0 L Total Bilirubin 0.9 D AST 322 H D ALT 104 H D Alkaline Phosphatase 290 H Creatine Kinase 72 Troponin I < 0.02 Total Protein 6.8 D Albumin 2.8 L D Urine Color Urine Appearance Urine pH Ur Specific [place] Urine Protein Urine Glucose (UA) Urine Ketones Urine Blood Urine Nitrite Urine Bilirubin Urine Urobilinogen Ur Leukocyte Esterase Urine WBC (Auto) Urine RBC (Auto) Hyaline Casts Urine Mucus Blood Type O NEGATIVE Antibody Screen Negative 08/02/17 14:31 WBC RBC Hgb Hct MCV MCH MCHC RDW Plt Count MPV Neutrophils % Lymphocytes % Monocytes % Eosinophils % Basophils % PT with INR INR PTT (Actin FS) VBG pH POC VBG pCO2 POC VBG pO2 Mixed VBG HCO3 Sodium Potassium Chloride Carbon Dioxide Anion Gap BUN Creatinine Creat Clearance w eGFR Random Glucose Lactic Acid Calcium Total Bilirubin AST ALT Alkaline Phosphatase Creatine Kinase Troponin I Total Protein Albumin Urine Color [place] Urine Appearance Clear Urine pH 6.0 Ur Specific [place] 1.012 Urine Protein 1+ H Urine Glucose (UA) Negative Urine Ketones Trace H Urine Blood 3+ H Urine Nitrite Negative Urine Bilirubin Negative Urine Urobilinogen 4.0 e.u/dl Ur Leukocyte Esterase Negative Urine WBC (Auto) 1 Urine RBC (Auto) 45 Hyaline Casts 14 Urine Mucus Rare Blood Type Antibody Screen Active Medications Generic Name Dose Route Start Last Admin Trade Name Freq PRN Reason Stop Dose Admin Folic Acid 1 mg/ Thiamine HCl 1,000 mls @ 125 mls/hr 08/02/17 13:05 08/02/17 14:44 100 mg/ Multivitamins/Minerals IVPB 08/02/17 21:04 125 mls/hr 10 ml/ Sodium Chloride ONCE ONE Administration Sodium Chloride 680 ml 08/02/17 11:13 08/02/17 14:27 Normal Saline - IV 680 ml Q20M PRN Administration MAP<65mm Hg OR SBP <90 Active Medications Generic Name Dose Route Start Last Admin Trade Name Freq PRN Reason Stop Dose Admin Albuterol/Ipratropium 1 amp 08/03/17 20:00 Duoneb - NEB RQID MAR Chlordiazepoxide HCl 50 mg 08/03/17 23:00 Librium - PO 08/04/17 17:01 [id number] MAR Chlordiazepoxide HCl 25 mg 08/04/17 23:00 Librium - PO 08/05/17 17:01 [id number] MAR Chlordiazepoxide HCl 15 mg 08/05/17 23:00 Librium - PO 08/06/17 17:01 [id number] MAR Chlordiazepoxide HCl 25 mg 08/03/17 17:54 Librium - PO 08/06/17 17:53 Q4H PRN WITHDRAWAL(CONT SUBST) CEFTRIAXONE 1 G/50 ML PREMIX 50 mls @ 100 mls/hr 08/02/17 19:15 08/02/17 19: 24 Ceftriaxone 1 Gm-D5w Bag IVPB 100 mls/hr DAILY MAR Administration Vancomycin HCl 1,000 mg/ 250 mls @ 166.667 mls/hr 08/03/17 22:00 Dextrose IVPB Q12H MAR Protocol Piperacillin Sod/Tazobactam 50 mls @ 100 mls/hr 08/03/17 18:00 Sod 3.375 gm/ Dextrose IVPB Q8H-IV MAR Protocol Methylprednisolone Sodium Succinate 40 mg 08/03/17 17:45 Solu-Medrol - IVPUSH Q6H-IV MAR Nicotine 21 mg 08/03/17 10:00 08/03/17 10:10 Nicoderm Patch - TD 21 mg DAILY MAR Administration Nicotine Polacrilex 4 mg 08/03/17 17:57 Nicorette Gum - BUC Q2H PRN NICOTINE REPLACEMENT RX Potassium Chloride 20 meq 08/03/17 22:00 K-Dur - PO BID MAR Multivit/Folic Acid/Iron 1 tab 08/04/17 10:00 Vitamins (Sjr) - PO DAILY MAR Sodium Chloride 680 ml 08/02/17 11:13 08/02/17 14:27 Normal Saline - IV 680 ml Q20M PRN Administration MAP<65mm Hg OR SBP <90 Thiamine HCl 100 mg 08/03/17 22:00 Vitamin B1 - PO HS MAR Zolpidem Tartrate 10 mg 08/03/17 17:57 Ambien - PO HS PRN INSOMNIA
[2017-08-02] MEDS ORDERED: CEFTRIAXONE 1 G/50 ML PREMIX 50 ML IVPB SCH (19:15)
[2017-08-02] MEDS: methylPREDNISolone NA SUCC 40 MG/1 ML VIAL IVPUSH SCH (21:11)
--- NOTE | 2017-08-02 22:01 | EKG ---
Test Reason : Blood Pressure : / mmHG Vent. Rate : 069 BPM Atrial Rate : 069 BPM P-R Int : 160 ms QRS Dur : 094 ms QT Int : 456 ms P-R-T Axes : 060 -42 046 degrees QTc Int : 488 ms NORMAL SINUS RHYTHM LEFT AXIS DEVIATION MINIMAL VOLTAGE CRITERIA FOR LVH, MAY BE NORMAL VARIANT PROLONGED QT ABNORMAL ECG WHEN COMPARED WITH ECG OF 14-APR-2017 07:01, NO SIGNIFICANT CHANGE WAS FOUND Confirmed by MELISSA CORLEY, RIKI ([id number]) on 08/02/2017 10:00:51 PM Referred By: Confirmed By:RIKI TORRES MD
[2017-08-03] MEDS ORDERED: methylPREDNISolone NA SUCC 125 MG/2 ML VIAL ONE ×2 (03:43→09:03)
[2017-08-03] MEDS: methylPREDNISolone NA SUCC 40 MG/1 ML VIAL IVPUSH SCH ×4 (03:45→21:08)
[2017-08-03] MEDS ORDERED: chlordiazePOXIDE HCL 25 MG CAPSULE PO ONE ×3 (03:57→18:00)
[2017-08-03] MEDS ORDERED: chlordiazePOXIDE HCL 25 MG CAPSULE ONE ×2 (04:03→07:54)
[2017-08-03 06:51] LABS: BASO % 0.4 % (0-2.0); HEMATOCRIT 35.8 % (35.4-49); HEMOGLOBIN 12.3 GM/dL (11.7-16.9); LYMPH % 6.3 % (8-40); MCH 34.6 pg (25.7-33.7); MCHC 34.2 g/dl (32.0-35.9); MEAN CELL VOLUME 101.2 fl (80-96); MEAN PLT VOLUME 8.8 fl (7.5-11.1); MONO % 5.8 % (3.8-10.2); NEUT % 87.5 % (42.8-82.8); PLATELET COUNT 88 K/MM3 (134-434); RBC 3.54 M/mm3 (4.00-5.60); WHITE BLOOD COUNT 2.8 K/mm3 (4.0-10.0)
[2017-08-03 07:25] LABS: ALBUMIN 2.6 g/dl (3.4-5.0); ALK PHOS 300 U/L (45-117); ANION GAP 10 (8-16); BILIRUBIN,TOTAL 0.9 mg/dL (0.2-1.0); BLOOD UREA NITROGEN 9 mg/dL (7-18); CALCIUM 7.5 mg/dL (8.5-10.1); CHLORIDE 102 mmol/L (98-107); CO2 27 mmol/L (21-32); CREATININE 0.6 mg/dL (0.7-1.3); POTASSIUM 3.2 mmol/L (3.5-5.1); SGOT/AST 184 U/L (15-37); SGPT/ALT 82 U/L (12-78); SODIUM 139 mmol/L (136-145); TOT PROT 6.1 g/dl (6.4-8.2)
[2017-08-03 07:38] LABS: GLUCOSE,RANDOM 317 mg/dL (74-106)
[2017-08-03] MEDS ORDERED: THIAMINE HCL 100 MG TABLET (FP) PO SCH (10:00)
[2017-08-03] MEDS: NICOTINE 21 MG/24 HOURS TOPICAL PATCH TD SCH (10:10)
--- NOTE | 2017-08-03 15:41 | CONSULT ---
Consult Detox [facility] Reason for Current Admission/Consult: alcohol use disorder Referred by:: Chao rueda MD - History History of Present Illness: 62 yo m with h/o chronic alcoholism, nicotine depndence and COPD - admitted with exacerbation of copd and started on librium detox protocol and nicotine repolacement treatment. Still tremulous and anxious, otherwise no sob, medically stablizzing - in isolationreports wt loss no h/o seizures or dts in past. no other illicit drug use reported. 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 reports recent wt loss requesting inpatient rehab at [facility] after medicallys table qnd completed alcohol detox. he has recently loset his housing which the delinquency prevention social worker is working on as per thomas TEAGUE Score - CIWA Score Nausea/Vomitin Muscle Tremors: 4-Moderate,w/Arms Extend Anxiety: 4-Mod. Anxious/Guarded Agitation: 4-Moderately Restless Paroxysmal Sweats: 3 Orientation: 0-Oriented Tacttile Disturbances: 1-Very Mild Itch/Numbness Auditory Disturbances: 0-None Visual Disturbances: 0-None Headache: 0-None Present CIWA-Ar Total Score: 19 Assessment Plan - Diagnosis (1) COPD (chronic obstructive pulmonary disease) Status: Chronic Qualifiers: COPD type: unspecified COPD Qualified Code(s): J44.9 - Chronic obstructive pulmonary disease, unspecified (2) Alcohol dependence with uncomplicated withdrawal Status: Acute (3) C. difficile colitis Status: Acute (4) Dehydration Status: Acute (5) Hypokalemia Status: Acute (6) Nicotine dependence Status: Chronic Qualifiers: Nicotine product type: cigarettes Substance use status: in withdrawal Qualified Code(s): F17.213 - Nicotine dependence, cigarettes, with withdrawal (7) Weight loss Status: Chronic - Plan Plan: chart , imaging, labs, reviewed, discussed care with medical providers and eamined patient and took hisotry. 62 yo m admitted with exacerbation copd, chronic alcoholism and recent wt loss requiring inpatietn detoxification while hosptilaized. When medically stable arrange [facility]. fluids, ensure, vitamin supplementation, nicotine replacement therqapy, use prns as needed he is very temulous. David jessica MD [phone] - Medication Detox Regimen/Protocol: Librium
--- NOTE | 2017-08-03 16:51 | CON.ID ---
Consult Consult Specialty:: infectious diseases Reason for Consultation:: rash,fever,sepsis - History of Present Illness Chief Complaint: fever,weakness History of Present Illness: 62 year old male with no significant PMH admitted with progressive weakness, productive cough, and difficulty breathing. complaining of increasingly difficulty breathing and associated cough with clear sputum. . The patient reports he had a couple drinks this morning and smokes daily. 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) - Alcohol/Substance Use Hx Alcohol Use: Yes Number of Drinks Daily: 15 - Smoking History Smoking history: Unknown if ever smoked Have you smoked in the past 12 months: No Aproximately how many cigarettes per day: 20 - Social History ADL: Independent Occupation: unemployed Home Medications - Allergies Allergies/Adverse Reactions: Allergies Allergy/AdvReac Type Severity Reaction Status Date / Time No Known Allergies Allergy Verified 08/02/17 11:13 - Home Medications Home Medications: Ambulatory Orders NK [No Known Home Medication] 08/03/17 Family Disease History - Family Disease History Family Disease History: Diabetes: Mother, [place]: Father (colon ), Sister ( breast ca) Review of Systems - Review of Systems Constitutional: reports: Chills, Fever Eyes: reports: No Symptoms HENT: reports: No Symptoms Neck: reports: No Symptoms Cardiovascular: reports: No Symptoms Respiratory: reports: Cough, SOB, SOB on Exertion Gastrointestinal: reports: No Symptoms Genitourinary: reports: No Symptoms Musculoskeletal: reports: No Symptoms Integumentary: reports: No Symptoms Neurological: reports: No Symptoms Endocrine: reports: No Symptoms Hematology/Lymphatic: reports: No Symptoms Psychiatric: reports: No Symptoms Physical Exam Vital Signs: Vital Signs Temperature 98.4 F 08/03/17 07:33 Pulse Rate 72 08/03/17 14:52 Respiratory Rate 20 08/03/17 14:52 Blood Pressure 115/84 08/03/17 14:52 O2 Sat by Pulse Oximetry (%) 98 08/03/17 14:52 Constitutional: Yes: Diaphoresis, Moderate Distress Neck: Yes: Supple, Trachea Midline Cardiovascular: Yes: Regular Rate and Rhythm Respiratory: Yes: On Nasal O2, Poor Air Entry Gastrointestinal: Yes: Normal Bowel Sounds, Soft Musculoskeletal: Yes: WNL Extremities: Yes: WNL Integumentary: Yes: Rash (present all over the body,smal reddish spots all over) Neurological: Yes: Alert, Oriented Psychiatric: Yes: Alert, Oriented Labs: CBC, BMP 08/03/17 06:34 08/03/17 06:01 Assessment/Plan Problem List - Problems (1) COPD (chronic obstructive pulmonary disease) Code(s): J44.9 - CHRONIC OBSTRUCTIVE PULMONARY DISEASE, UNSPECIFIED Qualifiers: COPD type: unspecified COPD Qualified Code(s): J44.9 - Chronic obstructive pulmonary disease, unspecified (2) Alcohol dependence with uncomplicated withdrawal Code(s): F10.230 - ALCOHOL DEPENDENCE WITH WITHDRAWAL, UNCOMPLICATED (3) Dehydration Code(s): E86.0 - DEHYDRATION (4) Hypokalemia Code(s): E87.6 - HYPOKALEMIA 5 rash plan will start patient on abx await for all cx report rash could be some type of reaction will see how he does rest continue current mgmt hydration detox consultation
--- NOTE | 2017-08-03 17:43 | CON.PULM ---
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 The patient is complaining of increasingly difficulty breathing and associated cough with clear sputum. The patient states he has not seen a medical provider in decades. The patient reports he had a couple drinks this morning and smokes daily. The patient notes he is currently living at a friend's house.The patient denies chest pain, headache and dizziness. Denies fever, chills, nausea, vomit, diarrhea and constipation. 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 No: Alzheimer's Cardio/Vascular: No: AFIB Pulmonary: Yes: COPD. No: Cancer, O2 Dependent, Pneumonia Gastrointestinal: No: Ascites Hepatobiliary: No: Cirrhosis Renal/: No: Renal Failure Heme/Onc: No: Anemia Infectious Disease: No: AIDS - Alcohol/Substance Use Hx Alcohol Use: Yes Number of Drinks Daily: 15 - Smoking History Smoking history: Unknown if ever smoked Have you smoked in the past 12 months: No Aproximately how many cigarettes per day: 20 - Social History ADL: Independent Occupation: unemployed Home Medications - Allergies Allergies/Adverse Reactions: Allergies Allergy/AdvReac Type Severity Reaction Status Date / Time No Known Allergies Allergy Verified 08/02/17 11:13 - Home Medications Home Medications: Ambulatory Orders NK [No Known Home Medication] 08/03/17 Family Disease History - Family Disease History Family Disease History: Diabetes: Mother, CA: Father (colon ), Sister ( breast ca) Review of Systems - Review of Systems Constitutional: reports: Lethargy, Loss of Appetite, Weakness. denies: Fever Eyes: denies: Blurred Vision HENT: denies: Difficult Swallowing Neck: denies: Decreased ROM Cardiovascular: reports: Shortness of Breath. denies: Chest Pain Respiratory: reports: Cough, Exercise Intolerance, SOB, SOB on Exertion, Wheezing. denies: Hemoptysis Gastrointestinal: denies: Abdominal Pain Genitourinary: reports: No Symptoms Breasts: reports: No Symptoms Reported Musculoskeletal: reports: No Symptoms Integumentary: reports: No Symptoms Neurological: reports: Pre-Existing Deficit, Tremors, Unsteady Gait, Weakness Physical Exam Vital Sings: Vital Signs Temperature 98.4 F 08/03/17 07:33 Pulse Rate 72 08/03/17 14:52 Respiratory Rate 20 08/03/17 14:52 Blood Pressure 115/84 08/03/17 14:52 O2 Sat by Pulse Oximetry (%) 98 08/03/17 14:52 Constitutional: Yes: Anxious, Mild Distress, Poor Hygeine, Thin Eyes: Yes: EOM Intact HENT: Yes: Normocephalic Neck: Yes: Trachea Midline Cardiovascular: Yes: Regular Rate and Rhythm, S1, S2 Respiratory: Yes: Diminished Gastrointestinal: Yes: Normal Bowel Sounds Edema: No Neurological: Yes: Tremors, Unsteady Gait, Weakness Labs: CBC, BMP 08/03/17 06:34 08/03/17 06:01 rest reviewed Imaging - Results Chest X-ray: Report Reviewed, Image Reviewed EKG: Report Reviewed, Image Reviewed Problem List - Problems (1) COPD (chronic obstructive pulmonary disease) Code(s): J44.9 - CHRONIC OBSTRUCTIVE PULMONARY DISEASE, UNSPECIFIED Qualifiers: COPD type: unspecified COPD Qualified Code(s): J44.9 - Chronic obstructive pulmonary disease, unspecified (2) Alcohol dependence with uncomplicated withdrawal Code(s): F10.230 - ALCOHOL DEPENDENCE WITH WITHDRAWAL, UNCOMPLICATED (3) Dehydration Code(s): E86.0 - DEHYDRATION (4) Hypokalemia Code(s): E87.6 - HYPOKALEMIA Assessment/Plan 62 WHITE MALE SMOKER/ETOHISM DETOXED IN PAST,COPD NEVER INTUBATED PRESENTS WITH AN EXACERBATION OF COPD LIKELY DUE TO ACUTE BRONCHITIS ETOH WITHDRAWAL ELECTROLYTE DISTURBANCE O2 SUPPLEMENTATION DUONEBS QID/IV MEDROL/ WILL NEED CT CHEST NO CONTRAST WHEN STABLE ETOH WITHDRAWAL PROTOCOL CORRECT ELECTROLYTE DISTURBANCE WILL FOLLOW Kristine BORREGO MD
[2017-08-03] MEDS ORDERED: chlordiazePOXIDE HCL 25 MG CAPSULE PO PRN (17:54)
[2017-08-03] MEDS ORDERED: NICOTINE POLACRILEX 4 MG GUM BUC PRN (17:57)
[2017-08-03] MEDS ORDERED: ZOLPIDEM TARTRATE 5 MG TABLET PO PRN (17:57)
--- NOTE | 2017-08-03 18:34 | PN ---
Progress Note, Physician History of Present Illness: stable - Current Medication List Current Medications: Active Medications Albuterol/Ipratropium (Duoneb -) 1 amp NEB RQID MAR Chlordiazepoxide HCl (Librium -) 50 mg PO [id number] [facility] Stop: 08/04/17 17:01 Chlordiazepoxide HCl (Librium -) 25 mg PO [id number] MAR Stop: 08/05/17 17:01 Chlordiazepoxide HCl (Librium -) 15 mg PO [id number] MAR Stop: 08/06/17 17:01 Chlordiazepoxide HCl (Librium -) 25 mg PO Q4H PRN PRN Reason: WITHDRAWAL(CONT SUBST) Stop: 08/06/17 17:53 CEFTRIAXONE 1 G/50 ML PREMIX (Ceftriaxone 1 Gm-D5w Bag) 50 mls @ 100 mls/hr IVPB DAILY [facility] Last Admin: 08/02/17 19:24 Dose: 100 mls/hr Vancomycin HCl 1,000 mg/ (Dextrose) 250 mls @ 166.667 mls/hr IVPB Q12H MAR PRN Reason: Protocol Piperacillin Sod/Tazobactam (Sod 3.375 gm/ Dextrose) 50 mls @ 100 mls/hr IVPB Q8H-IV MAR PRN Reason: Protocol Methylprednisolone Sodium Succinate (Solu-Medrol -) 40 mg IVPUSH Q6H-IV [facility] Nicotine (Nicoderm Patch -) 21 mg TD DAILY [facility] Last Admin: 08/03/17 10:10 Dose: 21 mg Nicotine Polacrilex (Nicorette Gum -) 4 mg BUC Q2H PRN PRN Reason: NICOTINE REPLACEMENT RX Potassium Chloride (K-Dur -) 20 meq PO BID [facility] Multivit/Folic Acid/Iron ( Vitamins (Sjr) -) 1 tab PO DAILY [facility] Sodium Chloride (Normal Saline -) 680 ml IV Q20M PRN PRN Reason: MAP<65mm Hg OR SBP <90 Last Admin: 08/02/17 14:27 Dose: 680 ml Thiamine HCl (Vitamin B1 -) 100 mg PO HS [facility] Zolpidem Tartrate (Ambien -) 10 mg PO HS PRN PRN Reason: INSOMNIA - Objective Vital Signs: Vital Signs Temperature 98.4 F 08/03/17 07:33 Pulse Rate 72 08/03/17 14:52 Respiratory Rate 20 08/03/17 14:52 Blood Pressure 115/84 08/03/17 14:52 O2 Sat by Pulse Oximetry (%) 98 08/03/17 14:52 Constitutional: Yes: No Distress HENT: Yes: Atraumatic Neck: Yes: Supple Cardiovascular: Yes: Regular Rate and Rhythm Respiratory: Yes: Rhonchi Gastrointestinal: Yes: Normal Bowel Sounds Extremities: Yes: WNL Edema: No Peripheral Pulses WNL: Yes Neurological: Yes: Alert, Oriented Labs: CBC, BMP 08/03/17 06:34 08/03/17 06:01 INR, PTT INR 1.05 (0.82-1.09) 08/02/17 11:14 Problem List - Problems (1) COPD (chronic obstructive pulmonary disease) Assessment/Plan: iv steroids iv abx emperic id/pulmonary consults done Code(s): J44.9 - CHRONIC OBSTRUCTIVE PULMONARY DISEASE, UNSPECIFIED Qualifiers: COPD type: unspecified COPD Qualified Code(s): J44.9 - Chronic obstructive pulmonary disease, unspecified (2) Cigarette nicotine dependence Assessment/Plan: will start nicotine patch Code(s): F17.210 - NICOTINE DEPENDENCE, CIGARETTES, UNCOMPLICATED (3) Alcohol dependence with uncomplicated withdrawal Assessment/Plan: will ge tdetox consult librium protocol Code(s): F10.230 - ALCOHOL DEPENDENCE WITH WITHDRAWAL, UNCOMPLICATED (4) Hypokalemia Assessment/Plan: will replace and monitor Code(s): E87.6 - HYPOKALEMIA
[2017-08-03] MEDS: PIPERACILLIN/TAZOB 3.375 GM 3.375 GM in DEXTROSE 5%-WATER - 50 ML IVPB SCH (19:49)
[2017-08-03] MEDS: ALBUTEROL SO4 2.5/IPRATROPIUM 0.5 INH SOL 3 ML VIAL.NEB. NEB SCH (20:10)
[2017-08-03] MEDS: VANCOMYCIN 1,000 MG in DEXTROSE 5%-WATER - 250 ML IVPB SCH (21:08)
[2017-08-03] MEDS: THIAMINE HCL 100 MG TABLET (FP) PO SCH (21:08)
[2017-08-03] MEDS: POTASSIUM CHLORIDE TABS 20 MEQ TABLET.ER (FP) PO SCH (21:08)
[2017-08-03] MEDS: chlordiazePOXIDE HCL 25 MG CAPSULE PO SCH (23:28)
[2017-08-04] MEDS: methylPREDNISolone NA SUCC 40 MG/1 ML VIAL IVPUSH SCH ×4 (02:15→21:38)
[2017-08-04] MEDS: PIPERACILLIN/TAZOB 3.375 GM 3.375 GM in DEXTROSE 5%-WATER - 50 ML IVPB SCH (02:15)
[2017-08-04] MEDS: chlordiazePOXIDE HCL 25 MG CAPSULE PO SCH ×4 (05:16→23:29)
[2017-08-04] MEDS: ALBUTEROL SO4 2.5/IPRATROPIUM 0.5 INH SOL 3 ML VIAL.NEB. NEB SCH ×4 (08:40→21:20)
[2017-08-04] MEDS ORDERED: PT OWN MED DRAWER 7, Y5N ONE ×3 (09:31→21:31)
[2017-08-04] MEDS: VANCOMYCIN 1,000 MG in DEXTROSE 5%-WATER - 250 ML IVPB SCH ×2 (09:46→23:30)
[2017-08-04] MEDS: PIPERACILLIN/TAZOB 3.375 GM 3.375 GM in DEXTROSE 5%-WATER - 100 ML IVPB SCH ×2 (09:46→17:29)
[2017-08-04] MEDS: PRENATAL VITAMINS W/ FOLIC ACID TABLET (FP) PO SCH (09:47)
[2017-08-04] MEDS: NICOTINE 21 MG/24 HOURS TOPICAL PATCH TD SCH (09:47)
[2017-08-04] MEDS: POTASSIUM CHLORIDE TABS 20 MEQ TABLET.ER (FP) PO SCH ×2 (09:47→21:38)
[2017-08-04] MEDS ORDERED: CEFTRIAXONE 1 G/50 ML PREMIX 50 ML IVPB SCH (10:00)
[2017-08-04 10:59] LABS: PHENCYCLIDINE,URINE NEGATIVE ng/ml (CUTOFF=25); URINE AMPHETAMINES NEGATIVE ng/ml (CUTOFF=500); URINE BARBITURATES NEGATIVE ng/ml (CUTOFF=200)
[2017-08-04 11:00] LABS: COCAINE, UR NEGATIVE ng/ml (CUTOFF=300); METHADONE, UR NEGATIVE ng/ml (CUTOFF=300); OPIATES, URI NEGATIVE ng/ml (CUTOFF=300)
[2017-08-04 11:58] LABS: URINE BENZODIAZEPINES POSITIVE ng/ml (CUTOFF=200)
--- NOTE | 2017-08-04 13:03 | PN ---
Progress Note, Physician History of Present Illness: PULMONARY - Current Medication List Current Medications: Active Medications Albuterol/Ipratropium (Duoneb -) 1 amp NEB RQID [facility] Last Admin: 08/04/17 08:40 Dose: 1 amp Chlordiazepoxide HCl (Librium -) 50 mg PO [id number] MAR Stop: 08/04/17 17:01 Last Admin: 08/04/17 11:24 Dose: 50 mg Chlordiazepoxide HCl (Librium -) 25 mg PO [id number] MAR Stop: 08/05/17 17:01 Chlordiazepoxide HCl (Librium -) 15 mg PO [id number] MAR Stop: 08/06/17 17:01 Chlordiazepoxide HCl (Librium -) 25 mg PO Q4H PRN PRN Reason: WITHDRAWAL(CONT SUBST) Stop: 08/06/17 17:53 Vancomycin HCl 1,000 mg/ (Dextrose) 250 mls @ 166.667 mls/hr IVPB Q12H MAR PRN Reason: Protocol Last Admin: 08/04/17 09:46 Dose: 166.667 mls/hr CEFTRIAXONE 1 G/50 ML PREMIX (Ceftriaxone 1 Gm-D5w Bag) 50 mls @ 100 mls/hr IVPB DAILY [facility] Piperacillin Sod/Tazobactam (Sod 3.375 gm/ Dextrose) 100 mls @ 200 mls/hr IVPB Q8H-IV MAR PRN Reason: Protocol Last Admin: 08/04/17 09:46 Dose: 200 mls/hr Methylprednisolone Sodium Succinate (Solu-Medrol -) 40 mg IVPUSH Q6H-IV [facility] Last Admin: 08/04/17 09:46 Dose: 40 mg Nicotine (Nicoderm Patch -) 21 mg TD DAILY [facility] Last Admin: 08/04/17 09:47 Dose: 21 mg Nicotine Polacrilex (Nicorette Gum -) 4 mg BUC Q2H PRN PRN Reason: NICOTINE REPLACEMENT RX Potassium Chloride (K-Dur -) 20 meq PO BID [facility] Last Admin: 08/04/17 09:47 Dose: 20 meq Multivit/Folic Acid/Iron ( Vitamins (Sjr) -) 1 tab PO DAILY [facility] Last Admin: 08/04/17 09:47 Dose: 1 tab Sodium Chloride (Normal Saline -) 680 ml IV Q20M PRN PRN Reason: MAP<65mm Hg OR SBP <90 Last Admin: 08/02/17 14:27 Dose: 680 ml Thiamine HCl (Vitamin B1 -) 100 mg PO HS MAR Last Admin: 08/03/17 21:08 Dose: 100 mg Zolpidem Tartrate (Ambien -) 10 mg PO HS PRN PRN Reason: INSOMNIA - Objective Vital Signs: Vital Signs Temperature 97.7 F 08/04/17 10:00 Pulse Rate 69 08/04/17 10:00 Respiratory Rate 20 08/04/17 10:00 Blood Pressure 107/55 08/04/17 10:00 O2 Sat by Pulse Oximetry (%) 95 08/04/17 10:00 Labs: CBC, BMP 08/03/17 06:34 08/03/17 06:01 INR, PTT INR 1.05 (0.82-1.09) 08/02/17 11:14 Assessment/Plan Problem List - Problems (1) COPD (chronic obstructive pulmonary disease) Code(s): J44.9 - CHRONIC OBSTRUCTIVE PULMONARY DISEASE, UNSPECIFIED Qualifiers: COPD type: unspecified COPD Qualified Code(s): J44.9 - Chronic obstructive pulmonary disease, unspecified (2) Alcohol dependence with uncomplicated withdrawal Code(s): F10.230 - ALCOHOL DEPENDENCE WITH WITHDRAWAL, UNCOMPLICATED (3) Dehydration Code(s): E86.0 - DEHYDRATION (4) Hypokalemia Code(s): E87.6 - HYPOKALEMIA Assessment/Plan 62 WHITE MALE SMOKER/ETOHISM DETOXED IN PAST,COPD NEVER INTUBATED PRESENTS WITH AN EXACERBATION OF COPD LIKELY DUE TO ACUTE BRONCHITIS ETOH WITHDRAWAL ELECTROLYTE DISTURBANCE O2 SUPPLEMENTATION DUONEBS QID/IV MEDROL/ WILL NEED CT CHEST NO CONTRAST WHEN STABLE ETOH WITHDRAWAL PROTOCOL CORRECT ELECTROLYTE DISTURBANCE
--- NOTE | 2017-08-04 17:53 | PN ---
Progress Note, Physician History of Present Illness: nancy today more - Current Medication List Current Medications: Active Medications Albuterol/Ipratropium (Duoneb -) 1 amp NEB RQID [facility] Last Admin: 08/04/17 16:10 Dose: 1 amp Chlordiazepoxide HCl (Librium -) 25 mg PO [id number] MAR Stop: 08/05/17 17:01 Chlordiazepoxide HCl (Librium -) 15 mg PO [id number] [facility] Stop: 08/06/17 17:01 Chlordiazepoxide HCl (Librium -) 25 mg PO Q4H PRN PRN Reason: WITHDRAWAL(CONT SUBST) Stop: 08/06/17 17:53 Last Admin: 08/04/17 14:35 Dose: 25 mg Vancomycin HCl 1,000 mg/ (Dextrose) 250 mls @ 166.667 mls/hr IVPB Q12H MAR PRN Reason: Protocol Last Admin: 08/04/17 09:46 Dose: 166.667 mls/hr Piperacillin Sod/Tazobactam (Sod 3.375 gm/ Dextrose) 100 mls @ 200 mls/hr IVPB Q8H-IV MAR PRN Reason: Protocol Last Admin: 08/04/17 17:29 Dose: 200 mls/hr Methylprednisolone Sodium Succinate (Solu-Medrol -) 40 mg IVPUSH Q6H-IV [facility] Last Admin: 08/04/17 14:35 Dose: 40 mg Nicotine (Nicoderm Patch -) 21 mg TD DAILY [facility] Last Admin: 08/04/17 09:47 Dose: 21 mg Nicotine Polacrilex (Nicorette Gum -) 4 mg BUC Q2H PRN PRN Reason: NICOTINE REPLACEMENT RX Potassium Chloride (K-Dur -) 20 meq PO BID [facility] Last Admin: 08/04/17 09:47 Dose: 20 meq Multivit/Folic Acid/Iron ( Vitamins (Sjr) -) 1 tab PO DAILY [facility] Last Admin: 08/04/17 09:47 Dose: 1 tab Sodium Chloride (Normal Saline -) 680 ml IV Q20M PRN PRN Reason: MAP<65mm Hg OR SBP <90 Last Admin: 08/02/17 14:27 Dose: 680 ml Thiamine HCl (Vitamin B1 -) 100 mg PO HS [facility] Last Admin: 08/03/17 21:08 Dose: 100 mg Zolpidem Tartrate (Ambien -) 10 mg PO HS PRN PRN Reason: INSOMNIA - Objective Vital Signs: Vital Signs Temperature 97.4 F L 08/04/17 14:05 Pulse Rate 60 08/04/17 14:05 Respiratory Rate 16 08/04/17 14:05 Blood Pressure 112/61 08/04/17 14:05 O2 Sat by Pulse Oximetry (%) 95 08/04/17 10:00 Constitutional: Yes: No Distress HENT: Yes: Atraumatic Neck: Yes: Supple Cardiovascular: Yes: Regular Rate and Rhythm Respiratory: Yes: Rhonchi Gastrointestinal: Yes: Normal Bowel Sounds Extremities: Yes: WNL Neurological: Yes: Alert, Oriented Labs: CBC, BMP 08/03/17 06:34 08/03/17 06:01 INR, PTT INR 1.05 (0.82-1.09) 08/02/17 11:14 Problem List - Problems (1) COPD (chronic obstructive pulmonary disease) Assessment/Plan: iv steroids iv abx id/pulmonary consults done Code(s): J44.9 - CHRONIC OBSTRUCTIVE PULMONARY DISEASE, UNSPECIFIED Qualifiers: COPD type: unspecified COPD Qualified Code(s): J44.9 - Chronic obstructive pulmonary disease, unspecified (2) Cigarette nicotine dependence Assessment/Plan: will start nicotine patch Code(s): F17.210 - NICOTINE DEPENDENCE, CIGARETTES, UNCOMPLICATED (3) Alcohol dependence with uncomplicated withdrawal Assessment/Plan: will ge tdetox consult librium protocol Code(s): F10.230 - ALCOHOL DEPENDENCE WITH WITHDRAWAL, UNCOMPLICATED (4) Hypokalemia Assessment/Plan: will replace and monitor Code(s): E87.6 - HYPOKALEMIA
--- NOTE | 2017-08-04 18:26 | PN ---
Progress Note, Physician History of Present Illness: rash has improved patient feeling weak but better - Current Medication List Current Medications: Active Medications Albuterol/Ipratropium (Duoneb -) 1 amp NEB RQID [facility] Last Admin: 08/04/17 16:10 Dose: 1 amp Chlordiazepoxide HCl (Librium -) 25 mg PO [id number] MAR Stop: 08/05/17 17:01 Chlordiazepoxide HCl (Librium -) 15 mg PO [id number] MAR Stop: 08/06/17 17:01 Chlordiazepoxide HCl (Librium -) 25 mg PO Q4H PRN PRN Reason: WITHDRAWAL(CONT SUBST) Stop: 08/06/17 17:53 Last Admin: 08/04/17 14:35 Dose: 25 mg Vancomycin HCl 1,000 mg/ (Dextrose) 250 mls @ 166.667 mls/hr IVPB Q12H MAR PRN Reason: Protocol Last Admin: 08/04/17 09:46 Dose: 166.667 mls/hr Piperacillin Sod/Tazobactam (Sod 3.375 gm/ Dextrose) 100 mls @ 200 mls/hr IVPB Q8H-IV MAR PRN Reason: Protocol Last Admin: 08/04/17 17:29 Dose: 200 mls/hr Methylprednisolone Sodium Succinate (Solu-Medrol -) 40 mg IVPUSH Q6H-IV [facility] Last Admin: 08/04/17 14:35 Dose: 40 mg Nicotine (Nicoderm Patch -) 21 mg TD DAILY [facility] Last Admin: 08/04/17 09:47 Dose: 21 mg Nicotine Polacrilex (Nicorette Gum -) 4 mg BUC Q2H PRN PRN Reason: NICOTINE REPLACEMENT RX Potassium Chloride (K-Dur -) 20 meq PO BID [facility] Last Admin: 08/04/17 09:47 Dose: 20 meq Multivit/Folic Acid/Iron ( Vitamins (Sjr) -) 1 tab PO DAILY [facility] Last Admin: 08/04/17 09:47 Dose: 1 tab Sodium Chloride (Normal Saline -) 680 ml IV Q20M PRN PRN Reason: MAP<65mm Hg OR SBP <90 Last Admin: 08/02/17 14:27 Dose: 680 ml Thiamine HCl (Vitamin B1 -) 100 mg PO HS [facility] Last Admin: 08/03/17 21:08 Dose: 100 mg Zolpidem Tartrate (Ambien -) 10 mg PO HS PRN PRN Reason: INSOMNIA - Objective Vital Signs: Vital Signs Temperature 97.4 F L 08/04/17 14:05 Pulse Rate 60 08/04/17 14:05 Respiratory Rate 16 08/04/17 14:05 Blood Pressure 112/61 08/04/17 14:05 O2 Sat by Pulse Oximetry (%) 95 08/04/17 10:00 Constitutional: Yes: No Distress, Calm Neck: Yes: Supple Cardiovascular: Yes: Regular Rate and Rhythm Respiratory: Yes: On Nasal O2, Poor Air Entry Gastrointestinal: Yes: Normal Bowel Sounds, Soft Musculoskeletal: Yes: WNL Integumentary: Yes: Rash (resolved) Neurological: Yes: Alert, Oriented Psychiatric: Yes: Alert, Oriented Labs: CBC, BMP 08/03/17 06:34 08/03/17 06:01 INR, PTT INR 1.05 (0.82-1.09) 08/02/17 11:14 Assessment/Plan Problem List - Problems (1) COPD (chronic obstructive pulmonary disease) Code(s): J44.9 - CHRONIC OBSTRUCTIVE PULMONARY DISEASE, UNSPECIFIED Qualifiers: COPD type: unspecified COPD Qualified Code(s): J44.9 - Chronic obstructive pulmonary disease, unspecified (2) Alcohol dependence with uncomplicated withdrawal Code(s): F10.230 - ALCOHOL DEPENDENCE WITH WITHDRAWAL, UNCOMPLICATED (3) Dehydration Code(s): E86.0 - DEHYDRATION (4) Hypokalemia Code(s): E87.6 - HYPOKALEMIA 5 rash all cx negative so far plan continue zosyn will stop vanco rest as per pul and primary
[2017-08-04] MEDS: THIAMINE HCL 100 MG TABLET (FP) PO SCH (21:38)
[2017-08-05] MEDS: PIPERACILLIN/TAZOB 3.375 GM 3.375 GM in DEXTROSE 5%-WATER - 100 ML IVPB SCH ×3 (01:44→17:46)
[2017-08-05] MEDS: methylPREDNISolone NA SUCC 40 MG/1 ML VIAL IVPUSH SCH ×2 (02:00→09:44)
[2017-08-05] MEDS: chlordiazePOXIDE HCL 25 MG CAPSULE PO SCH ×3 (05:42→16:52)
[2017-08-05 07:35] LABS: HEMATOCRIT 35.8 % (35.4-49); HEMOGLOBIN 11.9 GM/dL (11.7-16.9); LYMPH % 4.1 % (8-40); MCH 33.7 pg (25.7-33.7); MCHC 33.3 g/dl (32.0-35.9); MEAN CELL VOLUME 100.9 fl (80-96); MEAN PLT VOLUME 9.6 fl (7.5-11.1); MONO % 9.2 % (3.8-10.2); NEUT % 86.7 % (42.8-82.8); PLATELET COUNT 91 K/MM3 (134-434); RBC 3.55 M/mm3 (4.00-5.60); RDW 13.9 % (11.9-15.9); WHITE BLOOD COUNT 5.5 K/mm3 (4.0-10.0)
[2017-08-05] MEDS: ALBUTEROL SO4 2.5/IPRATROPIUM 0.5 INH SOL 3 ML VIAL.NEB. NEB SCH ×4 (08:10→20:45)
[2017-08-05 08:17] LABS: ALBUMIN 2.7 g/dl (3.4-5.0); ANION GAP 9 (8-16); BLOOD UREA NITROGEN 14 mg/dL (7-18); CALCIUM 8.6 mg/dL (8.5-10.1); CHLORIDE 103 mmol/L (98-107); CO2 27 mmol/L (21-32); SODIUM 139 mmol/L (136-145)
[2017-08-05 08:22] LABS: ALK PHOS 274 U/L (45-117); BILIRUBIN,TOTAL 1.2 mg/dL (0.2-1.0); CREATININE 0.6 mg/dL (0.7-1.3); SGOT/AST 46 U/L (15-37); SGPT/ALT 62 U/L (12-78); TOT PROT 6.3 g/dl (6.4-8.2)
[2017-08-05 09:36] LABS: GLUCOSE,RANDOM 360 mg/dL (74-106)
[2017-08-05] MEDS: NICOTINE 21 MG/24 HOURS TOPICAL PATCH TD SCH (09:44)
[2017-08-05] MEDS: POTASSIUM CHLORIDE TABS 20 MEQ TABLET.ER (FP) PO SCH (09:45)
[2017-08-05] MEDS: PRENATAL VITAMINS W/ FOLIC ACID TABLET (FP) PO SCH (09:45)
--- NOTE | 2017-08-05 13:23 | PN ---
Progress Note, Physician History of Present Illness: patient says he is doing well no complaints still has shakes - Current Medication List Current Medications: Active Medications Albuterol/Ipratropium (Duoneb -) 1 amp NEB RQID [facility] Last Admin: 08/05/17 08:10 Dose: 1 amp Chlordiazepoxide HCl (Librium -) 25 mg PO [id number] MAR Stop: 08/05/17 17:01 Last Admin: 08/05/17 11:14 Dose: 25 mg Chlordiazepoxide HCl (Librium -) 15 mg PO [id number] [facility] Stop: 08/06/17 17:01 Chlordiazepoxide HCl (Librium -) 25 mg PO Q4H PRN PRN Reason: WITHDRAWAL(CONT SUBST) Stop: 08/06/17 17:53 Last Admin: 08/04/17 14:35 Dose: 25 mg Piperacillin Sod/Tazobactam (Sod 3.375 gm/ Dextrose) 100 mls @ 200 mls/hr IVPB Q8H-IV MAR PRN Reason: Protocol Last Admin: 08/05/17 09:45 Dose: 200 mls/hr Methylprednisolone Sodium Succinate (Solu-Medrol -) 40 mg IVPUSH Q6H-IV [facility] Last Admin: 08/05/17 09:44 Dose: 40 mg Nicotine (Nicoderm Patch -) 21 mg TD DAILY [facility] [place] Last Admin: 08/05/17 09:44 Dose: 21 mg Nicotine Polacrilex (Nicorette Gum -) 4 mg BUC Q2H PRN PRN Reason: NICOTINE REPLACEMENT RX Potassium Chloride (K-Dur -) 20 meq PO BID [facility] [place] Last Admin: 08/05/17 09:45 Dose: 20 meq Multivit/Folic Acid/Iron ( Vitamins (Sjr) -) 1 tab PO DAILY [facility] Last Admin: 08/05/17 09:45 Dose: 1 tab Sodium Chloride (Normal Saline -) 680 ml IV Q20M PRN PRN Reason: MAP<65mm Hg OR SBP <90 Last Admin: 08/02/17 14:27 Dose: 680 ml Thiamine HCl (Vitamin B1 -) 100 mg PO HS [facility] Last Admin: 08/04/17 21:38 Dose: 100 mg Zolpidem Tartrate (Ambien -) 10 mg PO HS PRN PRN Reason: INSOMNIA - Objective Vital Signs: Vital Signs Temperature 97.2 F L 01/11/18 09:57 Pulse Rate 72 08/05/17 09:57 Respiratory Rate 20 08/05/17 09:57 Blood Pressure 105/61 08/05/17 09:57 O2 Sat by Pulse Oximetry (%) 95 08/04/17 21:00 Constitutional: Yes: No Distress, Calm Cardiovascular: Yes: Regular Rate and Rhythm Respiratory: Yes: Regular, CTA Bilaterally, On Nasal O2 Gastrointestinal: Yes: Normal Bowel Sounds, Soft Musculoskeletal: Yes: WNL Extremities: Yes: WNL Neurological: Yes: Alert Psychiatric: Yes: Alert Labs: CBC, BMP 08/05/17 06:00 08/05/17 06:00 INR, PTT INR 1.05 (0.82-1.09) 08/02/17 11:14 Assessment/Plan Problem List - Problems (1) COPD (chronic obstructive pulmonary disease) Code(s): J44.9 - CHRONIC OBSTRUCTIVE PULMONARY DISEASE, UNSPECIFIED Qualifiers: COPD type: unspecified COPD Qualified Code(s): J44.9 - Chronic obstructive pulmonary disease, unspecified (2) Alcohol dependence with uncomplicated withdrawal Code(s): F10.230 - ALCOHOL DEPENDENCE WITH WITHDRAWAL, UNCOMPLICATED (3) Dehydration Code(s): E86.0 - DEHYDRATION (4) Hypokalemia Code(s): E87.6 - HYPOKALEMIA 5 rash still with some confusion plan continue current mgmt if continues to be stable will change to oral rest as per primary team
--- NOTE | 2017-08-05 15:01 | PN ---
Progress Note (short form) - Note Progress Note: PULMONARY Denies shortness of breath. Feels generalized weakness. Still tremulous. Last Vital Signs Temp Pulse Resp BP Pulse Ox 98.4 F 81 20 113/57 95 08/05/17 13:57 08/05/17 13:57 08/05/17 13:57 08/05/17 13:57 08/04/17 21:00 Gen: mildly tremulous Heart: RRR Lung: decreased breath sounds at the bases Abd: soft, nontender Ext: no edema CBC, BMP 08/05/17 06:00 08/05/17 06:00 Active Medications Albuterol/Ipratropium (Duoneb -) 1 amp NEB RQID [facility] Last Admin: 08/05/17 08:10 Dose: 1 amp Chlordiazepoxide HCl (Librium -) 25 mg PO [id number] [facility] Stop: 08/05/17 17:01 Last Admin: 08/05/17 11:14 Dose: 25 mg Chlordiazepoxide HCl (Librium -) 15 mg PO [id number] [facility] Stop: 08/06/17 17:01 Chlordiazepoxide HCl (Librium -) 25 mg PO Q4H PRN PRN Reason: WITHDRAWAL(CONT SUBST) Stop: 08/06/17 17:53 Last Admin: 08/04/17 14:35 Dose: 25 mg Piperacillin Sod/Tazobactam (Sod 3.375 gm/ Dextrose) 100 mls @ 200 mls/hr IVPB Q8H-IV MAR PRN Reason: Protocol Last Admin: 08/05/17 09:45 Dose: 200 mls/hr Methylprednisolone Sodium Succinate (Solu-Medrol -) 40 mg IVPUSH Q6H-IV [facility] Last Admin: 08/05/17 09:44 Dose: 40 mg Nicotine (Nicoderm Patch -) 21 mg TD DAILY [facility] Last Admin: 08/05/17 09:44 Dose: 21 mg Nicotine Polacrilex (Nicorette Gum -) 4 mg BUC Q2H PRN PRN Reason: NICOTINE REPLACEMENT RX Potassium Chloride (K-Dur -) 20 meq PO BID [facility] Last Admin: 08/05/17 09:45 Dose: 20 meq Multivit/Folic Acid/Iron ( Vitamins (Sjr) -) 1 tab PO DAILY [facility] Last Admin: 08/05/17 09:45 Dose: 1 tab Sodium Chloride (Normal Saline -) 680 ml IV Q20M PRN PRN Reason: MAP<65mm Hg OR SBP <90 Last Admin: 08/02/17 14:27 Dose: 680 ml Thiamine HCl (Vitamin B1 -) 100 mg PO HS MAR Last Admin: 08/04/17 21:38 Dose: 100 mg Zolpidem Tartrate (Ambien -) 10 mg PO HS PRN PRN Reason: INSOMNIA A/P Alcohol Withdrawal Acute Bronchitis Acute COPD Exacerbation Smoker - can decrease medrol to daily dosing - inhaled bronchodilators - librium protocol - O2 as needed - replete lytes - DVT prophylaxis - smoking cessation
--- NOTE | 2017-08-05 17:09 | PN ---
Progress Note, Physician History of Present Illness: better - Current Medication List Current Medications: Active Medications Albuterol/Ipratropium (Duoneb -) 1 amp NEB RQID [facility] Last Admin: 08/05/17 15:40 Dose: 1 amp Chlordiazepoxide HCl (Librium -) 15 mg PO [id number] MAR Stop: 08/06/17 17:01 Chlordiazepoxide HCl (Librium -) 25 mg PO Q4H PRN PRN Reason: WITHDRAWAL(CONT SUBST) Stop: 08/06/17 17:53 Last Admin: 08/04/17 14:35 Dose: 25 mg Piperacillin Sod/Tazobactam (Sod 3.375 gm/ Dextrose) 100 mls @ 200 mls/hr IVPB Q8H-IV MAR PRN Reason: Protocol Last Admin: 08/05/17 09:45 Dose: 200 mls/hr Methylprednisolone Sodium Succinate (Solu-Medrol -) 40 mg IVPUSH DAILY [facility] Nicotine (Nicoderm Patch -) 21 mg TD DAILY [facility] Last Admin: 08/05/17 09:44 Dose: 21 mg Nicotine Polacrilex (Nicorette Gum -) 4 mg BUC Q2H PRN PRN Reason: NICOTINE REPLACEMENT RX Potassium Chloride (K-Dur -) 20 meq PO BID [facility] Last Admin: 08/05/17 09:45 Dose: 20 meq Multivit/Folic Acid/Iron ( Vitamins (Sjr) -) 1 tab PO DAILY [facility] Last Admin: 08/05/17 09:45 Dose: 1 tab Sodium Chloride (Normal Saline -) 680 ml IV Q20M PRN PRN Reason: MAP<65mm Hg OR SBP <90 Last Admin: 08/02/17 14:27 Dose: 680 ml Thiamine HCl (Vitamin B1 -) 100 mg PO HS [facility] Last Admin: 08/04/17 21:38 Dose: 100 mg Zolpidem Tartrate (Ambien -) 10 mg PO HS PRN PRN Reason: INSOMNIA - Objective Vital Signs: Vital Signs Temperature 98.4 F 08/05/17 13:57 Pulse Rate 81 08/05/17 13:57 Respiratory Rate 20 08/05/17 13:57 Blood Pressure 113/57 08/05/17 13:57 O2 Sat by Pulse Oximetry (%) 95 08/05/17 09:00 Constitutional: Yes: No Distress HENT: Yes: Atraumatic Neck: Yes: Supple Cardiovascular: Yes: Regular Rate and Rhythm Respiratory: Yes: CTA Bilaterally Gastrointestinal: Yes: Normal Bowel Sounds Extremities: Yes: WNL Neurological: Yes: Alert, Oriented Labs: CBC, BMP 08/05/17 06:00 08/05/17 06:00 INR, PTT INR 1.05 (0.82-1.09) 08/02/17 11:14 Problem List - Problems (1) COPD (chronic obstructive pulmonary disease) Assessment/Plan: po steroids iv abx id/pulmonary consults done Code(s): J44.9 - CHRONIC OBSTRUCTIVE PULMONARY DISEASE, UNSPECIFIED Qualifiers: COPD type: unspecified COPD Qualified Code(s): J44.9 - Chronic obstructive pulmonary disease, unspecified (2) Cigarette nicotine dependence Assessment/Plan: will start nicotine patch Code(s): F17.210 - NICOTINE DEPENDENCE, CIGARETTES, UNCOMPLICATED (3) Alcohol dependence with uncomplicated withdrawal Assessment/Plan: will ge tdetox consult librium protocol Code(s): F10.230 - ALCOHOL DEPENDENCE WITH WITHDRAWAL, UNCOMPLICATED (4) Hypokalemia Code(s): E87.6 - HYPOKALEMIA
[2017-08-05] MEDS: POTASSIUM CHLORIDE ORAL LIQUID 20 MEQ/15 ML PO SCH (21:10)
[2017-08-05] MEDS: THIAMINE HCL 100 MG TABLET (FP) PO SCH (21:10)
[2017-08-05] MEDS: chlordiazePOXIDE 5 MG CAPSULE PO SCH (22:26)
[2017-08-06] MEDS ORDERED: PT OWN MED DRAWER 7, Y5N ONE ×2 (02:17→09:24)
[2017-08-06] MEDS: PIPERACILLIN/TAZOB 3.375 GM 3.375 GM in DEXTROSE 5%-WATER - 100 ML IVPB SCH ×2 (02:35→10:52)
[2017-08-06] MEDS: chlordiazePOXIDE 5 MG CAPSULE PO SCH ×2 (04:51→10:52)
[2017-08-06] MEDS: ALBUTEROL SO4 2.5/IPRATROPIUM 0.5 INH SOL 3 ML VIAL.NEB. NEB SCH ×3 (08:15→16:20)
[2017-08-06] MEDS: NICOTINE 21 MG/24 HOURS TOPICAL PATCH TD SCH (09:27)
[2017-08-06] MEDS: POTASSIUM CHLORIDE ORAL LIQUID 20 MEQ/15 ML PO SCH ×2 (09:27→22:12)
[2017-08-06] MEDS ORDERED: methylPREDNISolone NA SUCC 40 MG/1 ML VIAL IVPUSH SCH (10:00)
[2017-08-06] MEDS: PRENATAL VITAMINS W/ FOLIC ACID TABLET (FP) PO SCH (10:52)
--- NOTE | 2017-08-06 11:22 | PN ---
Progress Note, Physician History of Present Illness: patient stable feels better - Current Medication List Current Medications: Active Medications Albuterol/Ipratropium (Duoneb -) 1 amp NEB RQID [facility] Last Admin: 08/06/17 11:03 Dose: 1 amp Chlordiazepoxide HCl (Librium -) 15 mg PO [id number] MAR Stop: 08/06/17 17:01 Last Admin: 08/06/17 10:52 Dose: 15 mg Chlordiazepoxide HCl (Librium -) 25 mg PO Q4H PRN PRN Reason: WITHDRAWAL(CONT SUBST) Stop: 08/06/17 17:53 Last Admin: 08/04/17 14:35 Dose: 25 mg Piperacillin Sod/Tazobactam (Sod 3.375 gm/ Dextrose) 100 mls @ 200 mls/hr IVPB Q8H-IV MAR PRN Reason: Protocol Last Admin: 08/06/17 10:52 Dose: 200 mls/hr Methylprednisolone Sodium Succinate (Solu-Medrol -) 40 mg IVPUSH DAILY [facility] Last Admin: 08/06/17 09:27 Dose: 40 mg Nicotine (Nicoderm Patch -) 21 mg TD DAILY [facility] Last Admin: 08/06/17 09:27 Dose: 21 mg Nicotine Polacrilex (Nicorette Gum -) 4 mg BUC Q2H PRN PRN Reason: NICOTINE REPLACEMENT RX Potassium Chloride (Potassium Chloride Oral Liquid) 20 meq PO BID [facility] Last Admin: 08/06/17 09:27 Dose: 20 meq Multivit/Folic Acid/Iron ( Vitamins (Sjr) -) 1 tab PO DAILY [facility] Last Admin: 08/06/17 10:52 Dose: 1 tab Thiamine HCl (Vitamin B1 -) 100 mg PO HS [facility] Last Admin: 08/05/17 21:10 Dose: 100 mg Zolpidem Tartrate (Ambien -) 10 mg PO HS PRN PRN Reason: INSOMNIA - Objective Vital Signs: Vital Signs Temperature 98.6 F 08/06/17 08:50 Pulse Rate 64 08/06/17 08:50 Respiratory Rate 20 08/06/17 08:53 Blood Pressure 111/69 08/06/17 08:50 O2 Sat by Pulse Oximetry (%) 96 08/06/17 08:53 Constitutional: Yes: No Distress, Calm Cardiovascular: Yes: Regular Rate and Rhythm Respiratory: Yes: Regular, CTA Bilaterally Gastrointestinal: Yes: Normal Bowel Sounds, Soft Musculoskeletal: Yes: WNL Extremities: Yes: WNL Neurological: Yes: Alert, Oriented Psychiatric: Yes: Alert, Oriented Labs: CBC, BMP 08/05/17 06:00 08/05/17 06:00 INR, PTT INR 1.05 (0.82-1.09) 08/02/17 11:14 Assessment/Plan Problem List - Problems (1) COPD (chronic obstructive pulmonary disease) Code(s): J44.9 - CHRONIC OBSTRUCTIVE PULMONARY DISEASE, UNSPECIFIED Qualifiers: COPD type: unspecified COPD Qualified Code(s): J44.9 - Chronic obstructive pulmonary disease, unspecified (2) Alcohol dependence with uncomplicated withdrawal Code(s): F10.230 - ALCOHOL DEPENDENCE WITH WITHDRAWAL, UNCOMPLICATED (3) Dehydration Code(s): E86.0 - DEHYDRATION (4) Hypokalemia Code(s): E87.6 - HYPOKALEMIA 5 rash plan changed abx to oral close monitoring rest as per primary team tremors better
--- NOTE | 2017-08-06 13:01 | PN ---
Progress Note (short form) - Note Progress Note: PULMONARY APPEARS MILDLY TREMULOUS AFEBRILE ANICTERIC SCATTERED RHONCHI B/L ANTERIOR S12 BS+ NO EDEMA CXR/MEDS/NOTES REVIEWED (1) COPD (chronic obstructive pulmonary disease) Code(s): J44.9 - CHRONIC OBSTRUCTIVE PULMONARY DISEASE, UNSPECIFIED Qualifiers: COPD type: unspecified COPD Qualified Code(s): J44.9 - Chronic obstructive pulmonary disease, unspecified (2) Alcohol dependence with uncomplicated withdrawal Code(s): F10.230 - ALCOHOL DEPENDENCE WITH WITHDRAWAL, UNCOMPLICATED (3) Dehydration Code(s): E86.0 - DEHYDRATION (4) Hypokalemia Code(s): E87.6 - HYPOKALEMIA Assessment/Plan 62 WHITE MALE SMOKER/ETOHISM DETOXED IN PAST,COPD NEVER INTUBATED PRESENTS WITH AN EXACERBATION OF COPD LIKELY DUE TO ACUTE BRONCHITIS ETOH WITHDRAWAL ELECTROLYTE DISTURBANCE O2 SUPPLEMENTATION DUONEBS QID/IV MEDROL CHANGED TO PREDNISONE CT CHEST NO CONTRAST ORDERED FOR TODAY ETOH WITHDRAWAL PROTOCOL CORRECT K+/IMPROVE GLYCEMIC CONTROL Kristine BORREGO MD Problem List - Problems (1) COPD (chronic obstructive pulmonary disease) Code(s): J44.9 - CHRONIC OBSTRUCTIVE PULMONARY DISEASE, UNSPECIFIED Qualifiers: COPD type: unspecified COPD Qualified Code(s): J44.9 - Chronic obstructive pulmonary disease, unspecified (2) Alcohol dependence with uncomplicated withdrawal Code(s): F10.230 - ALCOHOL DEPENDENCE WITH WITHDRAWAL, UNCOMPLICATED (3) Dehydration Code(s): E86.0 - DEHYDRATION (4) Hypokalemia Code(s): E87.6 - HYPOKALEMIA
--- NOTE | 2017-08-06 13:13 | DS ---
Physical Examination Vital Signs: Vital Signs Temperature 98.6 F 08/06/17 08:50 Pulse Rate 64 08/06/17 08:50 Respiratory Rate 20 08/06/17 08:53 Blood Pressure 111/69 08/06/17 08:50 O2 Sat by Pulse Oximetry (%) 96 08/06/17 08:53 Labs: CBC, BMP 08/05/17 06:00 08/05/17 06:00 Discharge Summary Reason For Visit: COPD Current Active Problems Cigarette nicotine dependence (Acute) COPD (chronic obstructive pulmonary disease) (Chronic) Condition: Fair - Instructions Diet, Activity, Other Instructions: check K level follow up blood sugars - Home Medications Comprehensive Discharge Medication List: Ambulatory Orders Amox-Tr/K Cl [Augmentin 875-125mg Tablet -] 1 tab PO BID@0800,1730 #14 tablet Potassium Chloride [K-Dur -] 20 meq PO BID tablet.er 08/06/17 Prednisone [Deltasone -] 40 mg PO DAILY tablet 08/06/17 dc to rehab
--- NOTE | 2017-08-06 14:48 | PN ---
[facility] Progress Note (SOAP) Subjective: Pateint appears somewhat less tremulous but confused, does not want to go to [facility] Objective: 08/06/17 14:41 Vital Signs - 24 hr 08/05/17 08/05/17 08/05/17 18:00 21:00 22:00 Temperature 97.5 F L 98.4 F Pulse Rate 59 L 53 L Respiratory 18 20 Rate Blood Pressure 139/80 142/74 O2 Sat by Pulse 96 Oximetry (%) 08/06/17 08/06/17 08/06/17 04:57 06:15 08:50 Temperature 98.4 F 98.6 F Pulse Rate 54 L 64 Respiratory 20 20 Rate Blood Pressure 139/77 111/69 O2 Sat by Pulse 96 Oximetry (%) 08/06/17 08:53 Temperature Pulse Rate Respiratory 20 Rate Blood Pressure O2 Sat by Pulse 96 Oximetry (%) Laboratory Tests 08/02/17 08/02/17 08/02/17 11:14 11:14 11:14 WBC 4.4 RBC 4.18 D Hgb 13.9 D Hct 42.5 D MCV 101.6 H MCH 33.2 MCHC 32.7 RDW 14.0 Plt Count 127 L D MPV 8.6 Neutrophils % 58.2 Lymphocytes % 22.6 D Monocytes % 9.3 Eosinophils % 5.1 H D Basophils % 4.8 H PT with INR 11.90 H INR 1.05 PTT (Actin FS) 32.0 D VBG pH 7.40 POC VBG pCO2 47.6 POC VBG pO2 65.0 H Mixed VBG HCO3 28.6 H Sodium Potassium Chloride Carbon Dioxide Anion Gap BUN Creatinine Creat Clearance w eGFR Random Glucose Lactic Acid Calcium Total Bilirubin AST ALT Alkaline Phosphatase Creatine Kinase Troponin I Total Protein Albumin Urine Color Urine Appearance Urine pH Ur Specific [place] Urine Protein Urine Glucose (UA) Urine Ketones Urine Blood Urine Nitrite Urine Bilirubin Urine Urobilinogen Ur Leukocyte Esterase Urine WBC (Auto) Urine RBC (Auto) Hyaline Casts Urine Mucus Opiates Screen Methadone Screen Barbiturate Screen Phencyclidine Screen Ur Amphetamines Screen MDMA (Ecstasy) Screen Benzodiazepines Screen Cocaine Screen U Marijuana (THC) Screen Blood Type Antibody Screen 08/02/17 08/02/17 08/02/17 11:14 11:14 11:14 WBC RBC Hgb Hct MCV MCH MCHC RDW Plt Count MPV Neutrophils % Lymphocytes % Monocytes % Eosinophils % Basophils % PT with INR INR PTT (Actin FS) VBG pH POC VBG pCO2 POC VBG pO2 Mixed VBG HCO3 Sodium 143 Potassium 2.4 L* D Chloride 102 Carbon Dioxide 27 Anion Gap 14 BUN 6 L D Creatinine 0.5 L D Creat Clearance w eGFR > 60 Random Glucose 87 Lactic Acid 2.0 Calcium 8.0 L Total Bilirubin 0.9 D AST 322 H D ALT 104 H D Alkaline Phosphatase 290 H Creatine Kinase 72 Troponin I < 0.02 Total Protein 6.8 D Albumin 2.8 L D Urine Color Urine Appearance Urine pH Ur Specific [place] Urine Protein Urine Glucose (UA) Urine Ketones Urine Blood Urine Nitrite Urine Bilirubin Urine Urobilinogen Ur Leukocyte Esterase Urine WBC (Auto) Urine RBC (Auto) Hyaline Casts Urine Mucus Opiates Screen Methadone Screen Barbiturate Screen Phencyclidine Screen Ur Amphetamines Screen MDMA (Ecstasy) Screen Benzodiazepines Screen Cocaine Screen U Marijuana (THC) Screen Blood Type O NEGATIVE Antibody Screen Negative 08/02/17 08/02/17 08/03/17 14:31 21:35 06:01 WBC RBC Hgb Hct MCV MCH MCHC RDW Plt Count MPV Neutrophils % Lymphocytes % Monocytes % Eosinophils % Basophils % PT with INR INR PTT (Actin FS) VBG pH POC VBG pCO2 POC VBG pO2 Mixed VBG HCO3 Sodium 139 Potassium 3.2 L D Chloride 102 Carbon Dioxide 27 Anion Gap 10 BUN 9 D Creatinine 0.6 L Creat Clearance w eGFR > 60 Random Glucose 317 H* D Lactic Acid 1.4 Calcium 7.5 L Total Bilirubin 0.9 AST 184 H D ALT 82 H D Alkaline Phosphatase 300 H Creatine Kinase Troponin I Total Protein 6.1 L Albumin 2.6 L Urine Color [place] Urine Appearance Clear Urine pH 6.0 Ur Specific [place] 1.012 Urine Protein 1+ H Urine Glucose (UA) Negative Urine Ketones Trace H Urine Blood 3+ H Urine Nitrite Negative Urine Bilirubin Negative Urine Urobilinogen 4.0 e.u/dl Ur Leukocyte Esterase Negative Urine WBC (Auto) 1 Urine RBC (Auto) 45 Hyaline Casts 14 Urine Mucus Rare Opiates Screen Methadone Screen Barbiturate Screen Phencyclidine Screen Ur Amphetamines Screen MDMA (Ecstasy) Screen Benzodiazepines Screen Cocaine Screen U Marijuana (THC) Screen Blood Type Antibody Screen 08/03/17 08/04/17 08/05/17 06:34 05:10 06:00 WBC 2.8 L D 5.5 D RBC 3.54 L 3.55 L Hgb 12.3 D 11.9 Hct 35.8 D 35.8 MCV 101.2 H 100.9 H MCH 34.6 H 33.7 MCHC 34.2 33.3 RDW 14.0 13.9 Plt Count 88 L D 91 L MPV 8.8 9.6 Neutrophils % 87.5 H D 86.7 H Lymphocytes % 6.3 L D 4.1 L D Monocytes % 5.8 9.2 Eosinophils % 0.0 D 0.0 Basophils % 0.4 0.0 PT with INR INR PTT (Actin FS) VBG pH POC VBG pCO2 POC VBG pO2 Mixed VBG HCO3 Sodium Potassium Chloride Carbon Dioxide Anion Gap BUN Creatinine Creat Clearance w eGFR Random Glucose Lactic Acid Calcium Total Bilirubin AST ALT Alkaline Phosphatase Creatine Kinase Troponin I Total Protein Albumin Urine Color Urine Appearance Urine pH Ur Specific [place] Urine Protein Urine Glucose (UA) Urine Ketones Urine Blood Urine Nitrite Urine Bilirubin Urine Urobilinogen Ur Leukocyte Esterase Urine WBC (Auto) Urine RBC (Auto) Hyaline Casts Urine Mucus Opiates Screen Negative Methadone Screen Negative Barbiturate Screen Negative Phencyclidine Screen Negative Ur Amphetamines Screen Negative MDMA (Ecstasy) Screen Negative Benzodiazepines Screen Positive Cocaine Screen Negative U Marijuana (THC) Screen Negative Blood Type Antibody Screen 08/05/17 06:00 WBC RBC Hgb Hct MCV MCH MCHC RDW Plt Count MPV Neutrophils % Lymphocytes % Monocytes % Eosinophils % Basophils % PT with INR INR PTT (Actin FS) VBG pH POC VBG pCO2 POC VBG pO2 Mixed VBG HCO3 Sodium 139 Potassium 3.0 L Chloride 103 Carbon Dioxide 27 Anion Gap 9 BUN 14 D Creatinine 0.6 L Creat Clearance w eGFR > 60 Random Glucose 360 H* Lactic Acid Calcium 8.6 Total Bilirubin 1.2 H D AST 46 H D ALT 62 D Alkaline Phosphatase 274 H Creatine Kinase Troponin I Total Protein 6.3 L Albumin 2.7 L Urine Color Urine Appearance Urine pH Ur Specific [place] Urine Protein Urine Glucose (UA) Urine Ketones Urine Blood Urine Nitrite Urine Bilirubin Urine Urobilinogen Ur Leukocyte Esterase Urine WBC (Auto) Urine RBC (Auto) Hyaline Casts Urine Mucus Opiates Screen Methadone Screen Barbiturate Screen Phencyclidine Screen Ur Amphetamines Screen MDMA (Ecstasy) Screen Benzodiazepines Screen Cocaine Screen U Marijuana (THC) Screen Blood Type Antibody Screen hypokalemaia, sever malnourished, wearing diab perm,., unable to get out of bed unassisted. Assessment: 08/06/17 14:42 alcohol withdra.nayeli sx - cont detox, d/c prn librium, low k, cont supplementation, malnourished , glucerna?, hyperglycemia control blood sugar, hydrate. This patient is not appropriate for transfer to [facility] at this time, he is medically unstable - low k, low alb, hyperglycemia, confused, has nt compelted detox and unable to take care of himself with ADLS
[2017-08-06] MEDS ORDERED: chlordiazePOXIDE 5 MG CAPSULE PO SCH (14:49)
[2017-08-06] MEDS: AMOX TR/POT CLAV 875MG/125MG TABLETS (FP) PO SCH (17:39)
--- NOTE | 2017-08-06 18:28 | PN ---
Progress Note, Physician History of Present Illness: stable - Current Medication List Current Medications: Active Medications Albuterol/Ipratropium (Duoneb -) 1 amp NEB RQID [facility] Last Admin: 08/06/17 16:20 Dose: Not Given Amoxicillin/Clavulanate Potassium (Augmentin - 875mg Tablet) 1 tab PO BID@0800, 1730 [facility] Last Admin: 08/06/17 17:39 Dose: 1 tab Nicotine (Nicoderm Patch -) 21 mg TD DAILY [facility] Last Admin: 08/06/17 09:27 Dose: 21 mg Nicotine Polacrilex (Nicorette Gum -) 4 mg BUC Q2H PRN PRN Reason: NICOTINE REPLACEMENT RX Potassium Chloride (Potassium Chloride Oral Liquid) 20 meq PO BID [facility] Last Admin: 08/06/17 09:27 Dose: 20 meq Prednisone (Deltasone -) 30 mg PO DAILY [facility] Multivit/Folic Acid/Iron ( Vitamins (Sjr) -) 1 tab PO DAILY [facility] Last Admin: 08/06/17 10:52 Dose: 1 tab Thiamine HCl (Vitamin B1 -) 100 mg PO HS [facility] Last Admin: 08/05/17 21:10 Dose: 100 mg - Objective Vital Signs: Vital Signs Temperature 97.4 F L 08/06/17 13:20 Pulse Rate 86 08/06/17 13:20 Respiratory Rate 17 08/06/17 13:20 Blood Pressure 114/86 08/06/17 13:20 O2 Sat by Pulse Oximetry (%) 96 08/06/17 08:53 Constitutional: Yes: No Distress HENT: Yes: Atraumatic Neck: Yes: Supple Cardiovascular: Yes: Regular Rate and Rhythm Respiratory: Yes: CTA Bilaterally Gastrointestinal: Yes: Normal Bowel Sounds Extremities: Yes: WNL Edema: No Peripheral Pulses WNL: Yes Neurological: Yes: Alert, Oriented Labs: CBC, BMP 08/05/17 06:00 08/05/17 06:00 INR, PTT INR 1.05 (0.82-1.09) 08/02/17 11:14 Problem List - Problems (1) COPD (chronic obstructive pulmonary disease) Assessment/Plan: po steroids..taper iv abx ...po now id/pulmonary consults done Code(s): J44.9 - CHRONIC OBSTRUCTIVE PULMONARY DISEASE, UNSPECIFIED Qualifiers: COPD type: unspecified COPD Qualified Code(s): J44.9 - Chronic obstructive pulmonary disease, unspecified (2) Cigarette nicotine dependence Assessment/Plan: on nicotine patch Code(s): F17.210 - NICOTINE DEPENDENCE, CIGARETTES, UNCOMPLICATED (3) Alcohol dependence with uncomplicated withdrawal Assessment/Plan: librium protocol completed Code(s): F10.230 - ALCOHOL DEPENDENCE WITH WITHDRAWAL, UNCOMPLICATED (4) Hypokalemia Assessment/Plan: on kdur Code(s): E87.6 - HYPOKALEMIA Assessment/Plan was not able to leave as no bed in rehab dr jessica thinks he should go to snf as he cannot participate in rehab pt andres
[2017-08-06] MEDS: THIAMINE HCL 100 MG TABLET (FP) PO SCH (22:12)
[2017-08-06] MEDS: INSULIN SLIDING SCALE (NOVOLOG) 1 VIAL SQ SCH (22:20)
[2017-08-07] MEDS: INSULIN SLIDING SCALE (NOVOLOG) 1 VIAL SQ SCH ×4 (06:29→21:25)
[2017-08-07] MEDS: ALBUTEROL SO4 2.5/IPRATROPIUM 0.5 INH SOL 3 ML VIAL.NEB. NEB SCH ×4 (08:00→22:50)
[2017-08-07 08:31] LABS: CHLORIDE 105 mmol/L (98-107); SODIUM 141 mmol/L (136-145)
[2017-08-07 08:39] LABS: ALBUMIN 2.4 g/dl (3.4-5.0); ALK PHOS 207 U/L (45-117); ANION GAP 8 (8-16); BILIRUBIN,TOTAL 0.7 mg/dL (0.2-1.0); BLOOD UREA NITROGEN 12 mg/dL (7-18); CALCIUM 8.1 mg/dL (8.5-10.1); CO2 28 mmol/L (21-32); CREATININE 0.5 mg/dL (0.7-1.3); GLUCOSE,RANDOM 77 mg/dL (74-106); SGOT/AST 51 U/L (15-37); SGPT/ALT 70 U/L (12-78); TOT PROT 5.8 g/dl (6.4-8.2)
[2017-08-07] MEDS ORDERED: PT OWN MED DRAWER 7, Y5N ONE (08:50)
[2017-08-07] MEDS: AMOX TR/POT CLAV 875MG/125MG TABLETS (FP) PO SCH ×2 (09:13→17:10)
[2017-08-07] MEDS: predniSONE 20 MG TABLET (UD) PO SCH (09:13)
[2017-08-07] MEDS: NICOTINE 21 MG/24 HOURS TOPICAL PATCH TD SCH (09:13)
[2017-08-07] MEDS: POTASSIUM CHLORIDE ORAL LIQUID 20 MEQ/15 ML PO SCH ×2 (09:13→21:25)
[2017-08-07] MEDS: PRENATAL VITAMINS W/ FOLIC ACID TABLET (FP) PO SCH (09:14)
[2017-08-07] MEDS ORDERED: predniSONE 20 MG TABLET (UD) PO SCH (10:00)
--- NOTE | 2017-08-07 14:07 | PN ---
Progress Note (short form) - Note Progress Note: PULMONARY Denies shortness of breath, +nonproductive cough. Last Vital Signs Temp Pulse Resp BP Pulse Ox 98.3 F 68 20 126/75 95 08/07/17 08:00 08/07/17 08:00 08/07/17 08:00 08/07/17 08:00 08/07/17 08:00 Gen: less tachypneic Heart: RRR Lung: decreased breath sounds at the bases, scattered rhonchi Abd: soft, nontender Ext: no edema CBC, BMP 08/05/17 06:00 08/07/17 07:00 Active Medications Albuterol/Ipratropium (Duoneb -) 1 amp NEB RQID [facility] Last Admin: 08/07/17 11:00 Dose: 1 amp Amoxicillin/Clavulanate Potassium (Augmentin - 875mg Tablet) 1 tab PO BID@0800, 1730 [facility] Last Admin: 08/07/17 09:13 Dose: 1 tab Insulin Aspart (Novolog Vial Sliding Scale -) 1 vial SQ ACHS [facility] PRN Reason: Protocol Last Admin: 08/07/17 11:20 Dose: 12 units Nicotine (Nicoderm Patch -) 21 mg TD DAILY [facility] Last Admin: 08/07/17 09:13 Dose: 21 mg Nicotine Polacrilex (Nicorette Gum -) 4 mg BUC Q2H PRN PRN Reason: NICOTINE REPLACEMENT RX Potassium Chloride (Potassium Chloride Oral Liquid) 20 meq PO BID [facility] Last Admin: 08/07/17 09:13 Dose: 20 meq Prednisone (Deltasone -) 30 mg PO DAILY [facility] Last Admin: 08/07/17 09:13 Dose: 30 mg Multivit/Folic Acid/Iron ( Vitamins (Sjr) -) 1 tab PO DAILY [facility] Last Admin: 08/07/17 09:14 Dose: 1 tab Thiamine HCl (Vitamin B1 -) 100 mg PO HS [facility] Last Admin: 08/06/17 22:12 Dose: 100 mg A/P Alcohol Withdrawal Acute Bronchitis Acute COPD Exacerbation Smoker - prednisone taper - inhaled bronchodilators - librium protocol - O2 as needed - replete lytes - DVT prophylaxis - smoking cessation
--- NOTE | 2017-08-07 14:30 | PN ---
Progress Note, Physician History of Present Illness: stable cough present - Current Medication List Current Medications: Active Medications Albuterol/Ipratropium (Duoneb -) 1 amp NEB RQID [facility] Last Admin: 08/07/17 11:00 Dose: 1 amp Amoxicillin/Clavulanate Potassium (Augmentin - 875mg Tablet) 1 tab PO BID@0800, 1730 [facility] Last Admin: 08/07/17 09:13 Dose: 1 tab Insulin Aspart (Novolog Vial Sliding Scale -) 1 vial SQ ACHS [facility] PRN Reason: Protocol Last Admin: 08/07/17 11:20 Dose: 12 units Nicotine (Nicoderm Patch -) 21 mg TD DAILY [facility] Last Admin: 08/07/17 09:13 Dose: 21 mg Nicotine Polacrilex (Nicorette Gum -) 4 mg BUC Q2H PRN PRN Reason: NICOTINE REPLACEMENT RX Potassium Chloride (Potassium Chloride Oral Liquid) 20 meq PO BID [facility] Last Admin: 08/07/17 09:13 Dose: 20 meq Prednisone (Deltasone -) 30 mg PO DAILY [facility] Last Admin: 08/07/17 09:13 Dose: 30 mg Multivit/Folic Acid/Iron ( Vitamins (Sjr) -) 1 tab PO DAILY [facility] Last Admin: 08/07/17 09:14 Dose: 1 tab Thiamine HCl (Vitamin B1 -) 100 mg PO HS [facility] Last Admin: 08/06/17 22:12 Dose: 100 mg - Objective Vital Signs: Vital Signs Temperature 98.3 F 08/07/17 08:00 Pulse Rate 68 08/07/17 08:00 Respiratory Rate 20 08/07/17 08:00 Blood Pressure 126/75 08/07/17 08:00 O2 Sat by Pulse Oximetry (%) 95 08/07/17 08:00 Constitutional: Yes: No Distress, Calm Cardiovascular: Yes: S1, S2 Respiratory: Yes: Regular, Poor Air Entry Gastrointestinal: Yes: Normal Bowel Sounds, Soft Musculoskeletal: Yes: WNL Extremities: Yes: WNL Neurological: Yes: Alert Labs: CBC, BMP 08/05/17 06:00 08/07/17 07:00 INR, PTT INR 1.05 (0.82-1.09) 08/02/17 11:14 Assessment/Plan Problem List - Problems (1) COPD (chronic obstructive pulmonary disease) Code(s): J44.9 - CHRONIC OBSTRUCTIVE PULMONARY DISEASE, UNSPECIFIED Qualifiers: COPD type: unspecified COPD Qualified Code(s): J44.9 - Chronic obstructive pulmonary disease, unspecified (2) Alcohol dependence with uncomplicated withdrawal Code(s): F10.230 - ALCOHOL DEPENDENCE WITH WITHDRAWAL, UNCOMPLICATED (3) Dehydration Code(s): E86.0 - DEHYDRATION (4) Hypokalemia Code(s): E87.6 - HYPOKALEMIA 5 rash plan continue current mgmt rest as per primary
[2017-08-07] MEDS ORDERED: INSULIN (NOVOLOG) ASPART 100 UNITS/ML 10ML VIAL ONE ×2 (17:14→21:24)
--- NOTE | 2017-08-07 17:40 | PN ---
Progress Note, Physician History of Present Illness: stable - Current Medication List Current Medications: Active Medications Albuterol/Ipratropium (Duoneb -) 1 amp NEB RQID [facility] Last Admin: 08/07/17 15:50 Dose: 1 amp Amoxicillin/Clavulanate Potassium (Augmentin - 875mg Tablet) 1 tab PO BID@0800, 1730 [facility] Last Admin: 08/07/17 17:10 Dose: 1 tab Insulin Aspart (Novolog Vial Sliding Scale -) 1 vial SQ ACHS [facility] PRN Reason: Protocol Last Admin: 08/07/17 17:10 Dose: 12 units Nicotine (Nicoderm Patch -) 21 mg TD DAILY [facility] Last Admin: 08/07/17 09:13 Dose: 21 mg Nicotine Polacrilex (Nicorette Gum -) 4 mg BUC Q2H PRN PRN Reason: NICOTINE REPLACEMENT RX Potassium Chloride (Potassium Chloride Oral Liquid) 20 meq PO BID [facility] Last Admin: 08/07/17 09:13 Dose: 20 meq Prednisone (Deltasone -) 30 mg PO DAILY [facility] Last Admin: 08/07/17 09:13 Dose: 30 mg Multivit/Folic Acid/Iron ( Vitamins (Sjr) -) 1 tab PO DAILY [facility] Last Admin: 08/07/17 09:14 Dose: 1 tab Thiamine HCl (Vitamin B1 -) 100 mg PO HS [facility] Last Admin: 08/06/17 22:12 Dose: 100 mg - Objective Vital Signs: Vital Signs Temperature 97.4 F L 08/07/17 16:15 Pulse Rate 82 08/07/17 16:15 Respiratory Rate 20 08/07/17 16:15 Blood Pressure 99/62 08/07/17 16:15 O2 Sat by Pulse Oximetry (%) 95 08/07/17 08:00 Constitutional: Yes: No Distress HENT: Yes: Atraumatic Neck: Yes: Supple Cardiovascular: Yes: Regular Rate and Rhythm Respiratory: Yes: CTA Bilaterally Extremities: Yes: WNL Neurological: Yes: Alert, Oriented Labs: CBC, BMP 08/05/17 06:00 08/07/17 07:00 INR, PTT INR 1.05 (0.82-1.09) 08/02/17 11:14 Problem List - Problems (1) COPD (chronic obstructive pulmonary disease) Assessment/Plan: po steroids..taper iv abx ...po now id/pulmonary consults done Code(s): J44.9 - CHRONIC OBSTRUCTIVE PULMONARY DISEASE, UNSPECIFIED Qualifiers: COPD type: unspecified COPD Qualified Code(s): J44.9 - Chronic obstructive pulmonary disease, unspecified (2) Cigarette nicotine dependence Assessment/Plan: on nicotine patch Code(s): F17.210 - NICOTINE DEPENDENCE, CIGARETTES, UNCOMPLICATED (3) Alcohol dependence with uncomplicated withdrawal Assessment/Plan: librium protocol completed Code(s): F10.230 - ALCOHOL DEPENDENCE WITH WITHDRAWAL, UNCOMPLICATED (4) Hypokalemia Code(s): E87.6 - HYPOKALEMIA
[2017-08-07] MEDS: THIAMINE HCL 100 MG TABLET (FP) PO SCH (21:25)
[2017-08-08] MEDS: INSULIN SLIDING SCALE (NOVOLOG) 1 VIAL SQ SCH ×4 (06:42→22:07)
[2017-08-08] MEDS ORDERED: INSULIN (NOVOLOG) ASPART 100 UNITS/ML 10ML VIAL ONE (06:47)
[2017-08-08] MEDS: ALBUTEROL SO4 2.5/IPRATROPIUM 0.5 INH SOL 3 ML VIAL.NEB. NEB SCH ×3 (08:20→15:21)
--- NOTE | 2017-08-08 10:14 | PN ---
Progress Note, Physician History of Present Illness: stable no new issues - Current Medication List Current Medications: Active Medications Albuterol/Ipratropium (Duoneb -) 1 amp NEB RQID [facility] Last Admin: 08/07/17 22:50 Dose: 1 amp Amoxicillin/Clavulanate Potassium (Augmentin - 875mg Tablet) 1 tab PO BID@0800, 1730 [facility] Last Admin: 08/07/17 17:10 Dose: 1 tab Insulin Aspart (Novolog Vial Sliding Scale -) 1 vial SQ ACHS [facility] PRN Reason: Protocol Last Admin: 08/08/17 06:42 Dose: 4 units Nicotine (Nicoderm Patch -) 21 mg TD DAILY [facility] Last Admin: 08/07/17 09:13 Dose: 21 mg Nicotine Polacrilex (Nicorette Gum -) 4 mg BUC Q2H PRN PRN Reason: NICOTINE REPLACEMENT RX Potassium Chloride (Potassium Chloride Oral Liquid) 20 meq PO BID [facility] Last Admin: 08/07/17 21:25 Dose: 20 meq Prednisone (Deltasone -) 30 mg PO DAILY [facility] Last Admin: 08/07/17 09:13 Dose: 30 mg Multivit/Folic Acid/Iron ( Vitamins (Sjr) -) 1 tab PO DAILY [facility] Last Admin: 08/07/17 09:14 Dose: 1 tab Thiamine HCl (Vitamin B1 -) 100 mg PO HS [facility] Last Admin: 08/07/17 21:25 Dose: 100 mg - Objective Vital Signs: Vital Signs Temperature 97.7 F 08/08/17 06:00 Pulse Rate 63 08/08/17 06:00 Respiratory Rate 18 08/08/17 06:00 Blood Pressure 128/80 08/08/17 06:00 O2 Sat by Pulse Oximetry (%) 94 L 08/07/17 20:36 Constitutional: Yes: No Distress, Calm Cardiovascular: Yes: Regular Rate and Rhythm Respiratory: Yes: Regular, Rhonchi Gastrointestinal: Yes: Normal Bowel Sounds, Soft Musculoskeletal: Yes: WNL Extremities: Yes: WNL Neurological: Yes: Alert, Oriented Psychiatric: Yes: Alert, Oriented Labs: CBC, BMP 08/05/17 06:00 08/07/17 07:00 INR, PTT INR 1.05 (0.82-1.09) 08/02/17 11:14 Assessment/Plan Problem List - Problems (1) COPD (chronic obstructive pulmonary disease) Code(s): J44.9 - CHRONIC OBSTRUCTIVE PULMONARY DISEASE, UNSPECIFIED Qualifiers: COPD type: unspecified COPD Qualified Code(s): J44.9 - Chronic obstructive pulmonary disease, unspecified (2) Alcohol dependence with uncomplicated withdrawal Code(s): F10.230 - ALCOHOL DEPENDENCE WITH WITHDRAWAL, UNCOMPLICATED (3) Dehydration Code(s): E86.0 - DEHYDRATION (4) Hypokalemia Code(s): E87.6 - HYPOKALEMIA 5 rash plan continue current mgmt rest as per primary incentive vu
[2017-08-08] MEDS ORDERED: PT OWN MED DRAWER 7, Y5N ONE (10:31)
[2017-08-08] MEDS: predniSONE 20 MG TABLET (UD) PO SCH ×2 (10:35→22:04)
[2017-08-08] MEDS: NICOTINE 21 MG/24 HOURS TOPICAL PATCH TD SCH (10:35)
[2017-08-08] MEDS: POTASSIUM CHLORIDE ORAL LIQUID 20 MEQ/15 ML PO SCH ×2 (10:35→22:03)
[2017-08-08] MEDS: AMOX TR/POT CLAV 875MG/125MG TABLETS (FP) PO SCH ×2 (10:36→17:02)
[2017-08-08] MEDS: PRENATAL VITAMINS W/ FOLIC ACID TABLET (FP) PO SCH (10:36)
--- NOTE | 2017-08-08 13:29 | PN ---
Progress Note (short form) - Note Progress Note: PULMONARY Breathing continues to improve. +nonproductive cough. Last Vital Signs Temp Pulse Resp BP Pulse Ox 97.7 F 63 18 128/80 94 L 08/08/17 06:00 08/08/17 06:00 08/08/17 06:00 08/08/17 06:00 08/07/17 20:36 Gen: less tachypneic Heart: RRR Lung: decreased breath sounds at the bases, less scattered rhonchi Abd: soft, nontender Ext: no edema CBC, BMP 08/05/17 06:00 08/07/17 07:00 Active Medications Albuterol/Ipratropium (Duoneb -) 1 amp NEB RQID [facility] Last Admin: 08/08/17 11:25 Dose: 1 amp Amoxicillin/Clavulanate Potassium (Augmentin - 875mg Tablet) 1 tab PO BID@0800, 1730 [facility] Last Admin: 08/08/17 10:36 Dose: 1 tab Insulin Aspart (Novolog Vial Sliding Scale -) 1 vial SQ ACHS [facility] PRN Reason: Protocol Last Admin: 08/08/17 11:44 Dose: 8 units Nicotine (Nicoderm Patch -) 21 mg TD DAILY [facility] Last Admin: 08/08/17 10:35 Dose: 21 mg Nicotine Polacrilex (Nicorette Gum -) 4 mg BUC Q2H PRN PRN Reason: NICOTINE REPLACEMENT RX Potassium Chloride (Potassium Chloride Oral Liquid) 20 meq PO BID [facility] Last Admin: 08/08/17 10:35 Dose: 20 meq Prednisone (Deltasone -) 30 mg PO DAILY [facility] Last Admin: 08/08/17 10:35 Dose: 30 mg Multivit/Folic Acid/Iron ( Vitamins (Sjr) -) 1 tab PO DAILY [facility] Last Admin: 08/08/17 10:36 Dose: 1 tab Thiamine HCl (Vitamin B1 -) 100 mg PO HS [facility] Last Admin: 08/07/17 21:25 Dose: 100 mg A/P Alcohol Withdrawal Acute Bronchitis Acute COPD Exacerbation Smoker - prednisone taper - inhaled bronchodilators - librium protocol - O2 as needed - replete lytes - DVT prophylaxis - smoking cessation
--- NOTE | 2017-08-08 18:57 | PN ---
Progress Note, Physician History of Present Illness: stable - Current Medication List Current Medications: Active Medications Albuterol/Ipratropium (Duoneb -) 1 amp NEB RQID [facility] Last Admin: 08/08/17 15:21 Dose: 1 amp Amoxicillin/Clavulanate Potassium (Augmentin - 875mg Tablet) 1 tab PO BID@0800, 1730 [facility] Last Admin: 08/08/17 17:02 Dose: 1 tab Insulin Aspart (Novolog Vial Sliding Scale -) 1 vial SQ ACHS [facility] PRN Reason: Protocol Last Admin: 08/08/17 17:02 Dose: 12 units Nicotine (Nicoderm Patch -) 21 mg TD DAILY [facility] Last Admin: 08/08/17 10:35 Dose: 21 mg Nicotine Polacrilex (Nicorette Gum -) 4 mg BUC Q2H PRN PRN Reason: NICOTINE REPLACEMENT RX Potassium Chloride (Potassium Chloride Oral Liquid) 20 meq PO BID [facility] Last Admin: 08/08/17 10:35 Dose: 20 meq Prednisone (Deltasone -) 20 mg PO DAILY [facility] Multivit/Folic Acid/Iron ( Vitamins (Sjr) -) 1 tab PO DAILY [facility] Last Admin: 08/08/17 10:36 Dose: 1 tab Thiamine HCl (Vitamin B1 -) 100 mg PO HS [facility] Last Admin: 08/07/17 21:25 Dose: 100 mg - Objective Vital Signs: Vital Signs Temperature 97.6 F 08/08/17 18:00 Pulse Rate 21 L 08/08/17 18:00 Respiratory Rate 21 08/08/17 18:00 Blood Pressure 105/62 08/08/17 18:00 O2 Sat by Pulse Oximetry (%) 94 L 08/07/17 20:36 Constitutional: Yes: No Distress HENT: Yes: Atraumatic Neck: Yes: Supple Cardiovascular: Yes: Regular Rate and Rhythm Respiratory: Yes: CTA Bilaterally Gastrointestinal: Yes: Normal Bowel Sounds Extremities: Yes: WNL Neurological: Yes: Alert, Oriented Labs: CBC, BMP 08/05/17 06:00 08/08/17 17:20 INR, PTT INR 1.05 (0.82-1.09) 08/02/17 11:14 Problem List - Problems (1) COPD (chronic obstructive pulmonary disease) Assessment/Plan: po steroids..taper po abx now id/pulmonary consults done Code(s): J44.9 - CHRONIC OBSTRUCTIVE PULMONARY DISEASE, UNSPECIFIED Qualifiers: COPD type: unspecified COPD Qualified Code(s): J44.9 - Chronic obstructive pulmonary disease, unspecified (2) Cigarette nicotine dependence Assessment/Plan: on nicotine patch Code(s): F17.210 - NICOTINE DEPENDENCE, CIGARETTES, UNCOMPLICATED (3) Alcohol dependence with uncomplicated withdrawal Assessment/Plan: librium protocol completed Code(s): F10.230 - ALCOHOL DEPENDENCE WITH WITHDRAWAL, UNCOMPLICATED (4) Hypokalemia Assessment/Plan: on kdur Code(s): E87.6 - HYPOKALEMIA
--- NOTE | 2017-08-08 18:58 | DS ---
Physical Examination Vital Signs: Vital Signs Temperature 97.6 F 08/08/17 18:00 Pulse Rate 21 L 08/08/17 18:00 Respiratory Rate 21 08/08/17 18:00 Blood Pressure 105/62 08/08/17 18:00 O2 Sat by Pulse Oximetry (%) 94 L 08/07/17 20:36 Labs: CBC, BMP 08/05/17 06:00 08/08/17 17:20 Discharge Summary Reason For Visit: COPD Current Active Problems Cigarette nicotine dependence (Acute) COPD (chronic obstructive pulmonary disease) (Chronic) Condition: Fair - Instructions Diet, Activity, Other Instructions: check K level follow up blood sugars - Home Medications Comprehensive Discharge Medication List: Ambulatory Orders Amox-Tr/K Cl [Augmentin 875-125mg Tablet -] 1 tab PO BID@0800,1730 #14 tablet Nicotine Patch [Nicoderm Patch -] 21 mg TD DAILY patch 08/06/17 Vitamins (Sjr) - 1 tab PO DAILY tablet 08/06/17 Albuterol 2.5/Ipratropium 0.5 [Duoneb -] 1 amp NEB RQID amp 08/08/17 Insulin Sliding Scale [Novolog Vial Sliding Scale -] 1 vial SQ ACHS units 08/08 Potassium Chloride [Potassium Chloride Oral Liquid] 20 meq PO BID cup 08/08/17 Prednisone 10 mg PO DAILY #10 tablet 08/08/17 Thiamine HCl [Vitamin B1 -] 100 mg PO HS tablet 08/08/17 dc to snf
[2017-08-08] MEDS: THIAMINE HCL 100 MG TABLET (FP) PO SCH (22:04)
[2017-08-09] MEDS: INSULIN SLIDING SCALE (NOVOLOG) 1 VIAL SQ SCH ×4 (06:35→21:10)
[2017-08-09] MEDS: AMOX TR/POT CLAV 875MG/125MG TABLETS (FP) PO SCH ×2 (08:07→16:34)
[2017-08-09] MEDS ORDERED: PT OWN MED DRAWER 7, Y5N ONE (10:16)
[2017-08-09] MEDS: POTASSIUM CHLORIDE ORAL LIQUID 20 MEQ/15 ML PO SCH ×2 (10:26→21:11)
[2017-08-09] MEDS: predniSONE 20 MG TABLET (UD) PO SCH (10:27)
[2017-08-09] MEDS: PRENATAL VITAMINS W/ FOLIC ACID TABLET (FP) PO SCH (10:27)
[2017-08-09] MEDS: NICOTINE 21 MG/24 HOURS TOPICAL PATCH TD SCH (10:27)
--- NOTE | 2017-08-09 13:02 | PN ---
Progress Note, Physician History of Present Illness: stable no new issues some cough - Current Medication List Current Medications: Active Medications Amoxicillin/Clavulanate Potassium (Augmentin - 875mg Tablet) 1 tab PO BID@0800, 1730 [facility] Last Admin: 08/09/17 08:07 Dose: 1 tab Insulin Aspart (Novolog Vial Sliding Scale -) 1 vial SQ ACHS [facility] PRN Reason: Protocol Last Admin: 08/09/17 11:38 Dose: 8 units Nicotine (Nicoderm Patch -) 21 mg TD DAILY [facility] Last Admin: 08/09/17 10:27 Dose: 21 mg Nicotine Polacrilex (Nicorette Gum -) 4 mg BUC Q2H PRN PRN Reason: NICOTINE REPLACEMENT RX Potassium Chloride (Potassium Chloride Oral Liquid) 20 meq PO BID [facility] Last Admin: 08/09/17 10:26 Dose: 20 meq Prednisone (Deltasone -) 20 mg PO DAILY [facility] Last Admin: 08/09/17 10:27 Dose: 20 mg Multivit/Folic Acid/Iron ( Vitamins (Sjr) -) 1 tab PO DAILY [facility] Last Admin: 08/09/17 10:27 Dose: 1 tab Thiamine HCl (Vitamin B1 -) 100 mg PO HS [facility] Last Admin: 08/08/17 22:04 Dose: 100 mg - Objective Vital Signs: Vital Signs Temperature 98.2 F 08/09/17 09:00 Pulse Rate 73 08/09/17 09:00 Respiratory Rate 20 08/09/17 09:00 Blood Pressure 109/76 08/09/17 09:00 O2 Sat by Pulse Oximetry (%) 95 08/09/17 09:00 Constitutional: Yes: No Distress, Calm Cardiovascular: Yes: Regular Rate and Rhythm Respiratory: Yes: Regular, Rhonchi Gastrointestinal: Yes: Normal Bowel Sounds, Soft Musculoskeletal: Yes: WNL Extremities: Yes: WNL Neurological: Yes: Alert, Oriented Psychiatric: Yes: Alert, Oriented Labs: CBC, BMP 08/05/17 06:00 08/08/17 17:20 INR, PTT INR 1.05 (0.82-1.09) 08/02/17 11:14 Assessment/Plan Problem List - Problems (1) COPD (chronic obstructive pulmonary disease) Code(s): J44.9 - CHRONIC OBSTRUCTIVE PULMONARY DISEASE, UNSPECIFIED Qualifiers: COPD type: unspecified COPD Qualified Code(s): J44.9 - Chronic obstructive pulmonary disease, unspecified (2) Alcohol dependence with uncomplicated withdrawal Code(s): F10.230 - ALCOHOL DEPENDENCE WITH WITHDRAWAL, UNCOMPLICATED (3) Dehydration Code(s): E86.0 - DEHYDRATION (4) Hypokalemia Code(s): E87.6 - HYPOKALEMIA 5 rash plan continue current mgmt rest as per primary incentive vu out of bed physio
--- NOTE | 2017-08-09 13:10 | PN ---
Progress Note (short form) - Note Progress Note: Breathing feels overall better. Some residual cough. Afebrile. Intake & Output 08/06/17 08/07/17 08/08/17 08/09/17 23:59 23:59 23:59 23:59 Intake Total 330 1000 1050 400 Output Total 614 196 5033 800 Balance -530 200 -1250 -400 Last Vital Signs Temp Pulse Resp BP Pulse Ox 98.2 F 73 20 109/76 95 08/09/17 09:00 08/09/17 09:00 08/09/17 09:00 08/09/17 09:00 08/09/17 09:00 Active Medications Amoxicillin/Clavulanate Potassium (Augmentin - 875mg Tablet) 1 tab PO BID@0800, 1730 [facility] Last Admin: 08/09/17 08:07 Dose: 1 tab Insulin Aspart (Novolog Vial Sliding Scale -) 1 vial SQ ACHS [facility] PRN Reason: Protocol Last Admin: 08/09/17 11:38 Dose: 8 units Nicotine (Nicoderm Patch -) 21 mg TD DAILY [facility] Last Admin: 08/09/17 10:27 Dose: 21 mg Nicotine Polacrilex (Nicorette Gum -) 4 mg BUC Q2H PRN PRN Reason: NICOTINE REPLACEMENT RX Potassium Chloride (Potassium Chloride Oral Liquid) 20 meq PO BID [facility] Last Admin: 08/09/17 10:26 Dose: 20 meq Prednisone (Deltasone -) 20 mg PO DAILY [facility] Last Admin: 08/09/17 10:27 Dose: 20 mg Multivit/Folic Acid/Iron ( Vitamins (Sjr) -) 1 tab PO DAILY [facility] Last Admin: 08/09/17 10:27 Dose: 1 tab Thiamine HCl (Vitamin B1 -) 100 mg PO HS [facility] Last Admin: 08/08/17 22:04 Dose: 100 mg Gen: NAD on RA Heart: RRR Lung: Few scattered rhonchi Abd: soft, nontender Ext: no edema Laboratory Results - last 24 hr 08/08/17 08/08/17 08/08/17 11:36 11:41 16:55 POC Glucometer 504 269 443 Random Glucose 08/08/17 08/08/17 08/08/17 16:57 17:20 22:06 POC Glucometer 501 387 Random Glucose 384 H* D 08/09/17 08/09/17 06:34 11:24 POC Glucometer 165 292 Random Glucose A/P Alcohol Withdrawal Acute Bronchitis Acute COPD Exacerbation Smoker - prednisone taper - inhaled bronchodilators - O2 as needed - replete lytes - DVT prophylaxis - smoking cessation discussed - No Pulmonary contraindication for D/C Dr Huerta
[2017-08-09] MEDS ORDERED: INSULIN (NOVOLOG) ASPART 100 UNITS/ML 10ML VIAL ONE (16:37)
--- NOTE | 2017-08-09 17:51 | PN ---
Progress Note, Physician History of Present Illness: stable - Current Medication List Current Medications: Active Medications Amoxicillin/Clavulanate Potassium (Augmentin - 875mg Tablet) 1 tab PO BID@0800, 1730 [facility] Last Admin: 08/09/17 16:34 Dose: 1 tab Insulin Aspart (Novolog Vial Sliding Scale -) 1 vial SQ ACHS [facility] PRN Reason: Protocol Last Admin: 08/09/17 16:32 Dose: 6 units Nicotine (Nicoderm Patch -) 21 mg TD DAILY [facility] Last Admin: 08/09/17 10:27 Dose: 21 mg Nicotine Polacrilex (Nicorette Gum -) 4 mg BUC Q2H PRN PRN Reason: NICOTINE REPLACEMENT RX Potassium Chloride (Potassium Chloride Oral Liquid) 20 meq PO BID [facility] Last Admin: 08/09/17 10:26 Dose: 20 meq Prednisone (Deltasone -) 20 mg PO DAILY [facility] Last Admin: 08/09/17 10:27 Dose: 20 mg Multivit/Folic Acid/Iron ( Vitamins (Sjr) -) 1 tab PO DAILY [facility] Last Admin: 08/09/17 10:27 Dose: 1 tab Thiamine HCl (Vitamin B1 -) 100 mg PO HS [facility] Last Admin: 08/08/17 22:04 Dose: 100 mg - Objective Vital Signs: Vital Signs Temperature 97.7 F 08/09/17 14:35 Pulse Rate 69 08/09/17 14:35 Respiratory Rate 20 08/09/17 09:00 Blood Pressure 99/61 08/09/17 14:35 O2 Sat by Pulse Oximetry (%) 95 08/09/17 09:00 Constitutional: Yes: No Distress HENT: Yes: Atraumatic Neck: Yes: Supple Cardiovascular: Yes: Regular Rate and Rhythm Respiratory: Yes: CTA Bilaterally Gastrointestinal: Yes: Normal Bowel Sounds Extremities: Yes: WNL Neurological: Yes: Alert, Oriented Labs: CBC, BMP 08/05/17 06:00 08/08/17 17:20 INR, PTT INR 1.05 (0.82-1.09) 08/02/17 11:14 Problem List - Problems (1) COPD (chronic obstructive pulmonary disease) Assessment/Plan: po steroids..taper po abx now id/pulmonary consults done Code(s): J44.9 - CHRONIC OBSTRUCTIVE PULMONARY DISEASE, UNSPECIFIED Qualifiers: COPD type: unspecified COPD Qualified Code(s): J44.9 - Chronic obstructive pulmonary disease, unspecified (2) Cigarette nicotine dependence Assessment/Plan: on nicotine patch Code(s): F17.210 - NICOTINE DEPENDENCE, CIGARETTES, UNCOMPLICATED (3) Alcohol dependence with uncomplicated withdrawal Assessment/Plan: librium protocol completed Code(s): F10.230 - ALCOHOL DEPENDENCE WITH WITHDRAWAL, UNCOMPLICATED (4) Hypokalemia Assessment/Plan: on kdur Code(s): E87.6 - HYPOKALEMIA Assessment/Plan awaiting bed for snf
[2017-08-09] MEDS: THIAMINE HCL 100 MG TABLET (FP) PO SCH (21:11)
[2017-08-10] MEDS: INSULIN SLIDING SCALE (NOVOLOG) 1 VIAL SQ SCH ×3 (06:41→16:18)
[2017-08-10] MEDS ORDERED: INSULIN (NOVOLOG) ASPART 100 UNITS/ML 10ML VIAL ONE ×2 (09:58→16:03)
[2017-08-10] MEDS: POTASSIUM CHLORIDE ORAL LIQUID 20 MEQ/15 ML PO SCH (10:03)
[2017-08-10] MEDS: AMOX TR/POT CLAV 875MG/125MG TABLETS (FP) PO SCH ×3 (10:03→16:48)
[2017-08-10] MEDS: NICOTINE 21 MG/24 HOURS TOPICAL PATCH TD SCH (10:03)
[2017-08-10] MEDS: predniSONE 20 MG TABLET (UD) PO SCH (10:03)
[2017-08-10] MEDS: PRENATAL VITAMINS W/ FOLIC ACID TABLET (FP) PO SCH (10:12)
--- NOTE | 2017-08-10 13:25 | PN ---
Progress Note, Physician History of Present Illness: PULMONARY ALERT,FEELING BETTER,-SOB,LESS COUGH - Current Medication List Current Medications: Active Medications Amoxicillin/Clavulanate Potassium (Augmentin - 875mg Tablet) 1 tab PO BID@0800, 1730 [facility] Last Admin: 08/10/17 10:03 Dose: 1 tab Insulin Aspart (Novolog Vial Sliding Scale -) 1 vial SQ ACHS [facility] PRN Reason: Protocol Last Admin: 08/10/17 10:15 Dose: 6 units Nicotine (Nicoderm Patch -) 21 mg TD DAILY [facility] Last Admin: 08/10/17 10:03 Dose: 21 mg Nicotine Polacrilex (Nicorette Gum -) 4 mg BUC Q2H PRN PRN Reason: NICOTINE REPLACEMENT RX Potassium Chloride (Potassium Chloride Oral Liquid) 20 meq PO BID [facility] Last Admin: 08/10/17 10:03 Dose: 20 meq Prednisone (Deltasone -) 20 mg PO DAILY [facility] Last Admin: 08/10/17 10:03 Dose: 20 mg Multivit/Folic Acid/Iron ( Vitamins (Sjr) -) 1 tab PO DAILY [facility] Last Admin: 08/10/17 10:12 Dose: 1 tab Thiamine HCl (Vitamin B1 -) 100 mg PO HS [facility] Last Admin: 08/09/17 21:11 Dose: 100 mg - Objective Vital Signs: Vital Signs Temperature 98.1 F 08/10/17 08:00 Pulse Rate 82 08/10/17 08:00 Respiratory Rate 20 08/10/17 08:00 Blood Pressure 113/68 08/10/17 08:00 O2 Sat by Pulse Oximetry (%) 95 08/10/17 08:00 Constitutional: Yes: Well Nourished, Calm Eyes: Yes: WNL HENT: Yes: WNL Neck: Yes: WNL Cardiovascular: Yes: Regular Rate and Rhythm, S1, S2 Respiratory: Yes: Rhonchi (FEW SCATTERED RHONCHI) Gastrointestinal: Yes: Normal Bowel Sounds, Soft Extremities: Yes: WNL Edema: No Labs: CBC, BMP Assessment/Plan Problem List - Problems (1) COPD (chronic obstructive pulmonary disease) Code(s): J44.9 - CHRONIC OBSTRUCTIVE PULMONARY DISEASE, UNSPECIFIED Qualifiers: COPD type: unspecified COPD Qualified Code(s): J44.9 - Chronic obstructive pulmonary disease, unspecified (2) Alcohol dependence with uncomplicated withdrawal Code(s): F10.230 - ALCOHOL DEPENDENCE WITH WITHDRAWAL, UNCOMPLICATED (3) Dehydration Code(s): E86.0 - DEHYDRATION (4) Hypokalemia Code(s): E87.6 - HYPOKALEMIA Assessment/Plan A/P S/P Alcohol Withdrawal Acute Bronchitis Acute COPD Exacerbation Smoker - prednisone taper - inhaled bronchodilators - O2 as needed - DVT prophylaxis - smoking cessation DR BROWN
--- NOTE | 2017-08-10 14:44 | PN ---
Progress Note, Physician History of Present Illness: stable no new issues - Current Medication List Current Medications: Active Medications Amoxicillin/Clavulanate Potassium (Augmentin - 875mg Tablet) 1 tab PO BID@0800, 1730 [facility] Last Admin: 08/10/17 10:03 Dose: 1 tab Insulin Aspart (Novolog Vial Sliding Scale -) 1 vial SQ ACHS [facility] PRN Reason: Protocol Last Admin: 08/10/17 10:15 Dose: 6 units Nicotine (Nicoderm Patch -) 21 mg TD DAILY [facility] Last Admin: 08/10/17 10:03 Dose: 21 mg Nicotine Polacrilex (Nicorette Gum -) 4 mg BUC Q2H PRN PRN Reason: NICOTINE REPLACEMENT RX Potassium Chloride (Potassium Chloride Oral Liquid) 20 meq PO BID [facility] Last Admin: 08/10/17 10:03 Dose: 20 meq Prednisone (Deltasone -) 20 mg PO DAILY [facility] Last Admin: 08/10/17 10:03 Dose: 20 mg Multivit/Folic Acid/Iron ( Vitamins (Sjr) -) 1 tab PO DAILY [facility] Last Admin: 08/10/17 10:12 Dose: 1 tab Thiamine HCl (Vitamin B1 -) 100 mg PO HS [facility] Last Admin: 08/09/17 21:11 Dose: 100 mg - Objective Vital Signs: Vital Signs Temperature 98.1 F 08/10/17 08:00 Pulse Rate 82 08/10/17 08:00 Respiratory Rate 20 08/10/17 08:00 Blood Pressure 113/68 08/10/17 08:00 O2 Sat by Pulse Oximetry (%) 95 08/10/17 08:00 Constitutional: Yes: No Distress, Calm Cardiovascular: Yes: Regular Rate and Rhythm Respiratory: Yes: Regular, CTA Bilaterally Gastrointestinal: Yes: Normal Bowel Sounds, Soft Musculoskeletal: Yes: WNL Extremities: Yes: WNL Neurological: Yes: Alert, Oriented Labs: CBC, BMP 08/05/17 06:00 08/08/17 17:20 INR, PTT INR 1.05 (0.82-1.09) 08/02/17 11:14 Assessment/Plan Problem List - Problems (1) COPD (chronic obstructive pulmonary disease) Code(s): J44.9 - CHRONIC OBSTRUCTIVE PULMONARY DISEASE, UNSPECIFIED Qualifiers: COPD type: unspecified COPD Qualified Code(s): J44.9 - Chronic obstructive pulmonary disease, unspecified (2) Alcohol dependence with uncomplicated withdrawal Code(s): F10.230 - ALCOHOL DEPENDENCE WITH WITHDRAWAL, UNCOMPLICATED (3) Dehydration Code(s): E86.0 - DEHYDRATION (4) Hypokalemia Code(s): E87.6 - HYPOKALEMIA 5 rash plan continue current mgmt rest as per primary incentive vu out of bed physio
[2017-08-10 14:53] VITALS: BP 100/65; PULSE 64; TEMP 97.7
--- NOTE | 2017-08-10 15:35 | PN ---
S Progress Note (SOAP) Subjective: pateitn much improved, no complaints, requesting physical rehab foloowed by drug rehab when strong enough to participate Objective: 08/10/17 15:34 Vital Signs - 24 hr 08/09/17 08/09/17 08/10/17 19:25 23:30 06:02 Temperature 97.9 F 98.2 F Pulse Rate 66 66 Respiratory 20 20 20 Rate Blood Pressure 104/63 117/73 O2 Sat by Pulse 95 Oximetry (%) 08/10/17 08/10/17 08:00 14:52 Temperature 98.1 F 97.7 F Pulse Rate 82 64 Respiratory 20 Rate Blood Pressure 113/68 100/65 O2 Sat by Pulse 95 Oximetry (%) Laboratory Tests 08/02/17 08/02/17 08/02/17 11:14 11:14 11:14 WBC 4.4 RBC 4.18 D Hgb 13.9 D Hct 42.5 D MCV 101.6 H MCH 33.2 MCHC 32.7 RDW 14.0 Plt Count 127 L D MPV 8.6 Neutrophils % 58.2 Lymphocytes % 22.6 D Monocytes % 9.3 Eosinophils % 5.1 H D Basophils % 4.8 H PT with INR 11.90 H INR 1.05 PTT (Actin FS) 32.0 D VBG pH 7.40 POC VBG pCO2 47.6 POC VBG pO2 65.0 H Mixed VBG HCO3 28.6 H Sodium Potassium Chloride Carbon Dioxide Anion Gap BUN Creatinine Creat Clearance w eGFR POC Glucometer Random Glucose Hemoglobin A1c % Lactic Acid Calcium Total Bilirubin AST ALT Alkaline Phosphatase Creatine Kinase Troponin I Total Protein Albumin Urine Color Urine Appearance Urine pH Ur Specific Mars Urine Protein Urine Glucose (UA) Urine Ketones Urine Blood Urine Nitrite Urine Bilirubin Urine Urobilinogen Ur Leukocyte Esterase Urine WBC (Auto) Urine RBC (Auto) Hyaline Casts Urine Mucus Opiates Screen Methadone Screen Barbiturate Screen Phencyclidine Screen Ur Amphetamines Screen MDMA (Ecstasy) Screen Benzodiazepines Screen Cocaine Screen U Marijuana (THC) Screen Blood Type Antibody Screen 08/02/17 08/02/17 08/02/17 11:14 11:14 11:14 WBC RBC Hgb Hct MCV MCH MCHC RDW Plt Count MPV Neutrophils % Lymphocytes % Monocytes % Eosinophils % Basophils % PT with INR INR PTT (Actin FS) VBG pH POC VBG pCO2 POC VBG pO2 Mixed VBG HCO3 Sodium 143 Potassium 2.4 L* D Chloride 102 Carbon Dioxide 27 Anion Gap 14 BUN 6 L D Creatinine 0.5 L D Creat Clearance w eGFR > 60 POC Glucometer Random Glucose 87 Hemoglobin A1c % Lactic Acid 2.0 Calcium 8.0 L Total Bilirubin 0.9 D AST 322 H D ALT 104 H D Alkaline Phosphatase 290 H Creatine Kinase 72 Troponin I < 0.02 Total Protein 6.8 D Albumin 2.8 L D Urine Color Urine Appearance Urine pH Ur Specific Mars Urine Protein Urine Glucose (UA) Urine Ketones Urine Blood Urine Nitrite Urine Bilirubin Urine Urobilinogen Ur Leukocyte Esterase Urine WBC (Auto) Urine RBC (Auto) Hyaline Casts Urine Mucus Opiates Screen Methadone Screen Barbiturate Screen Phencyclidine Screen Ur Amphetamines Screen MDMA (Ecstasy) Screen Benzodiazepines Screen Cocaine Screen U Marijuana (THC) Screen Blood Type O NEGATIVE Antibody Screen Negative 08/02/17 08/02/17 08/03/17 14:31 21:35 06:01 WBC RBC Hgb Hct MCV MCH MCHC RDW Plt Count MPV Neutrophils % Lymphocytes % Monocytes % Eosinophils % Basophils % PT with INR INR PTT (Actin FS) VBG pH POC VBG pCO2 POC VBG pO2 Mixed VBG HCO3 Sodium 139 Potassium 3.2 L D Chloride 102 Carbon Dioxide 27 Anion Gap 10 BUN 9 D Creatinine 0.6 L Creat Clearance w eGFR > 60 POC Glucometer Random Glucose 317 H* D Hemoglobin A1c % Lactic Acid 1.4 Calcium 7.5 L Total Bilirubin 0.9 AST 184 H D ALT 82 H D Alkaline Phosphatase 300 H Creatine Kinase Troponin I Total Protein 6.1 L Albumin 2.6 L Urine Color Madelin Urine Appearance Clear Urine pH 6.0 Ur Specific Mars 1.012 Urine Protein 1+ H Urine Glucose (UA) Negative Urine Ketones Trace H Urine Blood 3+ H Urine Nitrite Negative Urine Bilirubin Negative Urine Urobilinogen 4.0 e.u/dl Ur Leukocyte Esterase Negative Urine WBC (Auto) 1 Urine RBC (Auto) 45 Hyaline Casts 14 Urine Mucus Rare Opiates Screen Methadone Screen Barbiturate Screen Phencyclidine Screen Ur Amphetamines Screen MDMA (Ecstasy) Screen Benzodiazepines Screen Cocaine Screen U Marijuana (THC) Screen Blood Type Antibody Screen 08/03/17 08/04/17 08/05/17 06:34 05:10 06:00 WBC 2.8 L D 5.5 D RBC 3.54 L 3.55 L Hgb 12.3 D 11.9 Hct 35.8 D 35.8 MCV 101.2 H 100.9 H MCH 34.6 H 33.7 MCHC 34.2 33.3 RDW 14.0 13.9 Plt Count 88 L D 91 L MPV 8.8 9.6 Neutrophils % 87.5 H D 86.7 H Lymphocytes % 6.3 L D 4.1 L D Monocytes % 5.8 9.2 Eosinophils % 0.0 D 0.0 Basophils % 0.4 0.0 PT with INR INR PTT (Actin FS) VBG pH POC VBG pCO2 POC VBG pO2 Mixed VBG HCO3 Sodium Potassium Chloride Carbon Dioxide Anion Gap BUN Creatinine Creat Clearance w eGFR POC Glucometer Random Glucose Hemoglobin A1c % Lactic Acid Calcium Total Bilirubin AST ALT Alkaline Phosphatase Creatine Kinase Troponin I Total Protein Albumin Urine Color Urine Appearance Urine pH Ur Specific Mars Urine Protein Urine Glucose (UA) Urine Ketones Urine Blood Urine Nitrite Urine Bilirubin Urine Urobilinogen Ur Leukocyte Esterase Urine WBC (Auto) Urine RBC (Auto) Hyaline Casts Urine Mucus Opiates Screen Negative Methadone Screen Negative Barbiturate Screen Negative Phencyclidine Screen Negative Ur Amphetamines Screen Negative MDMA (Ecstasy) Screen Negative Benzodiazepines Screen Positive Cocaine Screen Negative U Marijuana (THC) Screen Negative Blood Type Antibody Screen 08/05/17 08/06/17 08/06/17 06:00 22:10 23:43 WBC RBC Hgb Hct MCV MCH MCHC RDW Plt Count MPV Neutrophils % Lymphocytes % Monocytes % Eosinophils % Basophils % PT with INR INR PTT (Actin FS) VBG pH POC VBG pCO2 POC VBG pO2 Mixed VBG HCO3 Sodium 139 Potassium 3.0 L Chloride 103 Carbon Dioxide 27 Anion Gap 9 BUN 14 D Creatinine 0.6 L Creat Clearance w eGFR > 60 POC Glucometer 433 438 Random Glucose 360 H* Hemoglobin A1c % Lactic Acid Calcium 8.6 Total Bilirubin 1.2 H D AST 46 H D ALT 62 D Alkaline Phosphatase 274 H Creatine Kinase Troponin I Total Protein 6.3 L Albumin 2.7 L Urine Color Urine Appearance Urine pH Ur Specific Mars Urine Protein Urine Glucose (UA) Urine Ketones Urine Blood Urine Nitrite Urine Bilirubin Urine Urobilinogen Ur Leukocyte Esterase Urine WBC (Auto) Urine RBC (Auto) Hyaline Casts Urine Mucus Opiates Screen Methadone Screen Barbiturate Screen Phencyclidine Screen Ur Amphetamines Screen MDMA (Ecstasy) Screen Benzodiazepines Screen Cocaine Screen U Marijuana (THC) Screen Blood Type Antibody Screen 08/07/17 08/07/17 08/07/17 06:28 07:00 07:00 WBC RBC Hgb Hct MCV MCH MCHC RDW Plt Count MPV Neutrophils % Lymphocytes % Monocytes % Eosinophils % Basophils % PT with INR INR PTT (Actin FS) VBG pH POC VBG pCO2 POC VBG pO2 Mixed VBG HCO3 Sodium 141 Potassium 3.0 L Chloride 105 Carbon Dioxide 28 Anion Gap 8 BUN 12 Creatinine 0.5 L Creat Clearance w eGFR > 60 POC Glucometer 186 Random Glucose 77 D Hemoglobin A1c % 6.4 H D Lactic Acid Calcium 8.1 L Total Bilirubin 0.7 D AST 51 H ALT 70 Alkaline Phosphatase 207 H D Creatine Kinase Troponin I Total Protein 5.8 L Albumin 2.4 L Urine Color Urine Appearance Urine pH Ur Specific Mars Urine Protein Urine Glucose (UA) Urine Ketones Urine Blood Urine Nitrite Urine Bilirubin Urine Urobilinogen Ur Leukocyte Esterase Urine WBC (Auto) Urine RBC (Auto) Hyaline Casts Urine Mucus Opiates Screen Methadone Screen Barbiturate Screen Phencyclidine Screen Ur Amphetamines Screen MDMA (Ecstasy) Screen Benzodiazepines Screen Cocaine Screen U Marijuana (THC) Screen Blood Type Antibody Screen 08/07/17 08/07/17 08/07/17 11:18 17:09 21:22 WBC RBC Hgb Hct MCV MCH MCHC RDW Plt Count MPV Neutrophils % Lymphocytes % Monocytes % Eosinophils % Basophils % PT with INR INR PTT (Actin FS) VBG pH POC VBG pCO2 POC VBG pO2 Mixed VBG HCO3 Sodium Potassium Chloride Carbon Dioxide Anion Gap BUN Creatinine Creat Clearance w eGFR POC Glucometer 338 356 360 Random Glucose Hemoglobin A1c % Lactic Acid Calcium Total Bilirubin AST ALT Alkaline Phosphatase Creatine Kinase Troponin I Total Protein Albumin Urine Color Urine Appearance Urine pH Ur Specific [place] Urine Protein Urine Glucose (UA) Urine Ketones Urine Blood Urine Nitrite Urine Bilirubin Urine Urobilinogen Ur Leukocyte Esterase Urine WBC (Auto) Urine RBC (Auto) Hyaline Casts Urine Mucus Opiates Screen Methadone Screen Barbiturate Screen Phencyclidine Screen Ur Amphetamines Screen MDMA (Ecstasy) Screen Benzodiazepines Screen Cocaine Screen U Marijuana (THC) Screen Blood Type Antibody Screen 08/08/17 08/08/17 08/08/17 06:41 11:36 11:41 WBC RBC Hgb Hct MCV MCH MCHC RDW Plt Count MPV Neutrophils % Lymphocytes % Monocytes % Eosinophils % Basophils % PT with INR INR PTT (Actin FS) VBG pH POC VBG pCO2 POC VBG pO2 Mixed VBG HCO3 Sodium Potassium Chloride Carbon Dioxide Anion Gap BUN Creatinine Creat Clearance w eGFR POC Glucometer 162 504 269 Random Glucose Hemoglobin A1c % Lactic Acid Calcium Total Bilirubin AST ALT Alkaline Phosphatase Creatine Kinase Troponin I Total Protein Albumin Urine Color Urine Appearance Urine pH Ur Specific Mars Urine Protein Urine Glucose (UA) Urine Ketones Urine Blood Urine Nitrite Urine Bilirubin Urine Urobilinogen Ur Leukocyte Esterase Urine WBC (Auto) Urine RBC (Auto) Hyaline Casts Urine Mucus Opiates Screen Methadone Screen Barbiturate Screen Phencyclidine Screen Ur Amphetamines Screen MDMA (Ecstasy) Screen Benzodiazepines Screen Cocaine Screen U Marijuana (THC) Screen Blood Type Antibody Screen 08/08/17 08/08/17 08/08/17 16:55 16:57 17:20 WBC RBC Hgb Hct MCV MCH MCHC RDW Plt Count MPV Neutrophils % Lymphocytes % Monocytes % Eosinophils % Basophils % PT with INR INR PTT (Actin FS) VBG pH POC VBG pCO2 POC VBG pO2 Mixed VBG HCO3 Sodium Potassium Chloride Carbon Dioxide Anion Gap BUN Creatinine Creat Clearance w eGFR POC Glucometer 443 501 Random Glucose 384 H* D Hemoglobin A1c % Lactic Acid Calcium Total Bilirubin AST ALT Alkaline Phosphatase Creatine Kinase Troponin I Total Protein Albumin Urine Color Urine Appearance Urine pH Ur Specific [place] Urine Protein Urine Glucose (UA) Urine Ketones Urine Blood Urine Nitrite Urine Bilirubin Urine Urobilinogen Ur Leukocyte Esterase Urine WBC (Auto) Urine RBC (Auto) Hyaline Casts Urine Mucus Opiates Screen Methadone Screen Barbiturate Screen Phencyclidine Screen Ur Amphetamines Screen MDMA (Ecstasy) Screen Benzodiazepines Screen Cocaine Screen U Marijuana (THC) Screen Blood Type Antibody Screen 08/08/17 08/09/17 08/09/17 22:06 06:34 11:24 WBC RBC Hgb Hct MCV MCH MCHC RDW Plt Count MPV Neutrophils % Lymphocytes % Monocytes % Eosinophils % Basophils % PT with INR INR PTT (Actin FS) VBG pH POC VBG pCO2 POC VBG pO2 Mixed VBG HCO3 Sodium Potassium Chloride Carbon Dioxide Anion Gap BUN Creatinine Creat Clearance w eGFR POC Glucometer 387 165 292 Random Glucose Hemoglobin A1c % Lactic Acid Calcium Total Bilirubin AST ALT Alkaline Phosphatase Creatine Kinase Troponin I Total Protein Albumin Urine Color Urine Appearance Urine pH Ur Specific [place] Urine Protein Urine Glucose (UA) Urine Ketones Urine Blood Urine Nitrite Urine Bilirubin Urine Urobilinogen Ur Leukocyte Esterase Urine WBC (Auto) Urine RBC (Auto) Hyaline Casts Urine Mucus Opiates Screen Methadone Screen Barbiturate Screen Phencyclidine Screen Ur Amphetamines Screen MDMA (Ecstasy) Screen Benzodiazepines Screen Cocaine Screen U Marijuana (THC) Screen Blood Type Antibody Screen 08/09/17 08/09/17 08/10/17 16:28 21:09 06:40 WBC RBC Hgb Hct MCV MCH MCHC RDW Plt Count MPV Neutrophils % Lymphocytes % Monocytes % Eosinophils % Basophils % PT with INR INR PTT (Actin FS) VBG pH POC VBG pCO2 POC VBG pO2 Mixed VBG HCO3 Sodium Potassium Chloride Carbon Dioxide Anion Gap BUN Creatinine Creat Clearance w eGFR POC Glucometer 224 181 120 Random Glucose Hemoglobin A1c % Lactic Acid Calcium Total Bilirubin AST ALT Alkaline Phosphatase Creatine Kinase Troponin I Total Protein Albumin Urine Color Urine Appearance Urine pH Ur Specific [place] Urine Protein Urine Glucose (UA) Urine Ketones Urine Blood Urine Nitrite Urine Bilirubin Urine Urobilinogen Ur Leukocyte Esterase Urine WBC (Auto) Urine RBC (Auto) Hyaline Casts Urine Mucus Opiates Screen Methadone Screen Barbiturate Screen Phencyclidine Screen Ur Amphetamines Screen MDMA (Ecstasy) Screen Benzodiazepines Screen Cocaine Screen U Marijuana (THC) Screen Blood Type Antibody Screen 08/10/17 10:14 WBC RBC Hgb Hct MCV MCH MCHC RDW Plt Count MPV Neutrophils % Lymphocytes % Monocytes % Eosinophils % Basophils % PT with INR INR PTT (Actin FS) VBG pH POC VBG pCO2 POC VBG pO2 Mixed VBG HCO3 Sodium Potassium Chloride Carbon Dioxide Anion Gap BUN Creatinine Creat Clearance w eGFR POC Glucometer 234 Random Glucose Hemoglobin A1c % Lactic Acid Calcium Total Bilirubin AST ALT Alkaline Phosphatase Creatine Kinase Troponin I Total Protein Albumin Urine Color Urine Appearance Urine pH Ur Specific [place] Urine Protein Urine Glucose (UA) Urine Ketones Urine Blood Urine Nitrite Urine Bilirubin Urine Urobilinogen Ur Leukocyte Esterase Urine WBC (Auto) Urine RBC (Auto) Hyaline Casts Urine Mucus Opiates Screen Methadone Screen Barbiturate Screen Phencyclidine Screen Ur Amphetamines Screen MDMA (Ecstasy) Screen Benzodiazepines Screen Cocaine Screen U Marijuana (THC) Screen Blood Type Antibody Screen hypokalemia Assessment: 08/10/17 15:34 completed detox, medically stable, to go for physical rehab at [facility], k supplemented , recheck k prior to d/c may need to stop kcl supplementation. when strong enough patient may come for alcohol rehab if he choses. he currently is homeless. David Green MD [phone]
--- NOTE | 2017-08-10 17:01 | DS ---
Physical Examination Vital Signs: Vital Signs Temperature 97.7 F 08/10/17 14:52 Pulse Rate 64 08/10/17 14:52 Respiratory Rate 20 08/10/17 08:00 Blood Pressure 100/65 08/10/17 14:52 O2 Sat by Pulse Oximetry (%) 95 08/10/17 08:00 Constitutional: Yes: No Distress HENT: Yes: Atraumatic Neck: Yes: Supple Cardiovascular: Yes: Regular Rate and Rhythm Respiratory: Yes: CTA Bilaterally Gastrointestinal: Yes: Normal Bowel Sounds Extremities: Yes: WNL Neurological: Yes: Alert, Oriented Labs: CBC, BMP 08/05/17 06:00 08/08/17 17:20 Discharge Summary Reason For Visit: COPD Current Active Problems Cigarette nicotine dependence (Acute) COPD (chronic obstructive pulmonary disease) (Chronic) Condition: Fair - Instructions Diet, Activity, Other Instructions: check K level follow up blood sugars - Home Medications Comprehensive Discharge Medication List: Ambulatory Orders Amox-Tr/K Cl [Augmentin 875-125mg Tablet -] 1 tab PO BID@0800,1730 #14 tablet Nicotine Patch [Nicoderm Patch -] 21 mg TD DAILY patch 08/06/17 Vitamins (Sjr) - 1 tab PO DAILY tablet 08/06/17 Albuterol 2.5/Ipratropium 0.5 [Duoneb -] 1 amp NEB RQID amp 08/08/17 Insulin Sliding Scale [Novolog Vial Sliding Scale -] 1 vial SQ ACHS units 08/08 Potassium Chloride [Potassium Chloride Oral Liquid] 20 meq PO BID cup 08/08/17 Prednisone 10 mg PO DAILY #10 tablet 08/08/17 Thiamine HCl [Vitamin B1 -] 100 mg PO HS tablet 08/08/17 dc to snf today
== END 2017-08-10 19:22 | DRG 140 ==
LOC: JER 10:45 → JERBED 16:19 → J4W 08-03 16:34 → J4S 08-03 17:55 → J6S 08-06 05:55
PROVIDERS: ADMIT Internal Medicine; ATTEND Internal Medicine
DX: J44.0 Chronic obstructive pulmonary disease with (acute) lower respiratory infection (principal); J44.1 Chronic obstructive pulmonary disease with (acute) exacerbation; E43 Unspecified severe protein-calorie malnutrition; E87.8 Other disorders of electrolyte and fluid balance, not elsewhere classified; F17.210 Nicotine dependence, cigarettes, uncomplicated; F10.230 Alcohol dependence with withdrawal, uncomplicated; E86.0 Dehydration; E87.6 Hypokalemia; R21 Rash and other nonspecific skin eruption; J20.9 Acute bronchitis, unspecified; Z59.0 Homelessness; R73.9 Hyperglycemia, unspecified; Z68.21 Body mass index [BMI] 21.0-21.9, adult
CPT/HCPCS: 36415; 71045-TC; 71250-TC; 80053; 80307; 81003; 81015; 82550; 82803; 82947; 82962; 83036; 83605; 84484; 85025; 85610; 85730; 86850; 86900; 86901; 87040; 87081; 87086; 87804; 93005; 93010; 94640; 97116-GP; 99285-25